=== PATIENT | female | born 1980 | race Caucasian/White ===

== ENCOUNTER 2020-07-25 22:52 | Emergency (ER) | payer OTHER, SELFPAY ==
--- NOTE | 2020-07-25 23:04 | PC.NURSE ---
Pt ambulated in [place] to provide urine specimen.
[2020-07-25 23:13] VITALS: BP 106/59; PULSE 92; RESP 21; TEMP 37.1; O2SAT 100
--- NOTE | 2020-07-25 23:20 | PC.NURSE ---
Pt presents to ED with swelling and erythema noted to bilateral LE with greater to right. Pt states initial onset was approx 4 days ago. Denies nvd, fever, chills and chest pain. States I am always short of breath. I use to smoke a lot . 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 No drainage or open wounds noted to BLE. Pt states they are painful with palpation and ambulation. Denies any treatment for extremities in the last month. Pt noted to be alert and oriented x4. Breathing even and unlabored with diminished lung sounds bilaterally. Daughter is present at bedside. Pt advised to press call button for assistance. Call button and personal items within reach.
--- NOTE | 2020-07-25 23:34 | PC.NURSE ---
EDMD presented to bedside.
--- NOTE | 2020-07-25 23:40 | ED.SKABFB ---
HPI - Skin/Abscess/Foreign Bdy General Chief complaint: Skin/Abscess/Foreign Body Stated complaint: leg redness and swelling Time Seen by Provider: 07/25/20 22:57 Source: patient and family Mode of arrival: ambulatory Limitations: no limitations History of Present Illness HPI narrative: 40-year-old female Complains of approximately a 4-day history of increasing over her usual baseline redness swelling and some pain in her right lower leg She typically has trace edema and stasis changes in both legs and has for a while, but the redness on the right is now new She does not have any fevers, chills or sweats No draining wounds She was told approximately 4 years ago at [facility] that she had cirrhosis which was either alcoholic cirrhosis or from hepatitis C, although she tells me she really never drank enough to be considered an alcoholic, but she never followed up to get treated and in fact really has not seen a doctor until today No current medications Related Data Allergies Allergy/AdvReac Type Severity Reaction Status Date / Time Penicillins Allergy Severe Swelling Verified 07/13/16 18:37 cephalexin Allergy Intermediate Swelling Verified 07/13/16 18:37 nitrofurantoin Allergy Intermediate Swelling Verified 07/13/16 18:37 Review of Systems Review of Systems: All systems reviewed & are unremarkable except as noted in HPI and below Constitutional: Constitutional: Reports no additional constitutional complaints, Denies chills, Reports fatigue, Denies fever(s), Denies headache(s) and Reports weakness Eyes: Eyes: Reports no additional eye complaints and Denies change in vision ENT: Denies headache(s) and Denies sore throat Cardiovascular: Cardiovascular: Denies chest pain and Denies dyspnea Respiratory: Respiratory: Reports cough and Reports dyspnea Gastrointestinal: Gastrointestinal: Denies abdominal pain, Denies diarrhea, Reports nausea and Denies vomiting Genitourinary: Genitourinary: Denies urinary frequency and Denies dysuria Musculoskeletal: Musculoskeletal: Denies deformity, Reports arthralgias, Reports joint swelling and Denies numbness Integumentary/Breasts: Skin/Breast: Reports erythema, Reports rash and Denies wounds Neurologic: Denies headache(s), Denies focal weakness and Denies numbness Psychiatric: Psychiatric: Reports no additional psychiatric complaints Endocrine: Endocrine: Reports no additional endocrine complaints Hematologic/Lymphatic: Hematologic/Lymphatic: Reports no additional hematologic/lymphatic complaints Allergic/Immunologic: Allergic/Immunologic: Reports no additional allergic/immunologic complaints Exam Const: General: cooperative, no acute distress and alert Nutritional Appearance: obese Orientation/consciousness: patient oriented x3 (alert) HENMT: Head: normal to inspection, normocephalic and atraumatic Ears: external ears normal General nose exam: no epistaxis Eyes: Conjunctivae: conjunctivae normal EOM: EOMs intact bilaterally Other: Not icteric Neck: Neck: normal visual inspection, supple and no JVD Resp: Effort & Inspection: normal respiratory effort and not labored Auscultation: other (BS =) GI: Inspection: Pannus present GI Palp: Yes Soft to palpation, No Tenderness to palpation present (GI), No Guarding due to palpation present (GI) and No Rebound tenderness present Skin: Rashes: rashes noted Other: Venous stasis changes of both lower legs On the right there is some superimposed dusky erythema which is mildly tender, and some petechial areas on the periphery Neuro: General: patient oriented x3 (alert) and moves all extremities Speech: normal speech Extrem: General: edema Psych: Affect: normal affect Course Vital Signs Vital signs: Vital Signs Temperature 37.1 C 07/25/20 23:13 Pulse Rate 92 07/25/20 23:13 Respiratory Rate 21 H 07/25/20 23:13 Blood Pressure 106/59 L 07/25/20 23:13 Pulse Oximetry 100 07/25/20 23:13 Tempera
[2020-07-26 00:06] LABS: Basophils Percent Auto 0.8 % (0.2-1.2); Eosinophils Absolute Auto 0.1 K/mm3 (0-0.3); Eosinophils Percent Auto 2.9 % (0-4.4); Hemoglobin 9.5 g/dL (12.0-15.0); Immature Platelet Fraction Pct 2.4 % (0.9-11.2); Lymphocytes Absolute Auto 0.85 K/mm3 (0.9-3.2); Mean Corpuscular HGB Conc 30.6 g/dl (32-36); Mean Corpuscular Hemoglobin 25.1 pg (26-34); Mean Corpuscular Volume 81.8 fl (80-100); Monocytes Absolute Auto 0.3 K/mm3 (0.1-0.6); Monocytes Percent Auto 10.7 % (2.6-8.5); Neutrophils Absolute Auto 1.2 K/mm3 (1.3-6.7); Neutrophils Percent Auto 50.6 % (45.5-73.1); Platelet Count Result 55 k/mm3 (150-375); Red Blood Count 3.79 M/mm3 (4.2-5.4); Red Cell Distribution Width 19.2 % (11.5-14.5); White Blood Count 2.4 K/mm3 (4.5-10.0)
[2020-07-26 00:06] LABS: Add Urine Microscopic? YES; Appearance Urine Cloudy (Clear); Bacteria Urine Trace /hpf; Bilirubin Urine 1+ (Negative); Blood Urine Negative (Negative); Color Urine Amber (Yellow); Glucose Urine UA Negative (Negative); Ketones Urine Negative (Negative); Leukocyte Esterase Ur 2+ LEU/UL (Negative); Mucus Urine Moderate /lpf; Nitrate Urine Negative (Negative); Protein Urine 1+ mg/dL (Negative); Squamous Epithelial Cell Urine Few /hpf (Few); WBC Urine 51-75 /hpf
[2020-07-26 00:09] LABS: INR 1.2
[2020-07-26 00:10] LABS: Alanine Aminotransferase 25 U/L (4-35); Albumin Level 2.9 g/dL (3.5-5.1); Alkaline Phosphatase 86 U/L (38-126); Anion Gap 6 mmol/L (8-16); Aspartate Amino Transferase 38 U/L (14-36); Bilirubin,Total 0.7 mg/dL (0.2-1.3); Blood Urea Nitrogen 10 mg/dL (7-17); CRP 1.3 mg/dL (<1.0); Calcium 8.1 mg/dL (8.4-10.2); Carbon Dioxide 24 mmol/L (22-30); Chloride 110 mmol/L (98-107); Estimated CRCL calculation 111 ml/min; Estimated Glomerular Filt Rate > 60; Glucose 149 mg/dL (65-105); Lipase 265 U/L (23-300); Potassium 3.7 mmol/L (3.4-5.0); Sodium 140 mmol/L (137-145)
[2020-07-26 00:11] LABS: D Dimer 0.63 ug/mL (<0.48)
[2020-07-26 00:16] LABS: Specific Grav Ur 1.033 (1.001-1.035)
[2020-07-26 00:22] VITALS: BP 114/49; PULSE 93; RESP 20; O2SAT 98
[2020-07-26 00:23] LABS: Anisocytosis 1+ (NORMAL); Platelet Estimate Decreased (Adequate)
[2020-07-26 00:24] LABS: Hypochromasia 1+ (NORMAL)
--- NOTE | 2020-07-26 00:24 | PC.NURSE ---
Pt on cart sleeping with call button and personal items within reach. Daughter remains at bedside. Advised to press call button for assistance.
[2020-07-26 01:13] LABS: Hepatitis B Surface Antigen Negative (Negative)
--- NOTE | 2020-07-26 01:16 | PC.NURSE ---
Will dc after completion of ABT.
[2020-07-26 01:18] LABS: HAV RESULT Negative (Negative); Hepatitis B Core IgM Result Negative (Negative)
--- NOTE | 2020-07-26 02:21 | PC.NURSE ---
Pt resting on cart in its lowest position with call button and personal items within reach. Pt advised to follow up in the morning for and ultrasound study, take all medications as prescribed and follow up with pcp and pt voices her understanding. Daughter remains at bedside. All questions and concerns addressed.
[2020-07-26 02:23] VITALS: BP 107/57; PULSE 87; RESP 19; TEMP 36.6; O2SAT 100
[2020-07-26 05:39] LABS: Hepatitis C Virus Antibody Reactive (Negative)
[2020-07-28 15:30] LABS: Hepatitis C RNA, Quant PCR 164000 IU/mL
== END 2020-07-26 02:31 | disposition home or self-care (01) ==
PROVIDERS: Emergency Provider Emergency Medicine
DX: L03.115 Cellulitis of right lower limb (principal); K74.60 Unspecified cirrhosis of liver
CPT/HCPCS: 36415; 80053; 80074; 81001; 83690; 85025; 85055; 85380; 85610; 86140; 87086; 87088; 87522; 96365; 96366; 99284; J1956

== ENCOUNTER 2020-07-26 12:35 | Outpatient (CLI) | payer OTHER, SELFPAY ==
--- NOTE | ~2020-07-26 | US_ITS ---
EXAMINATION: US venous doppler LE RT EXAM DATE: 07/26/2020 13:07 INDICATION: Right leg pain and swelling. TECHNIQUE: Multiple grayscale, color flow and Doppler images of the right lower extremity deep venous system were obtained and reviewed. There is no prior study for comparison. FINDINGS: The right common femoral, femoral and profunda veins demonstrate normal color flow, respira tory variation, augmentation and compressibility. Compressibility, color flow confirmed within the r ight popliteal, posterior tibial, peroneal, and greater saphenous veins. IMPRESSION: 1. No right lower extremity deep venous thrombosis. Reviewed, dictated and finalized at location B.
== END 2020-07-26 12:36 | disposition home or self-care (01) ==
PROVIDERS: PCP Family Medicine; Visit Provider Family Medicine
DX: M79.89 Other specified soft tissue disorders (principal)
CPT/HCPCS: 93971

== ENCOUNTER 2021-12-10 15:17 | Inpatient (IN) | payer OTHER, SELFPAY ==
[2021-12-10] VITALS (8 sets, daily range): BP systolic 120–148; BP diastolic 60–87; PULSE 82–101; RESP 16–18; TEMP 36.4–37; O2SAT 100; BMI 34.3
--- NOTE | ~2021-12-10 | US_ITS ---
EXAMINATION: US venous doppler [facility] DATE: 12/11/2021 10:14 INDICATION: Right lower limb swelling and edema TECHNIQUE: Grayscale ultrasound images without and with compression and Doppler ultrasound images of the bilateral lower extremity veins were obtained. COMPARISON: 07/26/2020 FINDINGS: The visualized portions of right common femoral vein, profunda (deep) femoral vein, femoral vein, pop liteal vein, posterior tibial veins, peroneal veins, gastrocnemius vein and greater saphenous vein ou tflow are patent. The visualized portions of left common femoral vein, profunda femoral vein, femoral vein, popliteal v ein, posterior tibial veins, peroneal veins, gastrocnemius vein, soleus vein and greater saphenous ve in outflow are patent. IMPRESSION: 1. No deep venous thrombosis in either lower limb. Reviewed, dictated and finalized at location B.
--- NOTE | ~2021-12-10 | XR_ITS ---
EXAMINATION: XR chest 2V Exam Date/Time: 12/10/2021 16:15 CDT HISTORY: Shortness of breath X 1 WK, HX PE, SMOKER Comparison: None available. RESULT: Lines, tubes, and devices: Cholecystectomy clips. Lungs and pleura: Clear. Cardiomediastinal silhouette: Normal. Other: No acute osseous or upper abdominal finding. IMPRESSION: No acute cardiopulmonary process. Reviewed, dictated and finalized at location K.
--- NOTE | ~2021-12-10 | XR_ITS ---
EXAMINATION: XR chest 1V portable DATE: 12/14/2021 12:32 INDICATION: Shortness of breath. TECHNIQUE: A single frontal view of the chest was obtained. COMPARISON: Chest 2 views 12/10/2021 FINDINGS: The chest demonstrates clear lungs without pneumonia, pleural effusion, or pneumothorax. Th e heart size is normal. IMPRESSION: 1. No acute cardiopulmonary disease. Reviewed, dictated and finalized at location A.
[2021-12-10 16:37] LABS: Basophils Percent Auto 0.9 % (0.2-1.2); Eosinophils Absolute Auto 0.1 K/mm3 (0-0.3); Eosinophils Percent Auto 2.8 % (0-4.4); Hematocrit 24.9 % (37.0-47.0); Immature Granulocyte Absolute 0.02 K/mm3 (0.00-0.031); Immature Granulocyte Percent A 0.9 % (0-0.5); Immature Platelet Fraction Pct 4.5 % (0.9-11.2); Lymphocytes Absolute Auto 0.55 K/mm3 (0.9-3.2); Lymphocytes Percent Auto 25.5 % (18.3-44.2); Mean Corpuscular HGB Conc 28.1 g/dl (32-36); Mean Corpuscular Hemoglobin 20.5 pg (26-34); Monocytes Absolute Auto 0.3 K/mm3 (0.1-0.6); Monocytes Percent Auto 15.7 % (2.6-8.5); Neutrophils Absolute Auto 1.2 K/mm3 (1.3-6.7); Neutrophils Percent Auto 54.2 % (45.5-73.1); Platelet Count Result 48 k/mm3 (150-375); Red Blood Count 3.41 M/mm3 (4.2-5.4); Red Cell Distribution Width 18.6 % (11.5-14.5); White Blood Count 2.2 K/mm3 (4.5-10.0)
[2021-12-10 16:47] LABS: Alanine Aminotransferase 27 U/L (6-35); Albumin Level 3.3 g/dL (3.5-5.1); Alkaline Phosphatase 93 U/L (38-126); Anion Gap 9 mmol/L (8-16); Aspartate Amino Transferase 42 U/L (14-36); Bilirubin,Total 0.9 mg/dL (0.2-1.3); Blood Urea Nitrogen 5 mg/dL (7-17); Calcium 7.6 mg/dL (8.4-10.2); Carbon Dioxide 21 mmol/L (22-30); Chloride 109 mmol/L (98-107); Estimated CRCL calculation 143 ml/min; Estimated Glomerular Filt Rate > 60; Glucose 117 mg/dL (65-110); Lipase 97 U/L (23-300); Potassium 3.1 mmol/L (3.4-5.0); Sodium 139 mmol/L (137-145)
[2021-12-10 16:54] LABS: Anisocytosis 1+ (NORMAL); Hypochromasia 1+ (NORMAL); Microcytosis 1+ (NORMAL); Ovalocytes 1+ (NORMAL); Platelet Estimate Decreased (Adequate)
[2021-12-10 16:55] LABS: Schistocytes None Seen (NORMAL)
--- NOTE | 2021-12-10 17:49 | ED.GENADULT ---
HPI - General Adult General Chief complaint: Extremity Problem,Nontraumatic Stated complaint: leg swelling, sob, cirrhosis Time Seen by Provider: 12/10/21 15:41 History of Present Illness HPI narrative: Patient is a 41-year-old female who presents ER with shortness of breath. Worsening over the last few days. Associated with increased edema to lower extremities. No fever chills or sweats. No productive cough. Patient has history of cirrhosis. Has been on treatment. Recently establish care with hepatology. She is supposed to be seeing Dr. Foreman and Jonathon johnson. She reports no recent dark black stools but had 1 episode 2 weeks ago. Shortness of breath that is worse with exertion. No chest pain or pressure or orthopnea. Related Data Allergies Allergy/AdvReac Type Severity Reaction Status Date / Time Penicillins Allergy Severe Swelling Verified 07/13/16 18:37 cephalexin Allergy Intermediate Swelling Verified 07/13/16 18:37 nitrofurantoin Allergy Intermediate Swelling Verified 07/13/16 18:37 Review of Systems Review of Systems: All systems reviewed & are unremarkable except as noted in HPI and below Constitutional: Constitutional: Denies chills, Denies fatigue and Denies fever(s) ENT: Denies nasal congestion and Denies sore throat Cardiovascular: Cardiovascular: Denies chest pain, Denies rapid heart rate and Denies radiating jaw, neck or arm pain Respiratory: Respiratory: Denies cough, Reports dyspnea and Denies wheezing Gastrointestinal: Gastrointestinal: Denies abdominal pain, Denies diarrhea, Denies nausea and Denies vomiting Genitourinary: Genitourinary: Denies nocturia and Denies dysuria Musculoskeletal: Musculoskeletal: Denies back pain, Denies arthralgias and Denies joint swelling Comments: Extremity edema PMFSH Past Medical History Medical History (Updated 12/10/21 @ 18:06 by Apollo Heller MD) Hepatitis C Surgical History Surgical History (Updated 12/10/21 @ 18:03 by Apollo Heller MD) No pertinent past surgical history Social History Social History (Updated 12/10/21 @ 18:03 by Apollo Heller MD) Other substance usage details: Former heroin abuser. Currently uses amphetamines. Exam Narrative: GENERAL: Well-appearing, well-nourished, and in no acute distress. HEAD: Normocephalic, atraumatic. EYES: PERRL and EOMI. CHEST: Clear to auscultation. No respiratory distress. HEART: Regular rate and rhythm. Normal peripheral pulses. ABDOMEN: Soft, nontender, nondistended, normal active bowel sounds. EXTREMITIES: Normal range of motion. Chronic lower extremity venous stasis changes with 1+ edema. SKIN: Warm, dry, no rash. NEURO: Alert and oriented x3. PSYCH: Normal mood and affect. Course Course Emergency Course: Patient informed of results. Admit to hospitalist service. We will transfuse and preform iron studies. Vital Signs Vital signs: Vital Signs Temperature 98.6 F 12/10/21 15:30 Pulse Rate 101 H 12/10/21 15:30 Respiratory Rate 16 12/10/21 15:30 Blood Pressure 148/77 H 12/10/21 15:30 Pulse Oximetry 100 12/10/21 15:30 Oxygen Delivery Room Air 12/10/21 15:30 Temperature 98.6 F 12/10/21 15:30 Pulse Rate 101 H 12/10/21 15:30 Respiratory Rate 16 12/10/21 15:30 Blood Pressure 148/77 H 12/10/21 15:30 Pulse Oximetry 100 12/10/21 15:30 Oxygen Delivery Room Air 12/10/21 15:30 Medical Decision Making Vital Signs Vital Signs: Vital Signs Temperature 98.6 F 12/10/21 15:30 Pulse Rate 101 H 12/10/21 15:30 Respiratory Rate 16 12/10/21 15:30 Blood Pressure 148/77 H 12/10/21 15:30 Pulse Oximetry 100 12/10/21 15:30 Oxygen Delivery Room Air 12/10/21 15:30 Temperature 98.6 F 12/10/21 15:30 Pulse Rate 101 H 12/10/21 15:30 Respiratory Rate 16 12/10/21 15:30 Blood Pressure 148/77 H 12/10/21 15:30 Pulse Oximetry 100 12/10/21 15:30 Oxygen Delivery Room Air 12/10/21 15:30 Lab Data Result d
[2021-12-10 18:03] LABS: Immature Reticulocyte Fraction 19.5 % (3.0-15.9); Reticulocyte Percent 1.91 % (0.7-4.3); Reticulocytes Absolute 0.07 B/L (32.2-175.7)
[2021-12-10 18:48] LABS: SARS-CoV-2 RNA PCR Negative
[2021-12-10 19:22] LABS: Lactate Dehydrogenase 190 U/L (120-246)
[2021-12-10 19:27] LABS: INR 1.4; Prothrombin Time 16.7 Seconds (11.1-14.7)
[2021-12-10 19:29] LABS: Partial Thromboplastin Time 32.9 SECONDS (22.3-36.8)
--- NOTE | 2021-12-10 19:32 | ADMGEN ---
This patient, Nichelle Pelayo, was admitted to 2 Medical Room 257-01. Patient/family oriented to hospital policies and general routines including ID bracelet, bed and alarms, visiting hours, pain management, procedures, bathroom and other care routines, personal items, smoking policy, room service/diet, and visiting hours. Information on how to activate the Rapid Response Team has been discussed. Patient/Family are encouraged to report perceived risks to care and to ask questions if they do not understand what they are told or what they should do.
[2021-12-10 20:17] LABS: Iron 24 ug/dL (37-170)
[2021-12-10 20:27] LABS: Percent Iron Saturation 5 % (20-50)
[2021-12-10 20:29] LABS: Folic Acid 17.9 ng/mL (2.76->20)
[2021-12-10 20:54] LABS: Ferritin 7.36 ng/mL (6.24-137)
--- NOTE | 2021-12-10 22:00 | PM.IMHP ---
H&P: HPI History of Present Illness Date/Time: 12/10/21 22:00 Chief Complaint: Shortness of breath and leg swelling. Narrative: This is a pleasant 41-year-old female with history of polysubstance abuse, hepatitis-C, and cirrhosis who presented to the emergency department for evaluation of shortness of breath and leg swelling. She was diagnosis with cirrhosis in 2017 and at that time she found out she was positive for hepatitis-C as well. She was not treated for such and has not been following with a sales operations analyst though about 8 months ago she decided that she wanted to get clean and get her help under control. She has been seeing Dr. Foreman (gastroenterology) and they are in the process of getting insurance approval to treat the hepatitis-C. it is not unusual for her to have intermittent abdominal swelling and lower extremity swelling in that seems to come and go despite the fact that she is not on diuretics at home. Over the last month or so she has had increasing lower extremity edema and more recently she has noticed that she is becoming increasingly short of breath on lesser and lesser exertion. She has really not gotten out of bed since because she is so we can get short of breath with walking. Additionally she has had mild epigastric discomfort with bloating and belching and she states this is similar to when she was diagnosed with an ulcer in the past. Her vital signs were stable on arrival to the emergency department. Workup was significant for pancytopenia with white blood cell count of 2.2, hemoglobin 7.0, MCV 73, platelets 48. Her coags were slightly prolonged as well but not significantly so. With further questioning she does endorse having intermittent dark stools but typically her stools are light in color. She is currently on her period and she has been menstruating for 2 weeks. Her period has been quite heavy and for several days she had clots as biggest her palm. She also endorses feeling lightheaded and dizzy. She is being admitted now for blood transfusion and consultation with Gastroenterology. She denies fever, chills, sweats, chest pain, pleuritic pain, resting shortness of breath, nausea, vomiting, hematemesis, abdominal pain, hematochezia, and recent melena. She has not been taking aspirin or NSAIDs. Review of Systems Review of Systems: Twelve systems were reviewed and are negative except for as per HPI. [facility] Past Medical History Medical History (Updated 12/11/21 @ 00:21 by Nery Tyson PA-C) Cirrhosis Hepatitis C Surgical History Surgical History (Updated 12/10/21 @ 23:01 by Nery Tyson PA-C) History of section History of cholecystectomy Family History Family History (Updated 12/11/21 @ 00:18 by Nery Tyson PA-C) Sibling Drug addiction Social History Social History (Updated 12/11/21 @ 00:19 by Nery Tyson PA-C) Social History: Surrogate medical decision maker: Claudia Pelayo, mother. Code status: Full code. Smoking packs per day: 0.5 Smoking cigarettes per day: 10.0 Years smoked: 25 Smoking pack-years: 12.50 Smoking status: Current every day smoker Tobacco type: cigarettes Alcohol intake: never Substance use: current Substance use type: heroin and methamphetamine Other substance usage details: history of heroin use for 11 years, clean for 11 years. Last use: Snorts meth daily for the past 6 years. Has the Lack of Transportation Kept You From Medical Appointments or From Getting Medications?: No Within the Past 12 Months, Were You Worried Whether Your Food Would Run Out Before You Got Money to Buy More?: Never True What is Your Housing Situation Today?: I Have Housing Are You Worried That in the Next 2 Months, You May Not Have Your Own Housing to Live In?: No Do You Have Trouble Paying Your Heating Or Electricity Bill?: No Do You Have Trouble Paying For Medicines?: No Are You Currently Unemployed and Looking
[2021-12-10] MEDS: SODIUM CHLORIDE 0.9% IV 250 ML 30 ML IV CONT (22:06)
[2021-12-11] VITALS (13 sets, daily range): BP systolic 114–136; BP diastolic 63–74; PULSE 73–98; RESP 16–18; TEMP 36.5–37.2; O2SAT 99–100
[2021-12-11] MEDS: PANTOPRAZOLE SODIUM IV 40 MG VIAL IV PUSH ×3 (00:59→20:48)
[2021-12-11] MEDS: POTASSIUM CHLORIDE 20 MEQ TABLET PO (00:59)
[2021-12-11 06:44] LABS: Hematocrit 26.5 % (37.0-47.0); Hemoglobin 7.6 g/dL (12.0-15.0); Mean Corpuscular HGB Conc 28.7 g/dl (32-36); Mean Corpuscular Hemoglobin 21.3 pg (26-34); Mean Corpuscular Volume 74.4 fl (80-100); Platelet Count Result 44 k/mm3 (150-375); Red Blood Count 3.56 M/mm3 (4.2-5.4); Red Cell Distribution Width 18.9 % (11.5-14.5); White Blood Count 2.5 K/mm3 (4.5-10.0)
[2021-12-11 06:54] LABS: Alanine Aminotransferase 27 U/L (6-35); Albumin Level 3.1 g/dL (3.5-5.1); Alkaline Phosphatase 90 U/L (38-126); Anion Gap 6 mmol/L (8-16); Aspartate Amino Transferase 43 U/L (14-36); Bilirubin,Total 1.2 mg/dL (0.2-1.3); Blood Urea Nitrogen 7 mg/dL (7-17); Calcium 7.5 mg/dL (8.4-10.2); Carbon Dioxide 22 mmol/L (22-30); Chloride 109 mmol/L (98-107); Estimated CRCL calculation 122 ml/min; Estimated Glomerular Filt Rate > 60; Glucose 114 mg/dL (65-110); Magnesium 1.9 mg/dL (1.6-2.3); Potassium 3.7 mmol/L (3.4-5.0); Sodium 137 mmol/L (137-145)
--- NOTE | 2021-12-11 12:24 | PM.IMPN ---
Progress Note: A&P Assessment and Plan (1) Shortness of breath: Code(s): R06.02 - Shortness of breath Status: Acute Assessment and Plan: Presented with complaints of increased shortness of breath which has improved. This is likely due to anemia. Chest x-ray shows no acute cardiopulmonary process. Bilateral venous Dopplers negative for DVT and PE is unlikely based on history and clinical findings. She is maintaining adequate O2 sats on room air (2) Microcytic anemia: Code(s): D50.9 - Iron deficiency anemia, unspecified Status: Acute Assessment and Plan: Hemoglobin 7.0 on presentation and she has been transfused 1 unit of packed RBCs. iron panel is consistent with iron deficiency anemia. Patient does report heavy menses which could contribute. She owned follow-up with gynecology as an outpatient. Given her history of cirrhosis, GI bleed also considered. Appreciate GI consultation. Stool occult blood test pending. Continue Protonix. Monitor H&H to ensure remaining stable (3) Cirrhosis: Code(s): K74.60 - Unspecified cirrhosis of liver Status: Acute Assessment and Plan: Patient with history of cirrhosis, followed by hepatology. She has been started on spironolactone due to complaints of excess fluid, will continue. Appreciate GI evaluation. (4) Methamphetamine use: Code(s): F15.10 - Other stimulant abuse, uncomplicated Status: Acute Assessment and Plan: Patient reported to admitting provider that she has been using methamphetamine daily up until 5 days prior to admission. Subsequently told me she has not used for several months. Pts daughter reports she has been using daily and last use was 12/10. Daughter requests resources for methamphetamine abuse counseling, rehab, etc. (5) Hepatitis C: Code(s): B19.20 - Unspecified viral hepatitis C without hepatic coma Status: Acute Assessment and Plan: Currently untreated. Awaiting insurance approval to initiate treatment per her drum builder. (6) Pancytopenia: Code(s): D61.818 - Other pancytopenia Status: Acute Assessment and Plan: Secondary to cirrhosis. Monitor CBC with differential. (7) Tobacco abuse: Code(s): Z72.0 - Tobacco use Status: Acute Assessment and Plan: Patient smokes 1/2 ppd. Requests nicotine patch during admission. Subjective Date/time seen: 12/11/21 12:24 Interval history: date of service: 12/11/2021 Nichelle Pelayo is a 41-year-old female with a history of polysubstance abuse, hepatitis-C not currently receiving treatment, cirrhosis who is seen in follow-up for anemia. Patient states she is feeling okay today. Her main complaint is worsened fatigue. States she was feeling short of breath but this has improved significantly. She denies wheezing, cough, or chest pain. She denies abdominal pain, nausea, or vomiting. She has some vague epigastric discomfort. Her daughter states that she is always complaining of abdominal issues. She denies blood in her stools. She does endorse very heavy menses and states that she has been passing clots. She states her lower extremity edema has resolved. She was having muscle cramping last night but this also seems improved. She states she has not used any recreational drugs in several weeks, states she does not drink alcohol and has no history of heavy alcohol use, and that she smokes a half a pack a day. She requested nicotine patch. Her daughter stepped outside the room to speak with me. she states she did not wish to bring up in front of her mother so as not to upset her but she is aware that she has been using meth daily, as recently as yesterday before coming to the hospital. She is unsure if she is smoking, snorting, or shooting up. She wanted to make sure medical staff was aware. She also indicates that she does have history of heavy alcohol use, though
[2021-12-11] MEDS: NICOTINE (*PBKC) 14 MG PATCH 1 PATCH TRANSDERM (13:06)
[2021-12-11 13:20] LABS: IFOB Positive Control Positive; Immunochemical Fecal Occult Bl Negative (N)
--- NOTE | 2021-12-11 15:01 | WPDGICN ---
Assessment and Plan Assessment and plan (1) Cirrhosis: Code(s): K74.60 - Unspecified cirrhosis of liver Status: Acute Assessment and Plan: HCV cirrhosis, treatment naive but recently her GI doctor sent off blood work to her insurance and hopefully start treatment soon (2) Pancytopenia: Code(s): D61.818 - Other pancytopenia Status: Acute Assessment and Plan: wonder if could be from cirrhosis (3) Hepatitis C: Code(s): B19.20 - Unspecified viral hepatitis C without hepatic coma Status: Acute (4) Acute on chronic anemia: Code(s): D64.9 - Anemia, unspecified Status: Acute Assessment and Plan: also noted microcytosis she also has heavy periods, will do egd given history of cirrhosis to check for ev or phg, also colonoscopy since never had one (5) Methamphetamine use: Code(s): F15.10 - Other stimulant abuse, uncomplicated Status: Acute Assessment and Plan: she is trying to quit (6) Shortness of breath: Code(s): R06.02 - Shortness of breath Status: Acute Assessment and Plan: probably from anemia and underlying cirrhosis GI Consult Note Consult date/time: 12/11/21 15:01 Reason for consult: cirrhosis, acute on chronic microcytic anemia HPI: Nichelle Pelayo is a 41 year old female with?history of polysubstance abuse (remote iv heroin, now methamphetamine), hepatitis-C cirrhosis diagnosed in 2017- remember having EGD. She just established with GI and she is on the process to get insurance approval to start treatment, still treatment naive. She came here because progressive leg edema and last few days increasing short of breath on exertion.? Blood work consistent with pancytopenia with white blood cell count of 2.2, hemoglobin 7.0, MCV 73, platelets 48. She has been having heavy periods with clots for last 2 weeks. She does not remember having colonoscopy. Review of Systems Review of Systems: All systems reviewed & are unremarkable except as noted in HPI and below Constitutional: Constitutional: Denies chills, Reports fatigue and Denies fever(s) ENT: Denies nasal congestion and Denies sore throat Cardiovascular: Cardiovascular: Denies chest pain, Denies rapid heart rate and Denies radiating jaw, neck or arm pain Respiratory: Respiratory: Denies cough, Reports dyspnea on exertion and Denies wheezing Gastrointestinal: Gastrointestinal: Denies abdominal pain, Denies diarrhea, Denies nausea and Denies vomiting Genitourinary: Genitourinary: Denies nocturia and Denies dysuria Musculoskeletal: Musculoskeletal: Denies back pain, Denies arthralgias and Denies joint swelling Comments: Extremity edema Integumentary/Breasts: Skin/Breast: Denies rash Neurologic: Denies confusion Psychiatric: Psychiatric: Denies confusion [facility] Past Medical History Medical History (Updated 12/11/21 @ 15:08 by Mehul Garduno MD) Acute on chronic anemia Cirrhosis Hepatitis C Tobacco abuse Surgical History Surgical History (Updated 12/10/21 @ 23:01 by Nery Tyson PA-C) History of section History of cholecystectomy Family History Family History (Updated 12/11/21 @ 00:18 by Nery Tyson PA-C) Sibling Drug addiction Social History Social History (Updated 12/11/21 @ 00:19 by Nery Tyson PA-C) Social History: Surrogate medical decision maker: lCaudia Pelayo, mother. Code status: Full code. Smoking packs per day: 0.5 Smoking cigarettes per day: 10.0 Years smoked: 25 Smoking pack-years: 12.50 Smoking status: Current every day smoker Tobacco type: cigarettes Alcohol intake: never Substance use: current Substance use type: heroin and methamphetamine Other substance usage details: history of heroin use for 11 years, clean for 11 years. Last use: Snorts meth daily for the past 6 years. Has the Lack of Transportation Kept You From Medical Appoint
[2021-12-11 15:07] LABS: Hematocrit 26.7 % (37.0-47.0); Hemoglobin 7.6 g/dL (12.0-15.0)
[2021-12-11] MEDS: polyethylene glycoL 3350 238 GM BOTTLE PO (17:27)
[2021-12-11] MEDS: BISACODYL 5 MG TABLET EC 20 MG PO (17:27)
[2021-12-11 23:32] LABS: Hematocrit 26.6 % (37.0-47.0); Hemoglobin 7.6 g/dL (12.0-15.0)
[2021-12-12] VITALS (13 sets, daily range): BP systolic 91–122; BP diastolic 49–82; PULSE 71–86; RESP 16–20; TEMP 36.2–36.7; O2SAT 100
[2021-12-12] MEDS: ONDANSETRON INJ 4 MG/2 ML VIAL IV PUSH (00:55)
[2021-12-12 04:19] LABS: Hematocrit 26.7 % (37.0-47.0); Hemoglobin 7.6 g/dL (12.0-15.0); Immature Platelet Fraction Pct 4.6 % (0.9-11.2); Mean Corpuscular HGB Conc 28.5 g/dl (32-36); Mean Corpuscular Hemoglobin 21.1 pg (26-34); Platelet Count Result 50 k/mm3 (150-375); Red Blood Count 3.61 M/mm3 (4.2-5.4); Red Cell Distribution Width 18.7 % (11.5-14.5); White Blood Count 2.8 K/mm3 (4.5-10.0)
[2021-12-12 04:28] LABS: Alanine Aminotransferase 28 U/L (6-35); Albumin Level 3.1 g/dL (3.5-5.1); Alkaline Phosphatase 81 U/L (38-126); Anion Gap 10 mmol/L (8-16); Aspartate Amino Transferase 45 U/L (14-36); Bilirubin,Total 1.1 mg/dL (0.2-1.3); Blood Urea Nitrogen 7 mg/dL (7-17); Calcium 7.7 mg/dL (8.4-10.2); Carbon Dioxide 23 mmol/L (22-30); Chloride 105 mmol/L (98-107); Estimated CRCL calculation 122 ml/min; Estimated Glomerular Filt Rate > 60; Glucose 129 mg/dL (65-110); Potassium 3.7 mmol/L (3.4-5.0); Sodium 138 mmol/L (137-145)
[2021-12-12 04:54] LABS: Total Cells Counted 100
[2021-12-12 04:55] LABS: Band Neutrophils Percent 10 % (0-6); Eosinophils Absolute Manual 0.02 K/mm3 (0.02-0.5); Eosinophils Percent Manual 1 % (0-4); Lymphocytes Absolute Manual 0.61 K/mm3 (1.1-4.5); Lymphocytes Percent Manual 22 % (18-44); Monocytes Absolute Manual 0.05 K/mm3 (0.1-0.90); Monocytes Percent Manual 2 % (3-9); Neutrophils Absolute Manual 2.07 K/mm3 (1.7-7.2); Neutrophils Percent Manual 64 % (46-73)
[2021-12-12 04:56] LABS: Basophils Absolute Manual 0.02 K/mm3 (0.0-0.1); Basophils Percent Manual 1 % (0-1); Smudge Cells FEW
[2021-12-12 04:57] LABS: Platelet Estimate Decreased (Adequate)
[2021-12-12 04:58] LABS: Anisocytosis 2+ (NORMAL); Hypochromasia 2+ (NORMAL); Macrocytosis 1+ (NORMAL); Microcytosis 1+ (NORMAL); Poikilocytosis 2+ (NORMAL)
[2021-12-12 04:59] LABS: Burr Cells 1+ (NORMAL); Ovalocytes 1+ (NORMAL); Tear Drop Cells 1+ (NORMAL); Toxic Granulation Present (NORMAL)
[2021-12-12 05:00] LABS: Schistocytes 1+ (NORMAL)
[2021-12-12] MEDS: polyethylene glycoL 3350 238 GM BOTTLE PO (06:27)
--- NOTE | 2021-12-12 08:23 | PC.NURSE ---
Report called to [facility].
--- NOTE | 2021-12-12 08:40 | PC.NURSE ---
To GI Lab via wheelchair.
[2021-12-12] MEDS: LACTATED RINGERS 1,000 ML 150 ML IV CONT (08:52)
--- NOTE | 2021-12-12 08:53 | SUR.PREOP ---
no HCG noted. pt states she is currently on her menstrual cycle. Anesthesia Min made aware. no orders.
[2021-12-12] MEDS: BENZOCAINE (*SP) 60 ML SPRAY CAN (HURRICAINE) 1 SPRAY MUCOUS MEM (09:51)
--- NOTE | 2021-12-12 09:52 | SUR.OPER ---
EGD: [id number] COLON: [id number]
--- NOTE | 2021-12-12 11:00 | PC.NURSE ---
Returned from GI Lab via stretcher.
--- NOTE | 2021-12-12 15:31 | PM.IMPN ---
Progress Note: A&P Assessment and Plan (1) Shortness of breath: Code(s): R06.02 - Shortness of breath Status: Acute Assessment and Plan: This is likely due to anemia. Chest x-ray shows no acute cardiopulmonary process. Bilateral venous Dopplers negative for DVT and PE is unlikely based on history and clinical findings. She is maintaining adequate O2 sats on room air. Incentive spirometry (2) Microcytic anemia: Code(s): D50.9 - Iron deficiency anemia, unspecified Status: Acute Assessment and Plan: Hemoglobin 7.0 on presentation and she wastransfused 1 unit of packed RBCs. iron panel is consistent with iron deficiency anemia. Patient does report heavy menses which could contribute. She will need follow-up with gynecology as an outpatient. Given her history of cirrhosis, there was concern for GI bleed and she was seen in consultation by Gastroenterology. EGD demonstrated moderate gastritis. Continue Protonix. No findings to explain anemia on colonoscopy. Stool occult blood test negative. Monitor H&H to ensure remaining stable (3) Cirrhosis: Code(s): K74.60 - Unspecified cirrhosis of liver Status: Acute Assessment and Plan: Patient with history of cirrhosis, followed by hepatology. She has been started on spironolactone due to complaints of excess fluid. Seen in consultation by Gastroenterology. EGD today revealed small grade 1 nonbleeding esophageal varices. She has been started on propranolol 10 mg q12h (4) Methamphetamine use: Code(s): F15.10 - Other stimulant abuse, uncomplicated Status: Acute Assessment and Plan: Patient reported to admitting provider that she has been using methamphetamine daily up until 5 days prior to admission. Subsequently told me she has not used for several months. Pts daughter reports she has been using daily and last use was 12/10. Daughter requests resources for methamphetamine abuse counseling, rehab, etc. Appreciate care coordination to provide resources. (5) Hepatitis C: Code(s): B19.20 - Unspecified viral hepatitis C without hepatic coma Status: Acute Assessment and Plan: Currently untreated. Awaiting insurance approval to initiate treatment per her front of house manager. (6) Pancytopenia: Code(s): D61.818 - Other pancytopenia Status: Acute Assessment and Plan: Secondary to cirrhosis. Monitor CBC with differential. (7) Tobacco abuse: Code(s): Z72.0 - Tobacco use Status: Acute Assessment and Plan: Patient smokes 1/2 ppd. Continue nicotine patch. Continue to reinforce smoking cessation Subjective Date/time seen: 12/12/21 15:31 Interval history: date of service: 12/12/2021 Nichelle Pelayo is a 41-year-old female with a history of polysubstance abuse, hepatitis-C not currently receiving treatment, cirrhosis who is seen in follow-up for anemia. she had EGD and colonoscopy today. She is feeling very poorly after this. She complains of 7/10 epigastric pain. She denies nausea or vomiting. She reports loose stools following her colonoscopy prep. She has not noticed any blood in her stools. She states she is not able to get up and walk around. She feels very weak and dizzy. She notes no change to her shortness of breath. Feels her lower extremity edema is improved Review of Systems Review of Systems: All systems reviewed & are unremarkable except as noted in HPI and below Exam Narrative: General: Well-nourished, chronically ill-appearing 41-year-old female, sitting up in bed , comfortable, NARD Neuro: awake, alert and oriented x4, speech clear, no focal neuro deficits noted HEENMT: normocephalic, atraumatic, EOMI, sclerae anicteric, poor dentition Respiratory: clear to auscultation bilaterally, nonlabored breathing Cardio: regular rate, regular rhythm with S1-S2 Abdomen: nondistended, normoactive bowel sounds,
[2021-12-12] MEDS: PROPRANOLOL HCL 10 MG TABLET PO (20:49)
[2021-12-13] VITALS (16 sets, daily range): BP systolic 100–122; BP diastolic 50–90; PULSE 66–89; RESP 12–20; TEMP 35.9–36.8; O2SAT 96–100
[2021-12-13] MEDS: HYDROcodone/acetaminophen (*CRX) 5-325 MG TABLET 1 TAB PO ×3 (01:11→10:02)
[2021-12-13 05:24] LABS: Hematocrit 28.7 % (37.0-47.0); Hemoglobin 8.2 g/dL (12.0-15.0); Immature Platelet Fraction Pct 4.3 % (0.9-11.2); Mean Corpuscular HGB Conc 28.6 g/dl (32-36); Mean Corpuscular Hemoglobin 21.3 pg (26-34); Mean Corpuscular Volume 74.5 fl (80-100); Platelet Count Result 58 k/mm3 (150-375); Red Blood Count 3.85 M/mm3 (4.2-5.4); Red Cell Distribution Width 18.9 % (11.5-14.5); White Blood Count 3.5 K/mm3 (4.5-10.0)
[2021-12-13 05:29] LABS: Alanine Aminotransferase 26 U/L (6-35); Albumin Level 3.1 g/dL (3.5-5.1); Alkaline Phosphatase 76 U/L (38-126); Anion Gap 8 mmol/L (8-16); Aspartate Amino Transferase 41 U/L (14-36); Bilirubin,Total 0.8 mg/dL (0.2-1.3); Blood Urea Nitrogen 10 mg/dL (7-17); Calcium 7.8 mg/dL (8.4-10.2); Carbon Dioxide 26 mmol/L (22-30); Chloride 106 mmol/L (98-107); Estimated CRCL calculation 123 ml/min; Estimated Glomerular Filt Rate > 60; Glucose 112 mg/dL (65-110); Potassium 3.6 mmol/L (3.4-5.0); Sodium 140 mmol/L (137-145)
[2021-12-13 06:07] LABS: Band Neutrophils Percent 3 % (0-6); Lymphocytes Percent Manual 20 % (18-44); Neutrophils Absolute Manual 2.73 K/mm3 (1.7-7.2); Neutrophils Percent Manual 75 % (46-73); Total Cells Counted 100
[2021-12-13 06:08] LABS: Basophils Absolute Manual 0.03 K/mm3 (0.0-0.1); Basophils Percent Manual 1 % (0-1); Eosinophils Absolute Manual 0.03 K/mm3 (0.02-0.5); Eosinophils Percent Manual 1 % (0-4); Smudge Cells FEW
[2021-12-13 06:09] LABS: Anisocytosis 1+ (NORMAL); Hypochromasia 2+ (NORMAL); Macrocytosis 1+ (NORMAL); Poikilocytosis 1+ (NORMAL); Target Cells 1+ (NORMAL)
[2021-12-13 06:10] LABS: Ovalocytes 1+ (NORMAL); Schistocytes None Seen (NORMAL); Tear Drop Cells 1+ (NORMAL)
[2021-12-13] MEDS: NICOTINE (*PBKC) 14 MG PATCH 1 PATCH TRANSDERM (10:01)
[2021-12-13] MEDS: PROPRANOLOL HCL 10 MG TABLET PO ×2 (10:02→21:19)
[2021-12-13] MEDS: PANTOPRAZOLE 40 MG TABLET PO (10:02)
[2021-12-13] MEDS: SPIRONOLACTONE 25 MG TABLET PO (10:02)
--- NOTE | 2021-12-13 10:19 | PC.NURSE ---
patient states she has not been on bed alarm. she does not technically qualify for bed alarm, but I educated her that she should call when ambulating due to dizziness. She is agreeable to bed alarm as well as calling to have help.
--- NOTE | 2021-12-13 11:01 | WPDANESPN ---
Anes - Prog Note Post-Op Date/Time: 12/13/21 08:48 Cardiovascular status: normal Respiratory status: normal Airway patency: baseline Mental status: baseline Post-Op hydration status: normal Vital Signs: Last Vital Signs Temp 97 F L 12/13/21 10:22 Pulse 84 12/13/21 10:22 Resp 16 12/13/21 10:22 BP 114/71 12/13/21 10:22 Pulse Ox 97 12/13/21 10:22 O2 Del Method Room Air 12/13/21 10:00 Pain Score (VAS): 0 I/O: Intake & Output 12/12/21 12/13/21 12/13/21 23:59 07:59 15:59 Intake Total 730 390 240 Balance 730 390 240 Laboratory Tests 12/13/21 05:08 12/13/21 05:08 12/13/21 12/13/21 05:08 05:08 WBC 3.5 L RBC 3.85 L Hgb 8.2 L Hct 28.7 L MCV 74.5 L MCH 21.3 L MCHC 28.6 L RDW 18.9 H Plt Count 58 L MPV TNP Immature Gran % (Auto) Not Reportable Neut % (Auto) Not Reportable Lymph % (Auto) Not Reportable [place] % (Auto) Not Reportable Eos % (Auto) Not Reportable Baso % (Auto) Not Reportable Lymph # (Auto) Not Reportable [place] # (Auto) Not Reportable Eos # (Auto) Not Reportable Baso # (Auto) Not Reportable Abs Immat Gran (auto) Not Reportable Absolute Neuts (auto) Not Reportable Absolute Nucleated RBC Not Reportable Total Counted 100 Neutrophils % (Manual) 75 H Band Neutrophils % 3 Lymphocytes % (Manual) 20 Eosinophils % (Manual) 1 Basophils % (Manual) 1 Nucleated RBC % Not Reportable Abs Neuts (Manual) 2.73 Abs Lymphs (Manual) 0.70 L Absolute Eos (Manual) 0.03 Abs Basophils (Manual) 0.03 Smudge Cells Few Platelet Estimate Slightly decreased % Immature Plt Fraction 4.3 Hypochromasia 2+ Poikilocytosis 1+ Anisocytosis 1+ Macrocytosis 1+ Target Cells 1+ Tear Drop Cells 1+ Ovalocytes 1+ Schistocytes None seen Sodium 140 Potassium 3.6 Chloride 106 Carbon Dioxide 26 Anion Gap 8 BUN 10 Creatinine 0.60 L Estim Creat Clear Calc 123 Estimated GFR > 60 Glucose 112 H Calcium 7.8 L Total Bilirubin 0.8 AST 41 H ALT 26 Alkaline Phosphatase 76 Total Protein 7.0 Albumin 3.1 L Post-procedural complaints: none Patient Feedback: Patient satisfied with anesthetic care.
[2021-12-13 11:34] LABS: Troponin I < 0.012 ng/mL (0.000-0.034)
[2021-12-13] MEDS: FERROUS SULFATE 324 MG TABLET PO (12:43)
--- NOTE | 2021-12-13 13:18 | PC.NURSE ---
On 12/13/21, the student, [Matt Bliss], provided care and completed [facility] documentation on this patient. I have reviewed the student's documentation and agree with the findings.
[2021-12-13] MEDS: SODIUM CHLORIDE 0.9% IV 250 ML 100 ML IV CONT (15:48)
--- NOTE | 2021-12-13 16:47 | PM.IMPN ---
Progress Note: A&P Assessment and Plan (1) Microcytic anemia: Code(s): D50.9 - Iron deficiency anemia, unspecified Status: Acute Assessment and Plan: Hemoglobin 7.0 on presentation and she was transfused 1 unit of packed RBCs on 12/10/21. iron panel is consistent with iron deficiency anemia. Patient does report heavy menses which could contribute. She will need follow-up with gynecology as an outpatient. Given her history of cirrhosis, there was concern for GI bleed and she was seen in consultation by Gastroenterology. EGD demonstrated moderate gastritis. Continue Protonix. No findings to explain anemia on colonoscopy. Stool occult blood test negative. Monitor H&H to ensure remaining stable 12/13/21 patient has persistent dizziness that may be secondary to anemia, H/H 8.2/28% stable from yesterday, start ferrous sulfate 325 mg PO daily and ascorbic acid 500 mg PO daily. Repeat H/H in am. (2) Cirrhosis: Qualifiers: Hepatic cirrhosis type: other cirrhosis Qualified Code(s): K74.69 - Other cirrhosis of liver Code(s): K74.60 - Unspecified cirrhosis of liver Status: Chronic Assessment and Plan: Patient with history of cirrhosis, followed by hepatology. H/O HCV She has been started on spironolactone due to complaints of excess fluid. Seen in consultation by Gastroenterology. 12/12/21 EGD revealed small grade 1 nonbleeding esophageal varices. She has been started on propranolol 10 mg q12h and spironolactone 25 mg PO daily. dizziness may be secondary to new medications. Will given 250 mL cc bolus x1 and monitor symptoms. (3) Shortness of breath: Code(s): R06.02 - Shortness of breath Status: Acute Assessment and Plan: This is likely due to anemia. Chest x-ray shows no acute cardiopulmonary process. Bilateral venous Dopplers negative for DVT and PE is unlikely based on history and clinical findings. She is maintaining adequate O2 sats on room air. Continue Incentive spirometry (4) Methamphetamine use: Code(s): F15.10 - Other stimulant abuse, uncomplicated Status: Chronic Assessment and Plan: Patient reported to admitting provider that she has been using methamphetamine daily up until 5 days prior to admission. Subsequently told me she has not used for several months. Pts daughter reports she has been using daily and last use was 12/10. Daughter requests resources for methamphetamine abuse counseling, rehab, etc. Appreciate care coordination to provide resources. (5) Hepatitis C: Qualifiers: Viral hepatitis chronicity: unspecified Hepatic coma status: without hepatic coma Qualified Code(s): B19.20 - Unspecified viral hepatitis C without hepatic coma Code(s): B19.20 - Unspecified viral hepatitis C without hepatic coma Status: Chronic Assessment and Plan: Currently untreated. Awaiting insurance approval to initiate treatment per her occasional babysitter. (6) Pancytopenia: Code(s): D61.818 - Other pancytopenia Status: Chronic Assessment and Plan: Secondary to cirrhosis. Monitor CBC with differential. (7) Tobacco abuse: Code(s): Z72.0 - Tobacco use Status: Chronic Assessment and Plan: Patient smokes 1/2 ppd. Continue nicotine patch. Continue to reinforce smoking cessation Plan CODE STATUS: FULL CODE Disposition: home with daughter. Time Spent With Patient Time with patient: 25 - 35 minutes Subjective Date/time seen: 12/13/21 16:47 Interval history: Patient c/o dizziness at rest and with activity. She has left sided chest pain that has been present since prior to admission and is somewhat improved today. No SOB, palpitations, abd pain, N/V/D, constipation, or paresthesia. She is still on her menses today and states she was changing her pads frequently yesterday. No clots noted. She has not seen a quality control manager in many years. Re
[2021-12-13 18:04] LABS: Glucose Point of Care 122 mg/dl (65-105)
[2021-12-13] MEDS: ONDANSETRON INJ 4 MG/2 ML VIAL IV PUSH (18:07)
[2021-12-14] VITALS (8 sets, daily range): BP systolic 117–124; BP diastolic 65–72; PULSE 64–72; RESP 16–20; TEMP 36.4–36.9; O2SAT 98–100
[2021-12-14 05:46] LABS: Hematocrit 28.8 % (37.0-47.0); Hemoglobin 8.2 g/dL (12.0-15.0); Immature Platelet Fraction Pct 4.9 % (0.9-11.2); Mean Corpuscular HGB Conc 28.5 g/dl (32-36); Mean Corpuscular Hemoglobin 21.1 pg (26-34); Mean Corpuscular Volume 74.2 fl (80-100); Platelet Count Result 57 k/mm3 (150-375); Red Blood Count 3.88 M/mm3 (4.2-5.4); Red Cell Distribution Width 18.8 % (11.5-14.5); White Blood Count 3.1 K/mm3 (4.5-10.0)
[2021-12-14] MEDS: PROPRANOLOL HCL 10 MG TABLET PO (08:25)
[2021-12-14] MEDS: ASCORBIC ACID 500 MG TABLET PO (08:25)
[2021-12-14] MEDS: FERROUS SULFATE 324 MG TABLET PO (08:25)
[2021-12-14] MEDS: SPIRONOLACTONE 25 MG TABLET PO (08:25)
[2021-12-14] MEDS: NICOTINE (*PBKC) 14 MG PATCH 1 PATCH TRANSDERM (08:26)
[2021-12-14] MEDS: PANTOPRAZOLE 40 MG TABLET PO (08:26)
[2021-12-14] MEDS: BELLADONNA ALK/PHENOB ELIX 10 ML, MAG HYDROX/ALUMINUM HYD/SIMETH 30 ML, LIDOCAINE HCL 2... PO (10:43)
[2021-12-14] MEDS: polyethylene glycoL 3350 17 GM POWD.PACK PO (10:47)
[2021-12-14 11:04] LABS: Magnesium 1.8 mg/dL (1.6-2.3); Potassium 3.6 mmol/L (3.4-5.0)
--- NOTE | 2021-12-14 11:55 | PM.DS ---
DS: Admitting Diagnosis Discharge Date 12/14/21 1155 Admitting Diagnosis (1) Shortness of breath (2) Cirrhosis (3) Microcytic anemia (4) Methamphetamine use (5) Hepatitis C, history of DS: Discharge Diagnosis Discharge Diagnosis (1) Gastritis: Qualifiers: Gastritis type: unspecified gastritis Chronicity: acute Gastritis bleeding: without bleeding Qualified Code(s): K29.00 - Acute gastritis without bleeding Code(s): K29.70 - Gastritis, unspecified, without bleeding Status: Acute (2) Chronic blood loss anemia: Code(s): D50.0 - Iron deficiency anemia secondary to blood loss (chronic) Status: Chronic (3) Hypokalemia: Code(s): E87.6 - Hypokalemia Status: Acute (4) Shortness of breath: Code(s): R06.02 - Shortness of breath Status: Acute (5) Dizziness: Code(s): R42 - Dizziness and giddiness Status: Acute (6) Esophageal varices: Code(s): I85.00 - Esophageal varices without bleeding Status: Acute (7) Cirrhosis: Qualifiers: Hepatic cirrhosis type: other cirrhosis Qualified Code(s): K74.69 - Other cirrhosis of liver Code(s): K74.60 - Unspecified cirrhosis of liver Status: Chronic (8) Methamphetamine use: Code(s): F15.10 - Other stimulant abuse, uncomplicated Status: Chronic (9) Hepatitis C: Qualifiers: Hepatic coma status: without hepatic coma Viral hepatitis chronicity: unspecified Qualified Code(s): B19.20 - Unspecified viral hepatitis C without hepatic coma Code(s): B19.20 - Unspecified viral hepatitis C without hepatic coma Status: Chronic (10) Pancytopenia: Code(s): D61.818 - Other pancytopenia Status: Chronic (11) Tobacco abuse: Code(s): Z72.0 - Tobacco use Status: Chronic DS: Summary Hospital Course Hospital Course: Nichelle Pelayo is a 41-year-old female with history of polysubstance abuse, hepatitis-C, and cirrhosis who presented to the emergency department for evaluation of shortness of breath and leg swelling. She was diagnosis with cirrhosis in 2017 and at that time she found out she was positive for hepatitis-C as well. She was not treated for such and has not been following with a hospital unit coordinator though about 8 months ago she decided that she wanted to get clean and get her health under control.? She has been seeing Dr. Foreman? (gastroenterology) and they are in the process of getting insurance approval to treat the hepatitis-C.? it is not unusual for her to have intermittent abdominal swelling and lower extremity swelling, which comes and goes despite the fact that she is not on diuretics at home.? Over the last month or so she has had increasing lower extremity edema and more recently she has noticed that she is becoming increasingly short of breath on lesser and lesser exertion.? She has really not gotten out of bed since the prior to admission because she gets short of breath with walking.? Additionally, she has had mild epigastric discomfort with bloating and belching and she states this is similar to when she was diagnosed with an ulcer in the past. Her vital signs were stable on arrival to the emergency department.? Workup was significant for pancytopenia with white blood cell count of 2.2, hemoglobin 7.0, MCV 73, platelets 48. Her coags were slightly prolonged. With further questioning she endorses having intermittent dark stools but typically her stools are light in color.? She is currently on her menses and she has been menstruating for 2 weeks. Her period has been quite heavy and for several days she had clots as big as her palm. She also endorses feeling lightheaded and dizzy. She was admitted for blood transfusion and consultation with Gastroenterology. She denied fever, chills, sweats, chest pain, pleuritic pain, resting shortness of breath, nausea, vomiting, hematemesis, abdominal pain, hematochezia, and recent melena. She has
--- NOTE | 2021-12-14 14:42 | PC.NURSE ---
On 12/14/21, the student, [Jenifer Robertson], provided care and completed [facility] documentation on this patient. I have reviewed the student's documentation and agree with the findings.
[2021-12-14] MEDS: MECLIZINE HCL 12.5 MG TABLET PO (16:13)
== END 2021-12-14 17:30 | disposition home or self-care (01) | DRG 663 ==
LOC: ANHED 18:06 → ANH2MED 18:32
PROVIDERS: Internal Medicine Gastroenterology; Physician Assistant; Admitting Provider Internal Medicine; Emergency Provider Emergency Medicine; PCP Internal Medicine; Visit Provider Nurse Practitioner Family
PROC: 0DJ08ZZ Inspection of Upper Intestinal Tract, Via Natural or Artificial Opening Endoscopic (ICD-10-PCS; CPT 43235; principal; 2021-12-12 11:30)
DX: D62 Acute posthemorrhagic anemia (principal); K29.01 Acute gastritis with bleeding; K74.60 Unspecified cirrhosis of liver; I85.10 Secondary esophageal varices without bleeding; D61.818 Other pancytopenia; B19.20 Unspecified viral hepatitis C without hepatic coma; Z88.0 Allergy status to penicillin; F15.10 Other stimulant abuse, uncomplicated; Z90.49 Acquired absence of other specified parts of digestive tract; Z81.3 Family history of other psychoactive substance abuse and dependence; F17.210 Nicotine dependence, cigarettes, uncomplicated; R25.2 Cramp and spasm; K64.8 Other hemorrhoids; E87.6 Hypokalemia; R42 Dizziness and giddiness
CPT/HCPCS: 36415; 36430; 36569; 71045; 71046; 80053; 82274; 82607; 82728; 82746; 82948; 83540; 83550; 83615; 83690; 83735; 84132; 84443; 84484; 85014; 85018; 85025; 85027; 85046; 85055; 85610; 85730; 86850; 86900; 86901; 86920; 88305; 93970; 96374; 96376; 99285; A9270; C1751; C9113; G0378; G0379; J2405; J2704; J7050; J7120; P9016; U0003; U0005

== ENCOUNTER 2021-12-23 16:37 | Emergency (ER) | payer OTHER, SELFPAY ==
--- NOTE | ~2021-12-23 | CT_ITS ---
EXAMINATION: CT abdomen pelvis wo con DATE: 12/23/2021 17:37 INDICATION: Right flank pain. Dark urine. History of kidney stones. TECHNIQUE: Computed tomography (CT) of the abdomen and pelvis was performed without intravenous contr ast. Automated exposure control and iterative reconstruction technique were employed. Exam dose: 125 6.41 mGy-cm total exam DLP. COMPARISON: None. FINDINGS: Mild bilateral lower lobe dependent atelectasis. A pneumatocele is identified in each lower lobe. Normal heart size. No pericardial or pleural effusion. Small sliding hiatal hernia. There is obvious surface nodularity of the liver consistent with cirrhosis. There is splenomegaly as well. The spleen measures up to 20.4 cm vertical dimension. Status post cholecystectomy. No bile duct dilatation. No pancreatic mass lesion, calcification or bere carrie dilatation is evident. Normal morphology of the adrenal glands. There is an approximately 2.2 mm calculus at the expected position of the right ureterovesical juncti on and moderate right pelviectasis and hydronephrosis. There is a pinpoint nonobstructing left renal calculus. No left hydronephrosis. The urinary bladder is unremarkable. Uterus and adnexal areas are unremarkable. There is mild atherosclerotic calcification of the abdominal aorta but no aneurysm. No intraperitonea l or retroperitoneal or pelvic mass lesion or adenopathy. Minimal free fluid in the posterior cul-de-sac. Normal appendix. Minimal colonic diverticulosis; no CT evidence of diverticulitis. No bowel obstruction, bowel wall th ickening, pneumatosis or intraperitoneal free air. IMPRESSION: Cirrhosis, splenomegaly Small sliding hiatal hernia 2.2 mm right ureterovesical junction calculus with moderate right hydronephrosis Pinpoint nonobstructing left renal calculus Normal appendix Mild colonic diverticulosis Mild bilateral dependent lower lobe atelectasis Reviewed, dictated and finalized at [facility]. Reviewed, dictated and finalized at [facility] IMPRESSION: Cirrhosis, splenomegaly Small sliding hiatal hernia 2.2 mm right ureterovesical junction calculus with moderate right hydronephrosi s Pinpoint nonobstructing left renal calculus Normal appendix Mild colonic diverticulosis Mild bilateral dependent lower lobe atelectasis
[2021-12-23 16:56] VITALS: BP 135/86; PULSE 69; RESP 16; TEMP 36.3; O2SAT 100
--- NOTE | 2021-12-23 17:16 | ED.ABDPAIN ---
HPI - Abdominal Pain General Chief Complaint: Abdominal Pain Stated Complaint: right side flank pain Time Seen by Provider: 12/23/21 17:04 History of Present Illness HPI narrative: Patient is a 41-year-old female with a history of cirrhosis due to hepatitis C, recent short hospitalization for pancytopenia and shortness of breath (12/10-12/14), found to have grade 1 varices on EGD, here for evaluation of right flank pain for the past day. Patient states the pain is sharp and stabbing in nature, she first noticed it when she woke up today. States it feels similar to when she had kidney stones in the past. Has not taken any medication for symptoms. She notes dark urine but denies any dysuria, urgency or frequency. No fevers or chills, nausea or vomiting, diarrhea or constipation. States that she has been doing better since being discharged from the hospital and is no longer short of breath. Related Data Allergies Allergy/AdvReac Type Severity Reaction Status Date / Time Penicillins Allergy Severe Swelling Verified 12/12/21 08:49 cephalexin Allergy Intermediate Swelling Verified 12/12/21 08:49 nitrofurantoin Allergy Intermediate Swelling Verified 12/12/21 08:49 Review of Systems Review of Systems: Gen: Denies fevers or chills Eyes: Denies eye pain or visual change ENT: Denies congestion Respiratory: Denies shortness of breath or cough CV: Denies chest pain or palpitations GI: Reports right flank pain. Denies nausea, emesis or diarrhea : Reports dark urine. Denies burning, urgency, frequency or hematuria Musculoskeletal: Denies back pain or muscle pain Neuro: Denies numbness, tingling, weakness or focal weakness Skin: Denies rash Except as documented, all other systems reviewed and negative [facility] Past Medical History Medical History Acute on chronic anemia Cirrhosis Esophageal varices Gastritis Hepatitis C Iron deficiency Tobacco abuse Surgical History Surgical History History of section History of cholecystectomy Family History Family History (Updated 12/11/21 @ 00:18 by Nery Tyson PA-C) Sibling Drug addiction Social History Social History (Updated 12/11/21 @ 00:19 by KAVON Dowell Social History: Surrogate medical decision maker: Claudia Pelayo, mother. Code status: Full code. Smoking packs per day: 0.5 Smoking cigarettes per day: 10.0 Years smoked: 25 Smoking pack-years: 12.50 Smoking status: Current every day smoker Tobacco type: cigarettes Alcohol intake: never Substance use: current Substance use type: heroin and methamphetamine Other substance usage details: history of heroin use for 11 years, clean for 11 years. Last use: Snorts meth daily for the past 6 years. Lack of Transportation: No Lack of Food: Never True Current Housing: I Have Housing Concerned About Future Housing: No Difficulty Paying Gas/Electric Bills: No Difficulty Paying for Meds: No Currently Unemployed: No Education: Grade School Difficulty w/ Childcare or Family Care: No Additional living arrangements comments: The patient lives in [place]. She has 3 grown children and a 5-year-old daughter. Additional occupation/education comments: Currently unemployed. Spiritual care concerns: No Exam Narrative: APPEARANCE: Appears older than stated age, chronically ill-appearing. Head: Normocephalic and atraumatic. EYES: PERRLA/EOMI, conjunctivae clear NOSE: No nasal drainage EARS: External ear normal in appearance THROAT: Poor dentition. NECK: Supple. No adenopathy, no masses. RESPIRATORY: Airway patent, respirations nonlabored. Clear to auscultation bilaterally, no rales, rhonchi, wheezing. CARDIOVASCULAR: Regular rate and rhythm without murmurs, rubs, or gallops. ABDOMINAL: Normoactive bowel sounds. Soft, nontender, non
[2021-12-23 17:33] LABS: Basophils Percent Auto 0.7 % (0.2-1.2); Eosinophils Absolute Auto 0.1 K/mm3 (0-0.3); Eosinophils Percent Auto 1.8 % (0-4.4); Hematocrit 32.7 % (37.0-47.0); Immature Granulocyte Absolute 0.02 K/mm3 (0.00-0.031); Immature Granulocyte Percent A 0.7 % (0-0.5); Immature Platelet Fraction Pct 3.5 % (0.9-11.2); Lymphocytes Percent Auto 14.4 % (18.3-44.2); Mean Corpuscular HGB Conc 27.5 g/dl (32-36); Mean Corpuscular Hemoglobin 20.9 pg (26-34); Monocytes Absolute Auto 0.2 K/mm3 (0.1-0.6); Monocytes Percent Auto 5.4 % (2.6-8.5); Neutrophils Absolute Auto 2.1 K/mm3 (1.3-6.7); Platelet Count Result 53 k/mm3 (150-375); Red Cell Distribution Width 19.9 % (11.5-14.5); White Blood Count 2.8 K/mm3 (4.5-10.0)
[2021-12-23 17:48] LABS: Alanine Aminotransferase 26 U/L (6-35); Albumin Level 3.6 g/dL (3.5-5.1); Alkaline Phosphatase 101 U/L (38-126); Anion Gap 12 mmol/L (8-16); Aspartate Amino Transferase 46 U/L (14-36); Bilirubin,Total 1.1 mg/dL (0.2-1.3); Blood Urea Nitrogen 6 mg/dL (7-17); Carbon Dioxide 20 mmol/L (22-30); Chloride 106 mmol/L (98-107); Estimated CRCL calculation 143 ml/min; Estimated Glomerular Filt Rate > 60; Glucose 147 mg/dL (65-110); Potassium 4.1 mmol/L (3.4-5.0); Sodium 138 mmol/L (137-145)
[2021-12-23 18:17] LABS: Hypochromasia 1+ (NORMAL); Platelet Estimate Decreased (Adequate)
[2021-12-23 18:18] LABS: Anisocytosis 1+ (NORMAL)
[2021-12-23 18:20] LABS: Schistocytes None Seen (NORMAL); Tear Drop Cells 1+ (NORMAL)
[2021-12-23] MEDS: MORPHINE SULFATE (*CRX) 4 MG/ML INJ IV PUSH (19:04)
--- NOTE | 2021-12-23 19:16 | PC.NURSE ---
Patient given sandwich, chips, and candace mist.
--- NOTE | 2021-12-23 19:37 | PC.NURSE ---
Report received from COOPER Jerry. Assumed care of patient at this time.
[2021-12-23 20:07] LABS: Appearance Urine Clear (Clear); Bilirubin Urine Negative (Negative); Blood Urine 2+ (Negative); Color Urine Yellow (Yellow); Glucose Urine UA Negative (Negative); Ketones Urine Negative (Negative); Leukocyte Esterase Ur Trace LEU/UL (Negative); Nitrate Urine Negative (Negative); Protein Urine 1+ mg/dL (Negative); Urobilinogen Urine 0.2 mg/dL (<2.0)
[2021-12-23 20:08] LABS: Bacteria Urine Trace /hpf; Mucus Urine Rare /lpf; Squamous Epithelial Cell Urine Few /hpf (Few)
[2021-12-23 20:10] LABS: Add Urine Microscopic? YES
--- NOTE | 2021-12-23 20:53 | PC.NURSE ---
Upon d/c pt reports that the [facility] in [place] is now closed, and she requests her meds be sent to the [facility] there instead.
== END 2021-12-23 21:03 | disposition home or self-care (01) ==
PROVIDERS: Physician Assistant; Emergency Provider General Practice; PCP Internal Medicine
DX: N20.1 Calculus of ureter (principal); K74.60 Unspecified cirrhosis of liver; F17.210 Nicotine dependence, cigarettes, uncomplicated; Z86.19 Personal history of other infectious and parasitic diseases
CPT/HCPCS: 36415; 74176; 80053; 81001; 81025; 85025; 85055; 87086; 96374; 99284; J2270

== ENCOUNTER 2023-12-03 15:45 | Emergency (ER) | payer OTHER, MEDICAID, SELFPAY ==
--- NOTE | ~2023-12-03 | CT_ITS ---
CLINICAL INDICATION: Abdominal pain COMPARISON: 12/23/2021. TECHNIQUE: An enhanced CT of the abdomen and pelvis was performed utilizing multislice spiral [employer] ue reconstructed at 5 mm slice thickness. Coronal and sagittal reconstructions were performed. This CT examination was performed utilizing dose reduction techniques. DLP: 1062.47 mGy-cm FINDINGS/OBSERVATIONS: Visualized lower thorax:The bilateral lung bases are clear. The heart is of normal size, without pericardial effusion. No hiatal hernia is present. Liver: The liver demonstrates a nodular contour, consistent with cirrhosis. The liver is not enlarged, but rather shrunken and diminutive in size. Gallbladder and biliary system: The gallbladder is surgically absent. Pancreas: The pancreas enhances homogeneously without ductal dilatation. Spleen: The spleen is markedly enlarged measuring 20 cm in longitudinal dimension, supporting the pre sence of portal hypertension. Kidneys: The bilateral kidneys enhance symmetrically. Mass effect on the left kidney from the enlarged spleen is identified, markedly distorting the contou r. No hydronephrosis is present. No renal calculi are appreciated. Adrenal glands: Unremarkable Gastrointestinal tract: Fecal stasis within the colon Appendix:The air-filled appendix is of normal caliber (axial series, image 115). Vasculature: Dilated portosystemic collateral blood vessels are identified within the upper abdomen. Specifically, gastrorenal and gastrocaval shunts are present. Abnormal vascularity extends into the chest as esophageal varices. Significant vascularity is also noted within the gastric cardia, which may also be within the base of a small ulcer, for which concurrent bleeding is suspected (and clinical correlation is needed). Lymph nodes: Multiple lymph nodes within the bilateral inguinal regions, a nonspecific finding. Pelvic structures:Bicornuate uterus (suspected) which is anteroverted and antral flexed. The endometr ial canal is widened. Body wall and musculoskeletal: No significant degenerative disease within the lower thoracic and lumb osacral spines. IMPRESSION: Findings consistent with significant portal hypertension, with the spleen measuring 20 cm in longitud inal dimension. Unchanged from 2021. Significant upper abdominal varices, as detailed above. Indeterminate vascularity within the upper portion of the stomach, possibly anatomic, as detailed abo ve. Reviewed, dictated and finalized at location A. IMPRESSION: Findings consistent with significant portal hypertension, with the spleen measu ring 20 cm in longitudinal dimension. Unchanged from 2021. Significant upper abdominal varices, as detailed above. Indeterminate vascularity within the upper portion of the stomach, possibly danilo tomic, as detailed above.
[2023-12-03 15:47] VITALS: BP 127/62; PULSE 96; RESP 20; TEMP 36.6; O2SAT 100
--- NOTE | 2023-12-03 16:30 | PC.NURSE ---
Pt given a urine cup and educated that MD ordered a urine sample.
[2023-12-03 16:35] LABS: Basophils Percent Auto 0.9 % (0.2-1.2); Eosinophils Absolute Auto 0.1 K/mm3 (0-0.3); Eosinophils Percent Auto 1.5 % (0-4.4); Hematocrit 30.5 % (37.0-47.0); Hemoglobin 8.8 g/dL (12.0-15.0); Immature Granulocyte Absolute 0.02 K/mm3 (0.00-0.031); Immature Granulocyte Percent A 0.6 % (0-0.5); Lymphocytes Absolute Auto 0.63 K/mm3 (0.9-3.2); Lymphocytes Percent Auto 18.4 % (18.3-44.2); Mean Corpuscular HGB Conc 28.9 g/dl (32-36); Mean Corpuscular Hemoglobin 20.6 pg (26-34); Mean Corpuscular Volume 71.4 fl (80-100); Monocytes Absolute Auto 0.2 K/mm3 (0.1-0.6); Monocytes Percent Auto 6.7 % (2.6-8.5); Neutrophils Absolute Auto 2.5 K/mm3 (1.3-6.7); Neutrophils Percent Auto 71.9 % (45.5-73.1); Platelet Count Result 44 k/mm3 (150-375); Red Blood Count 4.27 M/mm3 (4.2-5.4); Red Cell Distribution Width 19.3 % (11.5-14.5); White Blood Count 3.4 K/mm3 (4.5-10.0)
[2023-12-03 16:45] LABS: Alanine Aminotransferase 15 U/L (6-35); Albumin Level 3.4 g/dL (3.5-5.1); Alkaline Phosphatase 97 U/L (38-126); Anion Gap 10 mmol/L (4-12); Aspartate Amino Transferase 22 U/L (14-36); Bilirubin,Total 2.2 mg/dL (0.2-1.3); Blood Urea Nitrogen 8 mg/dL (7-17); Calcium 8.3 mg/dL (8.4-10.2); Carbon Dioxide 20 mmol/L (22-30); Chloride 103 mmol/L (98-107); Estimated CRCL calculation 132 ml/min; Estimated Glomerular Filt Rate > 60; Glucose 197 mg/dL (65-110); Lipase 90 U/L (23-300); Potassium 3.5 mmol/L (3.4-5.0); Sodium 133 mmol/L (137-145)
[2023-12-03 16:53] LABS: NT Pro B Type Natriuretic Pept 512 pg/mL (19.9-100)
[2023-12-03 17:17] LABS: BEDSIDEPREGUCG Negative (Negative)
[2023-12-03 17:33] LABS: Add Urine Microscopic? YES; Appearance Urine Cloudy (Clear); Bacteria Urine Rare /hpf; Bilirubin Urine Negative (Negative); Blood Urine 3+ (Negative); Budding Yeast Urine Present /hpf; Color Urine Yellow (Yellow); Glucose Urine UA Negative (Negative); Ketones Urine Negative (Negative); Leukocyte Esterase Ur 1+ LEU/UL (Negative); Need Manual Microscopic Reviewed; Nitrate Urine Negative (Negative); Non Pathogenic Casts 0-2; Protein Urine Trace mg/dL (Negative); RBC Urine 21-50 /hpf (0-2); Specific Grav Ur 1.013 (1.001-1.035); Squamous Epithelial Cell Urine Moderate /hpf (Few); WBC Urine 21-50 /hpf (0-3); pH Urine 6.5 (5.0-9.0)
[2023-12-03] MEDS: HYDROcodone/acetaminophen (*CRX) 5-325 MG TABLET 1 TAB PO (17:36)
--- NOTE | 2023-12-03 18:24 | ED.ABDPAIN ---
HPI - Abdominal Pain General Chief Complaint: Abdominal Pain <Gladys Portillo MD - Last Filed: 12/03/23 18:28> Stated Complaint: abd pain <Gladys Portillo MD - Last Filed: 12/03/23 18:28> Time Seen by Provider: 12/03/23 16:05 <Gladys Portillo MD - Last Filed: 12/03/23 18:28> History of Present Illness HPI narrative: Patient with history of cirrhosis has noticed some pain to her lower abdomen radiating to her back, she does have a history of kidney stones and UTI since thinks that this may be what is going on. She has also had heavy menstrual bleeding though not currently active. <Gladys Portillo MD - Last Filed: 12/03/23 18:28> Related Data Allergies/Adverse Reactions: Allergies Allergy/AdvReac Type Severity Reaction Status Date / Time Penicillins Allergy Severe Swelling Verified 12/03/23 17:38 cephalexin Allergy Intermediate Swelling Verified 12/03/23 17:38 nitrofurantoin Allergy Intermediate Swelling Verified 12/03/23 17:38 <Gladys Portillo MD - Last Filed: 12/03/23 18:28> Review of Systems Review of Systems: All systems reviewed & are unremarkable except as noted in HPI and below <Gladys Portillo MD - Last Filed: 12/03/23 18:28> PMFSH Past Medical History Medical History: Medical History Acute on chronic anemia Cirrhosis Esophageal varices Gastritis Hepatitis C Iron deficiency Tobacco abuse <Gladys Portillo MD - Last Filed: 12/03/23 18:28> Surgical History Surgical History: Surgical History History of section History of cholecystectomy <Gladys Portillo MD - Last Filed: 12/03/23 18:28> Family History Family History: Family History (Updated 12/11/21 @ 00:18 by Nery Tyson PA-C) Sibling Drug addiction <Gladys Portillo MD - Last Filed: 12/03/23 18:28> Social History Social History: Social History (Updated 12/11/21 @ 00:19 by Nery Tyson PA-C) Social History: Surrogate medical decision maker: Claudia Pelayo, mother. Code status: Full code. Smoking packs per day: 0.5 Smoking cigarettes per day: 10.0 Years smoked: 25 Smoking pack-years: 12.50 Smoking status: Current every day smoker Tobacco type: cigarettes Alcohol intake: never Substance use: current Substance use type: heroin and methamphetamine Other substance usage details: history of heroin use for 11 years, clean for 11 years. Last use: Snorts meth daily for the past 6 years. Lack of Transportation: No Lack of Food: Never True Current Housing: I Have Housing Concerned About Future Housing: No Difficulty Paying Gas/Electric Bills: No Difficulty Paying for Meds: No Currently Unemployed: No Education: Grade School Difficulty w/ Childcare or Family Care: No Additional living arrangements comments: The patient lives in [place]. She has 3 grown children and a 5-year-old daughter. Additional occupation/education comments: Currently unemployed. Spiritual care concerns: No <Gladys Portillo MD - Last Filed: 12/03/23 18:28> Exam Narrative: EXAMINATION OF ORGAN SYSTEMS/BODY AREAS: Constitutional: Vital signs per nursing GENERAL:[No acute distress, non-toxic appearing.] HEAD: Normal with no signs of head trauma. EYES: EOMI, conjunctiva normal ENT: Hearing grossly intact LUNGS: Nonlabored breathing. HEART: [Regular rate and rhythm] ABD: [Soft], [nontender to palpation] EXT: Normal range of motion SKIN: [No rashes or lesions.] NEURO: [Alert and oriented x 3. No gross focal sensory or strength deficits.] PSYCH: Normal affect <Gladys Portillo MD - Last Filed: 12/03/23 18:28> Course Vital Signs Vital signs: Vital Signs Temperature 97.9 F 12/03/23 15:47 Pulse Rate 96 12/03/23 15:47 Respiratory Rate 20 12/03/23 15:47 Blood Pressure 127/62 12/03/23 15:47 Pulse Oximetry 100 12/03/23 15:47
[2023-12-03] MEDS: levoFLOXacin 750 MG TABLET PO (19:09)
[2023-12-03 19:45] VITALS: BP 122/68; PULSE 78; RESP 17; TEMP 36.9; O2SAT 98
== END 2023-12-03 19:46 | disposition home or self-care (01) ==
PROVIDERS: Emergency Medicine; Emergency Provider Emergency Medicine; PCP Internal Medicine
DX: N39.0 Urinary tract infection, site not specified (principal); E61.1 Iron deficiency; K74.60 Unspecified cirrhosis of liver; D64.9 Anemia, unspecified; F17.210 Nicotine dependence, cigarettes, uncomplicated; Z87.440 Personal history of urinary (tract) infections; Z86.19 Personal history of other infectious and parasitic diseases; Z87.442 Personal history of urinary calculi; Z90.49 Acquired absence of other specified parts of digestive tract
CPT/HCPCS: 36415; 74177; 80053; 81001; 81025; 83690; 83880; 85025; 85055; 87086; 99284; A9270; Q9967

== ENCOUNTER 2023-12-30 01:28 | Observation (INO) | payer OTHER, MEDICAID, SELFPAY ==
[2023-12-30] VITALS (19 sets, daily range): BP systolic 99–138; BP diastolic 69–126; PULSE 73–91; RESP 14–18; TEMP 35.3–35.9; O2SAT 93–100; BMI 39.5
--- NOTE | ~2023-12-30 | NM_ITS ---
EXAMINATION: NM nathaniel stress w perfusion DATE: 01/02/2024 13:02 INDICATION: Atypical chest pain. TECHNIQUE: Rest images were obtained following intravenous administration of 9.4 mCi Tc99m tetrofosmi n (Myoview). The patient was infused intravenously with Lexiscan (regadenoson). Then, 27 mCi Tc99m te trofosmin (Myoview) was administered intravenously, and supine and prone stress images were obtained. Data was reconstructed into short axis and horizontal and vertical long axis SPECT images. Gated SPE CT images were also obtained. COMPARISON: None. FINDINGS: There is no definite reversible or fixed perfusion abnormality to suggest ischemia or infar ction. There is no segmental wall motion abnormality. Left ventricular ejection fraction measures > 70%. IMPRESSION: 1. No definite ischemia or infarct. 2. Normal left ventricular ejection fraction measuring >70%. Reviewed, dictated and finalized at location A. RVISOR BRIAR SHOP
--- NOTE | ~2023-12-30 | CT_ITS ---
Clinical Indication: Shortness of breath, abdominal pain CT Scan of the Chest, Abdomen, and Pelvis with Contrast: Technique: Contiguous sections were acquired throughout the chest, abdomen, and pelvis after intraven ous administration of 100 cc of Omnipaque 350. Dose reduction technique was used on this scan by shira roblesing automated exposure control and iterative reconstruction technique. The dose-length product (DL P) was 2114.12 mGy-cm. Findings: There is no evidence of any significant mediastinal, hilar or axillary lymphadenopathy. The mediastin al soft tissues appear normal. No pulmonary embolus. No aortic aneurysm or dissection. There is no evidence of pleural or pericardial effusion. The lungs are clear. No pulmonary nodules or infiltrates are noted. Diffusely nodular contour of liver is compatible cirrhosis. Cholecystectomy clips are present. Spleen is enlarged, measuring 21 cm in length. There are esophageal and splenorenal varices. The pancreas, adrenals and kidneys are within normal limits. No evidence of aortic aneurysm. No lymphadenopathy. No bowel obstruction or bowel wall thickening. There is no evidence to suggest acute appendicitis. Urinary bladder is unremarkable. 2.2 cm left ovarian cyst present. No other adnexal mass evident. Pro minent endometrium is probably related to stage in menstrual cycle. No ascites. Impression: No pulmonary embolus. No significant findings in the chest. Cirrhosis with associated splenomegaly and esophageal and splenorenal varices. 2.2 cm left ovarian cyst. Reviewed, dictated and finalized at [facility]. OVER Impression: No pulmonary embolus. No significant findings in the chest. Cirrhosis with associated splenomegaly and esophageal and splenorenal varices. 2.2 cm left ovarian cyst.
--- NOTE | ~2023-12-30 | XR_ITS ---
Portable chest x-ray Comparison: 12/14/2021 Clinical History: Dyspnea Findings: Lungs are clear, without focal consolidation or pleural effusion. Cardiomediastinal silho uette is stable. Bones and soft tissues are unremarkable. Impression: Clear lungs. Reviewed, dictated and finalized at location . R EQUIPMENT REPAIRER Impression: Clear lungs.
--- NOTE | 2023-12-30 01:32 | ECG_ITS ---
Test Date: 2023-12-30 01:37:41 Measurements Intervals [place] Rate: 86 P: 75 MA: 156 QRS: 114 QRSD: 89 T: 78 QT: 397 QTc: 477 Interpretive Statements SINUS RHYTHM RIGHT AXIS DEVIATION POSSIBLE LEFT ATRIAL ENLARGEMENT PATTERN CONSISTENT WITH PULMONARY DISEASE POSSIBLE RIGHT VENTRICULAR HYPERTROPHY BORDERLINE ST-T WAVE ABNORMALITY- DIFFUSE LEADS BASELINE ARTIFACT- I, II, III, AVR, AVL, AVF, V1-V6 BORDERLINE ECG No previous ECG available for comparison Electronically Signed On 12-30-2023 06:27:54 SECURITY OPERATIONS SPECIALIST by Clifton Louise D.O.
--- NOTE | 2023-12-30 01:55 | ED.GENADULT ---
HPI - General Adult General Chief complaint: Shortness of Breath/Dyspnea Stated complaint: SOB, dizzy Time Seen by Provider: 12/30/23 01:37 History of Present Illness HPI narrative: Patient is a 43-year-old female who presents emergency department with chief complaint of shortness of breath. The patient has prior history of hepatitis-C and cirrhosis the patient states she has been treated for hepatitis-C but reports that she also has history of heroin and methamphetamine abuse the patient states it has been awhile since she has used and reports that her last use was last week the patient reports that she has been getting short of breath with exertion reports that she can only walk a few steps without getting short of breath. The patient reports that she has history of esophageal varices also reports that she has had history of kidney failure in the past Related Data Allergies Allergy/AdvReac Type Severity Reaction Status Date / Time Penicillins Allergy Severe Swelling Verified 12/03/23 17:38 cephalexin Allergy Intermediate Swelling Verified 12/03/23 17:38 nitrofurantoin Allergy Intermediate Swelling Verified 12/03/23 17:38 Review of Systems Review of Systems: A 10 system review of systems was completed on the patient and is negative except for what is stated in the HPI. Nursing and ancillary documentation was reviewed. [facility] Past Medical History Medical History Acute on chronic anemia Cirrhosis Esophageal varices Gastritis Hepatitis C Iron deficiency Tobacco abuse Surgical History Surgical History History of section History of cholecystectomy Family History Family History Sibling Drug addiction Social History Social History Social History: Surrogate medical decision maker: Claudia Pelayo, mother. Code status: Full code. Smoking packs per day: 0.5 Smoking cigarettes per day: 10.0 Years smoked: 25 Smoking pack-years: 12.50 Smoking status: Current every day smoker Tobacco type: cigarettes Alcohol intake: never Substance use: current Substance use type: heroin and methamphetamine Other substance usage details: history of heroin use for 11 years, clean for 11 years. Last use: Snorts meth daily for the past 6 years. Lack of Transportation: No Lack of Food: Never True Current Housing: I Have Housing Concerned About Future Housing: No Difficulty Paying Gas/Electric Bills: No Difficulty Paying for Meds: No Currently Unemployed: No Education: Grade School Difficulty w/ Childcare or Family Care: No Additional living arrangements comments: The patient lives in [place]. She has 3 grown children and a 5-year-old daughter. Additional occupation/education comments: Currently unemployed. Spiritual care concerns: No Exam Narrative: GENERAL: Ill-appearing, well-nourished, and in no acute distress. HEAD: Normocephalic, atraumatic. EYES: PERRLA and EOMI. ENT: Nares clear, no rhinorrhea or epistaxis. Mucous membranes moist. NECK: Supple. CHEST: Clear to auscultation. No respiratory distress. HEART: Regular rate and rhythm. No murmur heard. Normal peripheral pulses. ABDOMEN: Soft, nontender, nondistended, normal active bowel sounds. EXTREMITIES: Normal range of motion. No edema. SKIN: Warm, dry, no rash. NEURO: No focal deficits. Alert and oriented x3. PSYCH: Normal mood and affect. Course Vital Signs Vital signs: Vital Signs Oxygen Delivery Room Air 12/30/23 01:35 Blood Pressure 107/71 12/30/23 06:01 Pulse Oximetry 99 12/30/23 06:45 Oxygen Delivery Room Air 12/30/23 05:39 Medical Decision Making Vital Signs Vital Signs: Vital Signs Oxygen Delivery Room Air 12/30/23 01:35 Blood Pressure 107/71 12/30/23 06:01 Pulse Oximetry 99 12/30/23 06:45 Oxygen Delivery Room Air 12/30/23 05:39 Lab Data 12/30/23 02:32 12/30/23 02:32 Labs: Lab Results 12/30/23 12/30/23 Range/Units 02:29 02:32 WBC 4.3 L (4.5-10.0) K/mm3 RBC 4.49 (4.2-5.4) M/mm3 Hgb 9.0 L (12.0-15.0) g/dL Hct 32.6 L (37.0-47.0) % MCV 72.6 L (80-100) fl MCH 20.0 L (26-34) pg MCHC 27.6 L (32-36) g/dl RDW 20.4 H (11.5-14.5) % Plt Count 48 L (150-375) k/mm3 MPV TNP Immature Gran % (Auto) 0.2 (0-0.5) % Neut % (Auto) 68.2 (45.5-73.1) % Lymph % (Auto) 21.2 (18.3-44.2) % [place] % (Auto) 7.8 (2.6-8.5) % Eos % (Auto) 2.1 (0-4.4) % Baso % (Auto) 0.5 (0.2-1.2) % Lymph # (Auto) 0.90 (0.9-3.2) K/mm3 [place] # (Auto) 0.3 (0.1-0.6) K/mm3 Eos # (Auto) 0.1 (0-0.3) K/mm3 Baso # (Auto) 0.0 (0.0-0.1) K/mm3 Abs Immat Gran (auto) 0.01 (0.00-0.031) K/mm3 Absolute Neuts (auto) 2.9 (1.3-6.7) K/mm3 Absolute Nucleated RBC 0.000 (0.0-0.012) K/mm3 Nucleated RBC % 0.0 (0.0-0.2) % Platelet Estimate Decreased (Adequate) % Immature Plt Fraction 7.7 (0.9-11.2) % Hypochromasia 1+ Anisocytosis 1+ Microcytosis 1+ (NORMAL) Ovalocytes 1+ Schistocytes None seen PT 19.4 H (11.1-14.7) Seconds INR 1.6 APTT 28.4 Cancelled (22.3-36.8) Seconds Sodium 138 (137-145) mmol/L Potassium 4.2 (3.4-5.0) mmol/L Chloride 108 H (98-107) mmol/L Carbon Dioxide 22 (22-30) mmol/L Anion Gap 8 (4-12) mmol/L BUN 15 D (7-17) mg/dL Creatinine 0.80 (0.7-1.0) mg/dL Estim Creat Clear Calc 92 ml/min Estimated GFR > 60 (59 - ) Glucose 129 H (65-110) mg/dL Lactic Acid 1.8 (0.7-2.0) mmol/L Calcium 8.7 (8.4-10.2) mg/dL Magnesium 1.9 (1.6-2.3) mg/dL Total Bilirubin 1.2 (0.2-1.3) mg/dL AST 32 (14-36) U/L ALT 17 (6-35) U/L Alkaline Phosphatase 83 (38-126) U/L Troponin I Cancelled < 0.012 NT-Pro-B Natriuret Pep 504 H (19.9-100) pg/mL Total Protein 7.0 (6.3-8.2) g/dL Albumin 3.7 (3.5-5.1) g/dL Lipase 121 (23-300) U/L Procalcitonin 0.1 ng/mL Ethyl Alcohol < 10 (<10) mg/dL Influenza A (RT-PCR) Negative (Negative) Influenza B (RT-PCR) Negative (Negative) RSV (RT-PCR) Negative (Negative) SARS-CoV-2 RNA (RT-PCR) Negative (Negative) Discharge Plan Discharge Clinical Impression: Acute dyspnea Patient Disposition: Still a Patient Condition: Stable Prescriptions: No Action ascorbic acid (vitamin C) [Vitamin C] 500 mg Tablet 500 mg PO DAILY 30 Days Qty: 30 2RF Rx Instructions: Take with iron ferrous sulfate 325 mg (65 mg iron) Tablet 324 mg PO DAILY@0800 30 Days Qty: 30 2RF pantoprazole 40 mg Tablet,Delayed Release (Dr/Ec) 40 mg PO QAM Qty: 30 1RF propranolol 10 mg Tablet 10 mg PO Q12HR 30 Days Qty: 60 0RF spironolactone 25 mg Tablet 25 mg PO QAM 30 Days Qty: 30 0RF levofloxacin 500 mg tablet 500 mg PO DAILY Qty: 7 0RF phenazopyridine [Pyridium] 100 mg tablet 100 mg PO TID Qty: 6 0RF tamsulosin [Flomax] 0.4 mg capsule 0.4 mg PO HS Qty: 10 0RF hydrocodone-acetaminophen 5-325 mg tablet 1 tablet PO Q8H PRN (Reason: pain) Qty: 7 0RF Follow-up/Referrals: Sandra,Mare Pearson MD [Primary Care Provider] - Time of Disposition: 06:52
[2023-12-30 02:44] LABS: Basophils Percent Auto 0.5 % (0.2-1.2); Eosinophils Absolute Auto 0.1 K/mm3 (0-0.3); Eosinophils Percent Auto 2.1 % (0-4.4); Hematocrit 32.6 % (37.0-47.0); Immature Granulocyte Absolute 0.01 K/mm3 (0.00-0.031); Immature Granulocyte Percent A 0.2 % (0-0.5); Immature Platelet Fraction Pct 7.7 % (0.9-11.2); Lymphocytes Percent Auto 21.2 % (18.3-44.2); Mean Corpuscular HGB Conc 27.6 g/dl (32-36); Mean Corpuscular Volume 72.6 fl (80-100); Monocytes Absolute Auto 0.3 K/mm3 (0.1-0.6); Monocytes Percent Auto 7.8 % (2.6-8.5); Neutrophils Absolute Auto 2.9 K/mm3 (1.3-6.7); Neutrophils Percent Auto 68.2 % (45.5-73.1); Platelet Count Result 48 k/mm3 (150-375); Red Blood Count 4.49 M/mm3 (4.2-5.4); Red Cell Distribution Width 20.4 % (11.5-14.5); White Blood Count 4.3 K/mm3 (4.5-10.0)
[2023-12-30 02:52] LABS: Ethanol < 10 mg/dL (<10)
[2023-12-30 02:57] LABS: Lactic Acid Reflex 1.8 mmol/L (0.7-2.0)
[2023-12-30 03:11] LABS: Platelet Estimate Decreased (Adequate)
[2023-12-30 03:12] LABS: INR 1.6; Prothrombin Time 19.4 Seconds (11.1-14.7)
[2023-12-30 03:12] LABS: Hypochromasia 1+
[2023-12-30 03:13] LABS: Anisocytosis 1+
[2023-12-30 03:13] LABS: Partial Thromboplastin Time 28.4 Seconds (22.3-36.8)
[2023-12-30 03:15] LABS: Microcytosis 1+ (NORMAL); Ovalocytes 1+
[2023-12-30 03:16] LABS: Schistocytes None Seen
[2023-12-30 03:17] LABS: Alanine Aminotransferase 17 U/L (6-35); Albumin Level 3.7 g/dL (3.5-5.1); Alkaline Phosphatase 83 U/L (38-126); Anion Gap 8 mmol/L (4-12); Aspartate Amino Transferase 32 U/L (14-36); Bilirubin,Total 1.2 mg/dL (0.2-1.3); Blood Urea Nitrogen 15 mg/dL (7-17); Calcium 8.7 mg/dL (8.4-10.2); Carbon Dioxide 22 mmol/L (22-30); Chloride 108 mmol/L (98-107); Estimated CRCL calculation 92 ml/min; Estimated Glomerular Filt Rate > 60; Glucose 129 mg/dL (65-110); Lipase 121 U/L (23-300); Magnesium 1.9 mg/dL (1.6-2.3); Potassium 4.2 mmol/L (3.4-5.0); Sodium 138 mmol/L (137-145)
[2023-12-30 03:24] LABS: Influenza A QL RT-PCR Negative (Negative); Influenza B QL RT-PCR Negative (Negative); RSV RNA, RT-PCR Negative (Negative); SARS-CoV-2 RNA PCR Negative (Negative)
[2023-12-30 03:29] LABS: NT Pro B Type Natriuretic Pept 504 pg/mL (19.9-100); Troponin I < 0.012 ng/mL (0.000-0.034)
[2023-12-30 03:34] LABS: Procalcitonin 0.1 ng/mL
[2023-12-30 07:48] LABS: Add Urine Microscopic? YES; Appearance Urine Cloudy (Clear); Bacteria Urine None Seen /hpf; Bilirubin Urine Negative (Negative); Blood Urine 1+ (Negative); Color Urine Dark Yellow (Yellow); Glucose Urine UA Negative (Negative); Ketones Urine Negative (Negative); Leukocyte Esterase Ur Negative LEU/UL (Negative); Need Manual Microscopic Reviewed; Nitrate Urine Negative (Negative); Non Pathogenic Casts 0-2; Protein Urine 3+ mg/dL (Negative); Specific Grav Ur > 1.045 (1.001-1.035); Squamous Epithelial Cell Urine Few /hpf (Few); WBC Urine 0-5 /hpf (0-3); pH Urine 5.5 (5.0-9.0)
[2023-12-30 09:46] LABS: Barbiturate Screen Urine Negative (Negative); Benzodiazepines Screen Urine Negative (Negative)
[2023-12-30 09:50] LABS: Cannabinoid Screen Urine Negative (Negative); Cocaine Screen Urine Negative (Negative); Methadone Screen Urine Negative (Negative); Opiate Screen Urine Negative (Negative); Phencyclidine Screen Urine Negative (Negative)
[2023-12-30 09:57] LABS: Amphetamine Screen Urine Positive (Negative)
--- NOTE | 2023-12-30 18:41 | PM.IMHP ---
H&P: HPI History of Present Illness Date/Time: 12/30/23 18:41 Chief Complaint: chest pain and worsening SOB Narrative: 41-year-old female with history of polysubstance abuse, hepatitis-C, and cirrhosis who presented to the emergency department for evaluation of shortness of breath. Patient reported having shortness of breath past 10 days. Patient also reported chest week ago there is intermittent. Otherwise denies any vomiting, no abdominal pain, no diarrhea no dysuria no focal symptoms no loss of consciousness. Patient reported that she last used methamphetamine about a week ago. No longer uses a healing. Denies alcohol no alcohol former smoker now she vapes. ER evaluation notable for vital signs mostly stable within normal limits. Lateral tibial for blood 9.0, WBCs 4.3, urine drug screen positive for amphetamine. CT chest abdomen pelvis negative for pulmonary embolism. No acute findings in the chest. Cirrhosis with associated splenomegaly esophageal is Renal varices. Gisela 2 cm left ovarian cyst. Patient was admitted for further evaluation and care. Review of Systems Review of Systems: All other systems reviewed and negative except as noted in the history above. [facility] Past Medical History Medical History Acute on chronic anemia Cirrhosis Esophageal varices Gastritis Hepatitis C Iron deficiency Tobacco abuse Surgical History Surgical History History of section History of cholecystectomy Family History Family History Sibling Drug addiction Social History Social History Social History: Surrogate medical decision maker: Claudia Pelayo, mother. Code status: Full code. Smoking packs per day: 0.5 Smoking cigarettes per day: 10.0 Years smoked: 25 Smoking pack-years: 12.50 Smoking status: Former smoker Alcohol intake: never Substance use: current Substance use type: heroin and methamphetamine Other substance usage details: history of heroin use for 11 years, clean for 11 years. Last use: Snorts meth daily for the past 6 years. Do You Feel Safe in your Home?: Yes Lack of Transportation: No Lack of Food: Never True Current Housing: I Have Housing Concerned About Future Housing: No Difficulty Paying Gas/Electric Bills: No Difficulty Paying for Meds: No Currently Unemployed: No Education: Grade School Difficulty w/ Childcare or Family Care: No Additional living arrangements comments: The patient lives in [place]. She has 3 grown children and a 5-year-old daughter. Additional occupation/education comments: Currently unemployed. Spiritual care concerns: No Meds Home Medications and Allergies Home Medications Medication Instructions Recorded Confirmed Type No Home Medications 12/30/23 12/30/23 History Allergies Allergy/AdvReac Type Severity Reaction Status Date / Time Penicillins Allergy Severe Swelling Verified 12/30/23 06:58 cephalexin Allergy Intermediate Swelling Verified 12/30/23 06:58 nitrofurantoin Allergy Intermediate Swelling Verified 12/30/23 06:58 Vital Signs Vital Signs - 24 hr 12/30/23 01:35 12/30/23 02:00 12/30/23 02:45 Temperature Pulse Rate Respiratory Rate Blood Pressure 114/69 Pulse Oximetry 100 98 Oxygen Delivery Room Air Fraction of Inspired Oxygen 12/30/23 05:39 12/30/23 03:00 12/30/23 05:38 Temperature Pulse Rate Respiratory Rate Blood Pressure Pulse Oximetry 97 93 Oxygen Delivery Room Air Fraction of Inspired Oxygen 12/30/23 05:39 12/30/23 05:45 12/30/23 06:01 Temperature Pulse Rate Respiratory Rate Blood Pressure 138/126 H 107/71 Pulse Oximetry 100 100 100 Oxygen Delivery Fraction of Inspired Oxygen 12/30/23 06:02 12/30/23 06:15 12/30/23 06:30 Temperature Pulse Rate Respiratory Rate Blood Pressure Pulse Oximetry 100 100 100 Oxygen Delivery Fraction of Inspired Oxygen 12/30/23 06:45 12/30/23 07:28 12/30/23 07:26 Temperature 95.5 F L Pulse Rate 73 83 Respiratory Rate 14 18 Blood Pressure 107/71 99/71 L Pulse Oximetry 99 97 99 Oxygen Delivery Fraction of Inspired Oxygen 12/30/23 08:52 12/30/23 08:00 12/30/23 14:00 Temperature 96.7 F L Pulse Rate 80 Respiratory Rate 18 Blood Pressure 118/78 Pulse Oximetry 98 100 Oxygen Delivery Room Air Room Air Fraction of Inspired Oxygen 21 12/30/23 12:00 12/30/23 16:00 Temperature Pulse Rate 81 82 Respiratory Rate Blood Pressure Pulse Oximetry Oxygen Delivery Fraction of Inspired Oxygen Exam Narrative: General: alert and comfortable Eyes: EOMI, PERRLA ENNT External ears normal, Neck is supple, no masses, Respiratory systems: Clear to auscultation Cardiovascular S1, S2, normal rhythm, no murmur, rub, or gallop; no thrill or palpable murmurs on palpation. Gastrointestinal: soft, non-tender, and non-distended abdomen with no masses; BS present Skin: no rash, lesions, ulcerations, subcutaneous nodules or induration Musculoskeletal: no abnormality and no tenderness, normal ROM Neurologic: Alert and oriented x3, non focal Mental Status Exam: normal affect H&P: Results Labs Labs: Short CBC 12/30/23 Range/Units 02:32 WBC 4.3 L (4.5-10.0) K/mm3 Hgb 9.0 L (12.0-15.0) g/dL Hct 32.6 L (37.0-47.0) % Plt Count 48 L (150-375) k/mm3 BMP 12/30/23 02:32 Sodium 138 Potassium 4.2 Chloride 108 H Carbon Dioxide 22 BUN 15 D Creatinine 0.80 Glucose 129 H Calcium 8.7 Cardiac Enzymes 12/30/23 12/30/23 Range/Units 02:29 02:32 Troponin I Cancelled < 0.012 Liver Function 12/30/23 Range/Units 02:32 Total Bilirubin 1.2 (0.2-1.3) mg/dL AST 32 (14-36) U/L ALT 17 (6-35) U/L Alkaline Phosphatase 83 (38-126) U/L Albumin 3.7 (3.5-5.1) g/dL Urine 12/30/23 Range/Units 02:28 Urine Color Dark yellow (Yellow) Urine Appearance Cloudy H (Clear) Urine pH 5.5 (5.0-9.0) Ur Specific [place] > 1.045 H (1.001-1.035) Urine Protein 3+ H (Negative) mg/dL Urine Glucose (UA) Negative (Negative) mg/dL Assessment and Plan Assessment and plan (1) Acute dyspnea: Code(s): R06.00 - Dyspnea, unspecified Status: Acute (2) Chest pain: Code(s): R07.9 - Chest pain, unspecified Status: Acute Plan Chest pain with dyspnea Etiology unclear Patient currently on room air. Echo, stress test, Cardiology consulted. Tentative aspirin Monitor closely. Microcytic anemia With HGB 9.0 MCV 72.6 iron panel pending Monitor H&H. Occult bloods pending Hepatitis-C with liver cirrhosis Continue spironolactone and Lasix. patient noted she is not compliant GI referral on discharge Monitor Esophageal varices CT scan No evidence of bleeding at this point Continue monitoring. Drug abuse Patient has a history of heroin use Currently uses methamphetamine Counseled about drug cessation Continue monitoring. DVT prophylaxis Sq Lovenox Hospitalist [facility] Advance Care Plan I have confirmed that the patient's Advanced Care Plan is present, code status is documented, or surrogate decision maker is listed in patient medical record.: Yes Medication Reconciliation I have utilized all available resources to obtain, update and review the patients current medications (includes all prescriptions, OTC, herbals, cannabis, and nutritional supplements).: Yes
[2023-12-30 19:15] LABS: Cholesterol 89 mg/dL (0-200); HDL Direct 46 mg/dL; Triglycerides 93 mg/dL (<150)
[2023-12-30 20:00] LABS: Alveolar/Arterial O2 Gradient 31.1 mmHg; Fractional Inspired Oxygen 21 %; HCO3 ABG 22.1 mEq/l (22.0-26.0); Oxygen Content ABG 11.8 %vol (16.0-22.0); Oxygen Saturation ABG 96.8 % (95.0-100.0); Oxyhemoglobin 94.6 % THb (90.0-100.0); PCO2 ABG 30.9 mmHg (35.0-45.0); PO2 ABG 81.6 mmHg (80.0-100.0); PO2 FiO2 Ratio Arterial Blood 3.89 %; Total Hemoglobin 8.8 g/dL (12.0-18.0); pH ABG 7.473 (7.350-7.450)
[2023-12-30 20:01] LABS: Device ROOM AIR; Modified Allen's Test Pass; Site Drawn RIGHT RADIAL
[2023-12-30 21:07] LABS: LDL Cholesterol Direct < 30 mg/dL
[2023-12-31] VITALS (9 sets, daily range): BP systolic 95–120; BP diastolic 61–80; PULSE 83–98; RESP 16–20; TEMP 35.8–37.1; O2SAT 96–100
--- NOTE | 2023-12-31 | EST_ITS ---
Patient Info Name: Nichelle Pelayo Age: 43 years : 1980 Gender: Female Ht: 64 in Wt: 230 lbs BSA: 2.22 m2 HR: 81 bpm BP: 121 / 85 mmHg Exam Date: 12/31/2023 10:21 AM Exam Location: Echo Lab Patient Status: Inpatient Admit Date: 12/30/2023 Staff Ordering Physician: Maria Teresa Salomon MD Attending Provider: Deidre Bowles DO Exercise Technologist: Tami Marcus RDCS Nurse: Marielena Spencer APN Exam Type: CA stress test treadmill Study Info A treadmill exercise stress test was performed. Summary 1. Exercise duration: 1 minute 14 seconds. 2. RPP 66662. 3. Inconclusive stress test; did not achieve target heart rate. Recommendations * Consdier alternative modality to assess if clinically indicated. Protocol: Markel Stress ECG Details Stage: REST Duration (min): 8 min : 25 sec Speed (mph): 0.0 Grade (%): 0 HR (bpm): 81 SBP (mmHg): 121 DBP (mmHg): 85 METS: --- Stage: REST Duration (min): 15 min : 23 sec Speed (mph): 0.0 Grade (%): 0 HR (bpm): 84 SBP (mmHg): 121 DBP (mmHg): 85 METS: --- Stage: STAGE 1 Duration (min): 1 min : 0 sec Speed (mph): 1.7 Grade (%): 10 HR (bpm): 98 SBP (mmHg): 121 DBP (mmHg): 85 METS: --- Stage: STAGE 1 Duration (min): 1 min : 31 sec Speed (mph): 0.0 Grade (%): 0 HR (bpm): 109 SBP (mmHg): 121 DBP (mmHg): 85 METS: --- Stage: RECOVERY Duration (min): 0 min : 28 sec Speed (mph): 0.0 Grade (%): 0 HR (bpm): 117 SBP (mmHg): 121 DBP (mmHg): 85 METS: --- Stage: RECOVERY Duration (min): 1 min : 28 sec Speed (mph): 0.0 Grade (%): 0 HR (bpm): 106 SBP (mmHg): 126 DBP (mmHg): 63 METS: --- Stage: RECOVERY Duration (min): 2 min : 28 sec Speed (mph): 0.0 Grade (%): 0 HR (bpm): 97 SBP (mmHg): 127 DBP (mmHg): 65 METS: --- Stage: RECOVERY Duration (min): 3 min : 20 sec Speed (mph): 0.0 Grade (%): 0 HR (bpm): 91 SBP (mmHg): 127 DBP (mmHg): 65 METS: --- Rest HR: 84 bpm Peak HR: 118 bpm Rest Sys BP: 121 mmHg Peak Sys BP: 127 mmHg Max Pred HR: 176 bpm % Max Pred HR: 67 % Target HR: 150 bpm Max RPP: 14,986 bpm*mmHg Benitez Score: [address] Seg Deviation: -0.40 mm Total Time: 1 min : 31 sec Rest Singh BP: 85 mmHg Peak Singh BP: 65 mmHg Angina Score: None Total METS: 3.1 Report Signatures
--- NOTE | 2023-12-31 06:00 | ECHO_ITS ---
Patient Info Name: Nichelle Pelayo Age: 43 years : 1980 Gender: Female Ht: 64 in Wt: 230 lbs BSA: 2.22 m2 HR: 87 bpm BP: 103 / 63 mmHg Technical Quality: Poor Exam Date: 12/31/2023 8:21 AM Exam Location: Echo Lab Patient Status: Inpatient Admit Date: 12/30/2023 Staff Ordering Physician: Tom Reno MD Lighting Engineering Technician: MARGUERITE Attending Provider: Deidre Bowles DO Referring Physician: Rowdy [facility]; Exam Type: CA echo dop color flow w con Study Info Indications - DYSPNEA Complete two-dimensional, color flow and Doppler transthoracic echocardiogram is performed with contrast to opacify the left ventricle and to improve the deliniation of the left ventricle endocardial borders. Contrast/Agitated Saline Contrast/Ag. Saline: Definity Amount: 2.00 ml Existing IV Access: Yes Reason for Poor Study: poor echocardiographic windows Summary 1. Left ventricular wall thickness is moderately increased. 2. Left ventricular systolic function is normal with a visually estimated ejection fraction of 55-60%. 3. Normal left venticular systolic function with no regional wall motion abnormalities. 4. The left ventricular diastolic function is grade I diastolic dysfunction. 5. Right ventricular systolic function is normal. 6. Right ventricular chamber dimension is enlarged. 7. Right atrial chamber dimension is enlarged. 8. Left atrial chamber dimension is normal. 9. Mild pulmonary hypertension, estimated pulmonary arterial systolic pressure is 67 mmHg. 10. There is mild tricuspid valve regurgitation. 11. There is no aortic valve stenosis with a peak velocity of 129.27 cm/s, mean gradient of 5 mmHg, and aortic valve area of 2.64 cm2. 12. There is no mitral valve regurgitation. Left Ventricle Left ventricular chamber dimension is normal. Left ventricular wall thickness is moderately increased. Left ventricular systolic function is normal with a visually estimated ejection fraction of 55-60%. Normal left venticular systolic function with no regional wall motion abnormalities. The left ventricular diastolic function is grade I diastolic dysfunction. Right Ventricle Right ventricular chamber dimension is enlarged. Right ventricular systolic function is normal. Left Atria Left atrial chamber dimension is normal. Right Atria Right atrial chamber dimension is enlarged. Aortic Valve The aortic valve is trileaflet. There is no aortic valve stenosis with a peak velocity of 129.27 cm/s, mean gradient of 5 mmHg, and aortic valve area of 2.64 cm2. There is no aortic valve regurgitation. Pulmonic Valve There is no pulmonic regurgitation. Mitral Valve The mitral valve has normal leaflets. There is no mitral valve stenosis. There is no mitral valve regurgitation. Tricuspid Valve The tricuspid valve is not well visualized. Mild pulmonary hypertension, estimated pulmonary arterial systolic pressure is 67 mmHg. There is mild tricuspid valve regurgitation. Pericardium/Pleural The pericardium appears normal. There is no pericardial effusion. Inferior Vena Cava Normal inferior vena cava with >50% collapse upon inspiration consistent with normal right atrial pressure, 10 mmHg. Aorta The ascending aorta arch size is normal. Left Ventricular Outflow Tract Name Value Normal LVOT 2D LVOT Diameter 2.16 cm LVOT Doppler LVOT Peak Gradient 4 mmHg LVOT Mean Gradient 2 mmHg LVOT VTI 18.26 cm LVOT VTI/AV VTI Ratio 0.72 LVOT Stroke Volume 66.59 ml LVOT CO 5.55 l/min LVOT CI 2.50 L/min/m2 Pulmonic Valve Name Value Normal RVOT Doppler RVOT Peak Gradient 1 mmHg PV Doppler PV Peak Gradient 2 mmHg Mitral Valve Name Value Normal MV Doppler MV Decel [place] 390.87 cm/s2 MV PHT 0 s MV Area (PHT) 6.03 cm2 4.00-5.00 MV Diastolic Function MV E Peak Velocity 49.19 cm/s MV A Peak Velocity 72.99 cm/s MV E/A 0.67 MV Decel Time 0 s MV Annular TDI MV E/e' (Septal) 8.41 <=8.00 MV E/e' (Lateral) 3.54 <=8.00 MV E/e' (Average) 5.98 Tricuspid Valve Name Value Normal TV Regurgitation Doppler TR Peak Velocity 376.67 cm/s TR Peak Gradient 57 mmHg Estimated PAP/RSVP RA Pressure 10 mmHg <=5 PA Systolic Pressure 67 mmHg <36 RV Systolic Pressure 67 mmHg <36 Aorta Name Value Normal Ascending Aorta Ao Root Diameter (MM) 2.92 cm Ao Root Diam Index (MM) 1.31 cm/m2 Aortic Valve Name Value Normal AV Doppler AV Peak Velocity 129.27 cm/s AV Peak Gradient 7 mmHg AV Mean Gradient 5 mmHg AV VTI 25.21 cm AV Area (Cont Eq VTI) 2.64 cm2 >=3.00 AV Area (Cont Eq Diaz) 2.64 cm2 AV Regurgitation 2D LVOT Area 3.65 cm2 Ventricles Name Value Normal LV Dimensions 2D/MM IVS Diastolic Thickness (2D) 1.63 cm 0.60-1.00 LVID Diastole (2D) 3.82 cm 3.80-5.20 LVIW Diastolic Thickness (2D) 1.70 cm 0.60-0.90 LVID Systole (2D) 2.43 cm 2.20-3.50 LVOT Diameter 2.16 cm LV Mass (2D Cubed) 258.55 g 67.00-162.00 LV Mass Index (2D Cubed) 0.01 g/cm2 0.00-0.01 Relative Wall Thickness (2D) 0.89 LV Fractional Shortening/Ejection Fraction 2D/MM LV Fractional Shortening (2D) 35 % 27-45 LV EF (2D Teicholz) 65 % 54-74 LV Diastolic Volume (4C MOD) 76.26 ml LV EF (4C MOD) 58 % LV Diastolic Volume (2C MOD) 81.22 ml LV EF (2C MOD) 36 % LV Diastolic Volume (BP MOD) 81.40 ml 46.00-106.00 LV Diastolic Volume Index (BP MOD) 0.04 l/m2 0.03-0.06 LV Systolic Volume (BP MOD) 41.49 ml 14.00-42.00 LV Systolic Volume Index (BP MOD) 0.02 l/m2 0.01-0.02 LV EF (BP MOD) 49 % 54-74 LV Diastolic Length (4C) 7.70 cm LV Systolic Length (4C) 6.38 cm LV Stroke Volume (4C MOD) 44.05 ml Atria Name Value Normal LA Dimensions LA Dimension (MM) 3.63 cm 2.70-3.80 LA Volume (4C A-L) 31.94 ml LA Volume (BP A-L) 49.26 ml Report Signatures
[2023-12-31 06:34] LABS: Basophils Percent Auto 0.6 % (0.2-1.2); Eosinophils Absolute Auto 0.1 K/mm3 (0-0.3); Eosinophils Percent Auto 2.7 % (0-4.4); Hematocrit 32.2 % (37.0-47.0); Hemoglobin 8.7 g/dL (12.0-15.0); Immature Granulocyte Absolute 0.02 K/mm3 (0.00-0.031); Immature Granulocyte Percent A 0.6 % (0-0.5); Immature Platelet Fraction Pct 8.7 % (0.9-11.2); Lymphocytes Absolute Auto 1.02 K/mm3 (0.9-3.2); Lymphocytes Percent Auto 30.4 % (18.3-44.2); Mean Corpuscular Hemoglobin 19.9 pg (26-34); Mean Corpuscular Volume 73.7 fl (80-100); Monocytes Absolute Auto 0.3 K/mm3 (0.1-0.6); Neutrophils Absolute Auto 1.9 K/mm3 (1.3-6.7); Neutrophils Percent Auto 56.7 % (45.5-73.1); Platelet Count Result 49 k/mm3 (150-375); Red Blood Count 4.37 M/mm3 (4.2-5.4); Red Cell Distribution Width 20.8 % (11.5-14.5); White Blood Count 3.4 K/mm3 (4.5-10.0)
[2023-12-31 06:46] LABS: Alanine Aminotransferase 20 U/L (6-35); Albumin Level 3.6 g/dL (3.5-5.1); Alkaline Phosphatase 92 U/L (38-126); Anion Gap 8 mmol/L (4-12); Aspartate Amino Transferase 32 U/L (14-36); Bilirubin,Total 1.1 mg/dL (0.2-1.3); Blood Urea Nitrogen 17 mg/dL (7-17); Calcium 8.8 mg/dL (8.4-10.2); Carbon Dioxide 22 mmol/L (22-30); Chloride 109 mmol/L (98-107); Estimated CRCL calculation 104 ml/min; Estimated Glomerular Filt Rate > 60; Glucose 120 mg/dL (65-110); Potassium 3.7 mmol/L (3.4-5.0); Sodium 139 mmol/L (137-145)
[2023-12-31 07:03] LABS: Anisocytosis 1+; Hypochromasia 1+; Ovalocytes 1+; Platelet Estimate Decreased (Adequate); Schistocytes None Seen; Tear Drop Cells 1+
[2023-12-31 07:28] LABS: Iron 32 ug/dL (37-170)
[2023-12-31 07:55] LABS: Percent Iron Saturation 7 % (20-50)
[2023-12-31 08:05] LABS: Ferritin 9.36 ng/mL (6.24-137)
[2023-12-31] MEDS: ASPIRIN 81 MG ENTERIC TABLET PO (08:48)
[2023-12-31] MEDS: SPIRONOLACTONE 50 MG TABLET PO (08:48)
[2023-12-31] MEDS: FUROSEMIDE 20 MG TABLET PO (08:48)
[2023-12-31] MEDS: PERFLUTREN LIPID MICROSPHERES 1.5 ML VIAL DILUTED TO 10 ML TOTAL VOLUME IV PUSH (10:50)
--- NOTE | 2023-12-31 11:32 | PM.CNCAR ---
Assessment and Plan Assessment and plan (1) Atypical chest pain: Code(s): R07.89 - Other chest pain Status: Acute Plan 1. Atypical chest pain Agree with the noninvasive evaluation because of moderate pretest probability -with the pancytopenia, polysubstance abuse; we will try to avoid any invasive evaluation and placement of the S you and have the stress test is abnormal -avoid beta-sergio with history of polysubstance abuse -will avoid antiplatelets cause thrombocytopenia -further recommendations post stress test History of Present Illness History of Present Illness Consult date/time: 12/31/23 11:32 Reason For Visit: Dyspnea on exertion Narrative: 41-year-old female with history of polysubstance abuse, hepatitis-C, and cirrhosis who has been admitted with atypical chest pain. Patient reported that she last used methamphetamine about a week ago. Denies alcohol no alcohol former smoker now she vapes. Negative cardiac enzymes EKG shows no dynamic ST or T-wave changes Labs evaluated shows pancytopenia with a platelet in the 40s, Review of Systems Review of Systems: All other systems reviewed and negative except as noted in the history above. [facility] Past Medical History Medical History Acute on chronic anemia Cirrhosis Esophageal varices Gastritis Hepatitis C Iron deficiency Tobacco abuse Surgical History Surgical History History of section History of cholecystectomy Family History Family History Sibling Drug addiction Social History Social History Social History: Surrogate medical decision maker: Claudia Pelayo, mother. Code status: Full code. Smoking packs per day: 0.5 Smoking cigarettes per day: 10.0 Years smoked: 25 Smoking pack-years: 12.50 Smoking status: Former smoker Alcohol intake: never Substance use: current Substance use type: heroin and methamphetamine Other substance usage details: history of heroin use for 11 years, clean for 11 years. Last use: Snorts meth daily for the past 6 years. Do You Feel Safe in your Home?: Yes Lack of Transportation: No Lack of Food: Never True Current Housing: I Have Housing Concerned About Future Housing: No Difficulty Paying Gas/Electric Bills: No Difficulty Paying for Meds: No Currently Unemployed: No Education: Grade School Difficulty w/ Childcare or Family Care: No Additional living arrangements comments: The patient lives in [place]. She has 3 grown children and a 5-year-old daughter. Additional occupation/education comments: Currently unemployed. Spiritual care concerns: No Meds Home Medications and Allergies Home Medications Medication Instructions Recorded Confirmed Type No Home Medications 12/30/23 12/30/23 History Allergies Allergy/AdvReac Type Severity Reaction Status Date / Time Penicillins Allergy Severe Swelling Verified 12/30/23 06:58 cephalexin Allergy Intermediate Swelling Verified 12/30/23 06:58 nitrofurantoin Allergy Intermediate Swelling Verified 12/30/23 06:58 Vital Signs Vital Signs - 24 hr 12/30/23 14:00 12/30/23 12:00 12/30/23 16:00 Temperature 35.9 C L Pulse Rate 80 81 82 Respiratory Rate 18 Blood Pressure 118/78 Pulse Oximetry 100 Oxygen Delivery 12/30/23 20:00 12/30/23 21:20 12/30/23 20:00 Temperature 35.9 C L Pulse Rate 91 86 Respiratory Rate 18 Blood Pressure 105/70 Pulse Oximetry 98 Oxygen Delivery Room Air 12/31/23 00:00 12/31/23 01:00 12/31/23 03:50 Temperature 36.6 C 36.1 C L Pulse Rate 84 86 86 Respiratory Rate 20 20 Blood Pressure 101/72 103/63 Pulse Oximetry 97 99 Oxygen Delivery 12/31/23 04:00 12/31/23 07:59 12/31/23 08:00 Temperature 35.9 C L Pulse Rate 87 83 85 Respiratory Rate 18 Blood Pressure 105/80 Pulse Oximetry 99 Oxygen Delivery Exam Narrative: General: alert and comfortable Eyes: EOMI, PERRLA ENNT External ears normal, Neck is supple, no masses, Respiratory systems: Clear to auscultation Cardiovascular S1, S2, normal rhythm, no murmur, rub, or gallop; no thrill or palpable murmurs on palpation. Gastrointestinal: soft, non-tender, and non-distended abdomen with no masses; BS present Skin: no rash, lesions, ulcerations, subcutaneous nodules or induration Musculoskeletal: no abnormality and no tenderness, normal ROM Neurologic: Alert and oriented x3, non focal Mental Status Exam: normal affect Results Labs and Meds 12/31/23 05:48 12/31/23 05:48 Lab results: Cardiac Enzymes 12/31/23 Range/Units 05:48 AST 32 (14-36) U/L Lipids 12/30/23 Range/Units 02:32 Triglycerides 93 (<150) mg/dL Cholesterol 89 (0-200) mg/dL CBC 12/31/23 Range/Units 05:48 WBC 3.4 L (4.5-10.0) K/mm3 RBC 4.37 (4.2-5.4) M/mm3 Hgb 8.7 L (12.0-15.0) g/dL Hct 32.2 L (37.0-47.0) % Plt Count 49 L (150-375) k/mm3 Lymph # (Auto) 1.02 (0.9-3.2) K/mm3 [place] # (Auto) 0.3 (0.1-0.6) K/mm3 Eos # (Auto) 0.1 (0-0.3) K/mm3 Baso # (Auto) 0.0 (0.0-0.1) K/mm3 Comprehensive Metabolic Panel 12/31/23 Range/Units 05:48 Sodium 139 (137-145) mmol/L Potassium 3.7 (3.4-5.0) mmol/L Chloride 109 H (98-107) mmol/L Carbon Dioxide 22 (22-30) mmol/L BUN 17 (7-17) mg/dL Creatinine 0.70 (0.7-1.0) mg/dL Glucose 120 H (65-110) mg/dL Calcium 8.8 (8.4-10.2) mg/dL AST 32 (14-36) U/L ALT 20 (6-35) U/L Alkaline Phosphatase 92 (38-126) U/L Total Protein 7.0 (6.3-8.2) g/dL Albumin 3.6 (3.5-5.1) g/dL Intake and Output 12/30/23 12/31/23 12/31/23 23:59 07:59 15:59 Intake Total 222 500 Balance 222 500 Intake: Oral 222 500 Other: # Unmeasured Voids 0 2 Number of Bowel Movements Today 0
--- NOTE | 2023-12-31 11:42 | IVDEFINITY ---
Prior to administration of IV Definity the patient was educated on the risks and benefits of the imaging enhancing agent including potential adverse side effects. The patient verbalized understanding. Allergies were verified. No exclusion criteria were identified and at least one of the following inclusion criteria were met: 1) physician request, 2) patient technically difficult to image (per the [place] [employer]ocardi[employer] guidelines of two or more segments not discernable within the apical view), or 3) questionable left ventricular function. ?
--- NOTE | 2023-12-31 16:23 | WPDPN ---
Progress Note: A&P Assessment and Plan (1) Acute dyspnea: Code(s): R06.00 - Dyspnea, unspecified Status: Acute (2) Chest pain: Code(s): R07.9 - Chest pain, unspecified Status: Acute Plan Chest pain with dyspnea Etiology unclear Patient currently on room air. Echo, stress test, Cardiology consulted. Tentative aspirin Monitor closely. Microcytic anemia With HGB 9.0 MCV 72.6 iron panel pending Monitor H&H. Occult bloods pending Hepatitis-C with liver cirrhosis Continue spironolactone and Lasix. patient noted she is not compliant GI referral on discharge Monitor Esophageal varices CT scan No evidence of bleeding at this point Continue monitoring. Drug abuse Patient has a history of heroin use Currently uses methamphetamine Counseled about drug cessation Continue monitoring. patient presented with c/o shortness of breath, etiology is uncertain chest x-ray is negative as well as CTA of the chest did not show any pulmonary emboli to further evaluate patient will have cardiac echo and cardiac stress test currently patient states feeling better not as short of breath compared to when she arrived, continue to monitor further recommendation to follow. DVT prophylaxis Sq Lovenox Subjective Date/time seen: 12/31/23 16:23 Interval history: HPI-H&P-chest pain and worsening SOB Narrative: 41-year-old female with history of polysubstance abuse, hepatitis-C, and cirrhosis who presented to the emergency department for evaluation of shortness of breath. Patient reported having shortness of breath past 10 days. Patient also reported chest week ago there is intermittent. Otherwise denies any vomiting, no abdominal pain, no diarrhea no dysuria no focal symptoms no loss of consciousness. Patient reported that she last used methamphetamine about a week ago. No longer uses a healing. Denies alcohol no alcohol former smoker now she vapes. patient presented with c/o shortness of breath, etiology is uncertain chest x-ray is negative as well as CTA of the chest did not show any pulmonary emboli to further evaluate patient will have cardiac echo and cardiac stress test currently patient states feeling better not as short of breath compared to when she arrived, continue to monitor further recommendation to follow. Review of Systems Review of Systems: All other systems reviewed and negative except as noted in the history above. Exam Narrative: Patient is comfortable, NAD HEENT: eyes are clear and none icteric LUNGS:CTA HEART: RR S1S2 ABD: BS+, Soft and nontender Lower extremities: no edema SKIN: nonjaundiced Neuro: grossly intact. Objective Data Vital Signs Vital Signs: Vital Signs - 24 hr 12/30/23 20:00 12/30/23 21:20 12/30/23 20:00 Temperature 35.9 C L Pulse Rate 91 86 Respiratory Rate 18 Blood Pressure 105/70 Pulse Oximetry 98 Oxygen Delivery Room Air 12/31/23 00:00 12/31/23 01:00 12/31/23 03:50 Temperature 36.6 C 36.1 C L Pulse Rate 84 86 86 Respiratory Rate 20 20 Blood Pressure 101/72 103/63 Pulse Oximetry 97 99 Oxygen Delivery 12/31/23 04:00 12/31/23 07:59 12/31/23 08:00 Temperature 35.9 C L Pulse Rate 87 83 85 Respiratory Rate 18 Blood Pressure 105/80 Pulse Oximetry 99 Oxygen Delivery 12/31/23 12:00 12/31/23 08:00 Temperature 35.8 C L Pulse Rate 85 Respiratory Rate 18 Blood Pressure 112/61 Pulse Oximetry 100 Oxygen Delivery Room Air Intake/Output Intake/Output: Intake & Output 12/28/23 12/29/23 12/30/23 12/31/23 23:59 23:59 23:59 23:59 Intake Total 462 740 Balance 462 740 Meds/Results Medications: Active Medications Generic Name Dose Route Start Last Admin Trade Name Freq PRN Reason Stop Dose Admin Aspirin 81 mg 12/31/23 09:00 12/31/23 08:48 Aspirin 81 Mg Enteric Tablet PO 81 mg QAM LA Administration Enoxaparin Sodium 40 mg 12/31/23 09:00 Enoxaparin 40 Mg/0.4 Ml Syringe SUB-Q DAILY LA Furosemide 20 mg 12/31/23 09:00 12/31/23 08:48 Furosemide 20 Mg Tablet PO 20 mg DAILY LA Administration Miscellaneous Information 1 each 12/31/23 00:01 12/30/23 19:52 Med Rec Order Clarification XX 01/30/24 00:00 Not Given CLARIFY LA Spironolactone 50 mg 12/31/23 09:00 12/31/23 08:48 Spironolactone 50 Mg Tablet PO 50 mg QAM LA Administration Radiology Results: ITS Impressions Chest/Abdomen/Pelvis CTA 12/30/23 06:04 Impression: No pulmonary embolus. No significant findings in the chest. Cirrhosis with associated splenomegaly and esophageal and splenorenal varices. 2.2 cm left ovarian cyst. Chest X-Ray 12/30/23 06:08 Impression: Clear lungs. Labs Labs: Laboratory Results - last 24 hr 12/30/23 12/30/23 12/31/23 02:32 19:49 05:48 WBC 3.4 L RBC 4.37 Hgb 8.7 L Hct 32.2 L MCV 73.7 L MCH 19.9 L MCHC 27.0 L RDW 20.8 H Plt Count 49 L MPV TNP Immature Gran % (Auto) 0.6 H Neut % (Auto) 56.7 Lymph % (Auto) 30.4 [place] % (Auto) 9.0 H Eos % (Auto) 2.7 Baso % (Auto) 0.6 Lymph # (Auto) 1.02 [place] # (Auto) 0.3 Eos # (Auto) 0.1 Baso # (Auto) 0.0 Abs Immat Gran (auto) 0.02 Absolute Neuts (auto) 1.9 Absolute Nucleated RBC 0.000 Nucleated RBC % 0.0 Platelet Estimate Decreased % Immature Plt Fraction 8.7 Hypochromasia 1+ Anisocytosis 1+ Tear Drop Cells 1+ Ovalocytes 1+ Schistocytes None seen Puncture Site Right radial ABG pH 7.473 H ABG pCO2 30.9 L ABG pO2 81.6 ABG PO2/FiO2 Ratio 3.89 ABG HCO3 22.1 ABG O2 Saturation 96.8 ABG O2 Content 11.8 L ABG Base Excess -1.0 A-a Gradient 31.1 Oxyhemoglobin 94.6 Total Hemoglobin 8.8 L O2 Delivery Device Room air O2 Liters/Min Not Reportable FiO2 21 Sodium 139 Potassium 3.7 Chloride 109 H Carbon Dioxide 22 Anion Gap 8 BUN 17 Creatinine 0.70 Estim Creat Clear Calc 104 Estimated GFR > 60 Glucose 120 H Hemoglobin A1c 6.0 H Calcium 8.8 Magnesium 2.0 Iron 32 L TIBC 465 H % Saturation 7 L Ferritin 9.36 Total Bilirubin 1.1 AST 32 ALT 20 Alkaline Phosphatase 92 Total Protein 7.0 Albumin 3.6 Triglycerides 93 Cholesterol 89 LDL Cholesterol Direct < 30 HDL Direct 46
[2024-01-01] VITALS (10 sets, daily range): BP systolic 114–123; BP diastolic 67–78; PULSE 81–94; RESP 18–20; TEMP 36.1–36.2; O2SAT 98–100
[2024-01-01 06:55] LABS: Hematocrit 28.7 % (37.0-47.0); Hemoglobin 7.9 g/dL (12.0-15.0); Immature Platelet Fraction Pct 7.5 % (0.9-11.2); Mean Corpuscular HGB Conc 27.5 g/dl (32-36); Mean Corpuscular Hemoglobin 19.9 pg (26-34); Mean Corpuscular Volume 72.3 fl (80-100); Platelet Count Result 40 k/mm3 (150-375); Red Blood Count 3.97 M/mm3 (4.2-5.4); Red Cell Distribution Width 20.2 % (11.5-14.5); White Blood Count 2.8 K/mm3 (4.5-10.0)
[2024-01-01 07:03] LABS: Anion Gap 5 mmol/L (4-12); Blood Urea Nitrogen 12 mg/dL (7-17); Carbon Dioxide 24 mmol/L (22-30); Chloride 106 mmol/L (98-107); Estimated CRCL calculation 120 ml/min; Estimated Glomerular Filt Rate > 60; Glucose 157 mg/dL (65-110); Magnesium 1.7 mg/dL (1.6-2.3); Potassium 3.2 mmol/L (3.4-5.0); Sodium 135 mmol/L (137-145)
[2024-01-01] MEDS: FUROSEMIDE 20 MG TABLET PO (08:21)
[2024-01-01] MEDS: ASPIRIN 81 MG ENTERIC TABLET PO (08:21)
[2024-01-01] MEDS: SPIRONOLACTONE 50 MG TABLET PO (08:21)
[2024-01-01] MEDS: POTASSIUM CHLORIDE 20 MEQ ER TABLET PO (12:58)
--- NOTE | 2024-01-01 18:24 | WPDPN ---
Progress Note: A&P Assessment and Plan (1) Acute dyspnea: Code(s): R06.00 - Dyspnea, unspecified Status: Acute (2) Chest pain: Code(s): R07.9 - Chest pain, unspecified Status: Acute Plan Chest pain with dyspnea Etiology unclear Patient currently on room air. Echo, stress test, Cardiology consulted. Tentative aspirin Monitor closely. Microcytic anemia With HGB 9.0 MCV 72.6 iron panel pending Monitor H&H. Occult bloods pending Hepatitis-C with liver cirrhosis Continue spironolactone and Lasix. patient noted she is not compliant GI referral on discharge Monitor Esophageal varices CT scan No evidence of bleeding at this point Continue monitoring. Drug abuse Patient has a history of heroin use Currently uses methamphetamine Counseled about drug cessation Continue monitoring. patient presented with c/o shortness of breath, etiology is uncertain chest x-ray is negative as well as CTA of the chest did not show any pulmonary emboli to further evaluate patient had have cardiac echo showed Left ventricular systolic function is normal with a visually estimated ejection fraction of 55-60%. Normal left venticular systolic function with no regional wall motion abnormalities.and however patient was not able to complete cardiac stress test, discussed with the top dyeing machine tender and will order nuclear nathaniel scan, currently patient states feeling better not as short of breath compared to when she arrived, continue to monitor further recommendation to follow. DVT prophylaxis Sq Lovenox Subjective Date/time seen: 01/01/24 18:24 Interval history: HPI-H&P-chest pain and worsening SOB Narrative: 41-year-old female with history of polysubstance abuse, hepatitis-C, and cirrhosis who presented to the emergency department for evaluation of shortness of breath. Patient reported having shortness of breath past 10 days. Patient also reported chest week ago there is intermittent. Otherwise denies any vomiting, no abdominal pain, no diarrhea no dysuria no focal symptoms no loss of consciousness. Patient reported that she last used methamphetamine about a week ago. No longer uses a healing. Denies alcohol no alcohol former smoker now she vapes. patient presented with c/o shortness of breath, etiology is uncertain chest x-ray is negative as well as CTA of the chest did not show any pulmonary emboli to further evaluate patient had have cardiac echo showed Left ventricular systolic function is normal with a visually estimated ejection fraction of 55-60%. Normal left venticular systolic function with no regional wall motion abnormalities.and however patient was not able to complete cardiac stress test, discussed with the top dyeing machine tender and will order nuclear nathaniel scan, currently patient states feeling better not as short of breath compared to when she arrived, continue to monitor further recommendation to follow. Review of Systems Review of Systems: All other systems reviewed and negative except as noted in the history above. Exam Narrative: Patient is comfortable, NAD HEENT: eyes are clear and none icteric LUNGS:CTA HEART: RR S1S2 ABD: BS+, Soft and nontender Lower extremities: no edema SKIN: nonjaundiced Neuro: grossly intact. Objective Data Vital Signs Vital Signs: Vital Signs - 24 hr 12/31/23 20:00 12/31/23 20:00 01/01/24 00:00 Temperature 36.1 C L Pulse Rate 92 93 92 Respiratory Rate 20 Blood Pressure 120/62 Pulse Oximetry 99 Oxygen Delivery 01/01/24 04:00 01/01/24 06:00 01/01/24 08:00 Temperature 36.1 C L Pulse Rate 83 91 Respiratory Rate 18 Blood Pressure 114/71 Pulse Oximetry 98 Oxygen Delivery Room Air 01/01/24 08:00 01/01/24 12:00 01/01/24 14:00 Temperature 36.1 C L Pulse Rate 81 87 92 Respiratory Rate 18 Blood Pressure 120/78 Pulse Oximetry 100 Oxygen Delivery 01/01/24 16:00 Temperature Pulse Rate 91 Respiratory Rate Blood Pressure Pulse Oximetry Oxygen Delivery Intake/Output Intake/Output: Intake & Output 12/29/23 12/30/23 12/31/23 01/01/24 23:59 23:59 23:59 23:59 Intake Total 462 980 240 Balance 462 980 240 Meds/Results Medications: Active Medications Generic Name Dose Route Start Last Admin Trade Name Freq PRN Reason Stop Dose Admin Aspirin 81 mg 12/31/23 09:00 01/01/24 08:21 Aspirin 81 Mg Enteric Tablet PO 81 mg QAM LA Administration Enoxaparin Sodium 40 mg 12/31/23 09:00 Enoxaparin 40 Mg/0.4 Ml Syringe SUB-Q DAILY LA Furosemide 20 mg 12/31/23 09:00 01/01/24 08:21 Furosemide 20 Mg Tablet PO 20 mg DAILY LA Administration Miscellaneous Information 1 each 12/31/23 00:01 12/30/23 19:52 Med Rec Order Clarification XX 01/30/24 00:00 Not Given [facility] Spironolactone 50 mg 12/31/23 09:00 01/01/24 08:21 Spironolactone 50 Mg Tablet PO 50 mg QAM LA Administration Radiology Results: ITS Impressions Chest/Abdomen/Pelvis CTA 12/30/23 06:04 Impression: No pulmonary embolus. No significant findings in the chest. Cirrhosis with associated splenomegaly and esophageal and splenorenal varices. 2.2 cm left ovarian cyst. Chest X-Ray 12/30/23 06:08 Impression: Clear lungs. Labs Labs: Laboratory Results - last 24 hr 01/01/24 06:12 WBC 2.8 L RBC 3.97 L Hgb 7.9 L Hct 28.7 L MCV 72.3 L MCH 19.9 L MCHC 27.5 L RDW 20.2 H Plt Count 40 L MPV TNP % Immature Plt Fraction 7.5 Sodium 135 L Potassium 3.2 L Chloride 106 Carbon Dioxide 24 Anion Gap 5 BUN 12 D Creatinine 0.60 L Estim Creat Clear Calc 120 Estimated GFR > 60 Glucose 157 H Calcium 8.0 L Magnesium 1.7
[2024-01-01] MEDS: LORazepam (*CRX) 0.5 MG TABLET PO (22:50)
[2024-01-01 23:09] LABS: IFOB Positive Control Positive; Immunochemical Fecal Occult Bl Positive (N)
[2024-01-02] VITALS: PULSE 93
[2024-01-02 04:00] VITALS: PULSE 88
[2024-01-02 06:00] VITALS: BP 131/89; PULSE 87; RESP 18; TEMP 36.6; O2SAT 100
[2024-01-02 07:03] LABS: Hematocrit 34.5 % (37.0-47.0); Hemoglobin 9.5 g/dL (12.0-15.0); Immature Platelet Fraction Pct 6.7 % (0.9-11.2); Mean Corpuscular HGB Conc 27.5 g/dl (32-36); Mean Corpuscular Hemoglobin 20.2 pg (26-34); Mean Corpuscular Volume 73.2 fl (80-100); Platelet Count Result 45 k/mm3 (150-375); Red Blood Count 4.71 M/mm3 (4.2-5.4); Red Cell Distribution Width 20.8 % (11.5-14.5); White Blood Count 3.7 K/mm3 (4.5-10.0)
[2024-01-02 07:26] LABS: Anion Gap 5 mmol/L (4-12); Blood Urea Nitrogen 11 mg/dL (7-17); Calcium 8.6 mg/dL (8.4-10.2); Carbon Dioxide 22 mmol/L (22-30); Chloride 108 mmol/L (98-107); Estimated CRCL calculation 120 ml/min; Estimated Glomerular Filt Rate > 60; Glucose 131 mg/dL (65-110); Magnesium 1.7 mg/dL (1.6-2.3); Sodium 135 mmol/L (137-145)
[2024-01-02 08:00] VITALS: PULSE 86
--- NOTE | 2024-01-02 10:09 | PC.NURSE ---
Patient off of unit to nathaniel scan
[2024-01-02 12:00] VITALS: PULSE 86
--- NOTE | 2024-01-02 13:37 | EST_ITS ---
Patient Info Name: Nichelle Pelayo Age: 43 years : 1980 Gender: Female Ht: 64 in Wt: 230 lbs BSA: 2.22 m2 Exam Date: 01/02/2024 10:48 AM Exam Location: Echo Lab Patient Status: Inpatient Admit Date: 12/30/2023 Staff Ordering Physician: Jose Abreu MD Attending Provider: Deidre Bowles DO Exercise Technologist: Anna Leary RDCS Exam Type: CA stress nathaniel w NM Study Info Indications R07.9 - Chest pain, unspecified A regadenoson stress test was performed. Summary 1. The ECG shows no evidence of ischemia with pharmacolgical stress. Protocol: Lexiscan Stress ECG Details Stage: REST Duration (min): 1 min : 19 sec HR (bpm): 88 SBP (mmHg): 137 DBP (mmHg): 85 Stage: REST Duration (min): 19 min : 57 sec HR (bpm): 91 SBP (mmHg): 137 DBP (mmHg): 85 Stage: STAGE 1 Duration (min): 1 min : 0 sec HR (bpm): 96 SBP (mmHg): 130 DBP (mmHg): 79 Stage: RECOVERY Duration (min): 1 min : 0 sec HR (bpm): 94 SBP (mmHg): 126 DBP (mmHg): 76 Stage: RECOVERY Duration (min): 2 min : 0 sec HR (bpm): 95 SBP (mmHg): 126 DBP (mmHg): 76 Stage: RECOVERY Duration (min): 3 min : 0 sec HR (bpm): 92 SBP (mmHg): 123 DBP (mmHg): 76 Stage: RECOVERY Duration (min): 3 min : 3 sec HR (bpm): 92 SBP (mmHg): 123 DBP (mmHg): 76 Rest HR: 91 bpm Peak HR: 97 bpm Rest Sys BP: 137 mmHg Peak Sys BP: 130 mmHg Max Pred HR: 176 bpm % Max Pred HR: 55 % Target HR: 150 bpm Max RPP: 12,610 bpm*mmHg Total Time: 1 min : 0 sec Rest Singh BP: 85 mmHg Peak Singh BP: 79 mmHg Total Dose: 0.4 mg Report Signatures
[2024-01-02 14:00] VITALS: BP 113/67; PULSE 85; RESP 18; TEMP 36.2; O2SAT 100
--- NOTE | 2024-01-02 14:24 | PM.DS ---
DS: Admitting Diagnosis Discharge Date 01/02/24 Admitting Diagnosis chest pain and worsening SOB DS: Discharge Diagnosis Discharge Diagnosis (1) Chest pain: Code(s): R07.9 - Chest pain, unspecified Status: Acute (2) Acute dyspnea: Code(s): R06.00 - Dyspnea, unspecified Status: Acute DS: Summary Hospital Course Hospital Course: patient presented with c/o shortness of breath, etiology is uncertain chest x-ray is negative as well as CTA of the chest did not show any pulmonary emboli to further evaluate patient had have cardiac echo showed Left ventricular systolic function is normal with a visually estimated ejection fraction of 55-60%. Normal left venticular systolic function with no regional wall motion abnormalities.and however patient was not able to complete cardiac stress test, discussed with the laborer poultry hatchery and ordered nuclear nathaniel scan, which did not show any ischemic event, currently patient states feeling better not as short of breath compared to when she arrived, will discharge patient today. Time Spent with Patient Time attestation: Total time spent providing and/or coordinating discharge services: Exam Narrative: Patient is comfortable, NAD HEENT: eyes are clear and none icteric LUNGS:CTA HEART: RR S1S2 ABD: BS+, Soft and nontender Lower extremities: no edema SKIN: nonjaundiced Neuro: grossly intact. DS: Data Data Completed and Pending Labs on day of discharge: Labs from last 24 hours 01/02/24 01/01/24 06:46 22:52 WBC 3.7 L RBC 4.71 Hgb 9.5 L Hct 34.5 L MCV 73.2 L MCH 20.2 L MCHC 27.5 L RDW 20.8 H Plt Count 45 L MPV TNP % Immature Plt Fraction 6.7 Sodium 135 L Potassium 4.0 Chloride 108 H Carbon Dioxide 22 Anion Gap 5 BUN 11 Creatinine 0.60 L Estim Creat Clear Calc 120 Estimated GFR > 60 Glucose 131 H Calcium 8.6 Magnesium 1.7 Stl Occult Blood (IFOB) Positive H D Discharge Plan Discharge Attending physician on discharge: Deidre Bowles Consulting providers: Maria Teresa Salomon; Jose Abreu; Clifton Louise; Js Shine; Moreno Pratt V. Discharging Clinician: Marcelo Vallejo Patient Disposition: Home, Self-Care Activity: as tolerated Diet: heart healthy Discharge Instructions: patient is instructed to follow up with her primary care provider as soon as possible, patient is instructed if any symptoms worsen to go to nearest ER. Patient Instructions: Antibiotic Form, Pain Management (DC) Stand Alone Forms: General Discharge Information Follow-up/Referrals: Sandra,Mare Pearson MD [Primary Care Provider] - Discharge Medications: New furosemide 20 mg Tablet 20 mg PO DAILY Qty: 30 0RF spironolactone [Aldactone] 50 mg Tablet 50 mg PO QAM Qty: 30 0RF aspirin 81 mg Tablet,Delayed Release (Dr/Ec) 81 mg PO QAM Qty: 30 0RF Date of admission: 12/30/23 06:50 Primary Care Provider: SandraMare Admitting Provider: Deidre Bowles Attending physician on admission: Marcelo Vallejo Condition: Stable
== END 2024-01-02 16:00 | disposition home or self-care (01) ==
LOC: ANHED 06:52 → ANH3MEDSUR 07:32
PROVIDERS: Internal Medicine; Admitting Provider Internal Medicine; Emergency Provider Emergency Medicine; PCP Internal Medicine; Visit Provider Family Medicine
DX: R07.89 Other chest pain (principal); R06.00 Dyspnea, unspecified; B19.20 Unspecified viral hepatitis C without hepatic coma; K74.60 Unspecified cirrhosis of liver; I85.10 Secondary esophageal varices without bleeding; F17.290 Nicotine dependence, other tobacco product, uncomplicated; F19.10 Other psychoactive substance abuse, uncomplicated; F11.11 Opioid abuse, in remission; D61.818 Other pancytopenia; D50.9 Iron deficiency anemia, unspecified; Z20.822 Contact with and (suspected) exposure to COVID-19; Z90.49 Acquired absence of other specified parts of digestive tract; Z88.0 Allergy status to penicillin; Z88.1 Allergy status to other antibiotic agents; Z88.8 Allergy status to other drugs, medicaments and biological substances; Z56.0 Unemployment, unspecified
CPT/HCPCS: 36415; 36600; 71045; 71275; 74177; 78452; 80048; 80053; 80061; 80307; 81001; 82077; 82274; 82728; 82805; 83036; 83540; 83550; 83605; 83690; 83735; 83880; 84145; 84484; 85018; 85025; 85027; 85055; 85610; 85730; 87637; 93005; 93017; 96374; 99285; A9270; A9502; C8929; G0378; J2785; Q9957; Q9967

== ENCOUNTER 2024-03-20 13:19 | Emergency (ER) | payer OTHER, MEDICAID, SELFPAY ==
[2024-03-20] VITALS (9 sets, daily range): BP systolic 124–142; BP diastolic 86–112; PULSE 92–107; RESP 15–27; TEMP 36.5; O2SAT 96–100
--- NOTE | ~2024-03-20 | XR_ITS ---
CHEST RADIOGRAPH, PA AND LATERAL CLINICAL HISTORY: dyspnea . COMPARISON: 12/30/2023 TECHNIQUE: PA and lateral views of the chest. FINDINGS The cardiomediastinal silhouette is unremarkable. Blunting of the right costophrenic sulcus suggesting a small right-sided pleural effusion. The remainder of the lungs are clear. IMPRESSION: Small right-sided pleural effusion without focal infiltrate. Reviewed, dictated and finalized at location A. R [facility]
--- NOTE | ~2024-03-20 | CT_ITS ---
EXAMINATION: CTA chest PE protocol DATE: 03/20/2024 15:47 INDICATION: Dyspnea. TECHNIQUE: Computed tomography angiography (CTA) of the chest was performed with 100 mL Omnipaque-350 intravenous contrast timed to evaluate the pulmonary arteries. Coronal maximum intensity projection 3D-reconstructions were created by the technologist. Automated exposure control and iterative reconst ruction technique were employed. The dose-length product was 581.15 mGy-cm. COMPARISON: Chest, abdomen, and pelvis CT 12/30/2023 FINDINGS: The lungs demonstrate mild atelectasis. There is mild emphysema. There are small pleural ef fusions. There is smooth septal thickening in the lungs, consistent with mild pulmonary edema. There is right atrial and right ventricular enlargement of the heart. There is a trace pericardial effusion . The central pulmonary arteries are enlarged, consistent with pulmonary arterial hypertension. There is no pulmonary embolus. The liver demonstrates a nodular surface contour, consistent with cirrhosis . There are changes of cholecystectomy. Splenomegaly is noted, consistent with portal venous hyperten gama. There are enlarged veins in the periceliac region, consistent with portacaval shunts. There is severe cervical and thoracic spondylosis. IMPRESSION: 1. No pulmonary embolus. 2. Mild pulmonary edema with small pleural effusions. 3. Cirrhosis of the liver with portal venous hypertension. 4. Mild emphysema. 5. Cardiomegaly. Reviewed, dictated and finalized at location A. [employer]
--- OUTSIDE RECORDS SUMMARY | 2024-03-20 13:22 | XMS_ITS | Encounter Summary ---
Author Organization [employer] (formerly [employer]) Address 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
--- OUTSIDE RECORDS SUMMARY | 2024-03-20 13:22 | XMS_ITS | Continuity of Care Document ---
Author Organization [facility] Address [address] [place] [address] Phone Care Team Providers Care Consulting Application Engineer Name Role Phone Tai Canales MD Unavailable Unavailable Advance Directives Directive Yes / No Effective Date File Name No Information Encounters Encounter Description Practice Location Reason(s) For Visit Diagnoses Date Provider Providers Copied on Encounter [facility], [address], [place], [place], [id number], tel:[phone] [facility] No Information Parker Lujan. [address] [place] [address], [address], [place], [place], [id number], . tel:[phone] Referring Provider: Tai Canales, [address] [place] [address], [place], [address]. tel:[phone] Family History Family Member Type Diagnosis Age At Onset No Information Payers Payer name Insurance type Covered alliance party ID Authoriza tikristan(s) [place] [facility] [id number] Social History Type Description Quantity Date Captured Comments Sex Female Smoking Status No Information Chief Complaint And Reason For Visit No Information Reason For Referral Reason For Referral No Information History Of Present Illness Encounter Date Complaint History Of Prese nt Illness No Information Functional Status Date Functional Assessmen t No Information Instructions Date Instruction Additional Infor mation No Information Assessments Type Assessment Date No Information Patient Care Teams Name Effective Dates (start - stop) Status Members No Information
--- OUTSIDE RECORDS SUMMARY | 2024-03-20 13:22 | XMS_ITS | Encounter Summary ---
Author Organization [employer] Address [address] [place] [address] Care Team Providers Care Ornament Maker Hand Name Role Phone Michael Whitehead MD Primary Care Provider [phone] Encounter Details Date Type Department Care Team (Latest Contact Info) Description 12/06/2006 Outpatient Historical [facility] [place] [address] [place] [address] Urinary Tract Infection, Site not Specified (Primary Dx) Social History Tobacco Use Types Packs/Day Years Used Date Smoking Tobacco: Never Assessed Comments Unknown Sex and Gender Information Value Date Recorded Sex Assigned at Not on file 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
--- OUTSIDE RECORDS SUMMARY | 2024-03-20 13:22 | XMS_ITS | Clinical Summary ---
Author Organization [facility] Address [address] [place], [place] [address] Phone Care Team Providers Care Shellfish Processing Laborer Name Role Phone Michael Whitehead MD Primary Care Provider [phone] Allergies No known active allergies Medications ceftriaxone (ROCEPHIN) 250 mg Injection SolRIndications: Pelvic inflammatory disease 250 mg by Injection route see administration instructions. 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 Gender Identity Not on file Sexual Orientation Not on file Last Filed Vital Signs Vital Sign Reading Time Taken Comments Blood Pressure 114/77 11/03/2008 1:47 PM CDT Pulse 83 11/03/2008 1:47 PM CDT Temperature 36.4 C (97.6 F) 11/03/2008 1:47 PM CDT Respiratory Rate 16 11/03/2008 1:47 PM CDT Oxygen Saturation - - Inhaled Oxygen Concentration - - Weight - - Height - - Body Mass Index - - Plan of Treatment Health Maintenance Due Date Last Done Comments DTAP/TDAP/TD VACCINES (1 - Tdap) 1998 HEPATITIS B VACCINES (1 of 3 - 19+ 3-dose series) 1998 CERVICAL CANCER SCREENING 2009 BREAST CANCER SCREENING 2019 INFLUENZA VACCINE (#1) 2023 COLORECTAL SCREENING 01/09/2024 Colorectal Cancer Screening 01/09/2024 FIT-DNA Q 3 years 01/09/2024 FIT/FOBT Q 1 year 01/09/2024 Flex Sig/CT Colonography Q 5 years 01/09/2024 HPV VACCINES Aged Out No longer eligi ble based on patient's age to complete this topic Care Teams Shellfish Processing Laborer Relationship Specialty [place] [address] [facility] [address] [place] [address] PCP - General 11/03/08
--- OUTSIDE RECORDS SUMMARY | 2024-03-20 13:22 | XMS_ITS | CONTINUITY OF CARE DOCUMENT ---
Author Name holly barrera Address Unknown Organization [facility] Address [address] [facility] [address] [place] [address] Phone [phone] Care Team Providers Care Tool Grinder Operator Surface Name Role Phone Tate Parnell MD Unavailable INSURANCE PROVIDERS Payer name Policy type / Coverage type [place] red libertarian ID [employer] insurance [id number]
--- NOTE | 2024-03-20 13:26 | ECG_ITS ---
Test Date: 2024-03-20 13:28:09 Measurements Intervals [place] Rate: 96 P: 70 WA: 164 QRS: 124 QRSD: 88 T: 89 QT: 351 QTc: 444 Interpretive Statements SINUS RHYTHM RIGHT AXIS DEVIATION POSSIBLE LEFT ATRIAL ENLARGEMENT POSSIBLE RIGHT VENTRICULAR CONDUCTION DELAY BORDERLINE T WAVE ABNORMALITY- ANT/INF LEADS BASELINE ARTIFACT- I, II, III, AVR, AVL, V1-V2 BORDERLINE ECG Compared to ECG 12/30/2023 01:37:41 NO SIGNIFICANT CHANGE Electronically Signed On 03-20-2024 13:48:04 WOOD HEEL FITTER MACHINE by Clifton Louise D.O.
--- NOTE | 2024-03-20 13:27 | ED.SOB ---
HPI - SOB/Dyspnea General Chief Complaint: Shortness of Breath/Dyspnea <Ana Gomes PA-C - Last Filed: 03/20/24 13:29> Stated Complaint: short of breath <Ana Gomes PA-C - Last Filed: 03/20/24 13:29> Time Seen by Provider: 03/20/24 15:49 <Ana Gomes PA-C - Last Filed: 03/20/24 13:29> Focused HPI: 44-year-old female with a history of cirrhosis from hepatitis and alcohol use disorder presents emergency department for shortness of breath for several weeks. Patient reports lower extremity edema and swelling to her abdomen which is steadily increased for several weeks. Reports exertional dyspnea with short distances. She states she was admitted to our hospital in December for the same presentation and discharged home with furosemide and spironolactone which significantly helped her symptoms. Patient however unfortunately ran out of these medications about 1 month ago and feels symptoms have worsened. She has a history of PE several years ago, denies current hemoptysis or chest pain. She is not currently anticoagulated. Denies fever, cough or congestion. Patient said drinking 7 years ago. She is not currently established with the gravedigger. Denies history of paracentesis. GENERAL: Well-appearing, well-nourished, and in no acute distress. HEAD: Normocephalic, atraumatic. CHEST: Clear to auscultation. ?No respiratory distress. Speaking in full sentences EXT: BLE, no tenderness HEART: Regular rate and rhythm.? NEURO: ?Alert and oriented x3. Patient screened in triage and initial orders placed.? ?Additional care and disposition to be based upon?diagnostic testing and treatment. <Ana Gomes PA-C - Last Filed: 03/20/24 13:29> History of Present Illness HPI Narrative: I agree with the above HPI <Leroy Gonzalez MD - Last Filed: 03/20/24 19:27> Related Data Allergies/Adverse Reactions: Allergies Allergy/AdvReac Type Severity Reaction Status Date / Time Penicillins Allergy Severe Swelling Verified 03/20/24 15:26 cephalexin Allergy Intermediate Swelling Verified 03/20/24 15:26 nitrofurantoin Allergy Intermediate Swelling Verified 03/20/24 15:26 <Ana Gomes PA-C - Last Filed: 03/20/24 13:29> Review of Systems Review of Systems: All systems reviewed & are unremarkable except as noted in HPI and below <Leroy Gonzalez MD - Last Filed: 03/20/24 19:27> [facility] Past Medical History Medical History: Medical History Acute on chronic anemia Cirrhosis Esophageal varices Gastritis Hepatitis C Iron deficiency Tobacco abuse <Ana Gomes PA-C - Last Filed: 03/20/24 13:29> Surgical History Surgical History: Surgical History History of section History of cholecystectomy <Ana Gomes PA-C - Last Filed: 03/20/24 13:29> Family History Family History: Family History Sibling Drug addiction <Ana Gomes PA-C - Last Filed: 03/20/24 13:29> Social History Social History: Social History Social History: Surrogate medical decision maker: Claudia Pelayo, mother. Code status: Full code. Smoking packs per day: 0.5 Smoking cigarettes per day: 10.0 Years smoked: 25 Smoking pack-years: 12.50 Smoking status: Former smoker Alcohol intake: never Substance use: current Substance use type: heroin and methamphetamine Other substance usage details: history of heroin use for 11 years, clean for 11 years. Last use: Snorts meth daily for the past 6 years. Do You Feel Safe in your Home?: Yes Lack of Transportation: No Lack of Food: Never True Current Housing: I Have Housing Concerned About Future Housing: No Difficulty Paying Gas/Electric Bills: No Difficulty Paying for Meds: No Currently Unemployed: No Education: Grade School Difficulty w/ Childcare or Family Care: No Additional living arrangements comments: The patient lives in [place]. She has 3 grown children and a 5-year-old daughter. Additional occupation/education comments: Currently unemployed. Spiritual care concerns: No <Ana Gomes PA-C - Last Filed: 03/20/24 13:29> Exam Narrative: APPEARANCE: Well appearing, no pain, no distress, well-nourished. HEAD: normocephalic, atraumatic. EYES: PERRLA/EOMI, conjunctivae clear. NOSE: Normal no drainage EARS:TMS clear with good light reflex. THROAT: Pharynx clear, no exudate. NECK: Supple. No adenopathy, no masses. RESPIRATORY: Airway patent, respirations nonlabored. Clear to auscultation bilaterally, no rales, rhonchi, wheezing. CARDIOVASCULAR: Regular rate and rhythm without murmurs rubs or gallops. ABDOMINAL: Diffuse ascites General exam: No significant vaginal discharge, no friable cervix MUSCULOSKELETAL: Moves all extremities. Strength/ROM intact, No edema, No calf tenderness. NEURO: Alert. Cranial nerves II through XII intact. Good gait. Good coordination SKIN: Warm, dry. Normal Color <Leroy Gonzalez MD - Last Filed: 03/20/24 19:27> Course Vital Signs Vital signs: Vital Signs Temperature 97.7 F 03/20/24 13:26 Pulse Rate 107 H 03/20/24 13:26 Respiratory Rate 20 03/20/24 13:26 Blood Pressure 129/102 H 03/20/24 13:26 Pulse Oximetry 99 03/20/24 13:26 Oxygen Delivery Room Air 03/20/24 13:26 Temperature 97.7 F 03/20/24 13:26 Pulse Rate 100 03/20/24 18:09 Respiratory Rate 16 03/20/24 18:09 Blood Pressure 140/86 03/20/24 18:09 Pulse Oximetry 98 03/20/24 18:09 Oxygen Delivery Room Air 03/20/24 15:27 <Ana Gomes PA-C - Last Filed: 03/20/24 13:29> Vital Signs Temperature 97.7 F 03/20/24 13:26 Pulse Rate 107 H 03/20/24 13:26 Respiratory Rate 20 03/20/24 13:26 Blood Pressure 129/102 H 03/20/24 13:26 Pulse Oximetry 99 03/20/24 13:26 Oxygen Delivery Room Air 03/20/24 13:26 Temperature 97.7 F 03/20/24 13:26 Pulse Rate 100 03/20/24 18:09 Respiratory Rate 16 03/20/24 18:09 Blood Pressure 140/86 03/20/24 18:09 Pulse Oximetry 98 03/20/24 18:09 Oxygen Delivery Room Air 03/20/24 15:27 <Leroy Gonzalez MD - Last Filed: 03/20/24 19:27> MDM - SOB/Dyspnea MDM Narrative Medical decision making narrative: 34-year-old female presents emergency department for evaluation for vaginal discharge and complaint of increased ascites. Patient had stop taking Lasix. Patient is currently afebrile with no leukocytosis and hemoglobin of 10 which is similar to her baseline. Patient does have a thrombocytopenia at baseline and this is unchanged. No significant acute abnormalities on the patient's CMP, patient did test positive for Trichomonas. Patient was treated with Flagyl emergency department. CTA was negative for pulmonary embolism. Patient was having some vaginal bleeding and I suspect the urine was contamination, urine culture was ordered. Patient was encouraged close follow-up with her primary care physician which she has a follow-up appointment in 4 days. Patient was started on a short course of Lasix in the emergency department. Patient was treated with IV Lasix emergency department and states that she has urinated multiple times and states that she does feel improved. Patient was well-appearing at time of discharge.. <Leroy Gonzalez MD - Last Filed: 03/20/24 19:27> Differential Diagnosis Differential diagnosis: Likely congestive heart failure, community acquired pneumonia, asthma with exacerbation, pulmonary embolism and other <Leroy Gonzalez MD - Last Filed: 03/20/24 19:27> Lab Data Attestation: I reviewed the patient's lab results. <Leroy Gonzalez MD - Last Filed: 03/20/24 19:27> Result diagrams: 03/20/24 13:45 03/20/24 13:45 <Ana Gomes PA-C - Last Filed: 03/20/24 13:29> Labs: Lab Results 03/20/24 03/20/24 03/20/24 Range/Units 13:45 15:22 16:32 WBC 3.3 L (4.5-10.0) K/mm3 RBC 4.78 (4.2-5.4) M/mm3 Hgb 10.0 L (12.0-15.0) g/dL Hct 35.2 L (37.0-47.0) % MCV 73.6 L (80-100) fl MCH 20.9 L (26-34) pg MCHC 28.4 L (32-36) g/dl RDW 21.6 H (11.5-14.5) % Plt Count 40 L (150-375) k/mm3 MPV TNP Immature Gran % (Auto) 0.3 (0-0.5) % Neut % (Auto) 74.5 H (45.5-73.1) % Lymph % (Auto) 16.2 L (18.3-44.2) % [place] % (Auto) 7.2 (2.6-8.5) % Eos % (Auto) 0.9 (0-4.4) % Baso % (Auto) 0.9 (0.2-1.2) % Lymph # (Auto) 0.54 L (0.9-3.2) K/mm3 [place] # (Auto) 0.2 (0.1-0.6) K/mm3 Eos # (Auto) 0.0 (0-0.3) K/mm3 Baso # (Auto) 0.0 (0.0-0.1) K/mm3 Abs Immat Gran (auto) 0.01 (0.00-0.031) K/mm3 Absolute Neuts (auto) 2.5 (1.3-6.7) K/mm3 Absolute Nucleated RBC 0.000 (0.0-0.012) K/mm3 Nucleated RBC % 0.0 (0.0-0.2) % Platelet Estimate Decreased (Adequate) % Immature Plt Fraction 6.7 (0.9-11.2) % Hypochromasia 1+ Anisocytosis 2+ Microcytosis 1+ (NORMAL) Schistocytes None seen PT 16.4 H (11.1-14.7) Seconds INR 1.3 APTT 23.9 (22.3-36.8) Seconds Sodium 140 (137-145) mmol/L Potassium 4.0 (3.4-5.0) mmol/L Chloride 111 H (98-107) mmol/L Carbon Dioxide 18 L (22-30) mmol/L Anion Gap 11 (4-12) mmol/L BUN 15 (7-17) mg/dL Creatinine 0.76 (0.7-1.0) mg/dL Estim Creat Clear Calc 89 ml/min Estimated GFR > 60 (59 - ) Glucose 107 (65-110) mg/dL Calcium 8.8 (8.4-10.2) mg/dL Total Bilirubin 1.3 (0.2-1.3) mg/dL AST 43 H (14-36) U/L ALT 22 (6-35) U/L Alkaline Phosphatase 86 (38-126) U/L Troponin I 0.014 (0.000-0.034) ng/mL NT-Pro-B Natriuret Pep 649 H (19.9-100) pg/mL Total Protein 7.0 (6.3-8.2) g/dL Albumin 3.7 (3.5-5.1) g/dL Urine Color Yellow (Yellow) Urine Appearance Cloudy H (Clear) Urine pH 7.0 (5.0-9.0) Ur Specific [place] 1.020 (1.001-1.035) Urine Protein 4+ H (Negative) mg/dL Urine Glucose (UA) Negative (Negative) mg/dL Urine Ketones Negative (Negative) mg/dL Ur Blood (Man) 3+ H (Negative) Urine Nitrate Negative (Negative) Urine Bilirubin Negative (Negative) Urine Urobilinogen 1.0 (<2.0) mg/dL Add Ur Microanalysis Reviewed Leukocyte Esterase Rfl Trace H (Negative) CODY/UL Urine RBC >100 H (0-2) /hpf Urine WBC 21-50 H (0-3) /hpf Ur Squamous Epith Cells Few (Few) /hpf Urine Bacteria Rare /hpf Urine Casts 6-10 POC Urine HCG, Qual Negative (Negative) C. trachomatis (PCR) Not detected (NOT DETECTE) N. gonorrhoeae (PCR) Not detected (NOT DETECTE) T. vaginalis (PCR) Detected A (NOT DETECTE) <Ana Gomes PA-C - Last Filed: 03/20/24 13:29> Lab Results 03/20/24 03/20/24 03/20/24 Range/Units 13:45 15:22 16:32 WBC 3.3 L (4.5-10.0) K/mm3 RBC 4.78 (4.2-5.4) M/mm3 Hgb 10.0 L (12.0-15.0) g/dL Hct 35.2 L (37.0-47.0) % MCV 73.6 L (80-100) fl MCH 20.9 L (26-34) pg MCHC 28.4 L (32-36) g/dl RDW 21.6 H (11.5-14.5) % Plt Count 40 L (150-375) k/mm3 MPV TNP Immature Gran % (Auto) 0.3 (0-0.5) % Neut % (Auto) 74.5 H (45.5-73.1) % Lymph % (Auto) 16.2 L (18.3-44.2) % [place] % (Auto) 7.2 (2.6-8.5) % Eos % (Auto) 0.9 (0-4.4) % Baso % (Auto) 0.9 (0.2-1.2) % Lymph # (Auto) 0.54 L (0.9-3.2) K/mm3 [place] # (Auto) 0.2 (0.1-0.6) K/mm3 Eos # (Auto) 0.0 (0-0.3) K/mm3 Baso # (Auto) 0.0 (0.0-0.1) K/mm3 Abs Immat Gran (auto) 0.01 (0.00-0.031) K/mm3 Absolute Neuts (auto) 2.5 (1.3-6.7) K/mm3 Absolute Nucleated RBC 0.000 (0.0-0.012) K/mm3 Nucleated RBC % 0.0 (0.0-0.2) % Platelet Estimate Decreased (Adequate) % Immature Plt Fraction 6.7 (0.9-11.2) % Hypochromasia 1+ Anisocytosis 2+ Microcytosis 1+ (NORMAL) Schistocytes None seen PT 16.4 H (11.1-14.7) Seconds INR 1.3 APTT 23.9 (22.3-36.8) Seconds Sodium 140 (137-145) mmol/L Potassium 4.0 (3.4-5.0) mmol/L Chloride 111 H (98-107) mmol/L Carbon Dioxide 18 L (22-30) mmol/L Anion Gap 11 (4-12) mmol/L BUN 15 (7-17) mg/dL Creatinine 0.76 (0.7-1.0) mg/dL Estim Creat Clear Calc 89 ml/min Estimated GFR > 60 (59 - ) Glucose 107 (65-110) mg/dL Calcium 8.8 (8.4-10.2) mg/dL Total Bilirubin 1.3 (0.2-1.3) mg/dL AST 43 H (14-36) U/L ALT 22 (6-35) U/L Alkaline Phosphatase 86 (38-126) U/L Troponin I 0.014 (0.000-0.034) ng/mL NT-Pro-B Natriuret Pep 649 H (19.9-100) pg/mL Total Protein 7.0 (6.3-8.2) g/dL Albumin 3.7 (3.5-5.1) g/dL Urine Color Yellow (Yellow) Urine Appearance Cloudy H (Clear) Urine pH 7.0 (5.0-9.0) Ur Specific [place] 1.020 (1.001-1.035) Urine Protein 4+ H (Negative) mg/dL Urine Glucose (UA) Negative (Negative) mg/dL Urine Ketones Negative (Negative) mg/dL Ur Blood (Man) 3+ H (Negative) Urine Nitrate Negative (Negative) Urine Bilirubin Negative (Negative) Urine Urobilinogen 1.0 (<2.0) mg/dL Add Ur Microanalysis Reviewed Leukocyte Esterase Rfl Trace H (Negative) CODY/UL Urine RBC >100 H (0-2) /hpf Urine WBC 21-50 H (0-3) /hpf Ur Squamous Epith Cells Few (Few) /hpf Urine Bacteria Rare /hpf Urine Casts 6-10 POC Urine HCG, Qual Negative (Negative) C. trachomatis (PCR) Not detected (NOT DETECTE) N. gonorrhoeae (PCR) Not detected (NOT DETECTE) T. vaginalis (PCR) Detected A (NOT DETECTE) <Leroy Gonzalez MD - Last Filed: 03/20/24 19:27> Imaging Data Radiologist's impression: Impressions Chest X-Ray 03/20/24 14:58 IMPRESSION: Small right-sided pleural effusion without focal infiltrate. Chest CTA 03/20/24 15:50 IMPRESSION: 1. No pulmonary embolus. 2. Mild pulmonary edema with small pleural effusions. 3. Cirrhosis of the liver with portal venous hypertension. 4. Mild emphysema. 5. Cardiomegaly. <Leroy Gonzalez MD - Last Filed: 03/20/24 19:27> Discharge Plan Discharge Clinical Impression: Infection due to trichomonas, Abdominal ascites <Ana Gomes PA-C - Last Filed: 03/20/24 13:29> Patient Disposition: Home, Self-Care <Ana Gomes PA-C - Last Filed: 03/20/24 13:29> Condition: Stable <Ana Gomes PA-C - Last Filed: 03/20/24 13:29> Instructions: Antibiotic Form, Trichomoniasis (ED), Ascites (ED) <Ana Gomes PA-C - Last Filed: 03/20/24 13:29> Additional Instructions: You were treated for Trichomonas in the emergency department. Any sexual partners need to be evaluated/treated as well before resuming sexual activity. You are also being re-started on Lasix. Have close follow-up with your primary care physician. Have close follow-up with GI. <Ana Gomes PA-C - Last Filed: 03/20/24 13:29> Patient Language: Yakut <Ana Gomes PA-C - Last Filed: 03/20/24 13:29> Prescriptions: New furosemide [Lasix] 20 mg tablet 20 mg PO DAILY 7 Days Qty: 7 0RF No Action furosemide 20 mg Tablet 20 mg PO DAILY Qty: 30 0RF spironolactone [Aldactone] 50 mg Tablet 50 mg PO QAM Qty: 30 0RF aspirin 81 mg Tablet,Delayed Release (Dr/Ec) 81 mg PO QAM Qty: 30 0RF <Ana Gomes PA-C - Last Filed: 03/20/24 13:29> Follow-up/Referrals: PHYSICIAN NOT ON STAFF,NONSTAFF [Primary Care Provider] - Noah Cast MD [Physician] - <Ana Gomes PA-C - Last Filed: 03/20/24 13:29>
--- NOTE | 2024-03-20 13:49 | PC.NURSE ---
this RN attempted to get IV on patient 3 times with no success. pt states they usually struggle getting IV's and has a hx of being an IV drug user. was able to get blood work
[2024-03-20 14:01] LABS: Basophils Percent Auto 0.9 % (0.2-1.2); Eosinophils Percent Auto 0.9 % (0-4.4); Hematocrit 35.2 % (37.0-47.0); Immature Granulocyte Absolute 0.01 K/mm3 (0.00-0.031); Immature Granulocyte Percent A 0.3 % (0-0.5); Immature Platelet Fraction Pct 6.7 % (0.9-11.2); Lymphocytes Absolute Auto 0.54 K/mm3 (0.9-3.2); Lymphocytes Percent Auto 16.2 % (18.3-44.2); Mean Corpuscular HGB Conc 28.4 g/dl (32-36); Mean Corpuscular Hemoglobin 20.9 pg (26-34); Mean Corpuscular Volume 73.6 fl (80-100); Monocytes Absolute Auto 0.2 K/mm3 (0.1-0.6); Monocytes Percent Auto 7.2 % (2.6-8.5); Neutrophils Absolute Auto 2.5 K/mm3 (1.3-6.7); Neutrophils Percent Auto 74.5 % (45.5-73.1); Platelet Count Result 40 k/mm3 (150-375); Red Blood Count 4.78 M/mm3 (4.2-5.4); Red Cell Distribution Width 21.6 % (11.5-14.5); White Blood Count 3.3 K/mm3 (4.5-10.0)
[2024-03-20 14:14] LABS: INR 1.3; Prothrombin Time 16.4 Seconds (11.1-14.7)
[2024-03-20 14:15] LABS: Partial Thromboplastin Time 23.9 Seconds (22.3-36.8)
[2024-03-20 14:39] LABS: Hypochromasia 1+; Microcytosis 1+ (NORMAL); Platelet Estimate Decreased (Adequate)
[2024-03-20 14:40] LABS: Anisocytosis 2+; Schistocytes None Seen
[2024-03-20 14:52] LABS: Alanine Aminotransferase 22 U/L (6-35); Albumin Level 3.7 g/dL (3.5-5.1); Alkaline Phosphatase 86 U/L (38-126); Anion Gap 11 mmol/L (4-12); Aspartate Amino Transferase 43 U/L (14-36); Bilirubin,Total 1.3 mg/dL (0.2-1.3); Blood Urea Nitrogen 15 mg/dL (7-17); Calcium 8.8 mg/dL (8.4-10.2); Carbon Dioxide 18 mmol/L (22-30); Chloride 111 mmol/L (98-107); Estimated CRCL calculation 89 ml/min; Estimated Glomerular Filt Rate > 60; Glucose 107 mg/dL (65-110); Sodium 140 mmol/L (137-145)
[2024-03-20 15:01] LABS: NT Pro B Type Natriuretic Pept 649 pg/mL (19.9-100); Troponin I 0.014 ng/mL (0.000-0.034)
[2024-03-20 15:24] LABS: BEDSIDEPREGUCG Negative (Negative)
--- OUTSIDE RECORDS SUMMARY | 2024-03-20 15:53 | XMS_ITS | Continuity of Care Document ---
Author Organization [facility] Address [address] [place] [address] Phone Care Team Providers Care Business Computers Teacher Name Role Phone Tai Canales MD Unavailable Unavailable Advance Directives Directive Yes / No Effective Date File Name No Information Encounters Encounter Description Practice Location Reason(s) For Visit Diagnoses Date Provider Providers Copied on Encounter [facility], [address], [place], [place], [id number], tel:[phone] [facility] No Information Parker Lujan. [address] [place] [address], [address], [place], [place], [id number], . tel:[phone] Referring Provider: Tai Canales, [address] [place] [address], [place], [address]. tel:[phone] Family History Family Member Type Diagnosis Age At Onset No Information Payers Payer name Insurance type Covered democrat ID Authoriza tikristan(s) [facility] [id number] Social History Type Description Quantity Date Captured [...]
--- OUTSIDE RECORDS SUMMARY | 2024-03-20 15:53 | XMS_ITS | CONTINUITY OF CARE DOCUMENT ---
Author Name holly barrera Address Unknown Organization [facility] Address [address] [address] [facility] [place] [address] Phone [phone] Care Team Providers Care It Communications Manager Name Role Phone Tate Parnell MD Unavailable INSURANCE PROVIDERS Payer name Policy type / Coverage type [employer] red alliance party ID A[employer]NA Vent[employer]ax insurance [id number]
--- OUTSIDE RECORDS SUMMARY | 2024-03-20 15:53 | XMS_ITS | Clinical Summary ---
Author Organization [facility] [employer] [facility] Address [address] 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
--- OUTSIDE RECORDS SUMMARY | 2024-03-20 15:53 | XMS_ITS | Encounter Summary ---
Author Organization [facility] Address [address] [place] [address] Care Team Providers Care Church Communications Administrator Name Role Phone Michael Whitehead MD Primary Care Provider [phone] Encounter Details Date Type Department Care Team (Latest Contact Info) Description 12/06/2006 Outpatient Historical [facility] [place] [address] [place] [address] Urinary Tract Infection, Site not Specified (Primary Dx) Social History Tobacco Use Types Packs/Day Years Used Date Smoking Tobacco: Never Assessed Comments Unknown Sex and Gender Information Value Date Recorded Sex Assigned at Not on file 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
--- OUTSIDE RECORDS SUMMARY | 2024-03-20 15:53 | XMS_ITS | Encounter Summary ---
Author Organization [facility] Address 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
[2024-03-20] MEDS: FUROSEMIDE INJ 40 MG/4 ML VIAL IV PUSH (16:31)
[2024-03-20 17:01] LABS: Add Urine Microscopic? YES; Appearance Urine Cloudy (Clear); Bacteria Urine Rare /hpf; Bilirubin Urine Negative (Negative); Blood Urine 3+ (Negative); Color Urine Yellow (Yellow); Glucose Urine UA Negative (Negative); Ketones Urine Negative (Negative); Leukocyte Esterase Ur Trace LEU/UL (Negative); Need Manual Microscopic Reviewed; Nitrate Urine Negative (Negative); Protein Urine 4+ mg/dL (Negative); RBC Urine >100 /hpf (0-2); Squamous Epithelial Cell Urine Few /hpf (Few); WBC Urine 21-50 /hpf (0-3)
[2024-03-20 17:39] LABS: Trichomonas Vag PCR DETECTED (NOT DETECTE)
[2024-03-20] MEDS: metroNIDAZOLE 500 MG TABLET 2000 MG PO (18:06)
[2024-03-20 18:17] LABS: Chlamydia trachomatis NOT DETECTED (NOT DETECTE); Neisseria gonorrhoeae PCR NOT DETECTED (NOT DETECTE)
== END 2024-03-20 18:29 | disposition home or self-care (01) ==
PROVIDERS: Physician Assistant; Emergency Provider Emergency Medicine
DX: K74.60 Unspecified cirrhosis of liver (principal); R18.8 Other ascites; Z86.19 Personal history of other infectious and parasitic diseases; F10.21 Alcohol dependence, in remission; Z87.891 Personal history of nicotine dependence; A59.9 Trichomoniasis, unspecified
CPT/HCPCS: 36415; 71046; 71275; 80053; 81001; 81025; 83880; 84484; 85025; 85055; 85610; 85730; 87086; 87491; 87591; 87661; 93005; 96374; 99284; A9270; J1940; Q9967

== ENCOUNTER 2024-05-21 11:57 | Observation (INO) | payer MEDICAID, SELFPAY ==
[2024-05-21] VITALS (74 sets, daily range): BP systolic 75–98; BP diastolic 36–75; PULSE 75–81; RESP 12–25; TEMP 36–36.5; O2SAT 96–100; BMI 34.2
--- NOTE | ~2024-05-21 | CT_ITS ---
CTA chest PE abdomen pel Ordering provider: Kelsey Pratt MD History: . dimer >1, SOB; also N/V; abd pain . Comparison: March 20, 2024 Technique: CT angiogram chest was performed following timed intravenous injection of contrast. Thin s lice axial images and reformatted coronal images were obtained. Three dimensional reformatted images of the chest were also obtained using a [employer] workstation. Also, CT of the abdomen and pelvis was pe rformed with IV contrast. . Automated exposure control and iterative reconstruction technique were e mployed. The dose-length product was 1535.76 mGy-cm. 100 mL Omnipaque 350 was given IV. FINDINGS: CHEST: --PULMONARY ARTERIES: No pulmonary embolus. --VISUALIZED THORACIC INLET: Normal. --MEDIASTINUM: Aorta/coronary arteries: Ascending aorta measures 3.3 cm. Heart/other: The heart is slightly enlarged. Lymph nodes: No mediastinal or hilar adenopathy. --LUNGS: No pulmonary nodules or masses. No infiltrates or effusions. No pneumothorax. Dependent atelectatic c hanges. Small emphysematous bleb seen in the left lung base. --MUSCULOSKELETAL: Bones: Age appropriate degenerative changes of the spine. Superficial soft tissues: The superficial soft tissues are normal. ABDOMEN/PELVIS: --MUSCULOSKELETAL: Superficial soft tissues: The superficial soft tissues are normal. Bones: Age appropriate degenerative changes of the spine. --UPPER ABDOMINAL ORGANS: Liver: Lobulated outline suggestive of liver cirrhosis. Focal area of mild enhancement is seen in the area adjacent to the portal vein and gallbladder surgical changes. Further evaluation advised. Tess l hypertension with dilated varicosities seen in the hilum area of the spleen and posterior to the st omach. Gallbladder: Status post cholecystectomy. Spleen: Splenomegaly. Stomach/duodenum: Enhancing vessels seen in the lower esophagus. Pancreas: Normal. Adrenals: Normal. Kidneys: Tiny stone in the left kidney midpole. --PELVIC ORGANS: The bladder is underfilled. No bladder stones. The uterus is normal. Ovaries are un remarkable. --BOWEL AND MESENTERY: Colon: Mild diverticulosis without diverticulitis colon. Normal appendix. Small Bowel: Normal. No obstruction. Peritoneum/mesentery: No free air. Trace of free fluid in the right side of the pelvis. No mesenteric lymphadenopathy. --RETROPERITONEUM: Mild atheromatous disease of the abdominal aorta. No retroperitoneal lymphadenop athy. IMPRESSION: CHEST: 1. No acute cardiopulmonary pathology. 2. No pulmonary embolism. ABDOMEN/PELVIS: 1. Liver cirrhosis. 2. Splenomegaly with varicosities seen posterior to the stomach. Enhancing vessels seen in the lower esophagus. 3. Tiny left kidney stone. Reviewed, dictated and finalized at location A. IMPRESSION: CHEST: 1. No acute cardiopulmonary pathology. 2. No pulmonary embolism. ABDOMEN/PELVIS: 1. Liver cirrhosis. 2. Splenomegaly with varicosities seen posterior to the stomach. Enhancing ves sels seen in the lower esophagus. 3. Tiny left kidney stone.
--- NOTE | ~2024-05-21 | XR_ITS ---
EXAMINATION: XR chest 1V portable 05/21/2024 14:29 INDICATION: Shortness of breath PROCEDURE: AP portable chest COMPARISON: Comparison to multiple prior studies sequentially, with oldest reviewed study dated 11/13. FINDINGS: The lungs are clear. Mild cardiomegaly. There are no pleural effusions. There is no pneumo thorax suspected. IMPRESSION: 1: NO ACUTE CARDIOPULMONARY DISEASE. Reviewed, dictated and finalized at location A.
--- NOTE | ~2024-05-21 | US_ITS ---
EXAMINATION: US venous doppler [facility] DATE: 05/22/2024 09:06 INDICATION: Lower limb swelling TECHNIQUE: Grayscale ultrasound images without and with compression and Doppler ultrasound images of the bilateral lower extremity veins were obtained. COMPARISON: None. FINDINGS: The visualized portions of right common femoral vein, profunda (deep) femoral vein, femoral vein, pop liteal vein, posterior tibial veins, peroneal veins, gastrocnemius vein and greater saphenous vein ou tflow are patent. The visualized portions of left common femoral vein, profunda femoral vein, femoral vein, popliteal v ein, posterior tibial veins, peroneal veins and greater saphenous vein outflow are patent. IMPRESSION: 1. No deep venous thrombosis in either lower limb. Reviewed, dictated and finalized at location B.
--- NOTE | 2024-05-21 12:19 | PC.NURSE ---
Pt's BP low, states her doctor started her on Propranolol so that her esophageal varices wouldn't burst , states she took it for the first time yesterday, did not take it this morning. BP currently 93/62. Pt's mucous membranes appear pale. Reports hx of liver cirrhosis and critically low platelets . Denies any known bleeding or dark stools recently. A&Ox4, reports generalized weakness.
--- OUTSIDE RECORDS SUMMARY | 2024-05-21 12:35 | XMS_ITS | Encounter Summary ---
Author Organization [employer] Address 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
--- OUTSIDE RECORDS SUMMARY | 2024-05-21 12:35 | XMS_ITS | Encounter Summary ---
Author Organization [employer] Address [address] [place] [address] Care Team Providers Care Repair Manager Name Role Phone Michael Whitehead MD Primary Care Provider [phone] Encounter Details Date Type Department Care Team (Latest Contact Info) Description 12/06/2006 Outpatient Historical [facility] [place] [address] [place] [address] Urinary Tract Infection, Site not Specified (Primary Dx) Social History Tobacco Use Types Packs/Day Years Used Date Smoking Tobacco: Never Assessed Comments Unknown Sex and Gender Information Value Date Recorded Sex Assigned at Not on file 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
--- OUTSIDE RECORDS SUMMARY | 2024-05-21 12:35 | XMS_ITS | Clinical Summary ---
Author Organization [facility] Address [address] 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 Gender Identity Not on file Sexual Orientation [...] of 3 - 19+ 3-dose series) 1998 HPV/Cotest (21-29) 01/09/2000 PAP SMEAR 01/09/2000 CERVICAL CANCER SCREENING 2009 HPV/Cotest (30-65) 2009 PAP SMEAR 2009 BREAST CANCER SCREENING 2019 INFLUENZA VACCINE (#1) 2023 COLORECTAL SCREENING 01/09/2024 Colorectal Cancer Screening 01/09/2024 FIT-DNA Q 3 years 01/09/2024 FIT/FOBT Q 1 year 01/09/2024 Flex Sig/CT Colonography Q 5 years 01/09/2024 HPV VACCINES Aged Out No longer eligi ble based on patient's age to complete this topic Care Teams Ammonia Refrigeration Technician Relationship Specialty [place] [address] [facility] [address] [place] [address] PCP - General 11/03/08
--- OUTSIDE RECORDS SUMMARY | 2024-05-21 12:35 | XMS_ITS ---
Author Organization [facility] Address [address] [place] [address] Care Team Providers Care Station Cook Name Role Phone Nicole Willsi Primary Care Provider [phone] REASON FOR VISIT check in Encounters Encounter Location Date Provider Diagnosis [address] [place] [address] 05/12/2024 Nicole Willis Plan Of Treatment No Information Progress Notes * Nichelle JACKSON LDOB:[birth year] (44 yo F)Acc No.[id number]:05/12/2024 Patient: Bennie ANAIS Nichelle Cain :1980 A ge:44 Y S ex:Female Address:[address] [place], [address] * true * Date: Generated for Ana mccrary/Gwen/eTransmitting on: 0 05/21/2024 12:35 PM CDT
--- OUTSIDE RECORDS SUMMARY | 2024-05-21 12:35 | XMS_ITS ---
Author Organization [facility] Address [address] [place] [address] Care Team Providers Care Comfort Station Supervisor Name Role Phone Nicole Willis Primary Care Provider Allergies Allergen (clinical drug ingredient) Drug/Non Drug Allergy documented on EMR Reaction Allergy Type Onset Date Status codeine Codeine anaphylaxis Drug Allergy Activ e Penicillin hives Drug Allergy Active REASON FOR VISIT NEW EVAL Medications Medication SIG (Take, Route, Frequency, Duration) Notes Start Date End Date Status Spironolactone 50 MG 1 tablet Orally Once a day Active Vitamin D 12.5 MCG/0.25ML 0.25 mL Orally once a week Active Furosemide 20 MG 1 tablet Orally Once a day Active Social History Tobacco Use: Social History Observation Description Date Details (start date - stop date) Unknown Tobacco Control (Standard) Question Answer Notes Tobacco use: Uses tobacco in other forms Additional Findings: Tobacco user e-cigarette Problems Problem Type SNOMED Code ICD Code Onset Dates Problem Status W/U Status Risk Notes Problem Generalized anxiety disorder (16658647) CRYSTAL (generalized anxiety disorder) (F41.1) Active confirmed Encounters Encounter Location Date Provider Diagnosis [place] [address] [place] [address] 05/12/2024 Nicole Willis CRYSTAL (generalized anxiety disorder) F41.1 Assessments Encounter Date Diagnosis (ICD Code) Assessment Notes Treatment Notes Treatment Clinical Notes Section Notes 05/12/2024 CRYSTAL (generalized anxiety disorder) (ICD-10 - F41.1) No medications started at this time. Discussed a short term prescription of Prozac to help with anxiety. She is going to think about medication and call in a couple days if she wants to start PRozac. Reviewed Prescription Monitoring program. Continue services as scheduled. Labs completed recently with PCP. PCP made referrals to specialists. May self-administer medications or be administered own oral medications per [facility] protocols. Provided informed consent with understanding of side effects, adverse effects, risks and benefits as well as alternative treatments as previously discussed and with the above recommended medications & other aspects of the treatment program. Agrees to return sooner if symptoms worsen or suicidal or homicidal ideations occur. Plan Of Treatment Treatment Notes Assessment Notes CRYSTAL (generalized anxiety disorder) No medications started at this time. Discussed a short term prescription of Prozac to help with anxiety. She is going to think about medication and call in a couple days if she wants to start PRozac. Reviewed Prescription Monitoring program. Continue services as scheduled. Labs completed recently with PCP. PCP made referrals to specialists. May self-administer medications or be administered own oral medications per [facility] protocols. Provided informed consent with understanding of side effects, adverse effects, risks and benefits as well as alternative treatments as previously discussed and with the above recommended medications & other aspects of the treatment program. Agrees to return sooner if symptoms worsen or suicidal or homicidal ideations occur. Next Appt Details Follow Up: 4 Weeks, Reason: Medication management - can be telehealth appt. Progress Notes * Nichelle JACKSON LDOB:[birth year] (44 yo F)Acc No.[id number]:05/12/2024 Patient: Nichelle NICHOLAS Provider: Yamilex Willis DNP, PMHNP-BC, RADIAL DRILL PRESS SET UP OPERATOR :1980 A ge:44 Y S ex:Female Date:05/12/2024 Address:[facility] [address] [facility] Subjective: * Chief Complaints: * N EW EVAL * HPI: D epression Screening: PHQ-9 L ittle interest or pleasure in doing things?Several days F eeling down, depressed, or hopeless N ot at all T rouble falling or staying asleep, or sleeping too much N ot at all F eeling tired or having little energy M ore than half the days P oor appetite or overeating N ot at all F eeling bad about yourself or that you are a failure, or have let yourself or your family down N ot at all T rouble concentrating on things, such as reading the newspaper or watching television N early every day M oving or speaking so slowly that other people could have noticed; or the opposite, being so fidgety or restless that you have been moving around a lot more than usual N ot at all T houghts that you would be better off or of hurting yourself in some way N ot at all T otal Score 6 I nterpretation M ild Depression Intervention D epression Screening Findings N egative F ollow-Up for Depression N o Referral necessary, patient involved in behavioral health treatment S creening: [place] Suicide Severity Rating Scale (LF) D o you want to initiate with S creener form 1 . Wish to be : Have you wished you were or wished you could go to sleep and not wake up? N o 2 . Suicidal Thoughts: Have you actually had any thoughts of killing yourself? N o 6 . Suicide Behavior Question: Have you ever done anything,started to do anything, or prepared to end your life? N o I nterpretation: L ow Risk C SSRS Interpretation and Follow Up Plan: CSSRS Interpretation and Follow Up Plan C SSRS Screen documented using SF Y es R isk Disposition from SF L ow - No Follow Up Plan Required F ollow Up Plan N o Follow Up Plan required at this time. T imeframe of Screening T keli Duran ood Disorder Questionnaire 08-02-21: Please answer each question to the best of your ability. Questions P lease answer each question to the best of your ability. H as there ever been a time period when you were not your usual self and... Y ou felt so good or hyper that other people thought you were not your normal self or you were so hyper that you got into trouble? N o . Y ou were so irritable that you shouted at people or started fights or arguments? N o . Y ou got much less sleep than usual and found that you didn't really miss it? N o . Y ou felt much more self-confident than usual??No . Y ou were more talkative or spoke much faster than usual? Y es . T houghts raced through your head or you couldn't slow your mind down? N o . Y ou were so easily distracted by things around you that you had trouble concentrating or staying on track? Y es . Y ou had more energy than usual? N o . Y ou were more active or did many more things than usual? N o . Y ou were more social or outgoing than usual, for example, you telephoned friends in the middle of the night? N o . Y ou were more interested in sex than usual??No . Y ou did things that were usual for you or that other people might have thought were excessive, foolish, or risky? N o . S pending money got you or your family in trouble? N o . I f you checked YES to more than one of the above, have several of these ever happened during the same period of time? . H ow much of a problem did any of these cause you - like being unable to work; having family, money or legal troubles; getting into arguments or fights? . N ew Psych Assessment, ACCOUNT ENGINEER: Patient presents for a new psychiatric evaluation. Expectations of this visit- Medication Management Why present now/precipitants/stressors? Symptoms Present- Found out she has Cirrhosis. Hep C treated. Has multiple medical issues. Noticing that she is having struggles with anxiety. Feels she is ok. Some trouble with concentration. Not looking for medication. Onset: Had it in the past when her brother . Had gone away, but since learning of her medical issues, has been more anxious again. Frequency: Half of the time. Location: Independent of location. Triggers- Medical issues. Idle time. Unknown. What helps? Grandkids when they are around. Distraction. Prayer/juan. Goals- Managing health conditions. Strengths- Family. Kids and grandkids. Staying on time with appointments. Sleep- Sleeps ok. Nightmares- Denies Appetite- Ok- Weight is managed. States she is a little overweight. Depression- 1/10 Hopeless/helpless- Denies Interest level- Generally ok Concentration- States she has trouble concentrating. Energy Level- Low Anxiety- High anxiety related to the health situation. She found out after doing labs. Anger/irritability- Denies Racing thoughts- Denies. Some catastrophizing with medical. Distractible- Yes Indiscretion/Inhibition- Denies Risk taking- Denies Grandiosity- Denies Increased activity- Denies Missed sleep and still felt good- Denies Talkativeness- Denies Impulsivity- Occasionally. Suicidal Ideation- Denies Homicidal Ideation- Denies Hallucinations- Denies Paranoia- Denies Delusions- Denies Past Psychiatric History- No hospitalizations for mental health. No past mental health care. Psychiatric Medications- NA Medication Adherence- NA Medication efficacy- NA Side effects- NA Medication History- No prior mental health medications. Other Medications- See list Medical Concerns- See list Head Injury/ Loss of Consciousness- Denies Therapist- None Primary Care Physician- Yes Allergies- See list Family mental health history- Unknown Family medical history- Grandma- Diabetes. Moms side- BRCA. Social History- location- [facility] Current home- [facility] childhood- Normal Abuse/Trauma- Denies Education- 9th grade, then got . Would like to get GED Occupation- Not currently working. Legs swell up making ambulation difficult. Applying for disability. Hobbies/Interests- Time with kids. Spiritual Affiliation- Evangelical- [employer]. Who lives at home? Friend and mom. Siblings? Children? Legal History- Domestic charge. Door got kicked in, but states she didn't kick it. Substance Use- Tobacco- vaping. Alcohol- None since 2017 No substances since 2017. * ROS: P sych ROS: Constitutional D enies. E yes D enies. E ars/Nose/Mouth/Throat D enies. R espiratory D enies. A llergic/Immunologic D enies.?Cardiovascular D enies. G I D enies. G U D enies. M usculoskeletal D enies. N eurological D enies. I ntegumentary D enies. E ndocrine R eports,?Prediabetic. H ematological/Lymphatic R eports, L ow platelets. P sych R eports anxiety, Denies SI/HI/AH/VH. * Medical History: * Surgical History: c esarean section 07/16/16laparoscopic cholecystectomy * Hospitalization/Major Diagno stic Procedure: b lood transfusion 12/2023 * Family History: F ather: alive. M other: alive. 4 brother(s) , 3 sister(s) . 2 son(s) , 2 daughter(s) - healthy. . Brother, overdose. * Social History: P rimary Social History: L iving Arrangement L iving Arrangement: D ependent Living L iving with: Randall moore I s this a supportive environment? Y es Alcohol Use A lcohol Use Frequency: N ever Illicit Substance Usage I llicit Substance Usage: N o Employment Status E mployment Status: O n Disability trying to get disability currently Single Question Alcohol Screening H ow may times in the past year have you had (4 for women, or 5 for men) or more drinks in a day? 0 None since 2016 T obacco Use: T obacco Control (Standard) T obacco use: U ses tobacco in other forms A dditional Findings: Tobacco user e -cigarette * Medications: T akingVitamin D 12.5 MCG/0.25ML Liquid 0.25 mL Orally once a week Spironolactone 50 MG Tablet 1 tablet Orally Once a day Furosemide 20 MG Tablet 1 tablet Orally Once a day Medication List reviewed and reconciled with the patientTaking Vitamin D 12.5 MCG/0.25ML Liquid 0.25 mL Orally once a week Taking Spironolactone 50 MG Tablet 1 tablet Orally Once a day Taking Furosemide 20 MG Tablet 1 tablet Orally Once a day Medication List reviewed and reconciled with the patient * Allergies: C odeine: anaphylaxisPenicillin: hivesno[Allergies Verified] Objective: * Vitals: L MP: 04/27/24, Pain scale:0. weight reported by patient 198. * Examination: M ental Status Exam: SENSORIUM AND COGNITION Alert , Oriented to Person , Oriented to Place , Oriented to Time , Oriented to Situation. ATTENTION AND CONCENTRATION N o deficits. ATTITUDE AND BEHAVIOR C ooperative , Receptive. MEMORY I mmediate , Recent , Remote. AFFECT B road/Full. MOOD E uthymic. SPEECH QUANTITY A ppropriate. SPEECH QUALITY S pontaneous , Fluent , Appropriate volume.? THOUGHT PROCESS C oherent and goal directed. THOUGHT CONTENT A ppropriate - WNL , No evidence of delusional content , No reports paranoia. LANGUAGE A ppropriate- WNL. SUICIDAL IDEATION D enies suicidal ideation. HOMICIDAL IDEATION D enies homicidal ideation. HALLUCINATIONS D enies hallucinations. INSIGHT F air. JUDGMENT F air. FUND OF KNOWLEDGE F air. ABILITY TO PARTICIPATE IN TREATMENT M oderate. WILLINGNESS TO PARTICIPATE IN TREATMENT M oderate. SIGNIFICANT FINDINGS REGARDING MENTAL STATUS N one. ? Assessment: * Assessment: 1. G AD (generalized anxiety disorder) - F41.1 (Primary) Plan: * Treatment: * Recommended Wellness and Pre vention Guidelines: * S tatus A darío L ast Done N ext Due A ction Taken N ONCOMPLIANT B reast cancer screening - 0 05/12/2024 - N ONCOMPLIANT C ervical cancer screening - 0 05/12/2024 - N ONCOMPLIANT C olorectal cancer screening - 0 05/12/2024 - N ONCOMPLIANT H IV screening - 0 05/12/2024 - N ONCOMPLIANT M ammogram, Screening - 0 05/12/2024 - * Procedure Codes: * Preventive Medicine: Counseling: S MOKING: Patient counselled on the dangers of tobacco use and urged to quit. 0 05/12/2024 . Relapse prevention: H ad stopped cigarettes and switched to vaping. Doesn't want to stop at this point. * Follow Up: 4 Weeks (Reason: Medication management - can be telehealth appt.) * * Sign off status: Completed true * Provider: Yamilex Willis DNP, PMHNP-, RADIAL DRILL PRESS SET UP OPERATOR Date: 0 05/12/2024 Generated for Printing/Faxing/eTransmitting on: 0 05/21/2024 12:35 PM CDT History and Physical Notes * HPI (History of Present Illness) Category Sub-Category Detail Notes Category Not es Depression Screening PHQ-9 Little inte rest or pleasure in doing things: Several days Feeling down, depressed, or hopeless: No t at all Trouble falling or staying asleep, or sl eeping too much: Not at all Feeling tired or having little energy: M ore than half the days Poor appetite or overeating: Not at all Feeling bad about yourself o r that you are a failure, or have let yourself or your family down: Not at all Trouble concentrating on thi ngs, such as reading the newspaper or watching television: Nearly every day Moving or speaking so slowly that other people could have noticed; or the opposite, being so fidgety or restless that you have been moving around a lot more than usual: Not at all Thoughts that you would be b june off or of hurting yourself in some way: Not at all Total Score: 6 Interpretation: Mild Depression Intervention Depression Screening Findings: N egative Follow-Up for Depression: No Referral necessary, patient involved in behavioral health treatment Screening [place] Suicide Sev erity Rating Scale (LF) Do you want to initiate with: Screener form 1. Wish to be : Have you wished you were or wished you could go to sleep and not wake up?: No 2. Suicidal Thoughts: Have you actually had any thoughts of killing yourself?: No 6. Suicide Behavior Question: Have you ever done anything,started to do anything, or prepared to end your life?: No Interpretation:: Low Risk Mood Disorder Questionnaire 08-02-21 Questions Please answer each question to the best of your ability.: Has there ever been a time period when you were not your usual self and... You felt so good or hyper th at other people thought you were not your normal self or you were so hyper that you got into trouble?: No . You were so irritable that y ou shouted at people or started fights or arguments?: No . You got much less sleep than usual and found that you didn't really miss it?: No . You felt much more self-confident than u sual?: No . You were more talkative or spoke much fa ster than usual?: Yes . Thoughts raced through your head or you couldn't slow your mind down?: No . You were so easily distracte d by things around you that you had trouble concentrating or staying on track?: Yes . You had more energy than usual?: No . You were more active or did many more th ings than usual?: No . You were more social or outg oing than usual, for example, you telephoned friends in the middle of the night?: No . You were more interested in sex than usu al?: No . You did things that were usu al for you or that other people might have thought were excessive, foolish, or risky?: No . Spending money got you or your family in trouble?: No . If you checked YES to more t nguyen one of the above, have several of these ever happened during the same period of time?: . How much of a problem did an y of these cause you - like being unable to work; having family, money or legal troubles; getting into arguments or fights?: . CSSRS Interpretation and Follow Up Plan CSSRS Interpretation and Follow Up Plan CSSRS Screen documented using SF: Yes Risk Disposition from SF: Low - No Follo w Up Plan Required Follow Up Plan: No Follow Up Plan requir ed at this time. Timeframe of Screening: Today Examination Category Sub-Category Detail Notes Category Not es Mental Status Exam SENSORIUM AND COGNITION Alert , Oriented to Person , Oriented to Place , Oriented to Time , Oriented to Situation ATTENTION AND CONCENTRATION No deficits ATTITUDE AND BEHAVIOR Cooperative , Rece ptive MEMORY Immediate , Recent , Remote AFFECT Broad/Full MOOD Euthymic SPEECH QUANTITY Appropriate SPEECH QUALITY Spontaneous , Fluent , Appropriate volume THOUGHT PROCESS Coherent and goal di rected THOUGHT CONTENT Appropriate - WNL , No evidence of delusional content , No reports paranoia SUICIDAL IDEATION Denies suicidal idea tion HOMICIDAL IDEATION Denies homicidal juan ation HALLUCINATIONS Denies hallucination s INSIGHT Fair JUDGMENT Fair FUND OF KNOWLEDGE Fair ABILITY TO PARTICIPATE IN TREATMENT Mode rate WILLINGNESS TO PARTICIPATE IN TREATMENT Moderate SIGNIFICANT FINDINGS REGARDI NG MENTAL STATUS None LANGUAGE Appropriate- WNL
--- OUTSIDE RECORDS SUMMARY | 2024-05-21 12:35 | XMS_ITS | Continuity of Care Document ---
Author Organization [facility] Address [address] [place] [address] Phone Care Team Providers Care Grout Worker Name Role Phone Tai Canales MD Unavailable Unavailable Advance Directives Directive Yes / No Effective Date File Name No Information Encounters Encounter Description Practice Location Reason(s) For Visit Diagnoses Date Provider Providers Copied on Encounter [facility], [address], [place], [place], [id number], tel:[phone] [facility] No Information Parker Lujan. [address] [place] [address], [address], [place], [place], [id number], . tel:[phone] Referring Provider: Tai Canales, [address] [place] [address], [place], [address]. tel:[phone] Family History Family Member Type Diagnosis Age At Onset No Information Payers Payer name Insurance type Covered republican ID Authoriza tikristan(s) [facility] [id number] Social History Type Description Quantity Date Captured [...]
--- OUTSIDE RECORDS SUMMARY | 2024-05-21 12:35 | XMS_ITS | CONTINUITY OF CARE DOCUMENT ---
Author Name holly barrera Address Unknown Organization [facility] Address [address] [facility] [address] [place] [address] Phone [phone] Care Team Providers Care Industrial Relations Worker Name Role Phone Tate Parnell MD Unavailable [phone] Edwardo Parisi Unavailable [phone] Edwardo Parisi Unavailable [phone] INSURANCE PROVIDERS Payer name Policy type / Coverage type [place] red libertarian [employer] Medicaid 3 [id number]
--- OUTSIDE RECORDS SUMMARY | 2024-05-21 12:35 | XMS_ITS | Patient Health Record ---
Author Organization [facility] Address [address] [place] [address] Care Team Providers Care Compliance Nurse Name Role Phone Nicole Willis Primary Care Provider Allergies Allergen (clinical drug ingredient) Drug/Non Drug Allergy documented on EMR Reaction Allergy Type Onset Date Status codeine Codeine anaphylaxis Drug Allergy Activ e Penicillin hives Drug Allergy Active Reason For Referral No Information Medications Medication SIG (Take, Route, Frequency, Duration) [...] Status Risk Notes Problem Generalized anxiety disorder (40010541) CRYSTAL (generalized anxiety disorder) (F41.1) Active confirmed Encounters Encounter Location Date Provider Diagnosis [facility] [address] [place] [address] 05/12/2024 Nicole Willis CRYSTAL (generalized anxiety disorder) F41.[address] [place] [address] 05/12/2024 Nicole Willis Assessments Encounter Date Diagnosis (ICD Code) Assessment [...] or be administered own oral medications per [place] protocols. Provided informed consent with understanding of side effects, adverse effects, risks and benefits as well as alternative treatments as previously discussed and with the above recommended medications & other aspects of the treatment program. Agrees to return sooner if symptoms worsen or suicidal or homicidal ideations occur. Plan Of Treatment No Information Insurance Providers Payer Name Payer Address Payer Phone Subscriber Number Group Number Insured Name Patient Relationship to Insured Coverage Start Date Coverage End Date MEDICAID [address] [facility] [place] [address] [id number] Nichelle Pelayo Self - patient is the insured 5 MEDICAID [employer] [address] [place] [address] [id number] Nichelle Pelayo Self - patient is the insured 5 Medical (General) History Medical History History ICD Code cirrhosis of the liver COPD Low platelet- hematology f/u 05/25/24 Prediabetic Surgical History Surgery Date(Month/Year) section 07/16/16 laparoscopic cholecystectomy Hospitalization History Reason Date(Month/Year) blood transfusion 12/2023
--- NOTE | 2024-05-21 13:06 | ECG_ITS ---
Test Date: 2024-05-21 14:24:41 Measurements Intervals [place] Rate: 74 P: 77 MA: 165 QRS: 136 QRSD: 100 T: 65 QT: 428 QTc: 478 Interpretive Statements SINUS RHYTHM RIGHT AXIS DEVIATION POSSIBLE LEFT ATRIAL ENLARGEMENT PATTERN CONSISTENT WITH PULMONARY DISEASE INCOMPLETE RIGHT BUNDLE BRANCH BLOCK BORDERLINE ST-T WAVE ABNORMALITY- DIFFUSE LEADS BASELINE ARTIFACT- I, III, AVL BORDERLINE ECG Compared to ECG 03/20/2024 13:28:09 NO SIGNIFICANT CHANGE Electronically Signed On 05-21-2024 14:25:23 CDT by Clifton Louise D.O.
--- NOTE | 2024-05-21 13:07 | ED_ITS ---
HPI - SOB/Dyspnea General Chief Complaint: Shortness of Breath/Dyspnea Stated Complaint: N/V/D, shortness of breath Time Seen by Provider: 05/21/24 12:40 Source: patient Mode of arrival: ambulatory Limitations: no limitations History of Present Illness HPI Narrative: Patient presents with report of acute on chronic shortness of breath. She states it seemed to get worse last night. She has also been having nausea vomiting and diarrhea that started last night. She has a history of cirrhosis and varices which have been banded. She is on Lasix and another diuretic but states it is not for CHF but rather for edema legs and abdomen. She denies having CHF. States that her whole body hurts. She thinks this might be due to a beta-sergio which she started yesterday. She knows the dose of 60 mg but does not know what it is. Shows a torsed leg swelling although states they are better today. She took her 20 mg daily dose of Lasix yesterday but has not yet taken it today. No cough, no hemoptysis. No surgery/trauma in the past pain for weeks. She states that she was diagnosed with a PE in 2017 but is not on Eliquis and states that she never followed up for this. Not on exogenous hormones. No sick contacts, not recently on antibiotics, no recent travel. No fevers although she was having chills this morning. She endorses abdominal pain. Does not use marijuana. She has previously seen a gastroenterology and had a appointment coming up to establish with another 1 due to being between insurance policies. She states she had a history of hepatitis C and supposedly completed treatment although she does not know if she followed up at that time. Patient was present emergency department March at which point was treated for trichomoniasis. She later states she was started on propranalol for her varices, took first dose yesterday. Also started her 1st dose of metformin yesterday and believes this may be due to medication side effect. Related Data Home Medications ?Medication ?Instructions ?Recorded ?Confirmed ?Last Taken ?Type cholecalciferol (vitamin D3) 1,250 1,250 mcg PO WEEKLY 05/21/24 05/22/24 05/20/24 History mcg (50,000 unit) capsule ferrous sulfate 325 mg (65 mg 325 mg PO DAILY 05/21/24 05/22/24 05/20/24 History iron) tablet metformin 500 mg tablet,extended 500 mg PO DAILY 05/21/24 05/22/24 05/20/24 History release 24 hr propranolol 60 mg capsule,24 60 mg PO DAILY 05/21/24 05/22/24 05/20/24 History hr,extended release Allergies Allergy/AdvReac Type Severity Reaction Status Date / Time Penicillins Allergy Severe Swelling Verified 05/22/24 00:21 cephalexin Allergy Intermediate Swelling Verified 05/22/24 00:21 nitrofurantoin Allergy Intermediate Swelling Verified 05/22/24 00:21 PMFSH Past Medical History Medical History Acute on chronic anemia Cirrhosis Esophageal varices Gastritis Hepatitis C Iron deficiency Tobacco abuse Surgical History Surgical History History of section History of cholecystectomy Family History Family History Sibling Drug addiction Social History Social History Social History: Surrogate medical decision maker: Claudia Pelayo, mother. Code status: Full code. Smoking packs per day: 0.5 Smoking cigarettes per day: 10.0 Years smoked: 25 Smoking pack-years: 12.50 Smoking status: Current every day smoker Tobacco type: e-cigarettes/vaping Alcohol intake: never Substance use: never Substance use type: heroin and methamphetamine Other substance usage details: history of heroin use for 11 years, clean for 11 years. Last use: Snorts meth daily for the past 6 years. Do You Feel Safe in your Home?: Yes Lack of Transportation: No Lack of Food: Never True Current Housing: I Have Housing Concerned About Future Housing: No Difficulty Paying Gas/Electric Bills: No Difficulty Paying for Meds: No Currently Unemployed: No Education: Grade School Difficulty w/ Childcare or Family Care: No Additional living arrangements comments: The patient lives in [place]. She has 3 grown children and a 5-year-old daughter. Additional occupation/education comments: Currently unemployed. Spiritual care concerns: No Exam 2 Narrative: GENERAL: Chronically ill appearing, well-nourished HEAD: Normocephalic, atraumatic. EYES: Non injected, mildly icteric ENT: Nares clear, no rhinorrhea or epistaxis. NECK: Supple. CHEST: Speaking in full sentences. No respiratory distress. Lungs clear to auscultation bilaterally. HEART: Regular rate and rhythm. . ABDOMEN: protuberant but Soft, nondistended. EXTREMITIES: Bilateral LE edema SKIN: Warm, dry. Jaundiced. NEURO: No focal deficits. Alert and oriented x3. PSYCH: Normal mood and affect. Course Vital Signs Vital signs: Vital Signs Temperature 96.8 F L 05/21/24 12:08 Pulse Rate 77 05/21/24 12:08 Respiratory Rate 20 05/21/24 12:08 Blood Pressure 93/62 L 05/21/24 12:08 Pulse Oximetry 97 05/21/24 12:08 Oxygen Delivery Room Air 05/21/24 12:08 Temperature 97.0 F L 05/22/24 08:00 Pulse Rate 80 05/22/24 09:03 Respiratory Rate 24 H 05/22/24 08:00 Blood Pressure 105/55 L 05/22/24 09:03 Pulse Oximetry 96 05/22/24 09:02 Oxygen Delivery Room Air 05/22/24 08:00 MDM - SOB/Dyspnea MDM Narrative Medical decision making narrative: Patient presents acute on chronic shortness of breath she states she worse month. She also started having nausea and diarrhea night. In the emergency department she is afebrile with vital signs notable for hypotension, mean arterial pressure 72 mm Hg. PERC Rule Age greater than or equal to 50: 0 HR greater than or equal to 100:0 O2 sat room air <95%:0 Unilateral leg swelling: slightly uneven Hemoptysis: 0 Recent surgery or trauma less than 4 wks ago requiring tx with general anesthesia: 0 Prior PE or DVT: Yes Hormone use (OCP, HRT or estrogenic hormone use in M/F patients): 0 Will obtain D dimer Repeat blood pressure still low, 90/67 but with a mean arterial pressure of 75. Will defer fluids at this time given questionable history of heart failure. Dimer greater than 1, will proceed with CT PE imaging. Will add Abd/pelvis given pain in this area with N/V/D. Her BNP is elevated. Given that she does not appear volume overloaded but has a slightly elevated lactic acid (minimally, but with persistent borderline hypotension, will give a small 500cc bolus) . Thrombocytopenia which has been chronic. T bili elevated. Patient has an acute kidney injury. Her creatinine has essentially doubled from previous per review of EMR. Ddx indirect hyperbilirubinemia Over production of bilirubin (hemolytic anemia), reduced uptake (cirrhosis or congestive hepatopathy), impaired conjugation, biliary obstruction, hereditary disease (Gilbert syndrome, Jas-Evan syndrome, Crigler-Latoya syndrome), medication side effect (allopurinol, anabolic steroids, antibiotics, antimalarials, etc.) Urine concerning for UTI. Did not automatically reflex to culture but this is ordered and charge nurse called to ensure processed. Previous cultures did not show growth. Patient received additional fluids, judiciously. At this time she provides further history that the medications she had been placed and started yesterday was a combination of both metformin for prediabetes as well as thus 60 mg dose of propranolol given concerns for her esophageal varices. There strong reason suspect that her symptoms might represent medication side effects as result. Metformin it is highly implicated in GI upset and it is possible that the 60 mg dose is too much for patient given review of EMR shows her blood pressure is usually normotensive or even slightly low before. Patient remains dizzy and orthostatic. Nurse notes that moving to the bathroom was difficult and for this I have concerns for patient's ability to be safely discharged home. Discussed with inspector material disposition hospitalist Dr Kaur. Will be IMU admit given her blood pressure, though her MAPS have remained reassuring throughout. I believe she will require a bit of time and perhaps continued gentle hydration. Differential Diagnosis Differential diagnosis: Likely congestive heart failure, community acquired pneumonia, pulmonary embolism and other (acute viral syndrome) Lab Data Attestation: I reviewed the patient's lab results. 05/22/24 04:34 05/22/24 04:34 Labs: Lab Results 05/21/24 05/21/24 05/21/24 Range/Units 13:56 14:09 16:59 WBC 7.3 (4.5-10.0) K/mm3 RBC 6.12 H (4.2-5.4) M/mm3 Hgb 13.6 D (12.0-15.0) g/dL Hct 46.4 (37.0-47.0) % MCV 75.8 L (80-100) fl MCH 22.2 L (26-34) pg MCHC 29.3 L (32-36) g/dl RDW 21.3 H (11.5-14.5) % Plt Count 91 L D (150-375) k/mm3 MPV Not Reportable Immature Gran % (Auto) 0.3 (0-0.5) % Neut % (Auto) 70.9 (45.5-73.1) % Lymph % (Auto) 18.3 (18.3-44.2) % [place] % (Auto) 8.8 H (2.6-8.5) % Eos % (Auto) 1.0 (0-4.4) % Baso % (Auto) 0.7 (0.2-1.2) % Lymph # (Auto) 1.34 (0.9-3.2) K/mm3 [place] # (Auto) 0.6 (0.1-0.6) K/mm3 Eos # (Auto) 0.1 (0-0.3) K/mm3 Baso # (Auto) 0.1 (0.0-0.1) K/mm3 Abs Immat Gran (auto) 0.02 (0.00-0.031) K/mm3 Absolute Neuts (auto) 5.2 (1.3-6.7) K/mm3 Absolute Nucleated RBC 0.000 (0.0-0.012) K/mm3 Band Neutrophils % Not Reportable Nucleated RBC % 0.0 (0.0-0.2) % Platelet Estimate Decreased (Adequate) % Immature Plt Fraction 5.1 (0.9-11.2) % Hypochromasia 1+ Ovalocytes 1+ Schistocytes None seen D-Dimer 1.05 H (<0.48) ug/mL Sodium 137 (137-145) mmol/L Potassium 4.6 (3.4-5.0) mmol/L Chloride 108 H (98-107) mmol/L Carbon Dioxide 15 L (22-30) mmol/L Anion Gap 14 H (4-12) mmol/L BUN 26 H D (7-17) mg/dL Creatinine 1.46 H (0.7-1.0) mg/dL Estim Creat Clear Calc 49 ml/min Estimated GFR 39 L (59 - ) Glucose 110 (65-110) mg/dL Lactic Acid 2.1 H (0.7-2.0) mmol/L Calcium 9.3 (8.4-10.2) mg/dL Magnesium 1.9 (1.6-2.3) mg/dL Total Bilirubin 2.6 H (0.2-1.3) mg/dL Direct Bilirubin 0.0 (0-0.3) mg/dL Indirect Bilirubin 1.8 H (0-1.1) mg/dL AST 39 H (14-36) U/L ALT 30 (6-35) U/L Alkaline Phosphatase 93 (38-126) U/L Total Creatine Kinase 70 (30-135) U/L NT-Pro-B Natriuret Pep 1090 H (19.9-100) pg/mL Total Protein 8.0 (6.3-8.2) g/dL Albumin 4.1 (3.5-5.1) g/dL Lipase 105 (23-300) U/L Serum HCG, Qual Negative Urine Color Dark yellow (Yellow) Urine Appearance Turbid H (Clear) Urine pH 5.0 (5.0-9.0) Ur Specific [place] 1.023 (1.001-1.035) Urine Protein 3+ H (Negative) mg/dL Urine Glucose (UA) Negative (Negative) mg/dL Urine Ketones Trace H (Negative) mg/dL Ur Blood (Man) 3+ H (Negative) Urine Nitrate Negative (Negative) Urine Bilirubin 2+ H (Negative) Urine Urobilinogen 1.0 (<2.0) mg/dL Add Ur Microanalysis Reviewed Leukocyte Esterase Rfl Trace H (Negative) CODY/UL Urine RBC 11-20 H (0-2) /hpf Urine WBC 11-20 H (0-3) /hpf Ur Squamous Epith Cells Many H (Few) /hpf Urine Bacteria 4+ H /hpf Urine Casts >20 Urine Mucus Present /lpf POC Urine HCG, Qual (Negative) Influenza A (RT-PCR) Negative (Negative) Influenza B (RT-PCR) Negative (Negative) RSV (RT-PCR) Negative (Negative) SARS-CoV-2 RNA (RT-PCR) Negative (Negative) 05/21/24 05/21/24 Range/Units 17:07 19:12 WBC (4.5-10.0) K/mm3 RBC (4.2-5.4) M/mm3 Hgb (12.0-15.0) g/dL Hct (37.0-47.0) % MCV (80-100) fl MCH (26-34) pg MCHC (32-36) g/dl RDW (11.5-14.5) % Plt Count (150-375) k/mm3 MPV Immature Gran % (Auto) (0-0.5) % Neut % (Auto) (45.5-73.1) % Lymph % (Auto) (18.3-44.2) % [place] % (Auto) (2.6-8.5) % Eos % (Auto) (0-4.4) % Baso % (Auto) (0.2-1.2) % Lymph # (Auto) (0.9-3.2) K/mm3 [place] # (Auto) (0.1-0.6) K/mm3 Eos # (Auto) (0-0.3) K/mm3 Baso # (Auto) (0.0-0.1) K/mm3 Abs Immat Gran (auto) (0.00-0.031) K/mm3 Absolute Neuts (auto) (1.3-6.7) K/mm3 Absolute Nucleated RBC (0.0-0.012) K/mm3 Band Neutrophils % Nucleated RBC % (0.0-0.2) % Platelet Estimate (Adequate) % Immature Plt Fraction (0.9-11.2) % Hypochromasia Ovalocytes Schistocytes D-Dimer (<0.48) ug/mL Sodium (137-145) mmol/L Potassium (3.4-5.0) mmol/L Chloride (98-107) mmol/L Carbon Dioxide (22-30) mmol/L Anion Gap (4-12) mmol/L BUN (7-17) mg/dL Creatinine (0.7-1.0) mg/dL Estim Creat Clear Calc ml/min Estimated GFR (59 - ) Glucose (65-110) mg/dL Lactic Acid 2.5 H (0.7-2.0) mmol/L Calcium (8.4-10.2) mg/dL Magnesium (1.6-2.3) mg/dL Total Bilirubin (0.2-1.3) mg/dL Direct Bilirubin (0-0.3) mg/dL Indirect Bilirubin (0-1.1) mg/dL AST (14-36) U/L ALT (6-35) U/L Alkaline Phosphatase (38-126) U/L Total Creatine Kinase (30-135) U/L NT-Pro-B Natriuret Pep (19.9-100) pg/mL Total Protein (6.3-8.2) g/dL Albumin (3.5-5.1) g/dL Lipase (23-300) U/L Serum HCG, Qual Urine Color (Yellow) Urine Appearance (Clear) Urine pH (5.0-9.0) Ur Specific [place] (1.001-1.035) Urine Protein (Negative) mg/dL Urine Glucose (UA) (Negative) mg/dL Urine Ketones (Negative) mg/dL Ur Blood (Man) (Negative) Urine Nitrate (Negative) Urine Bilirubin (Negative) Urine Urobilinogen (<2.0) mg/dL Add Ur Microanalysis Leukocyte Esterase Rfl (Negative) CODY/UL Urine RBC (0-2) /hpf Urine WBC (0-3) /hpf Ur Squamous Epith Cells (Few) /hpf Urine Bacteria /hpf Urine Casts Urine Mucus /lpf POC Urine HCG, Qual Negative (Negative) Influenza A (RT-PCR) (Negative) Influenza B (RT-PCR) (Negative) RSV (RT-PCR) (Negative) SARS-CoV-2 RNA (RT-PCR) (Negative) Imaging Data Attestation: I personally reviewed and interpreted this imaging study as follows: My impression: Chest x-ray with borderline cardiomegaly on but no significant pulmonary edema on my independent interpretation Radiologist's impression: Impressions Chest X-Ray 05/21/24 14:43 IMPRESSION: 1: NO ACUTE CARDIOPULMONARY DISEASE. Chest/Abdomen/Pelvis CTA 05/21/24 18:16 IMPRESSION: CHEST: 1. No acute cardiopulmonary pathology. 2. No pulmonary embolism. ABDOMEN/PELVIS: 1. Liver cirrhosis. 2. Splenomegaly with varicosities seen posterior to the stomach. Enhancing vessels seen in the lower esophagus. 3. Tiny left kidney stone. ECG Data EKG #1: Attestation: I personally reviewed and interpreted this ECG as follows: ECG completion date: 05/21/24 ECG completion time: 14:24 Interpretation: Normal sinus rhythm at a rate of 74 beats per minute. DE interval 165. QRS 100. QT/QTC 428/456. Poor R-wave progression across the precordial leads. There does appear to be left atrial enlargement especially given the the prominence of P-waves. Incomplete RBBB given QRS less [id number]; RSR' M- shaped pattern in V1-V3; though to a lesser degree slurred S wave in lateral leads (I, aVL, V5-6). T-wave inversions in V3 likely due to lead placement. No other T-wave inversions. Discharge Plan Discharge Clinical Impression: Thrombocytopenia, Shortness of breath, Liver cirrhosis, Splenomegaly, UTI (urinary tract infection), Nausea & vomiting, Diarrhea, Medication side effects, LINDA (acute kidney injury) Patient Disposition: Still a Patient Condition: Stable
--- OUTSIDE RECORDS SUMMARY | 2024-05-21 13:11 | XMS_ITS | Continuity of Care Document ---
Author Organization [facility] Address [address] [place] [address] Phone Care Team Providers Care Senior Technical Business Analyst Name Role Phone Tai Canales MD Unavailable Unavailable Advance Directives Directive Yes / No Effective Date File Name No Information Encounters Encounter Description Practice Location Reason(s) For Visit Diagnoses Date Provider Providers Copied on Encounter [facility], [address], [place], [place], [id number], tel:[phone] [facility] No Information Parker Lujan. [address] [place] [address], [address], [place], [place], [id number], . tel:[phone] Referring Provider: Tai Canales, [address] [place] [address], [place], [address]. tel:[phone] Family History Family Member Type Diagnosis Age At Onset No Information Payers Payer name Insurance type Covered alliance party ID Authoriza tikristan(s) [place] [employer] [facility] [id number] Social History Type Description Quantity Date Captured [...]
--- OUTSIDE RECORDS SUMMARY | 2024-05-21 13:11 | XMS_ITS | CONTINUITY OF CARE DOCUMENT ---
Author Name holly barrera Address Unknown Organization [facility] Address [address] [place] [address] Phone [phone] Care Team Providers Care Domestic Violence Counselor Name Role Phone Tate Parnell MD Unavailable [phone] Edwardo Parisi Unavailable [phone] Edwardo Parisi Unavailable [phone] INSURANCE PROVIDERS Payer name Policy type / Coverage type Essie red democrat [employer] Medicaid 3 [id number]
--- OUTSIDE RECORDS SUMMARY | 2024-05-21 13:11 | XMS_ITS | Encounter Summary ---
Author Organization [facility] Address 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
--- OUTSIDE RECORDS SUMMARY | 2024-05-21 13:11 | XMS_ITS | Encounter Summary ---
Author Organization [facility] Address 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
--- OUTSIDE RECORDS SUMMARY | 2024-05-21 13:11 | XMS_ITS | Clinical Summary ---
Author Organization [facility] Address [address] 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
[2024-05-21 14:18] LABS: Basophils Absolute Auto 0.1 K/mm3 (0.0-0.1); Basophils Percent Auto 0.7 % (0.2-1.2); Eosinophils Absolute Auto 0.1 K/mm3 (0-0.3); Hematocrit 46.4 % (37.0-47.0); Hemoglobin 13.6 g/dL (12.0-15.0); Immature Granulocyte Absolute 0.02 K/mm3 (0.00-0.031); Immature Granulocyte Percent A 0.3 % (0-0.5); Immature Platelet Fraction Pct 5.1 % (0.9-11.2); Lymphocytes Absolute Auto 1.34 K/mm3 (0.9-3.2); Lymphocytes Percent Auto 18.3 % (18.3-44.2); Mean Corpuscular HGB Conc 29.3 g/dl (32-36); Mean Corpuscular Hemoglobin 22.2 pg (26-34); Mean Corpuscular Volume 75.8 fl (80-100); Monocytes Absolute Auto 0.6 K/mm3 (0.1-0.6); Monocytes Percent Auto 8.8 % (2.6-8.5); Neutrophils Absolute Auto 5.2 K/mm3 (1.3-6.7); Neutrophils Percent Auto 70.9 % (45.5-73.1); Platelet Count Result 91 k/mm3 (150-375); Red Blood Count 6.12 M/mm3 (4.2-5.4); Red Cell Distribution Width 21.3 % (11.5-14.5); White Blood Count 7.3 K/mm3 (4.5-10.0)
--- NOTE | 2024-05-21 14:21 | PC.NURSE ---
Delay in labs due to difficult stick and poor vasculature. PCT attempted labs x 3, RN had unsuccessful IV attempt, no blood return. Pt then got US guided IV, still with slow blood flow when drawing the labs. MD aware/updated. Pt aware of need for urine specimen, states she is unable to go at this time. Pt has call light in reach, instructed to press call light when she is able to go so staff can take her to RR via wheelchair. VS as documented. Pt remains A&Ox4, no new complaints.
[2024-05-21 14:32] LABS: Hypochromasia 1+; Ovalocytes 1+; Platelet Estimate Decreased (Adequate); Schistocytes None Seen
[2024-05-21 14:34] LABS: Lactic Acid Reflex 2.1 mmol/L (0.7-2.0)
[2024-05-21 14:36] LABS: D Dimer 1.05 ug/mL (<0.48)
[2024-05-21 14:40] LABS: Influenza A QL RT-PCR Negative (Negative); Influenza B QL RT-PCR Negative (Negative); RSV RNA, RT-PCR Negative (Negative); SARS-CoV-2 RNA PCR Negative (Negative)
[2024-05-21 15:00] LABS: NT Pro B Type Natriuretic Pept 1090 pg/mL (19.9-100)
[2024-05-21 15:19] LABS: Alanine Aminotransferase 30 U/L (6-35); Albumin Level 4.1 g/dL (3.5-5.1); Alkaline Phosphatase 93 U/L (38-126); Anion Gap 14 mmol/L (4-12); Aspartate Amino Transferase 39 U/L (14-36); Bilirubin,Total 2.6 mg/dL (0.2-1.3); Blood Urea Nitrogen 26 mg/dL (7-17); Calcium 9.3 mg/dL (8.4-10.2); Carbon Dioxide 15 mmol/L (22-30); Chloride 108 mmol/L (98-107); Creatine Kinase 70 U/L (30-135); Estimated CRCL calculation 49 ml/min; Estimated Glomerular Filt Rate 39; Glucose 110 mg/dL (65-110); Lipase 105 U/L (23-300); Magnesium 1.9 mg/dL (1.6-2.3); Potassium 4.6 mmol/L (3.4-5.0); Sodium 137 mmol/L (137-145)
[2024-05-21 16:13] LABS: Reflex Lactic Acid Yes or No Add Lactic
[2024-05-21 16:47] LABS: Bilirubin Indirect 1.8 mg/dL (0-1.1)
[2024-05-21 16:59] LABS: SPREG INTERNAL CONTROL Positive; Serum Qual hCG Negative
[2024-05-21] MEDS: SODIUM CHLORIDE 0.9% IV 500 ML 999 ML IV CONT (17:00)
[2024-05-21 17:09] LABS: BEDSIDEPREGUCG Negative (Negative)
[2024-05-21 17:21] LABS: Add Urine Microscopic? YES; Appearance Urine Turbid (Clear); Bacteria Urine 4+ /hpf; Bilirubin Urine 2+ (Negative); Blood Urine 3+ (Negative); Color Urine Dark Yellow (Yellow); Glucose Urine UA Negative (Negative); Ketones Urine Trace mg/dL (Negative); Leukocyte Esterase Ur Trace LEU/UL (Negative); Mucus Urine Present /lpf; Need Manual Microscopic Reviewed; Nitrate Urine Negative (Negative); Non Pathogenic Casts >20; Protein Urine 3+ mg/dL (Negative); Specific Grav Ur 1.023 (1.001-1.035); Squamous Epithelial Cell Urine Many /hpf (Few)
[2024-05-21] MEDS: SODIUM CHLORIDE 0.9% IV 1,000 ML 999 ML IV CONT (18:44)
[2024-05-21] MEDS: HYDROcodone/acetaminophen (*CRX) 5-325 MG TABLET 1 TAB PO (18:44)
[2024-05-21 19:27] LABS: Lactic Acid 2.5 mmol/L (0.7-2.0)
--- NOTE | 2024-05-21 19:31 | PC.NURSE ---
Pt remains A&Ox4 but drowsy, no change in mental status. IV fluids infusing. Fluids were dripping very slowly, IV bag raised higher and arm repositioned. BP 88/70 with MAP 78, HR 78. No new complaints at this time. No new orders at this time. Will see if BP improves with IV fluids. MD Pratt at bedside at this time.
[2024-05-22] VITALS (20 sets, daily range): BP systolic 88–109; BP diastolic 42–79; PULSE 74–88; RESP 17–24; TEMP 36.1–37; O2SAT 92–100; BMI 34.0
--- NOTE | 2024-05-22 | ECHO_ITS ---
Patient Info Name: Nichelle Pelayo Age: 44 years : 1980 Gender: Female Ht: 65 in Wt: 205 lbs BSA: 2.10 m2 HR: 88 bpm BP: 96 / 57 mmHg Heart Rhythm: Sinus Rhythm Technical Quality: Fair Exam Date: 05/22/2024 11:30 AM Exam Location: Echo Lab Patient Status: Inpatient Admit Date: 05/21/2024 Staff Ordering Physician: Ulysses Carlos MD Real Estate Clerk: Brooklyn Amezquita RDCS Attending Provider: Ulysses Carlos MD Referring Physician: Breanna SALEH; Exam Type: CA echo doppler color flow Study Info Indications - Elevated BNP and Troponin Complete two-dimensional, color flow and Doppler transthoracic echocardiogram is performed. Summary 1. Left ventricular chamber dimension is normal. 2. Left ventricular systolic function is normal, estimated at 60-65%. 3. There is moderately increased left ventricular wall thickness. 4. The left ventricular diastolic function is grade I diastolic dysfunction. 5. Right ventricular chamber dimension is severely enlarged. 6. Right ventricular systolic function is reduced. 7. Flattening of the ventricular septum in mid to late diastole consistent with right ventricular volume overload. 8. Right atrial chamber dimension is severely enlarged. 9. There is moderate tricuspid valve regurgitation. 10. Severe pulmonary hypertension, estimated pulmonary arterial systolic pressure is 68 mmHg. 11. There is mild pulmonic regurgitation. Left Ventricle Left ventricular chamber dimension is normal. Left ventricular systolic function is normal, estimated at 60-65%. There is moderately increased left ventricular wall thickness. The left ventricular diastolic function is grade I diastolic dysfunction. Right Ventricle Flattening of the ventricular septum in mid to late diastole consistent with right ventricular volume overload. Right ventricular chamber dimension is severely enlarged. Right ventricular systolic function is reduced. Left Atria Left atrial chamber dimension is normal. Right Atria Right atrial chamber dimension is severely enlarged. Atrial Septum Intact interatrial septum visualized by color flow imaging. Aortic Valve The aortic valve is trileaflet. There is no aortic valve stenosis. There is no aortic valve regurgitation. Pulmonic Valve The pulmonic valve is not well visualized. There is mild pulmonic regurgitation. Mitral Valve There is trace mitral valve regurgitation. Tricuspid Valve There is moderate tricuspid valve regurgitation. Severe pulmonary hypertension, estimated pulmonary arterial systolic pressure is 68 mmHg. Pericardium/Pleural There is no pericardial effusion. Inferior Vena Cava Dilated inferior vena cava with <50% collapse upon inspiration consistent with elevated right atrial pressure, 15 mmHg. Aorta The aortic root size at the sinus of Valsalva is normal. Left Ventricular Outflow Tract Name Value Normal LVOT 2D LVOT Diameter 2.0 cm LVOT Doppler LVOT Peak Gradient 2 mmHg LVOT Mean Gradient 1 mmHg LVOT VTI 11 cm LVOT VTI/AV VTI Ratio 0.9 LVOT Stroke Volume 37 ml LVOT CO 3.0 l/min LVOT CI 1.4 l/min/m2 Pulmonic Valve Name Value Normal RVOT Doppler RVOT Peak Gradient 1 mmHg PV Doppler PV Peak Gradient 2 mmHg PV Regurgitation Doppler UT Peak End Diastolic Velocity 190 cm/s Mitral Valve Name Value Normal MV Doppler MV Decel Gregory 173 cm/s2 MV PHT 65 ms MV Area (PHT) 3.4 cm2 4.0-5.0 MV Diastolic Function MV E Peak Velocity 39 cm/s MV A Peak Velocity 58 cm/s MV E/A 0.7 MV Decel Time 223 ms MV Annular TDI MV E/e' (Septal) 9.3 <=8.0 MV E/e' (Lateral) 4.6 <=8.0 MV E/e' (Average) 6.9 Tricuspid Valve Name Value Normal TV Regurgitation Doppler TR Peak Velocity 363 cm/s TR Peak Gradient 53 mmHg Estimated PAP/RSVP RA Pressure 15 mmHg <=5 PA Systolic Pressure 68 mmHg <36 RV Systolic Pressure 68 mmHg <36 Aortic Valve Name Value Normal AV Doppler AV Peak Velocity 66 cm/s AV Peak Gradient 2 mmHg AV Mean Gradient 1 mmHg AV VTI 12 cm AV Area (Cont Eq VTI) 3.0 cm2 >=3.0 AV Area (Cont Eq Diaz) 3.2 cm2 AV Regurgitation 2D LVOT Area 3.3 cm2 Ventricles Name Value Normal LV Dimensions 2D/MM IVS Diastolic Thickness (2D) 1.3 cm 0.6-1.0 LVID Diastole (2D) 4.1 cm 3.8-5.2 LVIW Diastolic Thickness (2D) 0.9 cm 0.6-0.9 LVID Systole (2D) 2.6 cm 2.2-3.5 LVOT Diameter 2.0 cm LV Mass (2D Cubed) 158.33 g 67.00-162.00 LV Mass Index (2D Cubed) 75 g/m2 43-95 Relative Wall Thickness (2D) 0.47 LV Fractional Shortening/Ejection Fraction 2D/MM LV Fractional Shortening (2D) 35 % 27-45 LV EF (2D Teicholz) 65 % 54-74 LV Diastolic Volume (4C MOD) 81 ml LV EF (4C MOD) 57 % LV Diastolic Volume (2C MOD) 87 ml LV EF (2C MOD) 61 % LV Diastolic Volume (BP MOD) 87 ml 46-106 LV Diastolic Volume Index (BP MOD) 41 ml/m2 29-61 LV Systolic Volume (BP MOD) 34 ml 14-42 LV Systolic Volume Index (BP MOD) 16 ml/m2 8-24 LV EF (BP MOD) 61 % 54-74 LV Diastolic Length (4C) 7.3 cm LV Systolic Length (4C) 5.3 cm LV Stroke Volume (4C MOD) 46 ml Atria Name Value Normal LA Dimensions LA Volume (4C A-L) 47 ml LA Volume (BP A-L) 46 ml RA Dimensions RA Area (4C) 21.2 cm2 <=18.0 Report Signatures
[2024-05-22] MEDS: CALCIUM CARBONATE (TUMS) 500 MG (200 MG ELEMENTAL) 400 MG PO (00:13)
[2024-05-22] MEDS: ACETAMINOPHEN 325 MG TABLET 650 MG PO (00:13)
[2024-05-22] MEDS: SODIUM CHLORIDE 0.9% IV 250 ML 999 ML IV CONT (00:14)
--- NOTE | 2024-05-22 00:50 | PC.NURSE ---
This patient, Nichelle Pelayo, was admitted to IMU Room 206-02. Patient/family oriented to hospital policies and general routines including ID bracelet, bed and alarms, visiting hours, pain management, procedures, bathroom and other care routines, personal items, smoking policy, room service/diet, and visiting hours. Information on how to activate the Rapid Response Team has been discussed. Patient/Family are encouraged to report perceived risks to care and to ask questions if they do not understand what they are told or what they should do.
[2024-05-22 01:40] LABS: Ammonia 10 umol/L (9-30)
[2024-05-22 01:54] LABS: Troponin I 0.122 ng/mL (0.000-0.034)
--- NOTE | 2024-05-22 03:07 | PM.IMHP ---
H&P: HPI History of Present Illness Date/Time: 05/22/24 03:07 Chief Complaint: 1. Dizziness 2. Fatigue Narrative: Nichelle Pelayo is a 44-year-old female with a medical history significant for liver cirrhosis, DM 2, obesity She remained stable until recently started on propranolol 60 mg daily to help control blood pressures surgery gets to esophageal viruses stemming from her liver cirrhosis. The retained 1st 4 hours of taking medication she developed the stoma syncope. Symptoms activity, alleviated by mobility isolation on rest; associated with malaise, fatigue and a restriction of her ADLs. She denies hematemesis, fevers, chills, flank pain, dysuria, melenic stools. She recalls that years ago she was placed on propranolol, on during that time developed side effects including pre syncopal/syncopal episodes for which he had to be stopped. She vapes nicotine; but denies alcohol or recreational/illicit drug use. Work-up findings: EKG: Sinus reading, right axis deviation, left atrial enlargement, IRBBB WBC 7.3; HGB 13.6; MCV 75; PO2 91 Troponin 0.110, 0.122; BNP 1090 UA: Negative nitrite, trace leukocyte esterase, 11-20 WBC, 4+ bacteria Influenza A/B, RSV, COVID-19: Negative CXR: No acute cardiopulmonary disease CTAP: 1. Liver cirrhosis. 2. Splenomegaly with varicosities seen posterior to the stomach. Enhancing vessels seen in the lower esophagus. 3. Tiny left kidney stone. Nichelle Pelayo will be admitted, evaluated, and managed for dizziness Review of Systems Review of Systems: All systems reviewed & are unremarkable except as noted in HPI and below PMFSH Past Medical History Medical History Acute on chronic anemia Cirrhosis Esophageal varices Gastritis Hepatitis C Iron deficiency Tobacco abuse Surgical History Surgical History History of section History of cholecystectomy Family History Family History Sibling Drug addiction Social History Social History Social History: Surrogate medical decision maker: Claudia Pelayo, mother. Code status: Full code. Smoking packs per day: 0.5 Smoking cigarettes per day: 10.0 Years smoked: 25 Smoking pack-years: 12.50 Smoking status: Current every day smoker Tobacco type: e-cigarettes/vaping Alcohol intake: never Substance use: never Substance use type: heroin and methamphetamine Other substance usage details: history of heroin use for 11 years, clean for 11 years. Last use: Snorts meth daily for the past 6 years. Do You Feel Safe in your Home?: Yes Lack of Transportation: No Lack of Food: Never True Current Housing: I Have Housing Concerned About Future Housing: No Difficulty Paying Gas/Electric Bills: No Difficulty Paying for Meds: No Currently Unemployed: No Education: Grade School Difficulty w/ Childcare or Family Care: No Additional living arrangements comments: The patient lives in [place]. She has 3 grown children and a 5-year-old daughter. Additional occupation/education comments: Currently unemployed. Spiritual care concerns: No Meds Home Medications and Allergies Home Medications ?Medication ?Instructions ?Recorded ?Confirmed ?Type furosemide 20 mg tablet 20 mg PO DAILY #30 tabs 01/02/24 05/21/24 Rx spironolactone 50 mg tablet 50 mg PO QAM #30 tabs 01/02/24 05/21/24 Rx (Aldactone) cholecalciferol (vitamin D3) 1,250 1,250 mcg PO WEEKLY 05/21/24 05/22/24 History mcg (50,000 unit) capsule ferrous sulfate 325 mg (65 mg 325 mg PO DAILY 05/21/24 05/22/24 History iron) tablet metformin 500 mg tablet,extended 500 mg PO DAILY 05/21/24 05/22/24 History release 24 hr propranolol 60 mg capsule,24 60 mg PO DAILY 05/21/24 05/22/24 History hr,extended release Allergies Allergy/AdvReac Type Severity Reaction Status Date / Time Penicillins Allergy Severe Swelling Verified 05/22/24 00:21 cephalexin Allergy Intermediate Swelling Verified 05/22/24 00:21 nitrofurantoin Allergy Intermediate Swelling Verified 05/22/24 00:21 Vital Signs Vital Signs - 24 hr 05/21/24 12:08 05/21/24 12:35 05/21/24 12:45 Temperature 96.8 F L Pulse Rate 77 77 78 Respiratory Rate 20 18 19 Blood Pressure 93/62 L 88/71 L Pulse Oximetry 97 100 100 Oxygen Delivery Room Air 05/21/24 12:46 05/21/24 13:01 05/21/24 13:04 Temperature Pulse Rate 76 77 77 Respiratory Rate 15 14 18 Blood Pressure 86/59 L Pulse Oximetry 100 96 97 Oxygen Delivery 05/21/24 13:15 05/21/24 13:30 05/21/24 13:45 Temperature Pulse Rate 76 76 77 Respiratory Rate 17 14 17 Blood Pressure Pulse Oximetry Oxygen Delivery 05/21/24 14:00 05/21/24 14:13 05/21/24 14:14 Temperature Pulse Rate 75 76 77 Respiratory Rate 16 17 23 H Blood Pressure 96/67 L Pulse Oximetry 98 100 Oxygen Delivery 05/21/24 14:15 05/21/24 14:16 05/21/24 14:20 Temperature Pulse Rate 77 78 Respiratory Rate 25 H 20 Blood Pressure 90/67 L Pulse Oximetry 100 98 Oxygen Delivery Room Air 05/21/24 14:30 05/21/24 14:31 05/21/24 14:45 Temperature Pulse Rate 79 77 79 Respiratory Rate 17 23 H 19 Blood Pressure 98/65 L Pulse Oximetry 96 Oxygen Delivery 05/21/24 15:00 05/21/24 15:15 05/21/24 15:30 Temperature Pulse Rate 78 78 78 Respiratory Rate 12 15 16 Blood Pressure Pulse Oximetry Oxygen Delivery 05/21/24 15:45 05/21/24 16:00 05/21/24 16:15 Temperature Pulse Rate 77 78 78 Respiratory Rate 16 16 17 Blood Pressure Pulse Oximetry Oxygen Delivery 05/21/24 16:30 05/21/24 16:45 05/21/24 17:00 Temperature Pulse Rate 79 81 80 Respiratory Rate 18 18 12 Blood Pressure Pulse Oximetry Oxygen Delivery 05/21/24 17:01 05/21/24 17:02 05/21/24 17:08 Temperature Pulse Rate 78 77 76 Respiratory Rate 13 20 Blood Pressure 85/48 L Pulse Oximetry Oxygen Delivery 05/21/24 17:15 05/21/24 17:16 05/21/24 17:24 Temperature Pulse Rate 77 77 78 Respiratory Rate 18 17 16 Blood Pressure 83/68 L 86/70 L Pulse Oximetry 98 Oxygen Delivery 05/21/24 17:43 05/21/24 17:44 05/21/24 17:45 Temperature Pulse Rate 78 79 78 Respiratory Rate 18 18 18 Blood Pressure 93/69 L Pulse Oximetry 98 Oxygen Delivery 05/21/24 17:46 05/21/24 18:00 05/21/24 18:02 Temperature Pulse Rate 79 80 79 Respiratory Rate 18 16 16 Blood Pressure 90/63 L 81/51 L Pulse Oximetry Oxygen Delivery 05/21/24 18:15 05/21/24 18:16 05/21/24 18:30 Temperature Pulse Rate 81 80 81 Respiratory Rate 15 15 16 Blood Pressure 83/60 L Pulse Oximetry Oxygen Delivery 05/21/24 18:33 05/21/24 18:34 05/21/24 18:45 Temperature Pulse Rate 80 81 80 Respiratory Rate 16 18 16 Blood Pressure 84/68 L 84/68 L Pulse Oximetry Oxygen Delivery 05/21/24 19:00 05/21/24 19:02 05/21/24 19:15 Temperature Pulse Rate 79 79 78 Respiratory Rate 14 17 23 H Blood Pressure 93/70 L Pulse Oximetry Oxygen Delivery 05/21/24 19:17 05/21/24 19:18 05/21/24 19:30 Temperature Pulse Rate 78 77 78 Respiratory Rate 14 14 12 Blood Pressure 75/49 L Pulse Oximetry 97 Oxygen Delivery 05/21/24 19:31 05/21/24 19:45 05/21/24 19:46 Temperature Pulse Rate 78 79 80 Respiratory Rate 18 17 16 Blood Pressure 88/70 L 87/75 L Pulse Oximetry 97 100 100 Oxygen Delivery 05/21/24 20:00 05/21/24 20:01 05/21/24 20:15 Temperature Pulse Rate 80 80 78 Respiratory Rate 17 18 15 Blood Pressure 91/57 L Pulse Oximetry Oxygen Delivery 05/21/24 20:16 05/21/24 20:30 05/21/24 20:33 Temperature Pulse Rate 79 78 78 Respiratory Rate 16 13 18 Blood Pressure 92/56 L 84/36 L Pulse Oximetry Oxygen Delivery 05/21/24 20:45 05/21/24 21:00 05/21/24 21:15 Temperature Pulse Rate 80 80 80 Respiratory Rate 17 18 14 Blood Pressure Pulse Oximetry Oxygen Delivery 05/21/24 21:20 05/21/24 21:22 05/21/24 21:25 Temperature Pulse Rate 78 79 79 Respiratory Rate 15 17 17 Blood Pressure 87/69 L 87/69 L 88/63 L Pulse Oximetry Oxygen Delivery 05/21/24 21:30 05/21/24 21:31 05/21/24 21:45 Temperature Pulse Rate 78 78 79 Respiratory Rate 16 17 19 Blood Pressure 88/63 L Pulse Oximetry Oxygen Delivery 05/21/24 21:46 05/21/24 22:00 05/21/24 22:01 Temperature Pulse Rate 78 79 79 Respiratory Rate 17 16 14 Blood Pressure 97/65 L 91/66 L Pulse Oximetry Oxygen Delivery 05/21/24 22:15 05/21/24 22:17 05/21/24 23:23 Temperature 97.7 F Pulse Rate 80 80 80 Respiratory Rate 17 12 18 Blood Pressure 95/69 L 96/57 L Pulse Oximetry 97 Oxygen Delivery 05/22/24 00:00 05/22/24 00:00 05/22/24 01:24 Temperature Pulse Rate 80 Respiratory Rate Blood Pressure 88/53 L Pulse Oximetry Oxygen Delivery Room Air 05/22/24 02:00 Temperature Pulse Rate 79 Respiratory Rate Blood Pressure Pulse Oximetry Oxygen Delivery Exam Const: General: in distress HENMT: Ears: TM's normal bilaterally Face/Nose/Sinus: Normal nares present Eyes: General: appearance normal, both eyes and all related structures Sclera: sclerae normal Pupils: Equal, round and reactive pupils present Neck: Neck: supple Thyroid: thyroid normal Resp: Effort & Inspection: normal respiratory effort Auscultation: no crackles, no rales, no rhonchi and diminished lung sounds bilateral Cardio: Rate: regular rate Rhythm: regular rhythm GI: Inspection: distended Auscultation: normal bowel sounds Skin: General skin exam: normal color Neuro: General: gait normal Motor exam (neuro): 5/5 motor strength present throughout and Normal motor muscle tone present throughout Extrem: General: normal to inspection Psych: Mental Status: mental status grossly normal Affect: Anxious affect present H&P: Results Labs Labs: Short CBC 05/21/24 Range/Units 14:09 WBC 7.3 (4.5-10.0) K/mm3 Hgb 13.6 D (12.0-15.0) g/dL Hct 46.4 (37.0-47.0) % Plt Count 91 L D (150-375) k/mm3 BMP 05/21/24 14:09 Sodium 137 Potassium 4.6 Chloride 108 H Carbon Dioxide 15 L BUN 26 H D Creatinine 1.46 H Glucose 110 Calcium 9.3 Cardiac Enzymes 05/21/24 05/21/24 05/22/24 Range/Units 14:09 23:00 01:14 Total Creatine Kinase 70 (30-135) U/L Troponin I 0.110 H* 0.122 H* (0.000-0.034) ng/mL Liver Function 05/21/24 Range/Units 14:09 Total Bilirubin 2.6 H (0.2-1.3) mg/dL Direct Bilirubin 0.0 (0-0.3) mg/dL AST 39 H (14-36) U/L ALT 30 (6-35) U/L Alkaline Phosphatase 93 (38-126) U/L Albumin 4.1 (3.5-5.1) g/dL Urine 05/21/24 Range/Units 16:59 Urine Color Dark yellow (Yellow) Urine Appearance Turbid H (Clear) Urine pH 5.0 (5.0-9.0) Ur Specific [place] 1.023 (1.001-1.035) Urine Protein 3+ H (Negative) mg/dL Urine Glucose (UA) Negative (Negative) mg/dL Assessment and Plan Assessment and plan (1) NSTEMI (non-ST elevated myocardial infarction): Code(s): I21.4 - Non-ST elevation (NSTEMI) myocardial infarction Status: Acute (2) Thrombocytopenia: Code(s): D69.6 - Thrombocytopenia, unspecified Status: Acute Plan Acute and principal conditions 1. Dizziness. 2. NSTEMI 3. Thrombocytopenia 4. UTI 5. Elevated BNP 6. Lactic acidemia Rx: A. Levofloxacin; B. IVFs; Midodrine; Bicarb C. TTE; Telemetry monitoring D. Trend troponin w/ECG Chronic and stable conditions 1. Liver cirrhosis w/esophageal varices 2 Vapes nicotine. Cessation counseling, 3 minutes 3. ANALIA. 4. Obesity, BMI 34 Miscellaneous care 1. Code status. Full 2. VTE prophylaxis. SCDs; holding pharmacologic VTE due to varices and thrombocytopenia 3. Nutrition. Heart healthy Hospitalist [facility] Advance Care Plan I have confirmed that the patient's Advanced Care Plan is present, code status is documented, or surrogate decision maker is listed in patient medical record.: Yes Medication Reconciliation I have utilized all available resources to obtain, update and review the patients current medications (includes all prescriptions, OTC, herbals, cannabis, and nutritional supplements).: Yes The patient is not eligible for med reconciliation; the patient is in a emergent medical situation where delaying treatment would jeopardize the patients health.: Yes
[2024-05-22] MEDS: SODIUM BICARBONATE 8.4% 50 MEQ/50 ML SYRINGE 93 MEQ IV PUSH (03:45)
[2024-05-22] MEDS: MIDODRINE HCL 10 MG TABLET PO ×4 (03:45→17:42)
[2024-05-22] MEDS: GLUCAGON FOR INJ 1 MG VIAL 2 MG IM (03:45)
[2024-05-22 04:41] LABS: Basophils Percent Auto 0.4 % (0.2-1.2); Eosinophils Percent Auto 0.4 % (0-4.4); Hematocrit 47.9 % (37.0-47.0); Hemoglobin 13.3 g/dL (12.0-15.0); Immature Granulocyte Absolute 0.03 K/mm3 (0.00-0.031); Immature Granulocyte Percent A 0.4 % (0-0.5); Immature Platelet Fraction Pct 3.4 % (0.9-11.2); Lymphocytes Absolute Auto 1.28 K/mm3 (0.9-3.2); Lymphocytes Percent Auto 16.8 % (18.3-44.2); Mean Corpuscular HGB Conc 27.8 g/dl (32-36); Mean Corpuscular Volume 79.3 fl (80-100); Monocytes Absolute Auto 0.5 K/mm3 (0.1-0.6); Monocytes Percent Auto 6.8 % (2.6-8.5); Neutrophils Absolute Auto 5.7 K/mm3 (1.3-6.7); Neutrophils Percent Auto 75.2 % (45.5-73.1); Platelet Count Result 91 k/mm3 (150-375); Red Blood Count 6.04 M/mm3 (4.2-5.4); Red Cell Distribution Width 21.6 % (11.5-14.5); White Blood Count 7.6 K/mm3 (4.5-10.0)
[2024-05-22 04:49] LABS: Alanine Aminotransferase 49 U/L (6-35); Albumin Level 3.7 g/dL (3.5-5.1); Alkaline Phosphatase 90 U/L (38-126); Anion Gap 16 mmol/L (4-12); Aspartate Amino Transferase 71 U/L (14-36); Bilirubin,Total 4.3 mg/dL (0.2-1.3); Blood Urea Nitrogen 36 mg/dL (7-17); Calcium 8.8 mg/dL (8.4-10.2); Carbon Dioxide 14 mmol/L (22-30); Chloride 107 mmol/L (98-107); Estimated CRCL calculation 48 ml/min; Estimated Glomerular Filt Rate 38; Glucose 105 mg/dL (65-110); Lactic Acid Reflex 3.8 mmol/L (0.7-2.0); Potassium 4.9 mmol/L (3.4-5.0); Sodium 137 mmol/L (137-145)
[2024-05-22] MEDS: levoFLOXacin 500 MG/D5W 100 ML 500 MG/100 ML BAG 100 MG IVPB (04:53)
[2024-05-22 05:02] LABS: Platelet Estimate Decreased (Adequate)
[2024-05-22 05:03] LABS: Band Neutrophils Percent 0 % (0-6); Ovalocytes 1+; Schistocytes None Seen
[2024-05-22 05:03] LABS: Glucose Point of Care 74 mg/dl (65-105)
[2024-05-22 05:05] LABS: Troponin I 0.154 ng/mL (0.000-0.034)
[2024-05-22] MEDS: SODIUM CHLORIDE 0.9% IV 1,000 ML 100 ML IV CONT ×2 (06:17→17:48)
[2024-05-22] MEDS: SODIUM CHLORIDE 0.9% IV 750 ML 999 ML IV CONT (06:17)
[2024-05-22 06:37] LABS: Reflex Lactic Acid Yes or No Add Lactic
[2024-05-22 07:31] LABS: Lactic Acid 4.4 mmol/L (0.7-2.0)
[2024-05-22] MEDS: FERROUS SULFATE 325 MG TABLET DR PO (09:06)
[2024-05-22] MEDS: PROCHLORPERAZINE EDISYLATE 10 MG/2 ML VIAL IV PUSH (09:10)
--- NOTE | 2024-05-22 11:52 | PC.NURSE ---
On 05/22/24, the student, [Leni Harrington], provided care and completed [facility] documentation on this patient. I have reviewed the student's documentation and agree with the findings.
--- NOTE | 2024-05-22 12:44 | PM.CNCAR ---
Assessment and Plan Assessment and plan (1) Elevated troponin: Code(s): R79.89 - Other specified abnormal findings of blood chemistry Status: Acute Plan 1. Elevated troponin 2. Acute kidney injury 3. Lactic acidosis 4. Cirrhosis with esophageal varices 5. History of hepatitis C 6. History of polysubstance abuse PLAN: -Doubt ACS, likely demand ischemia. No additional cardiac testing recommended at this time. Echocardiogram already ordered, will follow up on results. If echo without significant abnormality, no additional cardiac workup recommended. Recommendations/Plan discussed with Hospitalist. History of Present Illness History of Present Illness Consult date/time: 05/22/24 12:44 Requesting physician: Ulysses Carlos MD Consult reason: Other (Elevated troponin) Reason For Visit: Shortness of breath; Gastroenteritis vs med side e Narrative: We are consulted for elevated troponin. This is a 44 year old female with cirrhosis with esophageal varices, hepatitis C, history of polysubstance abuse who presented to [place] for shortness of breath. No chest pain. Reported nausea, vomiting, diarrhea also. Workup shows LINDA with SCr of 1.46, 1.50. Troponins are 0.110, 0.122, 0.154. CXR with no acute findings. Chest/abdomen/pelvis CTA with no acute findings. EKG with sinus rhythm, nonspecific STTW abnormality. Lexiscan stress test in December 2023 was normal. Currently, her only complaint is a headache. Review of Systems Review of Systems: All systems reviewed & are unremarkable except as noted in HPI and below (HPI) [facility]LY [facility] Past Medical History Medical History Esophageal varices Gastritis Iron deficiency Acute on chronic anemia Tobacco abuse Cirrhosis Hepatitis C Surgical History Surgical History History of section History of cholecystectomy Family History Family History Sibling Drug addiction Social History Social History Social History: Surrogate medical decision maker: Claudia Pelayo, mother. Code status: Full code. Smoking packs per day: 0.5 Smoking cigarettes per day: 10.0 Years smoked: 25 Smoking pack-years: 12.50 Smoking status: Current every day smoker Tobacco type: e-cigarettes/vaping Alcohol intake: never Substance use: never Substance use type: heroin and methamphetamine Other substance usage details: history of heroin use for 11 years, clean for 11 years. Last use: Snorts meth daily for the past 6 years. Do You Feel Safe in your Home?: Yes Lack of Transportation: No Lack of Food: Never True Current Housing: I Have Housing Concerned About Future Housing: No Difficulty Paying Gas/Electric Bills: No Difficulty Paying for Meds: No Currently Unemployed: No Education: Grade School Difficulty w/ Childcare or Family Care: No Additional living arrangements comments: The patient lives in [place]. She has 3 grown children and a 5-year-old daughter. Additional occupation/education comments: Currently unemployed. Spiritual care concerns: No Meds Home Medications and Allergies Home Medications ?Medication ?Instructions ?Recorded ?Confirmed ?Type furosemide 20 mg tablet 20 mg PO DAILY #30 tabs 01/02/24 05/21/24 Rx spironolactone 50 mg tablet 50 mg PO QAM #30 tabs 01/02/24 05/21/24 Rx (Aldactone) cholecalciferol (vitamin D3) 1,250 1,250 mcg PO WEEKLY 05/21/24 05/22/24 History mcg (50,000 unit) capsule ferrous sulfate 325 mg (65 mg 325 mg PO DAILY 05/21/24 05/22/24 History iron) tablet metformin 500 mg tablet,extended 500 mg PO DAILY 05/21/24 05/22/24 History release 24 hr propranolol 60 mg capsule,24 60 mg PO DAILY 05/21/24 05/22/24 History hr,extended release Allergies Allergy/AdvReac Type Severity Reaction Status Date / Time Penicillins Allergy Severe Swelling Verified 05/22/24 00:21 cephalexin Allergy Intermediate Swelling Verified 05/22/24 00:21 nitrofurantoin Allergy Intermediate Swelling Verified 05/22/24 00:21 Vital Signs Vital Signs - 24 hr 05/21/24 12:45 05/21/24 12:46 05/21/24 13:01 Temperature Pulse Rate 78 76 77 Respiratory Rate 19 15 14 Blood Pressure 88/71 L Pulse Oximetry 100 100 96 Oxygen Delivery 05/21/24 13:04 05/21/24 13:15 05/21/24 13:30 Temperature Pulse Rate 77 76 76 Respiratory Rate 18 17 14 Blood Pressure 86/59 L Pulse Oximetry 97 Oxygen Delivery 05/21/24 13:45 05/21/24 14:00 05/21/24 14:13 Temperature Pulse Rate 77 75 76 Respiratory Rate 17 16 17 Blood Pressure 96/67 L Pulse Oximetry 98 Oxygen Delivery 05/21/24 14:14 05/21/24 14:15 05/21/24 14:16 Temperature Pulse Rate 77 77 78 Respiratory Rate 23 H 25 H 20 Blood Pressure 90/67 L Pulse Oximetry 100 100 98 Oxygen Delivery 05/21/24 14:20 05/21/24 14:30 05/21/24 14:31 Temperature Pulse Rate 79 77 Respiratory Rate 17 23 H Blood Pressure 98/65 L Pulse Oximetry 96 Oxygen Delivery Room Air 05/21/24 14:45 05/21/24 15:00 05/21/24 15:15 Temperature Pulse Rate 79 78 78 Respiratory Rate 19 12 15 Blood Pressure Pulse Oximetry Oxygen Delivery 05/21/24 15:30 05/21/24 15:45 05/21/24 16:00 Temperature Pulse Rate 78 77 78 Respiratory Rate 16 16 16 Blood Pressure Pulse Oximetry Oxygen Delivery 05/21/24 16:15 05/21/24 16:30 05/21/24 16:45 Temperature Pulse Rate 78 79 81 Respiratory Rate 17 18 18 Blood Pressure Pulse Oximetry Oxygen Delivery 05/21/24 17:00 05/21/24 17:01 05/21/24 17:02 Temperature Pulse Rate 80 78 77 Respiratory Rate 12 13 20 Blood Pressure 85/48 L Pulse Oximetry Oxygen Delivery 05/21/24 17:08 05/21/24 17:15 05/21/24 17:16 Temperature Pulse Rate 76 77 77 Respiratory Rate 18 17 Blood Pressure 83/68 L Pulse Oximetry 98 Oxygen Delivery 05/21/24 17:24 05/21/24 17:43 05/21/24 17:44 Temperature Pulse Rate 78 78 79 Respiratory Rate 16 18 18 Blood Pressure 86/70 L 93/69 L Pulse Oximetry Oxygen Delivery 05/21/24 17:45 05/21/24 17:46 05/21/24 18:00 Temperature Pulse Rate 78 79 80 Respiratory Rate 18 18 16 Blood Pressure 90/63 L Pulse Oximetry 98 Oxygen Delivery 05/21/24 18:02 05/21/24 18:15 05/21/24 18:16 Temperature Pulse Rate 79 81 80 Respiratory Rate 16 15 15 Blood Pressure 81/51 L 83/60 L Pulse Oximetry Oxygen Delivery 05/21/24 18:30 05/21/24 18:33 05/21/24 18:34 Temperature Pulse Rate 81 80 81 Respiratory Rate 16 16 18 Blood Pressure 84/68 L 84/68 L Pulse Oximetry Oxygen Delivery 05/21/24 18:45 05/21/24 19:00 05/21/24 19:02 Temperature Pulse Rate 80 79 79 Respiratory Rate 16 14 17 Blood Pressure 93/70 L Pulse Oximetry Oxygen Delivery 05/21/24 19:15 05/21/24 19:17 05/21/24 19:18 Temperature Pulse Rate 78 78 77 Respiratory Rate 23 H 14 14 Blood Pressure 75/49 L Pulse Oximetry Oxygen Delivery 05/21/24 19:30 05/21/24 19:31 05/21/24 19:45 Temperature Pulse Rate 78 78 79 Respiratory Rate 12 18 17 Blood Pressure 88/70 L Pulse Oximetry 97 97 100 Oxygen Delivery 05/21/24 19:46 05/21/24 20:00 05/21/24 20:01 Temperature Pulse Rate 80 80 80 Respiratory Rate 16 17 18 Blood Pressure 87/75 L 91/57 L Pulse Oximetry 100 Oxygen Delivery 05/21/24 20:15 05/21/24 20:16 05/21/24 20:30 Temperature Pulse Rate 78 79 78 Respiratory Rate 15 16 13 Blood Pressure 92/56 L Pulse Oximetry Oxygen Delivery 05/21/24 20:33 05/21/24 20:45 05/21/24 21:00 Temperature Pulse Rate 78 80 80 Respiratory Rate 18 17 18 Blood Pressure 84/36 L Pulse Oximetry Oxygen Delivery 05/21/24 21:15 05/21/24 21:20 05/21/24 21:22 Temperature Pulse Rate 80 78 79 Respiratory Rate 14 15 17 Blood Pressure 87/69 L 87/69 L Pulse Oximetry Oxygen Delivery 05/21/24 21:25 05/21/24 21:30 05/21/24 21:31 Temperature Pulse Rate 79 78 78 Respiratory Rate 17 16 17 Blood Pressure 88/63 L 88/63 L Pulse Oximetry Oxygen Delivery 05/21/24 21:45 05/21/24 21:46 05/21/24 22:00 Temperature Pulse Rate 79 78 79 Respiratory Rate 19 17 16 Blood Pressure 97/65 L Pulse Oximetry Oxygen Delivery 05/21/24 22:01 05/21/24 22:15 05/21/24 22:17 Temperature Pulse Rate 79 80 80 Respiratory Rate 14 17 12 Blood Pressure 91/66 L 95/69 L Pulse Oximetry Oxygen Delivery 05/21/24 23:23 05/22/24 00:00 05/22/24 00:00 Temperature 36.5 C Pulse Rate 80 80 Respiratory Rate 18 Blood Pressure 96/57 L Pulse Oximetry 97 Oxygen Delivery Room Air 05/22/24 01:24 05/22/24 02:00 05/22/24 04:00 Temperature Pulse Rate 79 Respiratory Rate Blood Pressure 88/53 L Pulse Oximetry Oxygen Delivery Room Air 05/22/24 04:00 05/22/24 04:00 05/22/24 04:00 Temperature 36.6 C 36.6 C Pulse Rate 84 75 84 Respiratory Rate 18 18 Blood Pressure 101/67 96/57 L Pulse Oximetry 94 96 Oxygen Delivery 05/22/24 06:00 05/22/24 08:00 05/22/24 08:00 Temperature 36.1 C L Pulse Rate 88 78 Respiratory Rate 24 H Blood Pressure 94/67 L Pulse Oximetry 100 Oxygen Delivery Room Air 05/22/24 09:02 05/22/24 09:03 05/22/24 12:00 Temperature 36.4 C Pulse Rate 80 80 77 Respiratory Rate 22 H Blood Pressure 93/56 L 105/55 L 92/63 L Pulse Oximetry 96 97 Oxygen Delivery Exam Const: General: comfortable and no acute distress HENMT: Mouth: Yes moist mucous membranes Resp: Effort & Inspection: normal respiratory effort Cardio: Rate: regular rate Rhythm: regular rhythm Heart sounds: no murmurs Skin: Other: Face has a yellowish tint Neuro: Speech: normal speech Psych: Mental Status: mental status grossly normal Affect: normal affect Results Labs and Meds 05/22/24 04:34 05/22/24 04:34 Lab results: Cardiac Enzymes 05/21/24 05/21/24 05/22/24 Range/Units 14:09 23:00 01:14 AST 39 H (14-36) U/L Troponin I 0.110 H* 0.122 H* (0.000-0.034) ng/mL 05/22/24 Range/Units 04:34 AST 71 H (14-36) U/L Troponin I 0.154 H* D (0.000-0.034) ng/mL CBC 05/21/24 05/22/24 Range/Units 14:09 04:34 WBC 7.3 7.6 (4.5-10.0) K/mm3 RBC 6.12 H 6.04 H (4.2-5.4) M/mm3 Hgb 13.6 D 13.3 (12.0-15.0) g/dL Hct 46.4 47.9 H (37.0-47.0) % Plt Count 91 L D 91 L (150-375) k/mm3 Lymph # (Auto) 1.34 1.28 (0.9-3.2) K/mm3 [place] # (Auto) 0.6 0.5 (0.1-0.6) K/mm3 Eos # (Auto) 0.1 0.0 (0-0.3) K/mm3 Baso # (Auto) 0.1 0.0 (0.0-0.1) K/mm3 Comprehensive Metabolic Panel 05/21/24 05/22/24 Range/Units 14:09 04:34 Sodium 137 137 (137-145) mmol/L Potassium 4.6 4.9 (3.4-5.0) mmol/L Chloride 108 H 107 (98-107) mmol/L Carbon Dioxide 15 L 14 L (22-30) mmol/L BUN 26 H D 36 H D (7-17) mg/dL Creatinine 1.46 H 1.50 H (0.7-1.0) mg/dL Glucose 110 105 (65-110) mg/dL Calcium 9.3 8.8 (8.4-10.2) mg/dL Direct Bilirubin 0.0 (0-0.3) mg/dL Indirect Bilirubin 1.8 H (0-1.1) mg/dL AST 39 H 71 H (14-36) U/L ALT 30 49 H (6-35) U/L Alkaline Phosphatase 93 90 (38-126) U/L Total Protein 8.0 7.0 (6.3-8.2) g/dL Albumin 4.1 3.7 (3.5-5.1) g/dL Intake and Output 05/21/24 05/22/24 05/22/24 23:59 07:59 15:59 Intake Total 1500 830 Output Total 0 600 Balance 1500 830 -600 Intake: IV 1500 350 Sodium Chloride 0.9% IV 1,000 1000 ml @ 999 mls/hr IV CONT .Q1H1M STA Rx#:[id number] Sodium Chloride 0.9% IV 250 ml 250 @ 999 mls/hr IV CONT .Q16M ONE Rx#:[id number] Sodium Chloride 0.9% IV 500 ml 500 @ 999 mls/hr IV CONT .Q31M STA Rx#:[id number] levoFLOXacin 500 MG/D5W 100 ML 100 500 mg In 100 ml @ 100 mls/hr IVPB Q24H [facility] Rx#:[id number] Oral 480 Output: Urine 0 600 Patient Weight 05/22/24 23:59 Weight 92.7 kg
[2024-05-22 12:45] LABS: Barbiturate Screen Urine Negative (Negative); Benzodiazepines Screen Urine Negative (Negative)
[2024-05-22 12:56] LABS: Cannabinoid Screen Urine Negative (Negative); Cocaine Screen Urine Negative (Negative); Methadone Screen Urine Negative (Negative); Opiate Screen Urine Positive (Negative); Phencyclidine Screen Urine Negative (Negative)
[2024-05-22 12:57] LABS: Amphetamine Screen Urine Positive (Negative)
--- NOTE | 2024-05-22 15:54 | PCPTNOTE ---
attempted PT evaluation 1515- pt refused, reported have headache, feel bad, and not getting out of bed.
--- NOTE | 2024-05-22 17:00 | P.PNIM_ITS ---
Progress Note: A&P Assessment and Plan (1) Elevated troponin: Code(s): R79.89 - Other specified abnormal findings of blood chemistry Status: Acute Assessment and Plan: Patient presents with dizziness and fatigue. Troponin elevated to 0.154. DDimer positive to 1.05. EKG showing NSR, RAD, iRBBB and borderline diffuse ST-T wave changes but no change from prior EKGs. CXR was clear. CTA Chest showing no acute cardiopulmonary disease and no PE. LE venous doppler negative for DVT Echo showing EF 60-65%, moderately increased LV wall thickness, Grade I diastolic dysfunction, severely enlarge RV with reduced RV function and RV volume overload. severely enlarged GERALD, moderate TR and severe pulmonary HTN. Cardiology consulted. [place] this was from demand ischemia possibly from sepsis/HoTN. Monitor on tele. (2) Hypotension: Code(s): I95.9 - Hypotension, unspecified Status: Acute Assessment and Plan: Lactic acid elevated on admission and persistent. No fever or tachycardia but BP soft. WBC normal. She did received appropriate amount of IV fluids. Consider sepsis or related to dehydration related to her medications. UA noted so consider UTI but with many squamous cells. No PNA. Doubt SBP. BCx pending. UCx pending. Levaquin started. Add Vanco. Add Daniel hose. Midodrine added. Check Lactic and PCT. (3) Lactic acidosis: Code(s): E87.20 - Acidosis, unspecified Status: Acute Assessment and Plan: As above (4) Cirrhosis: Qualifiers: Hepatic cirrhosis type: other cirrhosis Qualified Code(s): K74.69 - Other cirrhosis of liver Code(s): K74.60 - Unspecified cirrhosis of liver Status: Chronic Assessment and Plan: Patient with known cirrhosis and Hepatitis C. CTA A/P showing liver cirrhosis, splenomegaly, evidence of portal HTN, esophageal varices and focal enhancement near the portal vein. Ammonia 10. Albumin normal. Scant ascites noted so doubt SBP. AST/ALT mildly elevated but TBili 4.3 today. MELD 19. Check AFP, PT/PTT (5) Thrombocytopenia: Code(s): D69.6 - Thrombocytopenia, unspecified Status: Acute Assessment and Plan: Noted and chronic. [place] related to cirrhosis with splenomegaly. (6) Methamphetamine use: Code(s): F15.10 - Other stimulant abuse, uncomplicated Status: Chronic Assessment and Plan: UDS performed showing she is positive for opiates and amphetamines. She has a hx of meth use. She did receive opioids here prior to the test performed. Care coordination to provide information about drug rehab Plan Severe Pulmonary HTN - Noted by Echo. Consider related to above. Consider NARDA. Check apnea link Iron Deficiency - Noted in December. Continue iron replacement DVT prophylaxis - SCDs Code status - full Subjective Date/time seen: 05/22/24 17:00 Interval history: 44yo female with cirrhosis/EV, Hepatitis C, and iron deficiency here for dizziness and fatigue. Patient is feeling miriam. No Cp or abd pain. Exam Narrative: AF 97.6 89/42 74 22 92% ra Gen - NARD Chest - lungs clear anteriorly and in flanks. CV - RRR S1/S2 with 2/6 murmur LSB Abd - Soft, obese, bladder does not feel distended. Ext - No pedal edema Neuro - sleeping but arouses easily and answers questions. Psych - Nml mood and affect Skin - chronic venous stasis skin changes bilateral LE. Objective Data Vital Signs Vital Signs: Vital Signs - 24 hr 05/21/24 17:01 05/21/24 17:02 05/21/24 17:08 Temperature Pulse Rate 78 77 76 Respiratory Rate 13 20 Blood Pressure 85/48 L Pulse Oximetry Oxygen Delivery 05/21/24 17:15 05/21/24 17:16 05/21/24 17:24 Temperature Pulse Rate 77 77 78 Respiratory Rate 18 17 16 Blood Pressure 83/68 L 86/70 L Pulse Oximetry 98 Oxygen Delivery 05/21/24 17:43 05/21/24 17:44 05/21/24 17:45 Temperature Pulse Rate 78 79 78 Respiratory Rate 18 18 18 Blood Pressure 93/69 L Pulse Oximetry 98 Oxygen Delivery 05/21/24 17:46 05/21/24 18:00 05/21/24 18:02 Temperature Pulse Rate 79 80 79 Respiratory Rate 18 16 16 Blood Pressure 90/63 L 81/51 L Pulse Oximetry Oxygen Delivery 05/21/24 18:15 05/21/24 18:16 05/21/24 18:30 Temperature Pulse Rate 81 80 81 Respiratory Rate 15 15 16 Blood Pressure 83/60 L Pulse Oximetry Oxygen Delivery 05/21/24 18:33 05/21/24 18:34 05/21/24 18:45 Temperature Pulse Rate 80 81 80 Respiratory Rate 16 18 16 Blood Pressure 84/68 L 84/68 L Pulse Oximetry Oxygen Delivery 05/21/24 19:00 05/21/24 19:02 05/21/24 19:15 Temperature Pulse Rate 79 79 78 Respiratory Rate 14 17 23 H Blood Pressure 93/70 L Pulse Oximetry Oxygen Delivery 05/21/24 19:17 05/21/24 19:18 05/21/24 19:30 Temperature Pulse Rate 78 77 78 Respiratory Rate 14 14 12 Blood Pressure 75/49 L Pulse Oximetry 97 Oxygen Delivery 05/21/24 19:31 05/21/24 19:45 05/21/24 19:46 Temperature Pulse Rate 78 79 80 Respiratory Rate 18 17 16 Blood Pressure 88/70 L 87/75 L Pulse Oximetry 97 100 100 Oxygen Delivery 05/21/24 20:00 05/21/24 20:01 05/21/24 20:15 Temperature Pulse Rate 80 80 78 Respiratory Rate 17 18 15 Blood Pressure 91/57 L Pulse Oximetry Oxygen Delivery 05/21/24 20:16 05/21/24 20:30 05/21/24 20:33 Temperature Pulse Rate 79 78 78 Respiratory Rate 16 13 18 Blood Pressure 92/56 L 84/36 L Pulse Oximetry Oxygen Delivery 05/21/24 20:45 05/21/24 21:00 05/21/24 21:15 Temperature Pulse Rate 80 80 80 Respiratory Rate 17 18 14 Blood Pressure Pulse Oximetry Oxygen Delivery 05/21/24 21:20 05/21/24 21:22 05/21/24 21:25 Temperature Pulse Rate 78 79 79 Respiratory Rate 15 17 17 Blood Pressure 87/69 L 87/69 L 88/63 L Pulse Oximetry Oxygen Delivery 05/21/24 21:30 05/21/24 21:31 05/21/24 21:45 Temperature Pulse Rate 78 78 79 Respiratory Rate 16 17 19 Blood Pressure 88/63 L Pulse Oximetry Oxygen Delivery 05/21/24 21:46 05/21/24 22:00 05/21/24 22:01 Temperature Pulse Rate 78 79 79 Respiratory Rate 17 16 14 Blood Pressure 97/65 L 91/66 L Pulse Oximetry Oxygen Delivery 05/21/24 22:15 05/21/24 22:17 05/21/24 23:23 Temperature 97.7 F Pulse Rate 80 80 80 Respiratory Rate 17 12 18 Blood Pressure 95/69 L 96/57 L Pulse Oximetry 97 Oxygen Delivery 05/22/24 00:00 05/22/24 00:00 05/22/24 01:24 Temperature Pulse Rate 80 Respiratory Rate Blood Pressure 88/53 L Pulse Oximetry Oxygen Delivery Room Air 05/22/24 02:00 05/22/24 04:00 05/22/24 04:00 Temperature Pulse Rate 79 84 Respiratory Rate Blood Pressure Pulse Oximetry Oxygen Delivery Room Air 05/22/24 04:00 05/22/24 04:00 05/22/24 06:00 Temperature 97.8 F 97.8 F Pulse Rate 75 84 88 Respiratory Rate 18 18 Blood Pressure 101/67 96/57 L Pulse Oximetry 94 96 Oxygen Delivery 05/22/24 08:00 05/22/24 08:00 05/22/24 08:00 Temperature 97.0 F L Pulse Rate 78 79 Respiratory Rate 24 H Blood Pressure 94/67 L Pulse Oximetry 100 Oxygen Delivery Room Air 05/22/24 09:02 05/22/24 09:03 05/22/24 10:00 Temperature Pulse Rate 80 80 74 Respiratory Rate Blood Pressure 93/56 L 105/55 L Pulse Oximetry 96 Oxygen Delivery 05/22/24 12:00 05/22/24 12:00 05/22/24 12:00 Temperature 97.6 F Pulse Rate 77 77 Respiratory Rate 22 H Blood Pressure 92/63 L Pulse Oximetry 97 Oxygen Delivery Room Air 05/22/24 14:00 05/22/24 16:00 Temperature 97.6 F Pulse Rate 76 74 Respiratory Rate 22 H Blood Pressure 89/42 L Pulse Oximetry 92 Oxygen Delivery Intake/Output Intake/Output: Intake & Output 05/19/24 05/20/24 05/21/24 05/22/24 23:59 23:59 23:59 23:59 Intake Total 1500 830 Output Total 600 Balance 1500 230 Meds/Results Medications: Active Medications Generic Name Dose Route Start Last Admin Trade Name Freq PRN Reason Stop Dose Admin Acetaminophen 650 mg 05/21/24 20:32 05/22/24 00:13 Acetaminophen 325 Mg Tablet PO 650 mg Q4H PRN Administration Mild Pain (1-3) or Fever Ergocalciferol 50,000 units 05/27/24 09:00 Ergocalciferol 50,000 Units Capsule PO WEEKLY LA Ferrous Sulfate 325 mg 05/22/24 09:00 05/22/24 09:06 Ferrous Sulfate [address] PO 325 mg DAILY LA Administration Levofloxacin/Dextrose 500 mg in 100 mls @ 100 mls/hr 05/22/24 04:00 05/22/24 05:58 Levaquin 500 Mg/D5w 100 Ml IVPB Infused Q24H LA Infusion Sodium Chloride 1,000 mls @ 100 mls/hr 05/22/24 06:05 05/22/24 06:17 Normal Saline Iv IV CONT 100 mls/hr .Q10H LA Administration Melatonin 5 mg 05/22/24 03:06 Melatonin 5 Mg Tablet PO HS PRN Insomnia Midodrine 10 mg 05/22/24 03:10 05/22/24 13:31 Midodrine Hcl 10 Mg Tablet PO 10 mg TID LA Administration Perflutren Lipid Microsphere 0 ml 05/21/24 20:45 Perflutren Lipid Microspheres 1.5 Ml Vial Diluted To 10 Ml Total Volume IV PUSH 05/24/24 20:45 ONCE PRN adequate visualization Protocol Perflutren Lipid Microsphere 0 ml 05/22/24 03:23 Perflutren Lipid Microspheres 1.5 Ml Vial Diluted To 10 Ml Total Volume IV PUSH 05/25/24 03:23 ONCE PRN adequate visualization Protocol Prochlorperazine Edisylate 10 mg 05/22/24 03:06 05/22/24 09:10 Prochlorperazine Edisylate 10 Mg/2 Ml Vial IV PUSH 10 mg Q6H PRN Administration Nausea And Vomiting Radiology Results: ITS Impressions Chest X-Ray 05/21/24 14:43 IMPRESSION: 1: NO ACUTE CARDIOPULMONARY DISEASE. Chest/Abdomen/Pelvis CTA 05/21/24 18:16 IMPRESSION: CHEST: 1. No acute cardiopulmonary pathology. 2. No pulmonary embolism. ABDOMEN/PELVIS: 1. Liver cirrhosis. 2. Splenomegaly with varicosities seen posterior to the stomach. Enhancing vessels seen in the lower esophagus. 3. Tiny left kidney stone. Venous Doppler Study 05/22/24 09:10 IMPRESSION: 1. No deep venous thrombosis in either lower limb. Labs Labs: Laboratory Results - last 24 hr 05/21/24 05/21/24 05/21/24 16:59 17:07 19:12 WBC RBC Hgb Hct MCV MCH MCHC RDW Plt Count MPV Immature Gran % (Auto) Neut % (Auto) Lymph % (Auto) [place] % (Auto) Eos % (Auto) Baso % (Auto) Lymph # (Auto) [place] # (Auto) Eos # (Auto) Baso # (Auto) Abs Immat Gran (auto) Absolute Neuts (auto) Absolute Nucleated RBC Band Neutrophils % Nucleated RBC % Platelet Estimate % Immature Plt Fraction Ovalocytes Schistocytes Sodium Potassium Chloride Carbon Dioxide Anion Gap BUN Creatinine Estim Creat Clear Calc Estimated GFR Glucose POC Capillary Glucose Lactic Acid 2.5 H Calcium Total Bilirubin AST ALT Alkaline Phosphatase Ammonia Troponin I Total Protein Albumin Urine Color Dark yellow Urine Appearance Turbid H Urine pH 5.0 Ur Specific [place] 1.023 Urine Protein 3+ H Urine Glucose (UA) Negative Urine Ketones Trace H Ur Blood (Man) 3+ H Urine Nitrate Negative Urine Bilirubin 2+ H Urine Urobilinogen 1.0 Add Ur Microanalysis Reviewed Leukocyte Esterase Rfl Trace H Urine RBC 11-20 H Urine WBC 11-20 H Ur Squamous Epith Cells Many H Urine Bacteria 4+ H Urine Casts >20 Urine Mucus Present POC Urine HCG, Qual Negative Urine Opiates Screen Urine Methadone Screen Ur Barbiturates Screen Ur Phencyclidine Scrn Ur Amphetamine Screen U Benzodiazepines Scrn Urine Cocaine Screen U Cannabinoids Screen 05/21/24 05/21/24 05/22/24 23:00 23:50 01:14 WBC RBC Hgb Hct MCV MCH MCHC RDW Plt Count MPV Immature Gran % (Auto) Neut % (Auto) Lymph % (Auto) [place] % (Auto) Eos % (Auto) Baso % (Auto) Lymph # (Auto) [place] # (Auto) Eos # (Auto) Baso # (Auto) Abs Immat Gran (auto) Absolute Neuts (auto) Absolute Nucleated RBC Band Neutrophils % Nucleated RBC % Platelet Estimate % Immature Plt Fraction Ovalocytes Schistocytes Sodium Potassium Chloride Carbon Dioxide Anion Gap BUN Creatinine Estim Creat Clear Calc Estimated GFR Glucose POC Capillary Glucose 74 Lactic Acid Calcium Total Bilirubin AST ALT Alkaline Phosphatase Ammonia 10 Troponin I 0.110 H* 0.122 H* Total Protein Albumin Urine Color Urine Appearance Urine pH Ur Specific [place] Urine Protein Urine Glucose (UA) Urine Ketones Ur Blood (Man) Urine Nitrate Urine Bilirubin Urine Urobilinogen Add Ur Microanalysis Leukocyte Esterase Rfl Urine RBC Urine WBC Ur Squamous Epith Cells Urine Bacteria Urine Casts Urine Mucus POC Urine HCG, Qual Urine Opiates Screen Urine Methadone Screen Ur Barbiturates Screen Ur Phencyclidine Scrn Ur Amphetamine Screen U Benzodiazepines Scrn Urine Cocaine Screen U Cannabinoids Screen 05/22/24 05/22/24 05/22/24 04:34 07:06 12:12 WBC 7.6 RBC 6.04 H Hgb 13.3 Hct 47.9 H MCV 79.3 L MCH 22.0 L MCHC 27.8 L RDW 21.6 H Plt Count 91 L MPV TNP Immature Gran % (Auto) 0.4 Neut % (Auto) 75.2 H Lymph % (Auto) 16.8 L [place] % (Auto) 6.8 Eos % (Auto) 0.4 Baso % (Auto) 0.4 Lymph # (Auto) 1.28 [place] # (Auto) 0.5 Eos # (Auto) 0.0 Baso # (Auto) 0.0 Abs Immat Gran (auto) 0.03 Absolute Neuts (auto) 5.7 Absolute Nucleated RBC 0.000 Band Neutrophils % 0 Nucleated RBC % 0.0 Platelet Estimate Decreased % Immature Plt Fraction 3.4 Ovalocytes 1+ Schistocytes None seen Sodium 137 Potassium 4.9 Chloride 107 Carbon Dioxide 14 L Anion Gap 16 H BUN 36 H D Creatinine 1.50 H Estim Creat Clear Calc 48 Estimated GFR 38 L Glucose 105 POC Capillary Glucose Lactic Acid 3.8 H 4.4 H* Calcium 8.8 Total Bilirubin 4.3 H AST 71 H ALT 49 H Alkaline Phosphatase 90 Ammonia Troponin I 0.154 H* D Total Protein 7.0 Albumin 3.7 Urine Color Urine Appearance Urine pH Ur Specific [place] Urine Protein Urine Glucose (UA) Urine Ketones Ur Blood (Man) Urine Nitrate Urine Bilirubin Urine Urobilinogen Add Ur Microanalysis Leukocyte Esterase Rfl Urine RBC Urine WBC Ur Squamous Epith Cells Urine Bacteria Urine Casts Urine Mucus POC Urine HCG, Qual Urine Opiates Screen Positive A Urine Methadone Screen Negative Ur Barbiturates Screen Negative Ur Phencyclidine Scrn Negative Ur Amphetamine Screen Positive A U Benzodiazepines Scrn Negative Urine Cocaine Screen Negative U Cannabinoids Screen Negative
[2024-05-22 19:32] LABS: Lactic Acid Reflex 2.9 mmol/L (0.7-2.0)
[2024-05-22 19:34] LABS: Alanine Aminotransferase 112 U/L (6-35); Albumin Level 3.2 g/dL (3.5-5.1); Alkaline Phosphatase 74 U/L (38-126); Aspartate Amino Transferase 164 U/L (14-36); Bilirubin Indirect 1.6 mg/dL (0-1.1); Bilirubin,Total 2.3 mg/dL (0.2-1.3)
[2024-05-22 19:35] LABS: Anion Gap 12 mmol/L (4-12); Blood Urea Nitrogen 33 mg/dL (7-17); Calcium 8.3 mg/dL (8.4-10.2); Carbon Dioxide 16 mmol/L (22-30); Chloride 104 mmol/L (98-107); Estimated CRCL calculation 66 ml/min; Estimated Glomerular Filt Rate 55; Glucose 192 mg/dL (65-110); Potassium 3.7 mmol/L (3.4-5.0); Sodium 132 mmol/L (137-145)
[2024-05-22 19:47] LABS: Prothrombin Time 23.2 Seconds (11.1-14.7)
[2024-05-22 19:48] LABS: Partial Thromboplastin Time 33.4 Seconds (22.3-36.8)
[2024-05-22 19:49] LABS: Procalcitonin 0.3 ng/mL
[2024-05-22] MEDS: VANCOMYCIN 1,500 MG/NS 500 ML 1,500 MG/500 ML BAG 250 MG IVPB (20:05)
[2024-05-22 21:17] LABS: Reflex Lactic Acid Yes or No Add Lactic
[2024-05-22 21:57] LABS: Lactic Acid 3.3 mmol/L (0.7-2.0)
[2024-05-23] VITALS (23 sets, daily range): BP systolic 96–120; BP diastolic 57–73; PULSE 47–86; RESP 16–20; TEMP 36.2–36.7; O2SAT 98–100
[2024-05-23] MEDS: levoFLOXacin 500 MG/D5W 100 ML 500 MG/100 ML BAG 100 MG IVPB (03:16)
[2024-05-23] MEDS: NICOTINE (*PBKC) 21 MG PATCH 1 PATCH TRANSDERM (06:04)
[2024-05-23] MEDS: SODIUM CHLORIDE 0.9% IV 1,000 ML 100 ML IV CONT (06:09)
[2024-05-23 07:01] LABS: Basophils Percent Auto 0.9 % (0.2-1.2); Eosinophils Absolute Auto 0.1 K/mm3 (0-0.3); Eosinophils Percent Auto 1.7 % (0-4.4); Hematocrit 39.3 % (37.0-47.0); Hemoglobin 11.2 g/dL (12.0-15.0); Immature Granulocyte Absolute 0.01 K/mm3 (0.00-0.031); Immature Granulocyte Percent A 0.2 % (0-0.5); Immature Platelet Fraction Pct 4.2 % (0.9-11.2); Lymphocytes Percent Auto 16.5 % (18.3-44.2); Mean Corpuscular HGB Conc 28.5 g/dl (32-36); Mean Corpuscular Hemoglobin 22.5 pg (26-34); Mean Corpuscular Volume 79.1 fl (80-100); Monocytes Absolute Auto 0.6 K/mm3 (0.1-0.6); Monocytes Percent Auto 13.4 % (2.6-8.5); Neutrophils Absolute Auto 2.9 K/mm3 (1.3-6.7); Neutrophils Percent Auto 67.3 % (45.5-73.1); Platelet Count Result 55 k/mm3 (150-375); Red Blood Count 4.97 M/mm3 (4.2-5.4); Red Cell Distribution Width 21.5 % (11.5-14.5); White Blood Count 4.2 K/mm3 (4.5-10.0)
[2024-05-23 07:10] LABS: Alanine Aminotransferase 170 U/L (6-35); Albumin Level 2.9 g/dL (3.5-5.1); Alkaline Phosphatase 78 U/L (38-126); Anion Gap 10 mmol/L (4-12); Aspartate Amino Transferase 246 U/L (14-36); Bilirubin,Total 2.4 mg/dL (0.2-1.3); Blood Urea Nitrogen 21 mg/dL (7-17); Calcium 8.1 mg/dL (8.4-10.2); Carbon Dioxide 15 mmol/L (22-30); Chloride 108 mmol/L (98-107); Estimated CRCL calculation 91 ml/min; Estimated Glomerular Filt Rate > 60; Glucose 146 mg/dL (65-110); Potassium 3.6 mmol/L (3.4-5.0); Sodium 133 mmol/L (137-145)
[2024-05-23 07:42] LABS: Anisocytosis 1+; Ovalocytes 1+; Platelet Estimate Decreased (Adequate); Schistocytes None Seen
[2024-05-23 07:43] LABS: Large Platelets Present
[2024-05-23] MEDS: MIDODRINE HCL 10 MG TABLET PO ×3 (08:54→17:46)
[2024-05-23] MEDS: ACETAMINOPHEN 325 MG TABLET 650 MG PO (08:54)
[2024-05-23] MEDS: VANCOMYCIN 1,500 MG/NS 500 ML 1,500 MG/500 ML BAG 250 MG IVPB (08:55)
[2024-05-23] MEDS: SODIUM BICARBONATE TAB 650 MG TABLET PO ×2 (08:55→17:46)
--- NOTE | 2024-05-23 13:48 | P.PNIM_ITS ---
Progress Note: A&P Assessment and Plan (1) Elevated troponin: Code(s): R79.89 - Other specified abnormal findings of blood chemistry Status: Acute Assessment and Plan: Patient presents with dizziness and fatigue. Troponin elevated to 0.154. DDimer positive to 1.05. EKG showing NSR, RAD, iRBBB and borderline diffuse ST-T wave changes but no change from prior EKGs. CXR was clear. CTA Chest showing no acute cardiopulmonary disease and no PE. LE venous doppler negative for DVT. Echo showing EF 60-65%, moderately increased LV wall thickness, Grade I diastolic dysfunction, severely enlarge RV with reduced RV function and RV volume overload. severely enlarged GERALD, moderate TR and severe pulmonary HTN. Cardiology consulted. [place] elevated Troponin was from demand ischemia possibly from sepsis/HoTN. Monitor on tele. (2) Hypotension: Code(s): I95.9 - Hypotension, unspecified Status: Acute Assessment and Plan: Lactic acid elevated on admission and persistent. No fever or tachycardia but BP soft. WBC normal. She did received appropriate amount of IV fluids. Consider sepsis or related to dehydration related to her medications or from her severe pulm HTN Elevated lactic acid could be related to poor perfusion from HoTN and/or related to meth use. Levaquin started. Added Vanco. Added Daniel hose. Midodrine added. Lactic normal now. PCT 0.3 UA noted but UCx negative. No PNA. Doubt SBP. BCx NGTD No clear source so stop abx and monitor. Agree with stopping IV fluids. Continue Midodrine. Lasix IV once today and oral Lasix resumed. Monitor BP closely. (3) Pulmonary hypertension: Code(s): I27.20 - Pulmonary hypertension, unspecified Status: Acute Assessment and Plan: Severe Pulmonary HTN noted by Echo. CTA Chest showing no acute cardiopulmonary disease [place] related to portopulmonary HTN Apnea link not consistent with NARDA. Other consideration includes toxins (methamphetamines) that could cause this Not on supplemental O2. Follow. Stopping meth use is imperative (4) Lactic acidosis: Code(s): E87.20 - Acidosis, unspecified Status: Acute Assessment and Plan: As above (5) Cirrhosis: Qualifiers: Hepatic cirrhosis type: other cirrhosis Qualified Code(s): K74.69 - Other cirrhosis of liver Code(s): K74.60 - Unspecified cirrhosis of liver Status: Chronic Assessment and Plan: Patient with known cirrhosis and Hepatitis C. CTA A/P showing liver cirrhosis, splenomegaly, evidence of portal HTN, esophageal varices and focal enhancement near the portal vein. Ammonia 10. Albumin normal. INR 2.0. AFP pending. Scant ascites noted so doubt SBP. AST/ALT mildly elevated with TBili 4.3 and MELD 19. AST/ALT higher but TBili 2.4. Propranolol, Lasix and spironolactone held. Lasix resumed today Monitor BP (6) Thrombocytopenia: Code(s): D69.6 - Thrombocytopenia, unspecified Status: Acute Assessment and Plan: Noted and chronic. [place] related to cirrhosis with splenomegaly. (7) Methamphetamine use: Code(s): F15.10 - Other stimulant abuse, uncomplicated Status: Chronic Assessment and Plan: UDS performed showing she is positive for opiates and amphetamines. She has a hx of meth use and admits to using meth prior to admission. She did receive opioids here prior to the test being performed. Care coordination to provide information about drug rehab HepC positive in the past. Will repeat hepatitis panel and also add HIV. Plan Iron Deficiency - Noted in December. Continue iron replacement DVT prophylaxis - SCDs Code status - full Subjective Date/time seen: 05/23/24 13:48 Interval history: 44yo female with cirrhosis/EV, Hepatitis C, and iron deficiency here for dizz iness and fatigue. Feels dizzy and hot at times. Also complains of headache and mid back pain. Admits to using meth and agrees to stop. Exam Narrative: AF 98.0 110/62 75 20 98% ra Gen - NARD Chest - lungs clear anteriorly and in flanks. CV - RRR S1/S2; Tele showing PVCs. Abd - Soft, obese, NT Ext - No pedal edema. Daniel hose in place. Neuro - alert, answers questions approrpriately Psych - Nml mood and affect Skin - warm and dry. Objective Data Vital Signs Vital Signs: Vital Signs - 24 hr 05/22/24 14:00 05/22/24 16:00 05/22/24 16:00 Temperature 97.6 F Pulse Rate 76 74 76 Respiratory Rate 22 H Blood Pressure 89/42 L Pulse Oximetry 92 Oxygen Delivery Fraction of Inspired Oxygen 05/22/24 16:00 05/22/24 18:00 05/22/24 19:21 Temperature 98.5 F Pulse Rate 75 77 Respiratory Rate 17 Blood Pressure 92/79 L Pulse Oximetry 96 Oxygen Delivery Room Air Fraction of Inspired Oxygen 05/22/24 20:00 05/22/24 20:00 05/22/24 20:00 Temperature 98.6 F Pulse Rate 80 74 Respiratory Rate 18 Blood Pressure 100/44 L Pulse Oximetry Oxygen Delivery Room Air Fraction of Inspired Oxygen 05/22/24 22:00 05/22/24 22:15 05/22/24 22:57 Temperature 97.6 F Pulse Rate 77 77 Respiratory Rate 18 Blood Pressure 98/62 L Pulse Oximetry 96 95 Oxygen Delivery Fraction of Inspired Oxygen 21 05/22/24 22:59 05/22/24 23:00 05/22/24 23:31 Temperature 97.7 F 97.8 F Pulse Rate 78 77 Respiratory Rate 18 18 Blood Pressure 99/59 L 109/62 Pulse Oximetry 96 96 Oxygen Delivery Room Air Fraction of Inspired Oxygen 05/23/24 00:00 05/23/24 02:00 05/23/24 03:38 Temperature 97.9 F Pulse Rate 78 76 51 L Respiratory Rate 17 Blood Pressure 109/59 L Pulse Oximetry 98 Oxygen Delivery Fraction of Inspired Oxygen 05/23/24 03:41 05/23/24 04:00 05/23/24 04:00 Temperature 97.7 F Pulse Rate 47 L 77 Respiratory Rate 18 Blood Pressure 102/58 L Pulse Oximetry 100 Oxygen Delivery Room Air Fraction of Inspired Oxygen 05/23/24 06:00 05/23/24 08:00 05/23/24 08:00 Temperature Pulse Rate 77 77 Respiratory Rate Blood Pressure Pulse Oximetry Oxygen Delivery Room Air Fraction of Inspired Oxygen 05/23/24 08:04 05/23/24 08:05 05/23/24 08:05 Temperature 97.9 F 97.7 F Pulse Rate 80 80 Respiratory Rate 20 20 Blood Pressure 96/65 L 96/65 L 104/63 Pulse Oximetry 100 100 Oxygen Delivery Fraction of Inspired Oxygen 05/23/24 10:00 05/23/24 11:39 05/23/24 11:40 Temperature 98.0 F 98.0 F Pulse Rate 73 71 71 Respiratory Rate 20 20 Blood Pressure 98/57 L 98/57 L Pulse Oximetry 98 98 Oxygen Delivery Fraction of Inspired Oxygen 05/23/24 11:42 05/23/24 12:00 05/23/24 12:00 Temperature Pulse Rate 75 Respiratory Rate Blood Pressure 110/62 Pulse Oximetry Oxygen Delivery Room Air Fraction of Inspired Oxygen Intake/Output Intake/Output: Intake & Output 05/20/24 05/21/24 05/22/24 05/23/24 23:59 23:59 23:59 23:59 Intake Total 1500 2895 950 Output Total 600 1550 Balance 1500 2295 -600 Meds/Results Medications: Active Medications Generic Name Dose Route Start Last Admin Trade Name Freq PRN Reason Stop Dose Admin Acetaminophen 650 mg 05/21/24 20:32 05/23/24 08:54 Acetaminophen 325 Mg Tablet PO 650 mg Q4H PRN Administration Mild Pain (1-3) or Fever Ergocalciferol 50,000 units 05/27/24 09:00 Ergocalciferol 50,000 Units Capsule PO WEEKLY LA Ferrous Sulfate 325 mg 05/23/24 13:00 Ferrous Sulfate [address] PO DAILY@1300 LA Levofloxacin/Dextrose 500 mg in 100 mls @ 100 mls/hr 05/22/24 04:00 05/23/24 03:16 Levaquin 500 Mg/D5w 100 Ml IVPB 100 mls/hr Q24H LA Administration Vancomycin HCl 1,500 mg in 500 mls @ 250 mls/hr 05/23/24 09:00 05/23/24 08:55 Vancomycin 1,500 Mg/Ns 500 Ml IVPB 250 mls/hr Q12H LA Administration Melatonin 5 mg 05/22/24 03:06 Melatonin 5 Mg Tablet PO HS PRN Insomnia Midodrine 10 mg 05/22/24 03:10 05/23/24 08:54 Midodrine Hcl 10 Mg Tablet PO 10 mg TID LA Administration Nicotine 1 patch 05/22/24 18:00 05/23/24 06:04 Nicotine (*Pbkc) 21 Mg Patch TRANSDERM 1 patch DAILY LA Administration Perflutren Lipid Microsphere 0 ml 05/21/24 20:45 Perflutren Lipid Microspheres 1.5 Ml Vial Diluted To 10 Ml Total Volume IV PUSH 05/24/24 20:45 ONCE PRN adequate visualization Protocol Perflutren Lipid Microsphere 0 ml 05/22/24 03:23 Perflutren Lipid Microspheres 1.5 Ml Vial Diluted To 10 Ml Total Volume IV PUSH 05/25/24 03:23 ONCE PRN adequate visualization Protocol Prochlorperazine Edisylate 10 mg 05/22/24 03:06 05/22/24 09:10 Prochlorperazine Edisylate 10 Mg/2 Ml Vial IV PUSH 10 mg Q6H PRN Administration Nausea And Vomiting Sodium Bicarbonate 650 mg 05/23/24 09:00 05/23/24 08:55 Sodium Bicarbonate Tab 650 Mg Tablet PO 650 mg BID LA Administration Radiology Results: ITS Impressions Chest X-Ray 05/21/24 14:43 IMPRESSION: 1: NO ACUTE CARDIOPULMONARY DISEASE. Chest/Abdomen/Pelvis CTA 05/21/24 18:16 IMPRESSION: CHEST: 1. No acute cardiopulmonary pathology. 2. No pulmonary embolism. ABDOMEN/PELVIS: 1. Liver cirrhosis. 2. Splenomegaly with varicosities seen posterior to the stomach. Enhancing vessels seen in the lower esophagus. 3. Tiny left kidney stone. Venous Doppler Study 05/22/24 09:10 IMPRESSION: 1. No deep venous thrombosis in either lower limb. Labs Labs: Laboratory Results - last 24 hr 05/22/24 05/22/24 05/23/24 19:14 21:44 06:53 WBC 4.2 L RBC 4.97 Hgb 11.2 L Hct 39.3 MCV 79.1 L MCH 22.5 L MCHC 28.5 L RDW 21.5 H Plt Count 55 L MPV TNP Immature Gran % (Auto) 0.2 Neut % (Auto) 67.3 Lymph % (Auto) 16.5 L [place] % (Auto) 13.4 H Eos % (Auto) 1.7 Baso % (Auto) 0.9 Lymph # (Auto) 0.70 L [place] # (Auto) 0.6 Eos # (Auto) 0.1 Baso # (Auto) 0.0 Abs Immat Gran (auto) 0.01 Absolute Neuts (auto) 2.9 Absolute Nucleated RBC 0.000 Band Neutrophils % Not Reportable Nucleated RBC % 0.0 Platelet Estimate Decreased Large Platelets Present % Immature Plt Fraction 4.2 Anisocytosis 1+ Ovalocytes 1+ Schistocytes None seen PT 23.2 H INR 2.0 APTT 33.4 Sodium 132 L 133 L Potassium 3.7 3.6 Chloride 104 108 H Carbon Dioxide 16 L 15 L Anion Gap 12 10 BUN 33 H 21 H D Creatinine 1.08 H 0.76 Estim Creat Clear Calc 66 91 Estimated GFR 55 L > 60 Glucose 192 H 146 H Lactic Acid 2.9 H 3.3 H 2.0 Calcium 8.3 L 8.1 L Total Bilirubin 2.3 H 2.4 H Direct Bilirubin 0.0 Indirect Bilirubin 1.6 H AST 164 H 246 H ALT 112 H 170 H Alkaline Phosphatase 74 78 Total Protein 7.0 6.0 L Albumin 3.2 L 2.9 L Procalcitonin 0.3
--- NOTE | 2024-05-23 14:11 | PCPTNOTE ---
Attempted at 1400. Patient answers subjective portion and does MMT, but does not get EOB or OOB stating she will get to dizzy and SOB. Physical therapy will attempt later as time allows.
--- NOTE | 2024-05-23 14:57 | P.PNCA_ITS ---
Progress Note: A&P Assessment and Plan (1) Right ventricular dysfunction: Code(s): I51.9 - Heart disease, unspecified Status: Acute (2) Pulmonary hypertension: Code(s): I27.20 - Pulmonary hypertension, unspecified Status: Acute Plan 44-year-old woman with cirrhosis secondary to hepatitis C complicated by esophageal varices and history of polysubstance abuse presented with shortness of breath now also found to have right-sided heart failure and pulmonary hypertension Right-sided heart failure -clinically volume overloaded and would recommend stopping IV fluids and recommend resuming home dose lasix 20mg PO daily after a one time dose of lasix 40mg IVP -given her dependence on midodrine, unlikely to be able to resume spironolactone during this hospitalization Pulmonary hypertension -likely secondary to her underlying cirrhosis, i.e.: portal pulmonary hypertension Transaminitis -may improve with diuresis Thrombocytopenia -concerning for worsening cirrhosis Subjective Date/time seen: 05/23/24 14:57 Interval history: Was woken up for evaluation today. States that she feels terrible. Abdomen is swollen that she feels lightheaded. Also states that she has tremors. We discussed her condition and started with asking her how much she understands of her condition. It would appear that she has limited insight into liver cirrhosis at this time. We also discussed the impact on the pulmonary vascu lature as well as right heart function from the cirrhosis. Review of Systems Cardiovascular: Cardiovascular: Reports as per HPI Respiratory: Respiratory: Reports as per HPI Exam Const: General: no acute distress HENMT: Mouth: Yes moist mucous membranes Eyes: EOM: EOMs intact bilaterally Neck: Neck: no JVD Resp: Effort & Inspection: normal respiratory effort Auscultation: rales Cardio: Rate: regular rate Rhythm: regular rhythm GI: Inspection: distended Neuro: Speech: normal speech Extrem: General: no pedal edema Objective Data Vital Signs Vital Signs: Vital Signs - 24 hr 05/22/24 16:00 05/22/24 16:00 05/22/24 16:00 Temperature 36.4 C Pulse Rate 74 76 Respiratory Rate 22 H Blood Pressure 89/42 L Pulse Oximetry 92 Oxygen Delivery Room Air Fraction of Inspired Oxygen 05/22/24 18:00 05/22/24 19:21 05/22/24 20:00 Temperature 36.9 C 37.0 C Pulse Rate 75 77 80 Respiratory Rate 17 18 Blood Pressure 92/79 L 100/44 L Pulse Oximetry 96 Oxygen Delivery Fraction of Inspired Oxygen 05/22/24 20:00 05/22/24 20:00 05/22/24 22:00 Temperature Pulse Rate 74 77 Respiratory Rate Blood Pressure Pulse Oximetry Oxygen Delivery Room Air Fraction of Inspired Oxygen 05/22/24 22:15 05/22/24 22:57 05/22/24 22:59 Temperature 36.4 C 36.5 C Pulse Rate 77 78 Respiratory Rate 18 18 Blood Pressure 98/62 L 99/59 L Pulse Oximetry 96 95 96 Oxygen Delivery Fraction of Inspired Oxygen 21 05/22/24 23:00 05/22/24 23:31 05/23/24 00:00 Temperature 36.6 C Pulse Rate 77 78 Respiratory Rate 18 Blood Pressure 109/62 Pulse Oximetry 96 Oxygen Delivery Room Air Fraction of Inspired Oxygen 05/23/24 02:00 05/23/24 03:38 05/23/24 03:41 Temperature 36.6 C 36.5 C Pulse Rate 76 51 L 47 L Respiratory Rate 17 18 Blood Pressure 109/59 L 102/58 L Pulse Oximetry 98 100 Oxygen Delivery Fraction of Inspired Oxygen 05/23/24 04:00 05/23/24 04:00 05/23/24 06:00 Temperature Pulse Rate 77 77 Respiratory Rate Blood Pressure Pulse Oximetry Oxygen Delivery Room Air Fraction of Inspired Oxygen 05/23/24 08:00 05/23/24 08:00 05/23/24 08:04 Temperature 36.6 C Pulse Rate 77 80 Respiratory Rate 20 Blood Pressure 96/65 L Pulse Oximetry 100 Oxygen Delivery Room Air Fraction of Inspired Oxygen 05/23/24 08:05 05/23/24 08:05 05/23/24 10:00 Temperature 36.5 C Pulse Rate 80 73 Respiratory Rate 20 Blood Pressure 96/65 L 104/63 Pulse Oximetry 100 Oxygen Delivery Fraction of Inspired Oxygen 05/23/24 11:39 05/23/24 11:40 05/23/24 11:42 Temperature 36.7 C 36.7 C Pulse Rate 71 71 Respiratory Rate 20 20 Blood Pressure 98/57 L 98/57 L 110/62 Pulse Oximetry 98 98 Oxygen Delivery Fraction of Inspired Oxygen 05/23/24 12:00 05/23/24 12:00 Temperature Pulse Rate 75 Respiratory Rate Blood Pressure Pulse Oximetry Oxygen Delivery Room Air Fraction of Inspired Oxygen Intake/Output Intake/Output: Intake & Output 05/20/24 05/21/24 05/22/24 05/23/24 23:59 23:59 23:59 23:59 Intake Total 1500 2895 950 Output Total 600 1550 Balance 1500 2295 -600 Meds/Results Medications: Active Medications Generic Name Dose Route Start Last Admin Trade Name Freq PRN Reason Stop Dose Admin Acetaminophen 650 mg 05/21/24 20:32 05/23/24 08:54 Acetaminophen 325 Mg Tablet PO 650 mg Q4H PRN Administration Mild Pain (1-3) or Fever Ergocalciferol 50,000 units 05/27/24 09:00 Ergocalciferol 50,000 Units Capsule PO WEEKLY LA Ferrous Sulfate 325 mg 05/23/24 13:00 Ferrous Sulfate [address] PO DAILY@1300 LA Levofloxacin/Dextrose 500 mg in 100 mls @ 100 mls/hr 05/22/24 04:00 05/23/24 03:16 Levaquin 500 Mg/D5w 100 Ml IVPB 100 mls/hr Q24H LA Administration Vancomycin HCl 1,500 mg in 500 mls @ 250 mls/hr 05/23/24 09:00 05/23/24 08:55 Vancomycin 1,500 Mg/Ns 500 Ml IVPB 250 mls/hr Q12H LA Administration Melatonin 5 mg 05/22/24 03:06 Melatonin 5 Mg Tablet PO HS PRN Insomnia Midodrine 10 mg 05/22/24 03:10 05/23/24 08:54 Midodrine Hcl 10 Mg Tablet PO 10 mg TID LA Administration Nicotine 1 patch 05/22/24 18:00 05/23/24 06:04 Nicotine (*Pbkc) 21 Mg Patch TRANSDERM 1 patch DAILY LA Administration Perflutren Lipid Microsphere 0 ml 05/21/24 20:45 Perflutren Lipid Microspheres 1.5 Ml Vial Diluted To 10 Ml Total Volume IV PUSH 05/24/24 20:45 ONCE PRN adequate visualization Protocol Perflutren Lipid Microsphere 0 ml 05/22/24 03:23 Perflutren Lipid Microspheres 1.5 Ml Vial Diluted To 10 Ml Total Volume IV PUSH 05/25/24 03:23 ONCE PRN adequate visualization Protocol Prochlorperazine Edisylate 10 mg 05/22/24 03:06 05/22/24 09:10 Prochlorperazine Edisylate 10 Mg/2 Ml Vial IV PUSH 10 mg Q6H PRN Administration Nausea And Vomiting Sodium Bicarbonate 650 mg 05/23/24 09:00 05/23/24 08:55 Sodium Bicarbonate Tab 650 Mg Tablet PO 650 mg BID LA Administration Radiology Results: ITS Impressions Chest X-Ray 05/21/24 14:43 IMPRESSION: 1: NO ACUTE CARDIOPULMONARY DISEASE. Chest/Abdomen/Pelvis CTA 05/21/24 18:16 IMPRESSION: CHEST: 1. No acute cardiopulmonary pathology. 2. No pulmonary embolism. ABDOMEN/PELVIS: 1. Liver cirrhosis. 2. Splenomegaly with varicosities seen posterior to the stomach. Enhancing vessels seen in the lower esophagus. 3. Tiny left kidney stone. Venous Doppler Study 05/22/24 09:10 IMPRESSION: 1. No deep venous thrombosis in either lower limb. Labs Labs: Laboratory Results - last 24 hr 05/22/24 05/22/24 05/23/24 19:14 21:44 06:53 WBC 4.2 L RBC 4.97 Hgb 11.2 L Hct 39.3 MCV 79.1 L MCH 22.5 L MCHC 28.5 L RDW 21.5 H Plt Count 55 L MPV TNP Immature Gran % (Auto) 0.2 Neut % (Auto) 67.3 Lymph % (Auto) 16.5 L [place] % (Auto) 13.4 H Eos % (Auto) 1.7 Baso % (Auto) 0.9 Lymph # (Auto) 0.70 L [place] # (Auto) 0.6 Eos # (Auto) 0.1 Baso # (Auto) 0.0 Abs Immat Gran (auto) 0.01 Absolute Neuts (auto) 2.9 Absolute Nucleated RBC 0.000 Band Neutrophils % Not Reportable Nucleated RBC % 0.0 Platelet Estimate Decreased Large Platelets Present % Immature Plt Fraction 4.2 Anisocytosis 1+ Ovalocytes 1+ Schistocytes None seen PT 23.2 H INR 2.0 APTT 33.4 Sodium 132 L 133 L Potassium 3.7 3.6 Chloride 104 108 H Carbon Dioxide 16 L 15 L Anion Gap 12 10 BUN 33 H 21 H D Creatinine 1.08 H 0.76 Estim Creat Clear Calc 66 91 Estimated GFR 55 L > 60 Glucose 192 H 146 H Lactic Acid 2.9 H 3.3 H 2.0 Calcium 8.3 L 8.1 L Total Bilirubin 2.3 H 2.4 H Direct Bilirubin 0.0 Indirect Bilirubin 1.6 H AST 164 H 246 H ALT 112 H 170 H Alkaline Phosphatase 74 78 Total Protein 7.0 6.0 L Albumin 3.2 L 2.9 L Procalcitonin 0.3
[2024-05-23] MEDS: FERROUS SULFATE 325 MG TABLET DR PO (15:18)
[2024-05-23] MEDS: FUROSEMIDE INJ 40 MG/4 ML VIAL IV PUSH (15:18)
[2024-05-24] VITALS (14 sets, daily range): BP systolic 100–119; BP diastolic 54–74; PULSE 75–90; RESP 16–20; TEMP 35.6–36.6; O2SAT 97–99
[2024-05-24] MEDS: ACETAMINOPHEN 325 MG TABLET 650 MG PO ×2 (01:14→14:01)
[2024-05-24 06:45] LABS: Alanine Aminotransferase 274 U/L (6-35); Albumin Level 2.8 g/dL (3.5-5.1); Alkaline Phosphatase 84 U/L (38-126); Anion Gap 9 mmol/L (4-12); Aspartate Amino Transferase 308 U/L (14-36); Blood Urea Nitrogen 12 mg/dL (7-17); Calcium 8.1 mg/dL (8.4-10.2); Carbon Dioxide 21 mmol/L (22-30); Chloride 106 mmol/L (98-107); Estimated CRCL calculation 122 ml/min; Estimated Glomerular Filt Rate > 60; Glucose 113 mg/dL (65-110); Potassium 3.2 mmol/L (3.4-5.0); Sodium 136 mmol/L (137-145)
[2024-05-24 06:51] LABS: Basophils Percent Auto 0.6 % (0.2-1.2); Eosinophils Absolute Auto 0.1 K/mm3 (0-0.3); Eosinophils Percent Auto 1.8 % (0-4.4); Hematocrit 38.6 % (37.0-47.0); Hemoglobin 11.2 g/dL (12.0-15.0); Immature Granulocyte Absolute 0.01 K/mm3 (0.00-0.031); Immature Granulocyte Percent A 0.3 % (0-0.5); Immature Platelet Fraction Pct 4.5 % (0.9-11.2); Lymphocytes Absolute Auto 0.76 K/mm3 (0.9-3.2); Mean Corpuscular Hemoglobin 22.3 pg (26-34); Mean Corpuscular Volume 76.9 fl (80-100); Monocytes Absolute Auto 0.3 K/mm3 (0.1-0.6); Monocytes Percent Auto 10.3 % (2.6-8.5); Neutrophils Absolute Auto 2.1 K/mm3 (1.3-6.7); Platelet Count Result 45 k/mm3 (150-375); Red Blood Count 5.02 M/mm3 (4.2-5.4); Red Cell Distribution Width 21.4 % (11.5-14.5); White Blood Count 3.3 K/mm3 (4.5-10.0)
[2024-05-24 07:18] LABS: Hepatitis B Surface Antigen Negative (Negative)
[2024-05-24 07:20] LABS: Hypochromasia 1+; Platelet Estimate Decreased (Adequate)
[2024-05-24 07:21] LABS: Anisocytosis 1+; Ovalocytes 1+
[2024-05-24 07:22] LABS: Schistocytes None Seen
[2024-05-24 07:23] LABS: HIV 1/2 Ab P24 Ag Result Negative (Negative)
[2024-05-24 07:24] LABS: HAV RESULT Negative (Negative); Hepatitis B Core IgM Result Negative (Negative)
[2024-05-24 07:36] LABS: Hepatitis B Surface Anti Res Negative
[2024-05-24 07:37] LABS: Hepatitis C Virus Antibody Reactive (Negative)
[2024-05-24 08:23] LABS: Magnesium 1.5 mg/dL (1.6-2.3)
[2024-05-24] MEDS: NICOTINE (*PBKC) 21 MG PATCH 1 PATCH TRANSDERM (09:31)
[2024-05-24] MEDS: MAGNESIUM OXIDE 400 MG TABLET PO (09:31)
[2024-05-24] MEDS: MIDODRINE HCL 2.5 MG TABLET 5 MG PO ×3 (09:32→16:39)
[2024-05-24] MEDS: POTASSIUM CHLORIDE 20 MEQ ER TABLET 40 MEQ PO (09:32)
[2024-05-24] MEDS: FUROSEMIDE 20 MG TABLET PO (09:32)
--- NOTE | 2024-05-24 10:34 | PM.PNCARD ---
Progress Note: A&P Assessment and Plan (1) Right ventricular dysfunction: Code(s): I51.9 - Heart disease, unspecified Status: Acute (2) Pulmonary hypertension: Code(s): I27.20 - Pulmonary hypertension, unspecified Status: Acute (3) Thrombocytopenia: Code(s): D69.6 - Thrombocytopenia, unspecified Status: Acute Plan 44-year-old woman with cirrhosis secondary to hepatitis C complicated by esophageal varices and history of polysubstance abuse presented with shortness of breath now also found to have right-sided heart failure and pulmonary hypertension Right-sided heart failure -status post discontinuation of IV fluids and administration of IV Lasix -clinically close to being euvolemic and can be discharged on Lasix 20 p.o. daily -wean midodrine as tolerated; unlikely to be able to resume spironolactone during this admission -I have discussed with her and her daughter the overall disease process and the multiorgan dysfunction and the overall medical goal/treatment plan -I have also discussed the importance of illicit drug abstinence and follow up in multispecialty clinic given her multiorgan dysfunction Pulmonary hypertension -likely secondary to her underlying cirrhosis (portopulmonary HTN) and drug abuse (methamphetamines) Thrombocytopenia -likely related to her cirrhosis No further inpatient cardiac workup warranted at this time. She can follow up outpatient. Please call with additional questions Subjective Date/time seen: 05/24/24 10:34 Interval history: No chest pain. Still having some shortness of breath. Abdomen distension much improved. Review of Systems Cardiovascular: Cardiovascular: Reports as per HPI Respiratory: Respiratory: Reports as per HPI Exam Const: General: comfortable Other: Ill-appearing HENMT: Mouth: Yes moist mucous membranes Eyes: EOM: EOMs intact bilaterally Neck: Neck: no JVD Resp: Effort & Inspection: normal respiratory effort Auscultation: clear to auscultation bilaterally Cardio: Rate: regular rate Rhythm: regular rhythm GI: Inspection: distended Extrem: General: no pedal edema Objective Data Vital Signs Vital Signs: Vital Signs - 24 hr 05/23/24 11:39 05/23/24 11:40 05/23/24 11:42 Temperature 36.7 C 36.7 C Pulse Rate 71 71 Respiratory Rate 20 20 Blood Pressure 98/57 L 98/57 L 110/62 Pulse Oximetry 98 98 Oxygen Delivery 05/23/24 12:00 05/23/24 12:00 05/23/24 14:00 Temperature Pulse Rate 75 75 Respiratory Rate Blood Pressure Pulse Oximetry Oxygen Delivery Room Air 05/23/24 15:40 05/23/24 15:40 05/23/24 15:41 Temperature 36.3 C L 36.3 C L Pulse Rate 72 72 75 Respiratory Rate 20 20 Blood Pressure 105/73 105/73 103/69 Pulse Oximetry 100 100 Oxygen Delivery 05/23/24 16:00 05/23/24 16:00 05/23/24 18:00 Temperature Pulse Rate 72 83 Respiratory Rate Blood Pressure Pulse Oximetry Oxygen Delivery Room Air 05/23/24 19:48 05/23/24 20:00 05/23/24 20:00 Temperature 36.2 C L Pulse Rate 86 Respiratory Rate 18 Blood Pressure 120/65 107/61 107/65 Pulse Oximetry 100 Oxygen Delivery 05/23/24 20:00 05/23/24 20:00 05/23/24 20:00 Temperature Pulse Rate 82 Respiratory Rate Blood Pressure 104/65 Pulse Oximetry Oxygen Delivery Room Air 05/23/24 22:00 05/23/24 23:34 05/23/24 23:35 Temperature 36.3 C L Pulse Rate 86 80 Respiratory Rate 16 Blood Pressure 105/67 Pulse Oximetry 100 Oxygen Delivery Room Air 05/24/24 00:00 05/24/24 01:56 05/24/24 04:00 Temperature Pulse Rate 81 75 Respiratory Rate Blood Pressure Pulse Oximetry Oxygen Delivery Room Air 05/24/24 04:00 05/24/24 04:00 05/24/24 05:57 Temperature 36.6 C Pulse Rate 81 80 78 Respiratory Rate 16 Blood Pressure 100/61 Pulse Oximetry 97 Oxygen Delivery 05/24/24 07:50 05/24/24 07:51 05/24/24 07:51 Temperature 35.6 C L 35.6 C L Pulse Rate 79 79 80 Respiratory Rate 18 18 Blood Pressure 108/70 108/70 119/59 L Pulse Oximetry 97 97 Oxygen Delivery 05/24/24 07:52 05/24/24 08:45 05/24/24 10:00 Temperature Pulse Rate 81 76 79 Respiratory Rate Blood Pressure 102/70 Pulse Oximetry Oxygen Delivery Intake/Output Intake/Output: Intake & Output 05/21/24 05/22/24 05/23/24 05/24/24 23:59 23:59 23:59 23:59 Intake Total 1500 2895 1810 1320 Output Total 600 6200 1800 Balance 1500 0770 -2414 -432 Meds/Results Medications: Active Medications Generic Name Dose Route Start Last Admin Trade Name Freq PRN Reason Stop Dose Admin Acetaminophen 650 mg 05/21/24 20:32 05/24/24 01:14 Acetaminophen 325 Mg Tablet PO 650 mg Q4H PRN Administration Mild Pain (1-3) or Fever Ergocalciferol 50,000 units 05/27/24 09:00 Ergocalciferol 50,000 Units Capsule PO WEEKLY LA Ferrous Sulfate 325 mg 05/23/24 13:00 05/23/24 15:18 Ferrous Sulfate [address] PO 325 mg DAILY@1300 LA Administration Furosemide 20 mg 05/24/24 09:00 05/24/24 09:32 Furosemide 20 Mg Tablet PO 20 mg DAILY LA Administration Magnesium Oxide 400 mg 05/24/24 09:00 05/24/24 09:31 Magnesium Oxide 400 Mg Tablet PO 05/25/24 10:00 400 mg DAILY LA Administration Melatonin 5 mg 05/22/24 03:06 Melatonin 5 Mg Tablet PO HS PRN Insomnia Midodrine 5 mg 05/24/24 09:00 05/24/24 09:32 Midodrine Hcl 2.5 Mg Tablet PO 5 mg TID LA Administration Nicotine 1 patch 05/22/24 18:00 05/24/24 09:31 Nicotine (*Pbkc) 21 Mg Patch TRANSDERM 1 patch DAILY LA Administration Perflutren Lipid Microsphere 0 ml 05/21/24 20:45 Perflutren Lipid Microspheres 1.5 Ml Vial Diluted To 10 Ml Total Volume IV PUSH 05/24/24 20:45 ONCE PRN adequate visualization Protocol Perflutren Lipid Microsphere 0 ml 05/22/24 03:23 Perflutren Lipid Microspheres 1.5 Ml Vial Diluted To 10 Ml Total Volume IV PUSH 05/25/24 03:23 ONCE PRN adequate visualization Protocol Prochlorperazine Edisylate 10 mg 05/22/24 03:06 05/22/24 09:10 Prochlorperazine Edisylate 10 Mg/2 Ml Vial IV PUSH 10 mg Q6H PRN Administration Nausea And Vomiting Radiology Results: ITS Impressions Chest X-Ray 05/21/24 14:43 IMPRESSION: 1: NO ACUTE CARDIOPULMONARY DISEASE. Chest/Abdomen/Pelvis CTA 05/21/24 18:16 IMPRESSION: CHEST: 1. No acute cardiopulmonary pathology. 2. No pulmonary embolism. ABDOMEN/PELVIS: 1. Liver cirrhosis. 2. Splenomegaly with varicosities seen posterior to the stomach. Enhancing vessels seen in the lower esophagus. 3. Tiny left kidney stone. Venous Doppler Study 05/22/24 09:10 IMPRESSION: 1. No deep venous thrombosis in either lower limb. Labs Labs: Laboratory Results - last 24 hr 05/24/24 05/24/24 05/24/24 06:07 06:42 06:45 WBC 3.3 L RBC 5.02 Hgb 11.2 L Hct 38.6 MCV 76.9 L MCH 22.3 L MCHC 29.0 L RDW 21.4 H Plt Count 45 L MPV TNP Immature Gran % (Auto) 0.3 Neut % (Auto) 64.0 Lymph % (Auto) 23.0 [place] % (Auto) 10.3 H Eos % (Auto) 1.8 Baso % (Auto) 0.6 Lymph # (Auto) 0.76 L [place] # (Auto) 0.3 Eos # (Auto) 0.1 Baso # (Auto) 0.0 Abs Immat Gran (auto) 0.01 Absolute Neuts (auto) 2.1 Absolute Nucleated RBC 0.000 Band Neutrophils % Not Reportable Nucleated RBC % 0.0 Platelet Estimate Decreased % Immature Plt Fraction 4.5 Hypochromasia 1+ Anisocytosis 1+ Ovalocytes 1+ Schistocytes None seen Sodium 136 L Potassium 3.2 L Chloride 106 Carbon Dioxide 21 L Anion Gap 9 BUN 12 D Creatinine 0.56 L Estim Creat Clear Calc 122 Estimated GFR > 60 Glucose 113 H Calcium 8.1 L Magnesium 1.5 L Total Bilirubin 2.0 H AST 308 H ALT 274 H Alkaline Phosphatase 84 Total Protein 6.0 L Albumin 2.8 L Hepatitis A IgM Ab Negative Hep Bs Antigen Negative Hep Bs Antibody Negative Hep B Core IgM Ab Negative Hepatitis C Ab Screen Reactive HIV 1&2 Ab/P24 Ag 4thGn Negative
[2024-05-24] MEDS: FERROUS SULFATE 325 MG TABLET DR PO (12:12)
--- NOTE | 2024-05-24 13:45 | P.PNIM_ITS ---
Progress Note: A&P Assessment and Plan (1) Elevated troponin: Code(s): R79.89 - Other specified abnormal findings of blood chemistry Status: Acute Assessment and Plan: Patient presents with dizziness and fatigue. Troponin elevated to 0.154. DDimer positive to 1.05. EKG showing NSR, RAD, iRBBB and borderline diffuse ST-T wave changes but no change from prior EKGs. CXR was clear. CTA Chest showing no acute cardiopulmonary disease and no PE. LE venous doppler negative for DVT. Echo showing EF 60-65%, moderately increased LV wall thickness, Grade I diastolic dysfunction, severely enlarge RV with reduced RV function and RV volume overload. severely enlarged GERALD, moderate TR and severe pulmonary HTN. Cardiology consulted. [place] elevated Troponin was from demand ischemia possibly from sepsis/HoTN. (2) Hypotension: Code(s): I95.9 - Hypotension, unspecified Status: Acute Assessment and Plan: Lactic acid elevated on admission and persistent. No fever or tachycardia but BP soft. WBC normal. She did received appropriate amount of IV fluids. Consider sepsis or related to dehydration related to her medications or from her severe pulm HTN Elevated lactic acid could be related to poor perfusion from HoTN and/or related to meth use. Levaquin started. Added Vanco. Added Daniel hose. Midodrine added. Lactic normal now. PCT 0.3 UA noted but UCx negative. No PNA. Doubt SBP. BCx NGTD No clear source so abx stopped Continue Midodrine but try to wean down as BP tolerates. (3) Pulmonary hypertension: Code(s): I27.20 - Pulmonary hypertension, unspecified Status: Acute Assessment and Plan: Severe Pulmonary HTN noted by Echo. CTA Chest showing no acute cardiopulmonary disease [place] related to portopulmonary HTN Apnea link not consistent with NARDA. Other consideration includes toxins (methamphetamines) that could cause this Not on supplemental O2. Follow. Stopping meth use is imperative (4) Lactic acidosis: Code(s): E87.20 - Acidosis, unspecified Status: Acute Assessment and Plan: As above (5) Cirrhosis: Qualifiers: Hepatic cirrhosis type: other cirrhosis Qualified Code(s): K74.69 - Other cirrhosis of liver Code(s): K74.60 - Unspecified cirrhosis of liver Status: Chronic Assessment and Plan: Patient with known cirrhosis and Hepatitis C. CTA A/P showing liver cirrhosis, splenomegaly, evidence of portal HTN, esophageal varices and focal enhancement near the portal vein. Ammonia 10. Albumin normal. INR 2.0. AFP pending. Scant ascites noted so doubt SBP. AST/ALT higher but TBili better at 2. INR up to 2.0. MELD 18. Propranolol, Lasix and spironolactone on hold. Lasix resumed Monitor BP (6) Thrombocytopenia: Code(s): D69.6 - Thrombocytopenia, unspecified Status: Acute Assessment and Plan: Noted and chronic. Plt count mostly in the 40-50K range [place] related to cirrhosis with splenomegaly. (7) Methamphetamine use: Code(s): F15.10 - Other stimulant abuse, uncomplicated Status: Chronic Assessment and Plan: UDS performed showing she is positive for opiates and amphetamines. She has a hx of meth use and admits to using meth prior to admission. She did receive opioids here prior to the test being performed. Care coordination to provide information about drug rehab HepC positive and she has been treated for HepC. HIV negative Plan Iron Deficiency - Noted in December. Continue iron replacement DVT prophylaxis - SCDs Code status - full Subjective Date/time seen: 05/24/24 13:45 Interval history: 44yo female with cirrhosis/EV, Hepatitis C, and iron deficiency here for dizziness and fatigue. Still dizzy and SOB. [place] better last night. no Cp or abd pain. No back pain Exam Narrative: AF 97.8 106/58 77 18 98% ra Gen - NARD Chest - CTA bilaterally CV - RRR S1/S2; Tele showing PVCs. Abd - Soft, obese, NT Ext - Trace pedal edema. Daniel hose in place. Neuro - alert, appropriate Psych - Nml mood and affect Skin - warm and dry. Objective Data Vital Signs Vital Signs: Vital Signs - 24 hr 05/23/24 14:00 05/23/24 15:40 05/23/24 15:40 Temperature 97.4 F L 97.4 F L Pulse Rate 75 72 72 Respiratory Rate 20 20 Blood Pressure 105/73 105/73 Pulse Oximetry 100 100 Oxygen Delivery 05/23/24 15:41 05/23/24 16:00 05/23/24 16:00 Temperature Pulse Rate 75 72 Respiratory Rate Blood Pressure 103/69 Pulse Oximetry Oxygen Delivery Room Air 05/23/24 18:00 05/23/24 19:48 05/23/24 20:00 Temperature 97.2 F L Pulse Rate 83 86 Respiratory Rate 18 Blood Pressure 120/65 107/61 Pulse Oximetry 100 Oxygen Delivery 05/23/24 20:00 05/23/24 20:00 05/23/24 20:00 Temperature Pulse Rate Respiratory Rate Blood Pressure 107/65 104/65 Pulse Oximetry Oxygen Delivery Room Air 05/23/24 20:00 05/23/24 22:00 05/23/24 23:34 Temperature 97.4 F L Pulse Rate 82 86 80 Respiratory Rate 16 Blood Pressure 105/67 Pulse Oximetry 100 Oxygen Delivery 05/23/24 23:35 05/24/24 00:00 05/24/24 01:56 Temperature Pulse Rate 81 75 Respiratory Rate Blood Pressure Pulse Oximetry Oxygen Delivery Room Air 05/24/24 04:00 05/24/24 04:00 05/24/24 04:00 Temperature 97.8 F Pulse Rate 81 80 Respiratory Rate 16 Blood Pressure 100/61 Pulse Oximetry 97 Oxygen Delivery Room Air 05/24/24 05:57 05/24/24 07:50 05/24/24 07:51 Temperature 96.0 F L 96.0 F L Pulse Rate 78 79 79 Respiratory Rate 18 18 Blood Pressure 108/70 108/70 Pulse Oximetry 97 97 Oxygen Delivery 05/24/24 07:51 05/24/24 07:52 05/24/24 08:45 Temperature Pulse Rate 80 81 76 Respiratory Rate Blood Pressure 119/59 L 102/70 Pulse Oximetry Oxygen Delivery 05/24/24 10:00 05/24/24 11:38 05/24/24 11:39 Temperature 97.8 F 97.8 F Pulse Rate 79 79 79 Respiratory Rate 18 18 Blood Pressure 111/54 L 111/54 L Pulse Oximetry 98 98 Oxygen Delivery 05/24/24 11:40 05/24/24 11:40 05/24/24 12:20 Temperature Pulse Rate 80 77 Respiratory Rate Blood Pressure 106/58 L Pulse Oximetry Oxygen Delivery Room Air Intake/Output Intake/Output: Intake & Output 05/21/24 05/22/24 05/23/24 05/24/24 23:59 23:59 23:59 23:59 Intake Total 1500 2895 1810 1560 Output Total 600 2720 3800 Balance 1500 8232 -9043 -8320 Meds/Results Medications: Active Medications Generic Name Dose Route Start Last Admin Trade Name Freq PRN Reason Stop Dose Admin Acetaminophen 650 mg 05/21/24 20:32 05/24/24 01:14 Acetaminophen 325 Mg Tablet PO 650 mg Q4H PRN Administration Mild Pain (1-3) or Fever Ergocalciferol 50,000 units 05/27/24 09:00 Ergocalciferol 50,000 Units Capsule PO WEEKLY LA Ferrous Sulfate 325 mg 05/23/24 13:00 05/24/24 12:12 Ferrous Sulfate [address] PO 325 mg DAILY@1300 LA Administration Furosemide 20 mg 05/24/24 09:00 05/24/24 09:32 Furosemide 20 Mg Tablet PO 20 mg DAILY LA Administration Magnesium Sulfate 2 gm in 50 mls @ 25 mls/hr 05/24/24 13:45 Magnesium Sulf 2 Gm/Water 50ml IVPB 05/24/24 15:44 ONCE ONE Magnesium Oxide 400 mg 05/24/24 09:00 05/24/24 09:31 Magnesium Oxide 400 Mg Tablet PO 05/25/24 10:00 400 mg DAILY LA Administration Melatonin 5 mg 05/22/24 03:06 Melatonin 5 Mg Tablet PO HS PRN Insomnia Midodrine 5 mg 05/24/24 09:00 05/24/24 12:12 Midodrine Hcl 2.5 Mg Tablet PO 5 mg TID LA Administration Nicotine 1 patch 05/22/24 18:00 05/24/24 09:31 Nicotine (*Pbkc) 21 Mg Patch TRANSDERM 1 patch DAILY LA Administration Perflutren Lipid Microsphere 0 ml 05/21/24 20:45 Perflutren Lipid Microspheres 1.5 Ml Vial Diluted To 10 Ml Total Volume IV PUSH 05/24/24 20:45 ONCE PRN adequate visualization Protocol Perflutren Lipid Microsphere 0 ml 05/22/24 03:23 Perflutren Lipid Microspheres 1.5 Ml Vial Diluted To 10 Ml Total Volume IV PUSH 05/25/24 03:23 ONCE PRN adequate visualization Protocol Prochlorperazine Edisylate 10 mg 05/22/24 03:06 05/22/24 09:10 Prochlorperazine Edisylate 10 Mg/2 Ml Vial IV PUSH 10 mg Q6H PRN Administration Nausea And Vomiting Radiology Results: ITS Impressions Chest X-Ray 05/21/24 14:43 IMPRESSION: 1: NO ACUTE CARDIOPULMONARY DISEASE. Chest/Abdomen/Pelvis CTA 05/21/24 18:16 IMPRESSION: CHEST: 1. No acute cardiopulmonary pathology. 2. No pulmonary embolism. ABDOMEN/PELVIS: 1. Liver cirrhosis. 2. Splenomegaly with varicosities seen posterior to the stomach. Enhancing vessels seen in the lower esophagus. 3. Tiny left kidney stone. Venous Doppler Study 05/22/24 09:10 IMPRESSION: 1. No deep venous thrombosis in either lower limb. Labs Labs: Laboratory Results - last 24 hr 05/24/24 05/24/24 05/24/24 06:07 06:42 06:45 WBC 3.3 L RBC 5.02 Hgb 11.2 L Hct 38.6 MCV 76.9 L MCH 22.3 L MCHC 29.0 L RDW 21.4 H Plt Count 45 L MPV TNP Immature Gran % (Auto) 0.3 Neut % (Auto) 64.0 Lymph % (Auto) 23.0 [place] % (Auto) 10.3 H Eos % (Auto) 1.8 Baso % (Auto) 0.6 Lymph # (Auto) 0.76 L [place] # (Auto) 0.3 Eos # (Auto) 0.1 Baso # (Auto) 0.0 Abs Immat Gran (auto) 0.01 Absolute Neuts (auto) 2.1 Absolute Nucleated RBC 0.000 Band Neutrophils % Not Reportable Nucleated RBC % 0.0 Platelet Estimate Decreased % Immature Plt Fraction 4.5 Hypochromasia 1+ Anisocytosis 1+ Ovalocytes 1+ Schistocytes None seen Sodium 136 L Potassium 3.2 L Chloride 106 Carbon Dioxide 21 L Anion Gap 9 BUN 12 D Creatinine 0.56 L Estim Creat Clear Calc 122 Estimated GFR > 60 Glucose 113 H Calcium 8.1 L Magnesium 1.5 L Total Bilirubin 2.0 H AST 308 H ALT 274 H Alkaline Phosphatase 84 Total Protein 6.0 L Albumin 2.8 L Hepatitis A IgM Ab Negative Hep Bs Antigen Negative Hep Bs Antibody Negative Hep B Core IgM Ab Negative Hepatitis C Ab Screen Reactive HIV 1&2 Ab/P24 Ag 4thGn Negative
[2024-05-24] MEDS: MAGNESIUM SULF 2 GM/WATER 50ML 2 GM/50 ML BAG IVPB (14:02)
--- NOTE | 2024-05-24 14:34 | PC.NURSE ---
status changed to med/surg- report called to Jyoti RN- pt transferred to room 329 via bed accompanied by staff- belongings with pt
[2024-05-24] MEDS: MELATONIN 5 MG TABLET PO (20:05)
[2024-05-24] MEDS: PROCHLORPERAZINE MALEATE 5 MG TABLET 10 MG PO (23:23)
[2024-05-25 05:56] VITALS: BP 111/70; PULSE 86; RESP 16; TEMP 36.2; O2SAT 98
[2024-05-25 06:29] LABS: Basophils Percent Auto 0.7 % (0.2-1.2); Eosinophils Absolute Auto 0.1 K/mm3 (0-0.3); Eosinophils Percent Auto 2.4 % (0-4.4); Hemoglobin 11.6 g/dL (12.0-15.0); Immature Granulocyte Absolute 0.01 K/mm3 (0.00-0.031); Immature Granulocyte Percent A 0.3 % (0-0.5); Immature Platelet Fraction Pct 4.3 % (0.9-11.2); Lymphocytes Absolute Auto 0.74 K/mm3 (0.9-3.2); Lymphocytes Percent Auto 25.7 % (18.3-44.2); Mean Corpuscular HGB Conc 29.7 g/dl (32-36); Mean Corpuscular Hemoglobin 22.6 pg (26-34); Monocytes Absolute Auto 0.3 K/mm3 (0.1-0.6); Neutrophils Absolute Auto 1.8 K/mm3 (1.3-6.7); Neutrophils Percent Auto 61.9 % (45.5-73.1); Platelet Count Result 50 k/mm3 (150-375); Red Blood Count 5.13 M/mm3 (4.2-5.4); Red Cell Distribution Width 21.8 % (11.5-14.5); White Blood Count 2.9 K/mm3 (4.5-10.0)
[2024-05-25 06:45] LABS: Alanine Aminotransferase 212 U/L (6-35); Albumin Level 3.1 g/dL (3.5-5.1); Alkaline Phosphatase 112 U/L (38-126); Anion Gap 5 mmol/L (4-12); Aspartate Amino Transferase 148 U/L (14-36); Bilirubin,Total 1.6 mg/dL (0.2-1.3); Blood Urea Nitrogen 8 mg/dL (7-17); Calcium 8.4 mg/dL (8.4-10.2); Carbon Dioxide 26 mmol/L (22-30); Chloride 105 mmol/L (98-107); Estimated CRCL calculation 113 ml/min; Estimated Glomerular Filt Rate > 60; Glucose 127 mg/dL (65-110); Magnesium 1.6 mg/dL (1.6-2.3); Potassium 3.3 mmol/L (3.4-5.0); Sodium 136 mmol/L (137-145)
[2024-05-25 08:00] VITALS: BP 103/76; PULSE 91; RESP 16; TEMP 36; O2SAT 99
[2024-05-25 08:08] LABS: Platelet Estimate Decreased (Adequate)
[2024-05-25 08:10] LABS: Anisocytosis 2+; Hypochromasia 2+; Schistocytes None Seen
[2024-05-25 08:26] VITALS: BP 116/72; BP 119/75; PULSE 88; PULSE 92; RESP 16; TEMP 36; O2SAT 100
[2024-05-25] MEDS: POTASSIUM CHLORIDE 20 MEQ ER TABLET 40 MEQ PO (09:37)
[2024-05-25] MEDS: MAGNESIUM OXIDE 400 MG TABLET PO (09:37)
[2024-05-25] MEDS: NICOTINE (*PBKC) 21 MG PATCH 1 PATCH TRANSDERM (09:38)
[2024-05-25] MEDS: MIDODRINE HCL 2.5 MG TABLET PO (09:38)
[2024-05-25] MEDS: FUROSEMIDE 20 MG TABLET PO (09:38)
--- NOTE | 2024-05-25 11:10 | PCNFU ---
Nutrition Follow-Up Complete: Inadequate oral intake related to sleepiness, as evidenced by sleeping through meals Goal:Improve PO intake to at least 50% meals and supplements Pt meeting goal. Pt current nutrition is Heart healthy, Ensure Enlive BID. Nutrition recommendation: continue with current plan of care Last recorded weight is 92.2 kg. Bowel Motility: +BM 05/25 Labs Reviewed: Hgb:11.6, Alb:3.1, NA:136, K:3.3, Cr:0.6, Glu:127 Meds Noted: lasix Skin: WNL Additional Notes: pt on a heart healthy diet, intake 75-100%, Ensure Enlive ordered. Agree with orders, continue with current plan of care. Monitoring intakes, weights, labs, supplement tolerance, plan of care Follow up in 7 days
[2024-05-25 11:48] LABS: Alpha Fetoprotein Tumor Marker 1.7 ng/mL
--- NOTE | 2024-05-25 11:54 | P.DS_ITS ---
DS: Admitting Diagnosis Discharge Date 05/25/2024 Admitting Diagnosis Elevated troponin Hypotension Pulmonary hypertension Lactic acidosis DS: Discharge Diagnosis Discharge Diagnosis (1) Elevated troponin: Code(s): R79.89 - Other specified abnormal findings of blood chemistry Status: Acute (2) Hypotension: Code(s): I95.9 - Hypotension, unspecified Status: Acute (3) Pulmonary hypertension: Code(s): I27.20 - Pulmonary hypertension, unspecified Status: Acute (4) Lactic acidosis: Code(s): E87.20 - Acidosis, unspecified Status: Acute (5) Cirrhosis: Qualifiers: Hepatic cirrhosis type: other cirrhosis Qualified Code(s): K74.69 - Other cirrhosis of liver Code(s): K74.60 - Unspecified cirrhosis of liver Status: Chronic (6) Thrombocytopenia: Code(s): D69.6 - Thrombocytopenia, unspecified Status: Acute (7) Methamphetamine use: Code(s): F15.10 - Other stimulant abuse, uncomplicated Status: Chronic DS: Summary Hospital Course Reason for hospitalization: Dizziness Fatigue Hospital Course: Nichelle Pelayo is a 44-year-old female with a medical history significant for liver cirrhosis, DM 2, obesity. She remained stable until recently started on propranolol 60 mg daily to help control blood pressures surgery gets to esophageal viruses stemming from her liver cirrhosis. The retained 1st 4 hours of taking medication she developed the stoma syncope. Symptoms activity, alleviated by mobility isolation on rest; associated with malaise, fatigue and a restriction of her ADLs. She denies hematemesis, fevers, chills, flank pain, dysuria, melenic stools. She recalls that years ago she was placed on propranolol, on during that time developed side effects including pre syncopal/syncopal episodes for which he had to be stopped. She vapes nicotine; but denies alcohol or recreational/illicit drug use. Work-up findings: EKG: Sinus reading, right axis deviation, left atrial enlargement, IRBBB. WBC 7.3; HGB 13.6; MCV 75; PO2 91 Troponin 0.110, 0.122; BNP 1090 UA: Negative nitrite, trace leukocyte esterase, 11-20 WBC, 4+ bacteria. Influenza A/B, RSV, COVID-19: Negative CXR: No acute ca rdiopulmonary disease. CTAP: 1. Liver cirrhosis. 2. Splenomegaly with varicosities seen posterior to the stomach. Enhancing vessels seen in the lower esophagus. 3. Tiny left kidney stone. Cardiology consulted, recommended echo but doubt ACS, likely demand ischemia possibly from sepsis/HoTN. No other cardiac testing recommended. LE venous doppler negative for DVT. Echo showing EF 60-65%, moderately increased LV wall thickness, Grade I diastolic dysfunction, severely enlarge RV with reduced RV function and RV volume overload. severely enlarged GERALD, moderate TR and severe pulmonary HTN. Lactic acid normalized and UA noted but culture resulted negative. Blood cultures showed no growth. Antibiotics stopped as no obvious source of infection. Severe Pulmonary HTN noted by Echo, possible relation to portopulmonary HTN. Not on supplemental O2 with stable vital signs. UDS performed showing she is positive for opiates and amphetamines. Care career based intervention coordinator rdination to provide information about drug rehab. HepC positive and she has been treated for HepC. HIV negative. Thrombocytopenia chronic with plt ranging in the 40-50k range, likely related to cirrhosis and splenomegaly. Pt otherwise stable and has been assisted with care coordination regarding rehab assistance. Pt to be discharged home at this time. Status at Discharge Functional status at discharge: independent ambulation Overall status at discharge: patient is back to baseline Time Spent with Patient Time attestation: Total time spent providing and/or coordinating discharge services:45 Exam Narrative: AF 97.8 116/2 92 16 98% ra Gen - iill appearing female in no acute respiratory distress who is nontoxic- appearing lying semi recumbent in bed HEENT - normocephalic. Atraumatic. Pupils equal round and reactive. Extraocular motions intact. Sclera clear and anicteric. Nares patent. Oropharynx was clear. No oral lesions. Moist mucous membranes. Tongue was midline. Palate jose symmetrically. No facial asymmetry. Neck - neck was supple. No dominant adenopathy, thyromegaly or masses. 2+ carotid upstrokes without bruits. Chest - lungs are clear to auscultation bilaterally. No wheezes or crackles. Breast exam was deferred. CV - heart was regular rate and rhythm. S1-S2. No murmurs gallops or rubs. Abd - abdomen was soft. Nontender. Nondistended. Positive bowel sounds. No organomegaly or masses. Ext - no clubbing, cyanosis or edema. 2+ DP pulses bilaterally. Neuro - patient is alert and oriented x4. Strength is 5/5 in both upper and lower extremities. Cranial nerves 2-12 are intact. Speech is clear. Psych - normal mood and affect. Patient is pleasant and cooperative. Skin - warm and dry. No rashes noted. Const: General: comfortable HENMT: Ears: TM's normal bilaterally Face/Nose/Sinus: Normal nares present Eyes: General: appearance normal, both eyes and all related structures Sclera: sclerae normal Pupils: Equal, round and reactive pupils present Neck: Neck: supple Thyroid: thyroid normal Resp: Effort & Inspection: normal respiratory effort Auscultation: no crackles, no rales, no rhonchi and diminished lung sounds bilateral Cardio: Rate: regular rate Rhythm: regular rhythm GI: GI Palp: Yes Soft to palpation Auscultation: normal bowel sounds Skin: General skin exam: normal color Neuro: General: gait normal Cranial nerves: Yes Equal, round and reactive pupils present Motor exam (neuro): 5/5 motor strength present throughout and Normal motor muscle tone present throughout Extrem: General: normal to inspection Psych: Mental Status: mental status grossly normal Affect: normal affect DS: Data Data Completed and Pending Labs on day of discharge: Labs from last 24 hours 05/25/24 05/25/24 05/22/24 06:18 06:11 19:14 WBC 2.9 L RBC 5.13 Hgb 11.6 L Hct 39.0 MCV 76.0 L MCH 22.6 L MCHC 29.7 L RDW 21.8 H Plt Count 50 L MPV TNP Immature Gran % (Auto) 0.3 Neut % (Auto) 61.9 Lymph % (Auto) 25.7 [place] % (Auto) 9.0 H Eos % (Auto) 2.4 Baso % (Auto) 0.7 Lymph # (Auto) 0.74 L [place] # (Auto) 0.3 Eos # (Auto) 0.1 Baso # (Auto) 0.0 Abs Immat Gran (auto) 0.01 Absolute Neuts (auto) 1.8 Absolute Nucleated RBC 0.000 Band Neutrophils % Not Reportable Nucleated RBC % 0.0 Platelet Estimate Decreased % Immature Plt Fraction 4.3 Hypochromasia 2+ Anisocytosis 2+ Schistocytes None seen Sodium 136 L Potassium 3.3 L Chloride 105 Carbon Dioxide 26 Anion Gap 5 BUN 8 Creatinine 0.61 L Estim Creat Clear Calc 113 Estimated GFR > 60 Glucose 127 H Calcium 8.4 Magnesium 1.6 Total Bilirubin 1.6 H AST 148 H ALT 212 H Alkaline Phosphatase 112 Total Protein 6.0 L Albumin 3.1 L Alpha Fetoprotein 1.7 Preliminary micro results at discharge 05/22/24 04:34 Blood Culture - Preliminary Blood 05/22/24 04:34 Blood Culture - Preliminary Blood Imaging Radiologist's impression: XR chest 1V portable 05/21/24 NO ACUTE CARDIOPULMONARY DISEASE. CTA chest PE abdomen pel 05/21/24 IMPRESSION: CHEST: 1. No acute cardiopulmonary pathology. 2. No pulmonary embolism. ABDOMEN/PELVIS: 1. Liver cirrhosis. 2. Splenomegaly with varicosities seen posterior to the stomach. Enhancing vessels seen in the lower esophagus. 3. Tiny left kidney stone. US venous doppler LE BI 05/22/24 IMPRESSION: 1. No deep venous thrombosis in either lower limb. Discharge Plan Discharge Attending physician on discharge: Nicanor Schmidt Consulting providers: Ino Navas Discharging Clinician: Nicanor Schmidt Anticipated Discharge Date/Time: 05/25/24 11:50 Patient Disposition: Home Activity: as tolerated Diet: as tolerated Discharge Instructions: Discharge disposition:Stable Take medications as prescribed Monitor blood pressures Take caution while standing, rising, or moving Change positions slowly taking a break between each position change If you standing feel dizzy sit back down and take a break Encouraged to continue with yearly vaccinations Return to the emergency department if he developed sudden shortness of breath, chest pain, nausea, vomiting, upset stomach or intractable diarrhea Return to the emergency department if you develop fever greater than 101.5 Follow-up with the primary care physician within 1 week regarding your visit. Thank you for [facility] for your healthcare needs Patient Instructions: Antibiotic Form, Heart Failure (GEN), Gastroenteritis (GEN), Shortness of Breath (GEN) Patient Language: Portuguese Stand Alone Forms: General Discharge Information Follow-up/Referrals: Balwinder,KRISH Zepeda [Primary Care Provider] - Discharge Medications: New midodrine 2.5 mg tablet 2.5 mg PO BID Qty: 10 0RF Rx Instructions: do not give last dose of day after 6PM or within 4 hrs of bedtime meclizine 12.5 mg tablet 6.25 mg PO TID PRN (Reason: dizziness) Qty: 7 0RF Continued furosemide 20 mg Tablet 20 mg PO DAILY Qty: 30 0RF spironolactone [Aldactone] 50 mg Tablet 50 mg PO QAM Qty: 30 0RF propranolol 60 mg capsule,extended release 24 hr 60 mg PO DAILY ferrous sulfate 325 mg (65 mg iron) tablet 325 mg PO DAILY metformin 500 mg tablet extended release 24 hr 500 mg PO DAILY cholecalciferol (vitamin D3) 1,250 mcg (50,000 unit) capsule 1,250 mcg PO WEEKLY Rx Instructions: saturday Date of admission: 05/21/24 20:32 Primary Care Provider: Balwinder,Edwardo Lopez Admitting Provider: Ulysses Carlos Attending physician on admission: Nicanor Schmidt Condition: Stable
--- NOTE | 2024-05-25 12:33 | PC.NURSE ---
patient's four vapes were returned to patient at discharge
[2024-05-26 03:19] LABS: Hepatitis B Core Ab Total NON-REACTIVE (NON-REACTIVE)
[2024-05-27 15:24] LABS: Hepatitis C RNA, Quant PCR <15 NOT DETECTED IU/mL (NOT DETECTED)
== END 2024-05-25 12:25 | disposition home or self-care (01) ==
LOC: ANHED 12:52 → ANHIMU 21:41 → ANH3MEDSUR 05-24 14:34
PROVIDERS: Internal Medicine; Admitting Provider Internal Medicine; Emergency Provider Student in an Organized Health Care Education/Training Program; PCP Physician Assistant Medical; Visit Provider Physician Assistant
DX: I51.9 Heart disease, unspecified (principal); I27.20 Pulmonary hypertension, unspecified; R79.89 Other specified abnormal findings of blood chemistry; D69.6 Thrombocytopenia, unspecified; I95.9 Hypotension, unspecified; F15.10 Other stimulant abuse, uncomplicated; K74.69 Other cirrhosis of liver; B19.20 Unspecified viral hepatitis C without hepatic coma; I85.10 Secondary esophageal varices without bleeding; D50.9 Iron deficiency anemia, unspecified; R74.01 Elevation of levels of liver transaminase levels; R16.1 Splenomegaly, not elsewhere classified; N17.9 Acute kidney failure, unspecified; E11.9 Type 2 diabetes mellitus without complications; F17.290 Nicotine dependence, other tobacco product, uncomplicated; E66.9 Obesity, unspecified; Z68.33 Body mass index [BMI] 33.0-33.9, adult; E87.20 Acidosis, unspecified; Z11.4 Encounter for screening for human immunodeficiency virus [HIV]; Z20.822 Contact with and (suspected) exposure to COVID-19; Z79.899 Other long term (current) drug therapy
CPT/HCPCS: 36415; 71045; 71275; 74177; 80048; 80053; 80074; 80076; 80307; 81001; 81025; 82105; 82140; 82248; 82550; 82948; 83605; 83690; 83735; 83880; 84145; 84484; 84703; 85025; 85055; 85380; 85610; 85730; 86703; 86704; 86706; 87040; 87086; 87522; 87637; 93005; 93306; 93970; 94762; 96361; 96365; 96366; 96367; 96374; 96375; 97110; 97116; 97161; 97530; 99285; A9270; G0378; G0379; G0432; J0780; J1610; J1938; J1956; J3370; J3475; J7030; J7040; J7050; Q9967

== ENCOUNTER 2024-10-25 04:09 | Emergency (ER) | payer OTHER, SELFPAY ==
--- NOTE | ~2024-10-25 | XR_ITS ---
EXAMINATION: XR chest 1V, 10/25/2024 4:44 CDT HISTORY: chest pain COMPARISON: No comparisons available. Technique: Single view. Findings: The lungs are clear, no effusion. No pneumothorax. Heart is normal size. Mediastinal and hilar contours are within normal limits. Bony thorax no acute abnormality. Impression: No acute cardiopulmonary abnormality. Reviewed, dictated and finalized at location A. Impression: No acute cardiopulmonary abnormality.
[2024-10-25 04:09] VITALS: BP 126/86; PULSE 101; RESP 24; TEMP 36.6; O2SAT 99
[2024-10-25 04:15] VITALS: O2SAT 99
--- NOTE | 2024-10-25 04:15 | ECG_ITS ---
Test Date: 2024-10-25 04:22:52 Measurements Intervals [place] Rate: 92 P: 76 [place]: 163 QRS: 126 QRSD: 100 T: -2 QT: 392 QTc: 487 Interpretive Statements SINUS RHYTHM RIGHT AXIS DEVIATION POSSIBLE RIGHT ATRIAL ENLARGEMENT [0.25mV P-WAVE] POSSIBLE LEFT ATRIAL ENLARGEMENT [-0.1mV P-WAVE IN V1/V2] INCOMPLETE RIGHT BUNDLE BRANCH BLOCK [90+ ms QRS DURATION, TERMINAL R IN V1/V2, 40+ ms S IN I/aVL/V4/V5/V6] RIGHT VENTRICULAR HYPERTROPHY [SOME/ALL OF: PROMINENT R IN V1, LATE TRANSITION, RAD, GERALD, SSS] NONSPECIFIC ST & T-WAVE ABNORMALITY ABNORMAL ECG Electronically Signed On 10-25-2024 09:48:16 CDT by Calixto Franco M.D.
[2024-10-25 04:16] VITALS: PULSE 96
--- NOTE | 2024-10-25 04:34 | PC.NURSE ---
Rn had pt attempt to give us a urine sample. Pt was unsuccessful at this time.
[2024-10-25 04:47] LABS: Hematocrit 44.6 % (37.0-47.0); Hemoglobin 15.0 g/dL (12.0-15.0); Immature Granulocyte Percent A 0.2 % (0-0.5); Immature Platelet Fraction Pct 2.5 % (0.9-11.2); Lymphocytes Absolute Auto 1.00 K/mm3 (0.9-3.2); Mean Corpuscular HGB Conc 33.6 g/dl (32-36); Mean Corpuscular Hemoglobin 27.9 pg (26-34); Mean Corpuscular Volume 82.9 fl (80-100); Nucleated Red Blood Cells Absolute Auto 0.000 K/mm3 (0.0-0.012); Nucleated Red Blood Cells Perc 0.0 % (0.0-0.2); Platelet Count Result 61 k/mm3 (150-375); Red Blood Count 5.38 M/mm3 (4.2-5.4); White Blood Count 5.2 K/mm3 (4.5-10.0)
[2024-10-25 04:57] LABS: INR 1.4; Prothrombin Time 17.0 Seconds (11.1-14.7)
[2024-10-25 04:58] LABS: Partial Thromboplastin Time 31.9 Seconds (22.3-36.8)
[2024-10-25 04:59] LABS: Alanine Aminotransferase 33 U/L (6-35); Albumin Level 4.1 g/dL (3.5-5.1); Alkaline Phosphatase 110 U/L (38-126); Anion Gap 7 mmol/L (4-12); Aspartate Amino Transferase 55 U/L (14-36); Bilirubin,Total 3.6 mg/dL (0.2-1.3); Blood Urea Nitrogen 23 mg/dL (7-17); Calcium 9.2 mg/dL (8.4-10.2); Carbon Dioxide 23 mmol/L (22-30); Chloride 105 mmol/L (98-107); Estimated CRCL calculation 68 ml/min; Estimated Glomerular Filt Rate > 60; Glucose 114 mg/dL (65-110); Lipase 93 U/L (23-300); Potassium 4.1 mmol/L (3.4-5.0); Sodium 135 mmol/L (137-145); Total Protein 7.9 g/dL (6.3-8.2)
[2024-10-25 05:11] LABS: Anisocytosis 1+; Ovalocytes Occasional; Schistocytes None Seen; Troponin I 0.013 ng/mL (0.000-0.034)
--- NOTE | 2024-10-25 05:35 | PC.NURSE ---
Pt is sleeping at this time. MD Smith states to let pt sleep and not bother or wake her up for urine sample. states she is okay if we do not give sample at this time.
[2024-10-25 05:47] VITALS: BP 128/78; PULSE 99; RESP 17; O2SAT 97
--- OUTSIDE RECORDS SUMMARY | 2024-10-25 06:22 | XMS_ITS | Clinical Summary ---
Author Organization [facility] Address [address] [place] [address] [place]. 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 Gender Identity Not on file Sexual Orientation [...] (1 of 3 - 19+ 3-dose series) 12/13 HPV/Cotest (21-29) 01/09/2000 HPV VACCINES (1 - 3-dose SCDM series) 2006 CERVICAL CANCER SCREENING 2009 HPV/Cotest (30-65) 2009 PAP SMEAR 2009 BREAST CANCER SCREENING 2019 COLORECTAL SCREENING 01/09/2024 Colorectal Cancer Screening 01/09/2024 FIT-DNA Q 3 years 01/09/2024 FIT/FOBT Q 1 year 01/09/2024 Flex Sig/CT Colonography Q 5 years 01/09/2024 INFLUENZA VACCINE (#1) 2024 Care Teams Senior C Software Developer Relationship Specialty [place] [id number] [facility] [address] [place] [address] PCP - General 11/03/08
--- OUTSIDE RECORDS SUMMARY | 2024-10-25 06:22 | XMS_ITS | Encounter Summary ---
Author Organization [facility] Address 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
--- OUTSIDE RECORDS SUMMARY | 2024-10-25 06:22 | XMS_ITS | Patient Health Record ---
Author Organization [facility] Address [address] [place] [address] Care Team Providers Care Gaming Host Name Role Phone Nicole Willis Primary Care [...] Status Risk Notes Problem Generalized anxiety disorder ([id number]) CRYSTAL (generalized anxiety disorder) (F41.1) Active confirmed Encounters Encounter Location Date Provider Diagnosis [facility] [address] [place] [address] 05/12/2024 Nicole Willis CRYSTAL (generalized anxiety disorder) F41.[address] [place] [address] 05/12/2024 Nicole Willis Assessments Encounter Date Diagnosis [...] or be administered own oral medications per [facility] protocols. Provided informed consent with understanding of [...] Date Coverage End Date MEDICAID [address] [facility] [place] [address] [id number] Nichelle Pelayo Self - patient is the insured 5 MEDICAID [id number] [address] [place] [address] [id number] Nichelle Pelayo Self - patient is the insured 5 Medical (General) History Medical History History ICD Code cirrhosis of the liver COPD Low platelet- hematology f/u 05/25/24 Prediabetic Surgical History Surgery Date(Month/Year) section 07/16/16 laparoscopic cholecystectomy Hospitalization History Reason Date(Month/Year) blood transfusion 12/2023
--- OUTSIDE RECORDS SUMMARY | 2024-10-25 06:22 | XMS_ITS | Encounter Summary ---
Author Organization [facility] Address [address] [place] [address] Care Team Providers Care Green Marketing Analyst Name Role Phone Michael Whitehead MD Primary Care Provider [phone] Encounter Details Date Type Department Care Team (Latest Contact Info) Description 12/06/2006 Outpatient Historical [facility] [place] [address] [place] [address] Urinary Tract Infection, Site not Specified (Primary Dx) Social History Tobacco Use Types Packs/Day Years Used Date Smoking Tobacco: Never Assessed Comments Unknown Sex and Gender Information Value Date Recorded Sex Assigned at Not on file 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
--- OUTSIDE RECORDS SUMMARY | 2024-10-25 06:22 | XMS_ITS | Clinical Summary ---
Author Organization [facility] Address [address] [place] [address] Phone Care Team Providers Care Senior Mobile Solutions Architect Name Role Phone Mikel Britt MD Primary Care Provider [phone] Allergies Active Allergy Reactions Criticality Noted Date Comments Penicillins Anaphylaxis,Hives 10/06/2024 Medications * This document contains information received from the source organization and may not represent a complete record from that organization. metFORMIN (GLUCOPHAGE-XR) 500 MG TABLET SR 24 HR Take 500 mg by mouth daily. This RX is for Metformin SR. Active furosemide (Lasix) 40 MG Tablet Take 40 mg by mouth daily. Active spironolactone (ALDACTONE) 50 MG Tablet Take 50 mg by mouth daily. Active hydrOXYzine (ATARAX) 50 MG Tablet Take 1 Tablet by mouth every 6 hours as needed for Anxiety (Mild anxiety) for up to 20 days. 60 Tablet 5 10/30/19 25 Active empagliflozin (Jardiance) 10 MG Tablet Take 1 Tablet by mouth daily for 30 days. 30 Tablet 5 11/09/19 25 Active metoprolol Succinate (TOPROL-XL) 25 MG TABLET SR 24 HR Take 1 Tablet by mouth daily. 90 Tablet 5 Active Active Problems Problem Noted Date Diagnosed Date Withdrawal from benzodiazepine 10/06/2024 Withdrawal from methamphetamine 10/06/2024 Prediabetes Hepatitis C Overview (10/06/2024): patient was treated and doesn't have it anymore Cirrhosis Anxiety Liver cirrhosis H/O ETOH abuse Vitamin D deficiency Pulmonary HTN PAD (peripheral artery disease) Thrombocytopenia Methamphetamine abuse Benzodiazepine abuse Encounters * This document contains information received from the source organization and may not represent a complete record from that organization. Date Type Department Care Team Description 10/06/2024 Travel from Last 3 Months Social History Tobacco Use Types Packs/Day Years Used Date Smoking Tobacco: Former Cigarettes Smokeless Tobacco: Never Tobacco Cessation:Counseling Given: Not Answered Alcohol Use Standard Drinks/Week Comments Not Currently 0 (1 standard drink = 0.6 oz pur e alcohol) quit years ago Social Connection and Isolation Panel Answer Date Recorded In a typical week, how many times do you talk on the phone with family, friends, or neighbors? Patient declined 10/06/2024 How often do you get togethe r with friends or relatives? Patient declined 10/06/2024 How often do you attend restoration or muslim serv ices? Patient declined 10/06/2024 Do you belong to any clubs o r organizations such as restoration groups, unions, fraternal or athletic groups, or school groups? Patient declined 10/06/2024 How often do you attend meet ings of the clubs or organizations you belong to? Patient declined 10/06/2024 Are you , , di vorced, , never , or living with a partner? Patient declined 10/06/2024 AUDIT-C Answer Date Recorded Q1: How often do you have a drink containing alc ohol? Patient declined 10/06/2024 Q2: How many drinks containi ng alcohol do you have on a typical day when you are drinking? Patient declined 10/06/2024 Q3: How often do you have si x or more drinks on one occasion? Patient declined 10/06/2024 Overall Financial Resource Strain (CARDIA) Answe r Date Recorded How hard is it for you to pa y for the very basics like food, housing, medical care, and heating? Patient declined 10/06/2024 [facility] - Occupational Stress Questionnaire Answer Date Recorded Do you feel stress - tense, restless, nervous, or anxious, or unable to sleep at night because your mind is troubled all the time - these days? Patient declined 10/06/2024 Exercise Vital Sign Answer Date Recorde d On average, how many days pe r week do you engage in moderate to strenuous exercise (like a brisk walk)? Patient declined On average, how many minutes do you engage in exercise at this level? Patient declined 10/06/2024 Hunger Vital Sign Answer Date Recorded Within the past 12 months, y ou worried that your food would run out before you got the money to buy more. Patient declined Within the past 12 months, t he food you bought just didn't last and you didn't have money to get more. Patient declined PRAPARE - Transportation Answer Date Re corded In the past 12 months, has l ack of transportation kept you from medical appointments or from getting medications? Patient declined 10/06/2024 In the past 12 months, has l ack of transportation kept you from meetings, work, or from getting things needed for daily living? Patient declined 10/06/2024 Housing Stability Vital Sign Answer Harvey e Recorded In the last 12 months, was t here a time when you were not able to pay the mortgage or rent on time? Patient declined 10/07/19 25 In the past 12 months, how m any times have you moved where you were living? 1 10/06/2024 At any time in the past 12 m [facility], were you homeless or living in a long term (including now)? Patient declined 10/06/2024 [facility] Utilities Answer Date Recorded In the past 12 months has th e electric, gas, oil, or water company threatened to shut off services in your home? Patient declined 10/06/2024 Comments No Sex and Gender Information Value Date Recorded Sex Assigned at Not on file Legal Sex Female 3:53 PM CDT Gender Identity Not on file Sexual Orientation Not on file Last Filed Vital Signs Vital Sign Reading Time Taken Comments Blood Pressure 144/61 10/09/2024 12:03 PM CDT Pulse 90 10/09/2024 12:03 PM CDT Temperature 35.3 C (95.5 F) 10/09/2024 12:03 PM CDT Respiratory Rate 18 10/09/2024 12:03 PM CDT Oxygen Saturation 100% 10/09/2024 12:03 PM CDT Inhaled Oxygen Concentration - - Weight 81.2 kg (179 lb) 10/06/2024 12:11 PM CDT Height 162.6 cm (5' 4) 10/06/2024 12:11 PM CDT Body Mass Index 30.73 10/06/2024 12:11 PM CDT Plan of Treatment Not on file Procedures Procedure Name Priority Date/Time Associated Diagnosis Comments CBC WITH AUTO DIFFERENTIAL Routine 10/08/2024 5:53 AM CDT HEMOGLOBIN A1C W/ ESTIMATED GLUCOSE Routine 10/08/2024 5:53 AM CDT COMPLETE BLOOD COUNT (CBC) WITH DIFF Routine 10/08/2024 5:53 AM CDT UR TEST QUAL Routine 10/06/2024 7:16 PM CDT URINE DRUG SCREEN Routine 10/06/2024 7:1 6 PM CDT POCT GLUCOSE Routine 10/06/2024 11:29 AM CDT CBC WITH AUTO DIFFERENTIAL Routine 10/06/2024 11:27 AM CDT ETHYL ALCOHOL (ETHANOL) Routine 10/06/2024 11:27 AM CDT PROTIME (PT) (PROTHROMBIN TIME) Routine 10/06/2024 11:27 AM CDT CMP (COMPREHENSIVE METABOLIC PANEL) Routine 10/06/2024 11:27 AM CDT COMPLETE BLOOD COUNT (CBC) WITH DIFF Routine 10/06/2024 11:27 AM CDT from Last 3 Months Results * Hemoglobin A1C w/ Estimated Glucose (10/08/2024 5:53 AM CDT) HGB-A1C 5.4 4.0 - 6.0 % 10/08/2024 8:06 AM CDT [facility] Est Average Glucose 108.3 mg/dL 10/08/2024 8:06 AM CDT [facility] Blood Venipuncture / Unknown 10/08/2024 5:53 AM CDT 10/08/2024 6:50 AM CDT Narrative [facility] - 10/08/2024 8:06 AM CDT HEMOGLOBIN A1C: DIABETIC PATIENTS: WELL-CONTROLLED: 6.2 - 7.0 INTERMEDIATE WELL-CONTROLLED: 7.0 - 9.0 POORLY-CONTROLLED: >9.0 Specimens containing greater than 5% of Hemoglobin F may result in lower than expected % HbA1C results. us Ayesha Galvez MD CHEMISTRY ORDERABLES Final Result [facility] [address] [place] [address] * (ABNORMAL) CBC with Auto Differential (10/08/2024 5:53 AM CDT) Only the most recent of2 resultswithin the time period is included. WBC 4.41 4.00 - 12.00 10(3)/mcL 10/08/2024 7:52 AM CDT [facility] RBC 5.06 3.80 - 5.30 10(6)/mcL 10/08/2024 7:52 AM CDT [facility] HEMOGLOBIN (HGB) 14.4 12.0 - 15.8 g/dL 10/08/2024 7:52 AM CDT [facility] HEMATOCRIT (HCT) 43.6 36.0 - 47.0 % 10/08/2024 7:52 AM CDT [facility] MCV 86.2 82.0 - 96.0 fL 10/08/2024 7:52 AM CDT [facility] MCH 28.5 26.0 - 34.0 pg 10/08/2024 7:52 AM CDT [facility] MCHC 33.0 31.0 - 36.0 g/dL 10/08/2024 7:52 AM CDT [facility] PLATELET COUNT 59(L) 140 - 440 10(3)/mcL 10/08/2024 7:52 AM CDT [facility] RDW 16.6(H) 11.8 - 15.5 % 10/08/2024 7:52 AM CDT [facility] MPV 10.9 9.7 - 12.4 fL 10/08/2024 7:52 AM CDT [facility] NEUTROPHILS 61.1 47.0 - 73.0 % 10/08/2024 7:52 AM CDT [facility] LYMPHOCYTES 22.2 18.0 - 42.0 % 10/08/2024 7:52 AM CDT [facility] MONOCYTES 13.8(H) 4.0 - 12.0 % 10/08/2024 7:52 AM CDT [facility] EOSINOPHILS 2.0 0.0 - 5.0 % 10/08/2024 7:52 AM CDT [facility] BASOPHILS 0.7 0.0 - 1.0 % 10/08/2024 7:52 AM CDT [facility] IMMATURE GRANULOCYTE 0.2 0.0 - 0.4 % 10/08/2024 7:52 AM CDT [facility] ABSOLUTE NEUTROPHILS 2.69 1.60 - 7.70 10(3)/mcL 10/08/2024 7:52 AM CDT [facility] ABSOLUTE LYMPHOCYTES 0.98(L) 1.30 - 3.20 10(3)/mcL 10/08/2024 7:52 AM CDT [facility] ABSOLUTE MONOCYTES 0.61 0.20 - 1.00 10(3)/mcL 10/08/2024 7:52 AM CDT [facility] ABSOLUTE EOSINOPHIL 0.09 0.00 - 0.40 10(3)/mcL 10/08/2024 7:52 AM CDT [facility] ABSOLUTE BASOPHILS 0.03 0.00 - 0.10 10(3)/mcL 10/08/2024 7:52 AM CDT [facility] ABSOLUTE IMMATURE GRANULOCYTE 0.01 0.00 - 0.03 10 (3) mcL. 10/08/2024 7:52 AM CDT [facility] NRBC PER 100 WBC 0 10/09/19 7:52 AM CDT [facility] RESULTS ARE CONSISTENT WITH PERIPHERAL SMEAR REVIEW Yes 10/08/2024 7:52 AM CDT [facility] Blood Venipuncture / Unknown 10/08/2024 5:53 AM CDT 10/08/2024 6:58 AM CDT Ayesha Galvez MD HEMATOLOGY ORDERABLE S Final Result Performing Organization Address City/[facility]/ZIP Co de Phone Number [facility] [place] [address] * Ur Test Qual (10/06/2024 7:16 PM CDT) PREG TEST,MONOCLONA L Negative 10/06/2024 7:32 PM CDT [facility] Urine Non-Phlebotomy Collection / Unknown 10/06/2024 7:16 PM CDT 10/06/2024 7:23 PM CDT Ayesha Galvez MD URINE ORDERABLES Fin al Result Performing Organization Address City/[facility]/ZIP Co de Phone Number [facility] [place] [address] * (ABNORMAL) Urine Drug Screen (10/06/2024 7:16 PM CDT) Pathologist [facility] UR AMPHETAMINE DETECTED(A) NON DETECTED 10/06/2024 7:37 PM CDT [facility] Comment: FOR MEDICAL USE ONLY. CUTOFF CONCENTRATION FOR DETECTED RESULT: AMPHETAMINE: 500 NG/ML UR BENZODIAZEPINES NON DETECTED NON DETECTED 10/06/2024 7:37 PM CDT [facility] Comment: FOR MEDICAL USE ONLY. CUTOFF CONCENTRATION FOR DETECTED RESULT: BENZODIAZAPINE: 200 NG/ML UR COCAINE METABOLITE NON DETECTED NON DETECTED 10/06/2024 7:37 PM CDT [facility] Comment: FOR MEDICAL USE ONLY. CUTOFF CONCENTRATION FOR DETECTED RESULT: COCAINE: 150 NG/ML UR OPIATES NON DETECTED NON DETECTED 10/06/2024 7:37 PM CDT [facility] Comment: FOR MEDICAL USE ONLY. CUTOFF CONCENTRATION FOR DETECTED RESULT: OPIATES: 300 NG/ML UR PHENCYCLIDINE NON DETECTED NON DETECTED 10/06/2024 7:37 PM CDT [facility] Comment: FOR MEDICAL USE ONLY. CUTOFF CONCENTRATION FOR DETECTED RESULT: PCP: 25 NG/ML UR CANNABINOID NON DETECTED NON DETECTED 10/06/2024 7:37 PM CDT [facility] Comment: FOR MEDICAL USE ONLY. CUTOFF CONCENTRATION FOR DETECTED RESULT: THC (MARIJUANA): 50 NG/ML UR BARBITURATE NON DETECTED NON DETECTED 10/06/2024 7:37 PM CDT [facility] Comment: FOR MEDICAL USE ONLY. CUTOFF CONCENTRATION FOR DETECTED RESULT: BARBITUATES: 200 NG/ML UR FENTANYL NON DETECTED NON DETECTED 10/06/2024 7:37 PM CDT [facility] Comment: FOR MEDICAL USE ONLY. CUTOFF CONCENTRATION FOR DETECTED RESULT: FENTANYL: 1.0 NG/ML Urine Non-Phlebotomy Collection / Unknown 10/06/2024 7:16 PM CDT 10/06/2024 7:23 PM CDT us Ayesha Galvez MD URINE ORDERABLES Fin al Result Performing Organization Address City/[facility]/ZIP Co de Phone Number [facility] [place] [address] * POCT Glucose (10/06/2024 11:29 AM CDT) [facility] GLUCOSE,BEDSIDE POCT 87 70 - 99 mg/dL 10/06/2024 11:31 AM CDT [facility] Blood 10/06/2024 11:2 9 AM CDT 10/06/2024 11:31 AM CDT us None Provider POINT OF CARE TESTING Final Resu lt Performing Organization Address City/[facility]/ZIP Co de Phone Number [facility] [address] [place] [address] * (ABNORMAL) PROTIME (PT) (PROTHROMBIN TIME) (10/06/2024 11:27 AM CDT) Pathologist [facility] PROTIME-PATIENT 15.9(H) 11.6 - 14.8 sec 10/06/2024 11:51 AM CDT [facility] INR 1.3(H) 0.9 - 1.2 10/06/2024 11:51 AM CDT [facility] Comment: Therapeutic Ranges INR = 2.0-3.0: Venous thromb, atrial fib, pul embolism, tissue heart valve, ami. INR = 2.5-3.5: Mechanical heart valve Critical value for INR is >/= 4.5 Blood Venipuncture / Unknown 10/06/2024 11:27 AM CDT 10/06/2024 11:29 AM CDT us Ayesha Galvez MD HEMATOLOGY ORDERABLE S Final Result Performing Organization Address City/[facility]/ZIP Co de Phone Number [facility] [place] [address] * Ethyl Alcohol (Ethanol) (10/06/2024 11:27 AM CDT) [facility] ETHANOL <10 <10 mg/dL 10/06/2024 11:53 AM CDT [facility] Blood Venipuncture / Unknown 10/06/2024 11:27 AM CDT 10/06/2024 11:29 AM CDT us Ayesha Galvez MD CHEMISTRY ORDERABLES Final Result [facility] [address] [place] [address] * (ABNORMAL) CMP (Comprehensive Metabolic Panel) (10/06/2024 11:27 AM CDT) [facility] SODIUM 139 136 - 145 mmol/L 10/06/2024 11:53 AM CDT [facility] POTASSIUM 3.7 3.5 - 5.1 mmol/L 10/06/2024 11:53 AM T [facility] CHLORIDE 111(H) 98 - 107 mmol/L 10/06/2024 11:53 AM T [facility] CO2, VENOUS 22 22 - 30 mmol/L 10/06/2024 11:53 AM T [facility] ANION GAP 9.7 <18.0 mmol/L 10/06/2024 11:53 AM CDT [facility] GLUCOSE 93 70 - 99 mg/dL 10/06/2024 11:53 AM CDT [facility] BUN 9 5 - 18 mg/dL 10/06/2024 11:53 AM T [facility] CREATININE, BLOOD 0.69 0.60 - 1.00 mg/dL 10/06/2024 11:53 AM T [facility] BUN/CREATININE RATIO 13 12 - 20 ratio 10/06/2024 11:53 AM T [facility] TOTAL PROTEIN 6.7 6.0 - 8.0 g/dL 10/06/2024 11:53 AM T [facility] ALBUMIN 3.5 3.5 - 5.0 g/dL 10/06/2024 11:53 AM [facility] A/G RATIO 1.1 1.0 - 2.2 10/06/2024 11:53 AM T [facility] CALCIUM 8.6(L) 8.7 - 10.5 mg/dL 10/06/2024 11:53 AM T [facility] T BILI 1.1 0.2 - 1.2 mg/dL 10/06/2024 11:53 AM T [facility] SGOT (AST) 37 <43 U/L 10/06/2024 11:53 AM T [facility] SGPT (ALT) 25 <56 U/L 10/06/2024 11:53 AM T [facility] ALKALINE PHOSPHATASE 78 40 - 150 U/L 10/06/2024 11:53 AM T [facility] GFR, ESTIMATED >60 >=60 10/06/2024 11:53 AM CDT [facility] Comment: Creatinine Clearance is the preferred criteria for selecting drug dose adjustments in renally impaired patients. The GFR is provided as additional pertinent clinical information. GFR is reported in mL/min/1.73 sq m. Calculation based on the 2020 Chronic Kidney Disease Epidemiology Collaboration (CKD-EPI) equation refit without adjustment for race. GFR, EST. >60 >=60 025 11:53 AM CDT [facility] Comment: Creatinine Clearance is the preferred criteria for selecting drug dose adjustments in renally impaired patients. The GFR is provided as additional pertinent clinical information. GFR is reported in mL/min/1.73 sq m. Calculation based on the 2009 Chronic Kidney Disease Epidemiology Collaboration (CKD-EPI). GFR, EST. NONAFRICAN >60 >=60 10/06/2024 11:53 AM CDT [facility] Comment: Creatinine Clearance is the preferred criteria for selecting drug dose adjustments in renally impaired patients. The GFR is provided as additional pertinent clinical information. GFR is reported in mL/min/1.73 sq m. Calculation based on the 2009 Chronic Kidney Disease Epidemiology Collaboration (CKD-EPI). Blood Venipuncture / Unknown 10/06/2024 11:27 AM CDT 10/06/2024 11:29 AM CDT Ayesha Galvez MD CHEMISTRY ORDERABLES Final Result [facility] [place] [address] from Last 3 Months Insurance MEDICAID [employer] [facility] Advance Directives * Full Code (Latest Code Status on File) Date Activated Date Inactivated Comments 10/06/2024 11:01 AM CPR-Full Petra tment: FULL ARREST: Attempt Resuscitation/CPR wit intubation and mechanical ventilation. PRE-ARREST: Use entire range of life support measures to stabilize the patient. Care Teams Senior Mobile Solutions Architect Relationship Specialty Start Date End Date Mikel Britt MD [address] [place] [address] PCP - General Cardiology 10/07/24
--- NOTE | 2024-10-25 06:31 | ED_ITS ---
HPI - Chest Pain General Chief Complaint: Chest Pain <Husam Smith MD - Last Filed: 10/26/24 03:53> Stated Complaint: CHEST PAIN <Husam Smith MD - Last Filed: 10/26/24 03:53> Time Seen by Provider: 10/25/24 06:03 <Husam Smith MD - Last Filed: 10/26/24 03:53> History of Present Illness HPI narrative: Patient is a 44-year-old female who presents to the emergency department this evening complaining of chest pain started at around 11:00 p.m. last night. Patient states that she went to go to sleep and when she laid down she started to have the chest pain. Describes it as a sharp pain in the center of her chest. Patient admits to history of drug abuse, states that she recently used meth. States that she ingests it is and snorts it, does not injected it. Admits to history of CHF and diabetes otherwise denies any additional symptoms or concerns. <Husam Smith MD - Last Filed: 10/26/24 03:53> Related Data Home Medications: Home Medications ?Medication ?Instructions ?Recorded ?Confirmed ?Last Taken ?Type cholecalciferol (vitamin D3) 1,250 1,250 mcg PO WEEKLY 05/21/24 05/22/24 05/20/24 History mcg (50,000 unit) capsule ferrous sulfate 325 mg (65 mg 325 mg PO DAILY 05/21/24 05/22/24 05/20/24 History iron) tablet metformin 500 mg tablet,extended 500 mg PO DAILY 05/2105/22/24 05/20/24 History release 24 hr propranolol 60 mg capsule,24 60 mg PO DAILY 05/21/24 0 05/22/24 05/20/24 History hr,extended release <Husam Smith MD - Last Filed: 10/26/24 03:53> Allergies/Adverse Reactions: Allergies Allergy/AdvReac Type Severity Reaction Status Date / Time Penicillins Allergy Severe Swelling Verified 05/22/24 00:21 cephalexin Allergy Intermediate Swelling Verified 05/22/24 00:21 nitrofurantoin Allergy Intermediate Swelling Verified 05/22/24 00:21 <Husam Smith MD - Last Filed: 10/26/24 03:53> Review of Systems 2 Review of Systems: All systems are reviewed and are negative unless stated otherwise in the HPI. <Husam Smith MD - Last Filed: 10/26/24 03:53> PMFSH Past Medical History Medical History: Medical History Esophageal varices Gastritis Iron deficiency Acute on chronic anemia Tobacco abuse Cirrhosis Hepatitis C <Husam Smith MD - Last Filed: 10/26/24 03:53> Surgical History Surgical History: Surgical History History of section History of cholecystectomy <Husam Smith MD - Last Filed: 10/26/24 03:53> Family History Family History: Family History Sibling Drug addiction <Husam Smith MD - Last Filed: 10/26/24 03:53> Social History Social History: Social History Social History: Surrogate medical decision maker: Claudia Pelayo, mother. Code status: Full code. Smoking packs per day: 0.5 Smoking cigarettes per day: 10.0 Years smoked: 25 Smoking pack-years: 12.50 Smoking status: Current every day smoker Tobacco type: e-cigarettes/vaping Alcohol intake: never Substance use: never Substance use type: methamphetamine Other substance usage details: history of heroin use for 11 years, clean for 11 years. Last use: Snorts meth daily for the past 6 years. Do You Feel Safe in your Home?: Yes Lack of Transportation: No Lack of Food: Never True Current Housing: I Have Housing Concerned About Future Housing: No Difficulty Paying Gas/Electric Bills: No Difficulty Paying for Meds: No Currently Unemployed: No Education: Grade School Difficulty w/ Childcare or Family Care: No Additional living arrangements comments: The patient lives in [place]. She has 3 grown children and a 5-year-old daughter. Additional occupation/education comments: Currently unemployed. Spiritual care concerns: No <Husam Smith MD - Last Filed: 10/26/24 03:53> Exam 2 Narrative: General: Alert, awake, afebrile, in no acute distress. HEENT: PERRL, no rhinorrhea, no post nasal drip, oropharynx clear. Neck: Trachea midline, no JVD, no lymphadenopathy. Cardiovascular: Regular rate and rhythm, no murmurs, rubs or gallops, no peripheral edema. Respiratory: Coarse breath sounds bilaterally, no tachypnea, no wheezing, no respiratory distress, intermittent cough. Abdomen: Soft, nontender, nondistended, no rebound, no guarding, no peritoneal signs. Musculoskeletal: No joint swelling or deformity, normal muscle tone. Skin: No rashes or petechia, no signs of infection. Psychiatric: Alert and oriented, normal behavior and judgment for situation. Neurological: Alert and oriented to person, place, and time. Follows all commands. No focal deficits, speech is clear and fluent. <Husam Smith MD - Last Filed: 10/26/24 03:53> Course Course Emergency Course: Patient signed out to me pending repeat troponin and chest x-ray to be read by stat rad. ED attending had also ordered that urine be obtained although this was for the UDS primarily as patient had not had any urinary symptoms. Patient becomes very agitated upon request to obtain urine. She notes that she has admitted to using methamphetamine. Refusing to give sample. Will defer obtaining given history of stated use. CXR Stat Rad: Lungs are clear. Heart size is normal. No pleural effusions. Given chest x-ray no leukocytosis, will defer antibiotics. Repeat troponin within normal limits. Otherwise stable for DC. Advised abstaining from drugs and following up with Primary care provider. Patient becomes very agitated at the time of discharge. She continues to state I can't breathe but is speaking in full sentences, very loquacious and moving around in the bed continuously. Vital signs remain reassuring. States she has difficulty walking to the bathroom, becomes winded. I discussed her workup with her here today and she states she has seen 12 different doctors and been told there is nothing wrong with her each time. She states she has seen a pharmaceutical plant operator before. I noted that it is possible that she has an underlying condition that might explain her symptoms , for example pulmonary hypertension, however no emergent etiology has been identified. I continue to encourage her repeatedly to follow-up with her primary care physician as well as all of her specialists for which she says she has numerous. She states using I want to be admitted but I don't. I'm an addict. I want to go get drugs. She is cursing at staff saying people have been bitches and feels like she has been disrespected. She states she is being kicked out because she wouldnt' give urine and I told her this was not the case. Patient states, fine, I'll go. but I'll either come right back here or I'll at home. <Kelsey Pratt MD - Last Filed: 10/25/24 10:00> Vital Signs Vital signs: Vital Signs Temperature 98 F 10/25/24 04:09 Pulse Rate 101 H 10/25/24 04:09 Respiratory Rate 24 H 10/25/24 04:09 Blood Pressure 126/86 10/25/24 04:09 Pulse Oximetry 99 10/25/24 04:09 Oxygen Delivery Room Air 10/25/24 04:09 Temperature 98 F 10/25/24 04:09 Pulse Rate 95 10/25/24 07:43 Respiratory Rate 20 10/25/24 07:43 Blood Pressure 114/70 10/25/24 07:43 Pulse Oximetry 98 10/25/24 07:00 Oxygen Delivery Room Air 10/25/24 04:15 <Husam Smith MD - Last Filed: 10/26/24 03:53> Vital Signs Temperature 98 F 10/25/24 04:09 Pulse Rate 101 H 10/25/24 04:09 Respiratory Rate 24 H 10/25/24 04:09 Blood Pressure 126/86 10/25/24 04:09 Pulse Oximetry 99 10/25/24 04:09 Oxygen Delivery Room Air 10/25/24 04:09 Temperature 98 F 10/25/24 04:09 Pulse Rate 95 10/25/24 07:43 Respiratory Rate 20 10/25/24 07:43 Blood Pressure 114/70 10/25/24 07:43 Pulse Oximetry 98 10/25/24 07:00 Oxygen Delivery Room Air 10/25/24 04:15 <Kelsey Pratt MD - Last Filed: 10/25/24 10:00> MDM - Chest Pain MDM Narrative Medical decision making narrative: The patient was evaluated by myself in the emergency department. History is obtained from patient who is an independent historian and physical exam was performed. External medical records were reviewed at this time. IV was established and pertinent tests were ordered. EKG was obtained which revealed sinus rhythm under 92 beats per minute, otherwise no evidence of acute ischemia. EKG was independently interpreted by me and is currently pending official cardiology read. Laboratory results obtained revealing no acute process. Initial troponin 0.013. Imaging studies obtained included CXR which was independently interpreted by me revealing bilateral patellae hilar opacities otherwise no acute process. X-ray currently pending official radiology read. Patient was sined out to AM ED physician pending remainder of the workup. <Husam Smith MD - Last Filed: 10/26/24 03:53> Lab Data Result diagrams: 10/25/24 04:39 10/25/24 04:39 <Husam Smith MD - Last Filed: 10/26/24 03:53> Labs: Lab Results 10/25/24 10/25/24 Range/Units 04:39 08:38 WBC 5.2 (4.5-10.0) K/mm3 RBC 5.38 (4.2-5.4) M/mm3 Hgb 15.0 D (12.0-15.0) g/dL Hct 44.6 (37.0-47.0) % MCV 82.9 (80-100) fl MCH 27.9 (26-34) pg MCHC 33.6 (32-36) g/dl RDW 15.6 H (11.5-14.5) % Plt Count 61 L (150-375) k/mm3 MPV 9.9 (7.4-10.4) fl Immature Gran % (Auto) 0.2 (0-0.5) % Neut % (Auto) 68.3 (45.5-73.1) % Lymph % (Auto) 19.1 (18.3-44.2) % [place] % (Auto) 10.7 H (2.6-8.5) % Eos % (Auto) 1.1 (0-4.4) % Baso % (Auto) 0.6 (0.2-1.2) % Lymph # (Auto) 1.00 (0.9-3.2) K/mm3 [place] # (Auto) 0.6 (0.1-0.6) K/mm3 Eos # (Auto) 0.1 (0-0.3) K/mm3 Baso # (Auto) 0.0 (0.0-0.1) K/mm3 Abs Immat Gran (auto) 0.01 (0.00-0.031) K/mm3 Absolute Neuts (auto) 3.6 (1.3-6.7) K/mm3 Absolute Nucleated RBC 0.000 (0.0-0.012) K/mm3 Band Neutrophils % Not Reportable Nucleated RBC % 0.0 (0.0-0.2) % Atypical Lymphocytes Present Platelet Estimate Decreased (Adequate) % Immature Plt Fraction 2.5 (0.9-11.2) % Anisocytosis 1+ Ovalocytes Occasional Schistocytes None seen PT 17.0 H (11.1-14.7) Seconds INR 1.4 APTT 31.9 (22.3-36.8) Seconds Sodium 135 L (137-145) mmol/L Potassium 4.1 (3.4-5.0) mmol/L Chloride 105 (98-107) mmol/L Carbon Dioxide 23 (22-30) mmol/L Anion Gap 7 (4-12) mmol/L BUN 23 H D (7-17) mg/dL Creatinine 0.98 (0.7-1.0) mg/dL Estim Creat Clear Calc 68 ml/min Estimated GFR > 60 (59 - ) Glucose 114 H (65-110) mg/dL Calcium 9.2 (8.4-10.2) mg/dL Total Bilirubin 3.6 H (0.2-1.3) mg/dL AST 55 H (14-36) U/L ALT 33 (6-35) U/L Alkaline Phosphatase 110 (38-126) U/L Troponin I 0.013 < 0.012 (0.000-0.034) ng/mL Total Protein 7.9 (6.3-8.2) g/dL Albumin 4.1 (3.5-5.1) g/dL Lipase 93 (23-300) U/L <Husam Smith MD - Last Filed: 10/26/24 03:53> Lab Results 10/25/24 10/25/24 Range/Units 04:39 08:38 WBC 5.2 (4.5-10.0) K/mm3 RBC 5.38 (4.2-5.4) M/mm3 Hgb 15.0 D (12.0-15.0) g/dL Hct 44.6 (37.0-47.0) % MCV 82.9 (80-100) fl MCH 27.9 (26-34) pg MCHC 33.6 (32-36) g/dl RDW 15.6 H (11.5-14.5) % Plt Count 61 L (150-375) k/mm3 MPV 9.9 (7.4-10.4) fl Immature Gran % (Auto) 0.2 (0-0.5) % Neut % (Auto) 68.3 (45.5-73.1) % Lymph % (Auto) 19.1 (18.3-44.2) % [place] % (Auto) 10.7 H (2.6-8.5) % Eos % (Auto) 1.1 (0-4.4) % Baso % (Auto) 0.6 (0.2-1.2) % Lymph # (Auto) 1.00 (0.9-3.2) K/mm3 [place] # (Auto) 0.6 (0.1-0.6) K/mm3 Eos # (Auto) 0.1 (0-0.3) K/mm3 Baso # (Auto) 0.0 (0.0-0.1) K/mm3 Abs Immat Gran (auto) 0.01 (0.00-0.031) K/mm3 Absolute Neuts (auto) 3.6 (1.3-6.7) K/mm3 Absolute Nucleated RBC 0.000 (0.0-0.012) K/mm3 Band Neutrophils % Not Reportable Nucleated RBC % 0.0 (0.0-0.2) % Atypical Lymphocytes Present Platelet Estimate Decreased (Adequate) % Immature Plt Fraction 2.5 (0.9-11.2) % Anisocytosis 1+ Ovalocytes Occasional Schistocytes None seen PT 17.0 H (11.1-14.7) Seconds INR 1.4 APTT 31.9 (22.3-36.8) Seconds Sodium 135 L (137-145) mmol/L Potassium 4.1 (3.4-5.0) mmol/L Chloride 105 (98-107) mmol/L Carbon Dioxide 23 (22-30) mmol/L Anion Gap 7 (4-12) mmol/L BUN 23 H D (7-17) mg/dL Creatinine 0.98 (0.7-1.0) mg/dL Estim Creat Clear Calc 68 ml/min Estimated GFR > 60 (59 - ) Glucose 114 H (65-110) mg/dL Calcium 9.2 (8.4-10.2) mg/dL Total Bilirubin 3.6 H (0.2-1.3) mg/dL AST 55 H (14-36) U/L ALT 33 (6-35) U/L Alkaline Phosphatase 110 (38-126) U/L Troponin I 0.013 < 0.012 (0.000-0.034) ng/mL Total Protein 7.9 (6.3-8.2) g/dL Albumin 4.1 (3.5-5.1) g/dL Lipase 93 (23-300) U/L <Kelsey Pratt MD - Last Filed: 10/25/24 10:00> Discharge Plan Discharge Clinical Impression: Chest pain, Methamphetamine use <Husam Smith MD - Last Filed: 10/26/24 03:53> Patient Disposition: Home <Husam Smith MD - Last Filed: 10/26/24 03:53> Condition: Stable <Husam Smith MD - Last Filed: 10/26/24 03:53> Instructions: Antibiotic Form, Chest Pain (ED), Methamphetamine Use Disorder (ED) <Husam Smith MD - Last Filed: 10/26/24 03:53> Additional Instructions: Continue taking your medications as prescribed. Follow-up with your primary care provider. Your workup in the emergency department was reassuring in regards to your EKG, chest x-ray, and labs including 2 normal troponins (cardiac enzymes). Try to abstain from methamphetamine use. Return with any new or worsening symptoms. <Husam Smith MD - Last Filed: 10/26/24 03:53> Patient Language: Bahamian <Husam Smith MD - Last Filed: 10/26/24 03:53> Prescriptions: No Action furosemide 20 mg Tablet 20 mg PO DAILY Qty: 30 0RF spironolactone [Aldactone] 50 mg Tablet 50 mg PO QAM Qty: 30 0RF propranolol 60 mg capsule,extended release 24 hr 60 mg PO DAILY ferrous sulfate 325 mg (65 mg iron) tablet 325 mg PO DAILY metformin 500 mg tablet extended release 24 hr 500 mg PO DAILY cholecalciferol (vitamin D3) 1,250 mcg (50,000 unit) capsule 1,250 mcg PO WEEKLY Rx Instructions: saturday midodrine 2.5 mg tablet 2.5 mg PO BID Qty: 10 0RF Rx Instructions: do not give last dose of day after 6PM or within 4 hrs of bedtime meclizine 12.5 mg tablet 6.25 mg PO TID PRN (Reason: dizziness) Qty: 7 0RF <Husam Smith MD - Last Filed: 10/26/24 03:53> Follow-up/Referrals: Balwinder,KRISH Zepeda [Primary Care Provider, Unknown] <Husam Smith MD - Last Filed: 10/26/24 03:53> Stand Alone Forms: Work/School Release IP <Husam Smith MD - Last Filed: 10/26/24 03:53> Time of Disposition: 09:30 <Husam Smith MD - Last Filed: 10/26/24 03:53> 09:30 <Kelsey Pratt MD - Last Filed: 10/25/24 10:00>
[2024-10-25 07:00] VITALS: BP 131/74; PULSE 95; RESP 18; O2SAT 98
--- NOTE | 2024-10-25 07:18 | PC.NURSE ---
Assumed care of pt. Pt sleeping. Per Giovanna, pt does not need a urine
[2024-10-25 07:43] VITALS: BP 114/70; PULSE 95; RESP 20
--- NOTE | 2024-10-25 08:24 | ECG_ITS ---
Test Date: 2024-10-25 08:30:25 Measurements Intervals [place] Rate: 92 P: 76 ND: 166 QRS: 122 QRSD: 104 T: 30 QT: 332 QTc: 412 Interpretive Statements SINUS RHYTHM POSSIBLE RIGHT ATRIAL ENLARGEMENT [0.25mV P-WAVE] POSSIBLE LEFT ATRIAL ENLARGEMENT [-0.1mV P-WAVE IN V1/V2] INCOMPLETE RIGHT BUNDLE BRANCH BLOCK [90+ ms QRS DURATION, TERMINAL R IN V1/V2, 40+ ms S IN I/aVL/V4/V5/V6] RIGHT VENTRICULAR HYPERTROPHY [SOME/ALL OF: PROMINENT R IN V1, LATE TRANSITION, RAD, GERALD, SSS] NONSPECIFIC ST & T-WAVE ABNORMALITY ABNORMAL ECG Compared to ECG 10/25/2024 04:22:52 Right-axis deviation no longer present T-wave abnormality still present Electronically Signed On 10-25-2024 09:49:40 CDT by Calixto Franco M.D.
[2024-10-25 09:20] LABS: Troponin I < 0.012 ng/mL (0.000-0.034)
== END 2024-10-25 10:18 | disposition home or self-care (01) ==
PROVIDERS: Emergency Medicine; Emergency Provider Student in an Organized Health Care Education/Training Program; PCP Physician Assistant Medical
DX: R07.9 Chest pain, unspecified (principal); F15.90 Other stimulant use, unspecified, uncomplicated; F17.290 Nicotine dependence, other tobacco product, uncomplicated; R94.31 Abnormal electrocardiogram [ECG] [EKG]
CPT/HCPCS: 36415; 71045; 80053; 83690; 84484; 85025; 85055; 85610; 85730; 93005; 99284